=== PATIENT | female | born 1965 | race Caucasian/White ===

== ENCOUNTER 2019-03-30 08:43 | Outpatient (CLI) | payer OTHER, SELFPAY ==
--- NOTE | ~2019-03-30 | MM_ITS ---
EXAMINATION: MM screening [place] BI w cheng HISTORY: Screening TECHNIQUE: Craniocaudal and mediolateral oblique 3-D tomosynthesis images were obtained and synthetic 2-D images were generated. CAD analysis was submitted and interpreted. COMPARISON: 07/24/2017 bilateral digital screening mammogram BREAST PARENCHYMAL COMPOSITION: There are scattered areas of fibroglandular density. FINDINGS: There is no evidence of suspicious mass, calcification, or architectural distortion to sugg est malignancy in either breast. There has been no suspicious interval change. IMPRESSION: 1. No mammographic evidence of malignancy. 2. Recommend routine screening mammography in one year. BI-RADS Category 1: Negative Reviewed, dictated and finalized at location A. ON BRADDER
--- NOTE | ~2019-03-30 | DEXA_ITS ---
Bone Density Report Name: Kristy Rausch Age: 53 Sex: Female Ethnicity: White Date of : 1965 Indication: osteopenia; Referring Provider: Rito, [facility] Study: Bone densitometry was performed. Exam Date: March 30, 2019 Accession number: [id number] Bone Density: Region BMD T-score Z-score Classification AP Spine (L1, L2, L3) 0.797 -2.0 -1.0 Osteopenia Femoral Neck (Left) 0.676 -1.6 -0.5 Osteopenia Total Hip (Left) 0.801 -1.2 -0.5 Osteopenia Total Hip Bilateral Avg 0.808 -1.1 -0.5 Osteopenia Femoral Neck (Right) 0.637 -1.9 -0.9 Osteopenia Total Hip (Right) 0.814 -1.0 -0.4 Normal World Health Organization criteria for BMD impression classify patients as: Normal (T-score at or above -1.0), Osteopenia (T-score between -1.0 and -2.5), or Osteoporosis (T-score at or below -2.5). 10-year Fracture Risk(1): Major Osteoporotic Fracture 6.6% Hip Fracture 0.6% Reported Risk Factors: [place] (), Neck BMD=0.637, BMI=34.3 (1) FRAX(R) Version 3.08. Fracture probability calculated for an untreated patient. Fracture probability may be lower if the patient has received treatment. Previous Exams: Region Exam Age BMD T-score BMD Change BMD Change Date g/cm2 vs Baseline vs Previous AP Spine(L1, L2, L3) 03/30/2019 53 0.797 -2.0 -0.039(-4.7%)* -0.039(-4.7%)* 07/24/2017 51 0.836 -1.7 Total Hip(Left) 03/30/2019 53 0.801 -1.2 -0.047(-5.5%)* -0.047(-5.5%)* 07/24/2017 51 0.848 -0.8 Total Hip(Right) 03/30/2019 53 0.814 -1.0 -0.034(-4.0%)* -0.034(-4.0%)* 07/24/2017 51 0.848 -0.8 *Denotes significance at 95% confidence level, LSC for AP Spine = 0.022 g/cm2, LSC for Total Hip = 0.027 g/cm2 Clinical Information Provided by Patient: Patient maximum height was 64 Menopause Age: 48 No regular weight bearing exercise Does not regularly consume dairy products Drinks caffeinated beverages Onset of menses at age 11 Number of children 2 Impression: The patient has low bone mass, based on the Total Spine T-score. The patient has an estimated ten-year risk of hip fracture of 0.6% and an estimated ten-year risk of major fracture of 6.6%, based on the WHO FRAX algorithm. The BMD for the AP Spine(L1, L2, L3) decreased, changing by -4.7% since the last DXA exam. The BMD for the Total Hip(Left) decreased, changing by -5.5% since the last DXA exam. The BMD for the Total Hip(Right) decreased, changing by -4.0% since the last DXA exam. Dis
== END 2019-03-30 08:44 | disposition home or self-care (01) ==
LOC: ANHIMG 08:48
PROVIDERS: PCP Family Medicine; Visit Provider Family Medicine
DX: Z12.31 Encounter for screening mammogram for malignant neoplasm of breast (principal); N95.1 Menopausal and female climacteric states; M85.88 Other specified disorders of bone density and structure, other site; M85.852 Other specified disorders of bone density and structure, left thigh; M85.851 Other specified disorders of bone density and structure, right thigh
CPT/HCPCS: 77063; 77067; 77080

== ENCOUNTER 2019-09-22 15:02 | Outpatient (CLI) | payer OTHER, SELFPAY ==
--- NOTE | ~2019-09-22 | CT_ITS ---
EXAMINATION: CT abdomen pelvis wo con DATE: 09/22/2019 15:33 INDICATION: Hydronephrosis TECHNIQUE: Computed tomography (CT) of the abdomen and pelvis was performed without intravenous contr ast. Automated exposure control and iterative reconstruction technique were employed. Exam dose: 779 .55 mGy-cm total exam DLP. COMPARISON: 01/03/2011 CT renal scan FINDINGS: The lung bases are clear. Normal heart size. No pericardial or pleural effusion. The liver, gallbladder, bile ducts, spleen, pancreas, pancreatic duct, and adrenal glands are unremar kable. There are several nonobstructing left renal stones, including an approximately 5 mm nonobstructing up per pole left renal calculus, 5 mm nonobstructing lower pole left renal calculus and a pinpoint mid t o upper left renal calculus. No right urinary tract calculus. No left or right ureteral calculus or hydroureteronephrosis. The uri nary bladder is unremarkable. Approximately 3 cm left ovarian cystic lesion is noted. Evidence of bilateral tubal ligation. The [place] appears unremarkable. Normal caliber of the abdominal aorta. No intraperitoneal or retroperitoneal or pelvic mass lesion or adenopathy or ascites. There are diverticula of left and right colon; no CT evidence of diverticulitis. No bowel wall [place] or pneumatosis or intraperitoneal free air. Grade 2 anterolisthesis at L4-5 with posterior spinal fusion by pedicle screws and rods at L4-5. IMPRESSION: Nonobstructive left nephrolithiasis 3 cm nonspecific left ovarian cystic lesion; consider pelvic ultrasound correlation Status post bilateral tubal ligation Diverticulosis of the colon; no CT evidence of diverticulitis Status post posterior spinal fusion at L4-5 Grade 2 anterolisthesis at L4-5 Reviewed, dictated and finalized at Location A. Reviewed, dictated and finalized at location B. IMPRESSION: Nonobstructive left nephrolithiasis 3 cm nonspecific left ovarian cystic lesion; consider pelvic ultrasound correla tion Status post bilateral tubal ligation Diverticulosis of the colon; no CT evidence of diverticulitis Status post posterior spinal fusion at L4-5 Grade 2 anterolisthesis at L4-5
== END 2019-09-22 15:03 | disposition home or self-care (01) ==
PROVIDERS: PCP Family Medicine
DX: N20.0 Calculus of kidney (principal); N83.202 Unspecified ovarian cyst, left side; K57.30 Diverticulosis of large intestine without perforation or abscess without bleeding; Z98.1 Arthrodesis status
CPT/HCPCS: 74176

== ENCOUNTER 2019-10-19 10:42 | Outpatient (CLI) | payer OTHER, SELFPAY ==
[2019-10-19 12:18] LABS: Basophils Percent Auto 0.6 % (0.2-1.2); Eosinophils Absolute Auto 0.3 K/mm3 (0-0.3); Eosinophils Percent Auto 5.1 % (0-4.4); Hematocrit 35.2 % (37.0-47.0); Hemoglobin 11.8 g/dL (12.0-15.0); Immature Granulocyte Absolute 0.01 K/mm3 (0.00-0.031); Immature Granulocyte Percent A 0.2 % (0-0.5); Lymphocytes Percent Auto 46.8 % (18.3-44.2); Mean Corpuscular HGB Conc 33.5 g/dl (32-36); Mean Corpuscular Hemoglobin 32.3 pg (26-34); Mean Corpuscular Volume 96.4 fl (80-100); Mean Platelet Volume 9.6 fl (7.4-10.4); Monocytes Absolute Auto 0.5 K/mm3 (0.1-0.6); Neutrophils Absolute Auto 2.1 K/mm3 (1.3-6.7); Neutrophils Percent Auto 38.3 % (45.5-73.1); Platelet Count Result 202 k/mm3 (150-375); Red Blood Count 3.65 M/mm3 (4.2-5.4); Red Cell Distribution Width 12.5 % (11.5-14.5); White Blood Count 5.3 K/mm3 (4.5-10.0)
[2019-10-19 12:32] LABS: Anion Gap 7 mmol/L (8-16); Blood Urea Nitrogen 9 mg/dL (7-17); Calcium 9.3 mg/dL (8.4-10.2); Carbon Dioxide 27 mmol/L (22-30); Chloride 104 mmol/L (98-107); Estimated Glomerular Filt Rate > 60; Glucose 84 mg/dL (65-105); Potassium 4.2 mmol/L (3.4-5.0); Sodium 138 mmol/L (137-145)
[2019-10-19 12:37] LABS: Add Urine Microscopic? NO; Appearance Urine Clear (Clear); Bilirubin Urine Negative (Negative); Blood Urine Negative (Negative); Color Urine Yellow (Yellow); Glucose Urine UA Negative (Negative); Ketones Urine Negative (Negative); Leukocyte Esterase Ur Negative LEU/UL (NEGATIVE); Nitrate Urine Negative (Negative); Protein Urine Negative (Negative); Specific Grav Ur 1.017 (1.001-1.035); Urobilinogen Urine Negative mg/dL (<2.0)
== END 2019-10-19 10:43 | disposition home or self-care (01) ==
DX: N13.30 Unspecified hydronephrosis (principal); Z01.818 Encounter for other preprocedural examination
CPT/HCPCS: 36415; 80048; 81003; 85025; 87086

== ENCOUNTER 2020-04-02 12:51 | Emergency (ER) | payer OTHER, SELFPAY ==
--- NOTE | ~2020-04-02 | CT_ITS ---
EXAMINATION: CT abdomen pelvis w con DATE: 04/02/2020 14:35 INDICATION: Right flank pain. History of kidney stones. TECHNIQUE: Computed tomography (CT) of the abdomen and pelvis was performed with 100 cc Omnipaque 350 intravenous contrast. Automated exposure control and iterative reconstruction technique were employe d. Exam dose: 964.82 mGy-cm total exam DLP. COMPARISON: 09/22/[address] abdomen pelvis FINDINGS: Occasional stable very small nodular densities at the lung bases compared to 09/22/2019. The lung bases are clear of infiltrate or consolidation. Normal heart size. No pericardial or pleural effusion. The liver, gallbladder, bile ducts, spleen, pancreas, pancreatic duct and adrenal glands are unremark able. Several right renal cysts, the largest approximately 1.5 cm dimension. Several probable left renal cy st measuring up to approximately 8 mm maximal dimension. No urinary tract calculus or hydroureteronephrosis. There is atherosclerotic calcification of the abdominal aorta and at the origins of the renal arterie s. No abdominal aortic aneurysm. No intraperitoneal or retroperitoneal or pelvic mass lesion or adeno ann-marie or ascites. There is a small sliding hiatal hernia. Diverticulosis of left and right colon no CT evidence of diverticulitis. No bowel obstruction, bowel wall thickening, pneumatosis or intraperitoneal free air. The uterus and urinary bladder are unremarkable. Approximately 3.2 cm left ovarian cyst. Small fat-containing umbilical hernia. Status post posterior spinal fusion at L4-5. There is grade 2 anterolisthesis at L4-5. IMPRESSION: No urinary tract calculus or hydroureteronephrosis Small sliding hiatal hernia Diverticulosis of left and right colon Bilateral renal cysts 3.2 cm left ovarian cyst Reviewed, dictated and finalized at Location A. Reviewed, dictated and finalized at location A. LEADER
[2020-04-02 12:55] VITALS: BP 122/64; PULSE 81; RESP 20; TEMP 36.3; O2SAT 100
--- NOTE | 2020-04-02 13:12 | ED.ABDPAIN ---
HPI - Abdominal Pain General Chief Complaint: Abdominal Pain Stated Complaint: right flank pain Time Seen by Provider: 04/02/20 13:01 Source: patient Mode of arrival: ambulatory Limitations: no limitations History of Present Illness HPI narrative: A 54-year-old female comes into the emergency department today with complaints of right flank pain. Patient states that it does not radiate. She states that its been going on since yesterday and has escalated. Patient denies any associated symptoms including nausea, vomiting, fever or chills. She denies any radiation of the pain. Patient states that it is a sharp stabbing pain. She has been using a heating pad with minimal relief. Related Data Allergies Allergy/AdvReac Type Severity Reaction Status Date / Time Sulfa (Sulfonamide Allergy Mild Rash Verified 04/02/20 12:57 Antibiotics) morphine Allergy Unknown Nausea and Verified 04/02/20 12:57 Vomiting Review of Systems Review of Systems: Narrative: CONSTITUTIONAL: Denies fever, chills, or sweats. EYES: Denies visual changes, redness, or discharge. ENT: Denies rhinorrhea, congestion, sore throat, or otalgia. CARDIOVASCULAR: Denies chest pain, palpitations, or edema. RESPIRATORY: Denies cough or dyspnea. GASTROINTESTINAL: Denies abdominal pain, nausea, vomiting, or diarrhea. GENITOURINARY: Denies dysuria or hematuria. SKIN: Denies rash or itching. MUSCULOSKELETAL: Denies back pain, joint pain, or myalgia. NEUROLOGIC: Denies headache, numbness, dizziness, or weakness. PSYCHIATRIC: Denies anxiety or depression. [facility] Social History Social History Gender identity (if verbalized by the patient): Female Exam Narrative: Exam Narrative: GENERAL: Well-appearing, well-nourished, and in no acute distress. HEAD: Normocephalic, atraumatic. EYES: PERRLA and EOMI. ENT: Nares clear, no rhinorrhea or epistaxis. Mucous membranes moist. Oropharynx without tonsillar hypertrophy exudate or other lesions. Bilateral TMs [place] nonbulging NECK: Supple. No adenopathy or masses. No carotid bruits or JVD CHEST: Clear to auscultation. No respiratory distress. No wheezes rales or rhonchi HEART: Regular rate and rhythm. No murmur heard. Normal peripheral pulses. ABDOMEN: Soft, nontender, nondistended, normal active bowel sounds. TTP at the right lower ribs in the midaxillary line. EXTREMITIES: Normal range of motion. No edema. SKIN: Warm, dry, no rash. NEURO: No focal deficits. Alert and oriented x3. PSYCH: Normal mood and affect. Course Reevaluation(s) Reevaluation #1: Patient resting comfortably at this time. She states that her pain has improved but is definitely still there. Closer inspection does show pain specifically within the 10th or 11th ribs in the midaxillary line. Explained to the patient that I feel that this may be an intercostal spasm as her CT and blood work have been benign. We will treat patient with muscle relaxers and anti-inflammatories. Time: 14:59 Vital Signs Vital signs: Vital Signs Temperature 36.3 C L 04/02/20 12:55 Pulse Rate 81 04/02/20 12:55 Respiratory Rate 20 04/02/20 12:55 Blood Pressure 122/64 04/02/20 12:55 Pulse Oximetry 100 04/02/20 12:55 Temperature 36.3 C L 04/02/20 12:55 Pulse Rate 81 04/02/20 12:55 Respiratory Rate 20 04/02/20 12:55 Blood Pressure 122/64 04/02/20 12:55 Pulse Oximetry 100 04/02/20 12:55 MDM - Abdominal Pain MDM Narrative Medical decision making narrative: In brief this 54-year-old female came into the emergency department today with complaints of right flank pain. Initial suspicion was for biliary colic, other biliary issues or kidney stone. Patient CT did not demonstrate any findings. Closer examination showed tenderness within the intercostal ribs in the midaxillary line on the right. Feel the patient may be having intercostal muscular spasm. She did note that it did seem to get wo
[2020-04-02 13:26] LABS: Basophils Percent Auto 0.6 % (0.2-1.2); Eosinophils Absolute Auto 0.2 K/mm3 (0-0.3); Eosinophils Percent Auto 3.9 % (0-4.4); Hematocrit 35.9 % (37.0-47.0); Hemoglobin 12.1 g/dL (12.0-15.0); Immature Granulocyte Absolute 0.01 K/mm3 (0.00-0.031); Immature Granulocyte Percent A 0.2 % (0-0.5); Lymphocytes Absolute Auto 2.11 K/mm3 (0.9-3.2); Lymphocytes Percent Auto 43.2 % (18.3-44.2); Mean Corpuscular HGB Conc 33.7 g/dl (32-36); Mean Corpuscular Hemoglobin 32.3 pg (26-34); Mean Corpuscular Volume 95.7 fl (80-100); Monocytes Absolute Auto 0.4 K/mm3 (0.1-0.6); Neutrophils Absolute Auto 2.2 K/mm3 (1.3-6.7); Neutrophils Percent Auto 44.1 % (45.5-73.1); Platelet Count Result 192 k/mm3 (150-375); Red Blood Count 3.75 M/mm3 (4.2-5.4); Red Cell Distribution Width 12.7 % (11.5-14.5); White Blood Count 4.9 K/mm3 (4.5-10.0)
[2020-04-02 13:31] LABS: Add Urine Microscopic? NO; Appearance Urine Clear (Clear); Bacteria Urine 1+ /hpf; Bilirubin Urine Negative (Negative); Blood Urine Negative (Negative); Color Urine Straw (Yellow); Glucose Urine UA Negative (Negative); Ketones Urine Negative (Negative); Leukocyte Esterase Ur Negative LEU/UL (Negative); Mucus Urine Rare /lpf; Nitrate Urine Negative (Negative); Protein Urine Negative (Negative); RBC Urine 0-2 /hpf (0-2); Specific Grav Ur 1.011 (1.001-1.035); Squamous Epithelial Cell Urine Many /hpf (Few); Urobilinogen Urine Negative mg/dL (<2.0); WBC Urine 0-3 /hpf
[2020-04-02 13:38] LABS: Alanine Aminotransferase 24 U/L (4-35); Albumin Level 4.2 g/dL (3.5-5.1); Alkaline Phosphatase 91 U/L (38-126); Anion Gap 7 mmol/L (8-16); Aspartate Amino Transferase 29 U/L (14-36); Bilirubin,Total 0.5 mg/dL (0.2-1.3); Blood Urea Nitrogen 13 mg/dL (7-17); Calcium 9.7 mg/dL (8.4-10.2); Carbon Dioxide 29 mmol/L (22-30); Chloride 105 mmol/L (98-107); Estimated CRCL calculation 61 ml/min; Estimated Glomerular Filt Rate 58; Glucose 138 mg/dL (65-105); Lipase 46 U/L (23-300); Potassium 3.9 mmol/L (3.4-5.0); Sodium 141 mmol/L (137-145)
[2020-04-02] MEDS: HYDROcodone/acetaminophen (*CRX) 5-325 MG TABLET 1 TAB PO (13:42)
[2020-04-02] MEDS: ONDANSETRON INJ 4 MG/2 ML VIAL IV PUSH (13:43)
[2020-04-02] MEDS: KETOROLAC 15 MG/ML VIAL (*BKC) IV PUSH (13:43)
== END 2020-04-02 15:38 | disposition home or self-care (01) ==
PROVIDERS: General Practice; Emergency Provider Emergency Medicine; PCP Family Medicine
DX: R07.82 Intercostal pain (principal); N83.202 Unspecified ovarian cyst, left side; N28.1 Cyst of kidney, acquired; K44.9 Diaphragmatic hernia without obstruction or gangrene
CPT/HCPCS: 36415; 74177; 80053; 81003; 81025; 83690; 85025; 96374; 96375; 99284; A9270; J1885; J2405; Q9967

== ENCOUNTER 2020-05-17 08:47 | Outpatient (CLI) | payer OTHER, SELFPAY ==
--- NOTE | ~2020-05-17 | MM_ITS ---
EXAMINATION: MM screening [place] BI w [facility]heng HISTORY: Screening mammogram TECHNIQUE: Craniocaudal and mediolateral oblique 3-D tomosynthesis images were obtained and synthetic 2-D images were generated. CAD analysis was submitted and interpreted. COMPARISON: 03/30/2019, 07/24/2017 BREAST PARENCHYMAL COMPOSITION: There are scattered areas of fibroglandular density. FINDINGS: There is no evidence of suspicious mass, calcification, or architectural distortion to sugg est malignancy in either breast. There has been no suspicious interval change. IMPRESSION: 1. No mammographic evidence of malignancy. 2. Recommend routine screening mammography in one year. BI-RADS Category 1: Negative Reviewed, dictated and finalized at location A.
== END 2020-05-17 08:48 | disposition home or self-care (01) ==
LOC: ANHIMG 08:51
PROVIDERS: PCP Family Medicine; Visit Provider Family Medicine
DX: Z12.31 Encounter for screening mammogram for malignant neoplasm of breast (principal)
CPT/HCPCS: 77063; 77067

== ENCOUNTER 2020-06-01 09:46 | Outpatient (CLI) | payer OTHER, SELFPAY | END 2020-06-01 09:47 | disposition home or self-care (01) | LOC: ANHCOVIDVC 09:46 | PROVIDERS: PCP Family Medicine | DX: Z23 Encounter for immunization (principal) | CPT/HCPCS: 0001A; 91300 ==

== ENCOUNTER 2020-06-27 13:12 | Outpatient (CLI) | payer OTHER, SELFPAY | END 2020-06-27 13:13 | disposition home or self-care (01) | LOC: ANHCOVIDVC 13:12 | PROVIDERS: PCP Family Medicine | DX: Z23 Encounter for immunization (principal) | CPT/HCPCS: 0002A; 91300 ==

== ENCOUNTER 2020-09-04 08:00 | Outpatient (CLI) | payer OTHER, SELFPAY ==
[2020-09-04 08:50] LABS: Basophils Percent Auto 0.9 % (0.2-1.2); Eosinophils Absolute Auto 0.2 K/mm3 (0-0.3); Eosinophils Percent Auto 3.3 % (0-4.4); Hematocrit 39.9 % (37.0-47.0); Hemoglobin 12.6 g/dL (12.0-15.0); Immature Granulocyte Absolute 0.01 K/mm3 (0.00-0.031); Immature Granulocyte Percent A 0.2 % (0-0.5); Lymphocytes Percent Auto 43.8 % (18.3-44.2); Mean Corpuscular HGB Conc 31.6 g/dl (32-36); Mean Corpuscular Hemoglobin 31.7 pg (26-34); Mean Corpuscular Volume 100.3 fl (80-100); Mean Platelet Volume 10.2 fl (7.4-10.4); Monocytes Absolute Auto 0.5 K/mm3 (0.1-0.6); Monocytes Percent Auto 10.5 % (2.6-8.5); Neutrophils Absolute Auto 1.9 K/mm3 (1.3-6.7); Neutrophils Percent Auto 41.3 % (45.5-73.1); Platelet Count Result 198 k/mm3 (150-375); Red Blood Count 3.98 M/mm3 (4.2-5.4); Red Cell Distribution Width 12.7 % (11.5-14.5); White Blood Count 4.6 K/mm3 (4.5-10.0)
[2020-09-04 08:57] LABS: Cholesterol 140 mg/dL (0-200); HDL Direct 36 mg/dL; Triglycerides 122 mg/dL (<150)
[2020-09-04 09:08] LABS: LDL Cholesterol Direct 70 mg/dL
== END 2020-09-04 08:01 | disposition home or self-care (01) ==
LOC: ANHLAB 08:03
PROVIDERS: PCP Family Medicine; Visit Provider Family Medicine
DX: E11.9 Type 2 diabetes mellitus without complications (principal); E78.5 Hyperlipidemia, unspecified; D64.9 Anemia, unspecified
CPT/HCPCS: 36415; 80061; 83036; 85025

== ENCOUNTER 2020-09-12 08:29 | Outpatient (CLI) | payer OTHER, SELFPAY ==
--- NOTE | ~2020-09-12 | XR_ITS ---
EXAMINATION: XR hand LT min 3V INDICATION: Left fifth finger fracture follow-up TECHNIQUE: Three views of the left hand are obtained. COMPARISON: None available FINDINGS: No definite fracture or periosteal reaction are identified. There is mild osteoarthritis of multiple interphalangeal joints. Bone alignment is normal. The soft tissues are unremarkable. IMPRESSION: 1. No definite acute or healing fracture identified. Reviewed, dictated and finalized at location A.
== END 2020-09-12 08:30 | disposition home or self-care (01) ==
LOC: ANHIMG 08:33
PROVIDERS: PCP Family Medicine; Visit Provider Family Medicine
DX: M79.642 Pain in left hand (principal)
CPT/HCPCS: 73130

== ENCOUNTER 2021-05-22 08:16 | Outpatient (CLI) | payer OTHER, SELFPAY ==
--- NOTE | ~2021-05-22 | MR_ITS ---
EXAMINATION: MR wrist LT wo con DATE: 05/22/2021 09:34 INDICATION: Left wrist pain TECHNIQUE: Magnetic resonance imaging (MRI) of the left wrist was performed without intravenous contr ast. Sequences performed include axial PD-weighted FSE and PD-weighted FS FSE, coronal PD-weighted FS FSE and T1-weighted SE, and sagittal PD-weighted FS FSE and PD-weighted FSE. COMPARISON: None FINDINGS: Intrinsic ligaments: The scapholunate and lunotriquetral ligaments are normal. Triangular fibrocartilage complex (TFCC): Linear increased signal consistent with tear involving the central fiber cartilaginous portion of the triangular fibrocartilage complex. The radial, foveal and ulnar styloid attachments of the triangula r fibrocartilage complex as well as the dorsal and volar radioulnar ligaments are normal. The ulnar c ollateral ligament, ulnotriquetral ligament and meniscal homologue are normal. The extensor carpi uln conchita tendon sheath is normal. Extensor wrist: Extensor tendons of the wrist are normal. No tenosynovitis. Flexor wrist: The flexor tendons of the wrist are normal. No abnormality in the carpal tunnel with normal median n erve. Guyon's canal: Guyon's canal including the ulnar nerve and artery are normal. Bones/other: Bone alignment is normal. No fracture, erosions, avascular necrosis or pathologic marrow replacing pr ocess. Mild osteoarthritis at the triscaphe joint with deep chondral ulceration with mild underlying subarticular edema-like marrow signal change at the distal pole of the scaphoid. Mild osteoarthritis at the first carpometacarpal joint with small ossicle at the palmar aspect of the joint space. Multil oculated ganglion cyst along the ulnar side of the pisiform which measures 8 x 4 x 6 mm and immediate ly underlies the marker indicating the region of concern. There are a couple additional ganglion cyst s measuring 8 x 5 x 3 mm along the proximal margin of the pisiform and 7 x 6 x 4 mm along the distal margin of the pisiform. All appear to arise from the pisotriquetral articulation. IMPRESSION: 1. Small tear of the central fibrocartilaginous disc of the triangular fiber cartilage complex. 2. Mild osteoarthritis of the left triscaphe and first carpal metacarpal joints. 3. 3 small ganglion cysts arising from the pisotriquetral articulation positioned along the proximal, distal and ulnar margins of the pisiform. Reviewed, dictated and finalized at location B. IMPRESSION: 1. Small tear of the central fibrocartilaginous disc of the triangular fiber ca rtilage complex. 2. Mild osteoarthritis of the left triscaphe and first carpal metacarpal joints . 3. 3 small ganglion cysts arising from the pisotriquetral articulation position ed along the proximal, distal and ulnar margins of the pisiform.
== END 2021-05-22 08:17 | disposition home or self-care (01) ==
PROVIDERS: PCP Family Medicine; Visit Provider Orthopaedic Surgery Hand Surgery
DX: M19.032 Primary osteoarthritis, left wrist (principal)
CPT/HCPCS: 73221

== ENCOUNTER 2021-07-03 09:06 | Outpatient (CLI) | payer OTHER, SELFPAY ==
--- NOTE | ~2021-07-03 | MR_ITS ---
EXAMINATION: MR knee RT wo con DATE: 07/03/2021 09:46 INDICATION: Right knee pain TECHNIQUE: Magnetic resonance imaging (MRI) of the right knee was performed without intravenous contr ast. Sequences included coronal PD-weighted FSE, coronal PD-weighted FS FSE, sagittal T2-weighted FS E, sagittal PD-weighted FS FSE and axial PD weighted fat saturated FSE. COMPARISON: None. FINDINGS: Medial compartment: Complex tear of the body and posterior horn of the medial meniscus both which appear smaller than typ ical consistent with some loss of meniscal tissue. The tear includes a radial tear plane at the junct ion of the posterior horn and posterior body with additional tear planes extending longitudinally fro m either side of the radial tear into the posterior horn and body extensive partial thickness cartila ge loss along the anteromedial aspect of the medial tibial plateau and anterior to central weightbear ing medial femoral condyle. More focal full/near full-thickness chondral ulceration with underlying c ortical irregularity and subarticular edema-like marrow signal change along the anterior weightbearin g medial femoral condyle. Lateral compartment: Lateral meniscus is normal. Progression chondral swelling along the anterior weightbearing lateral fe moral condyle with focal chondral fissuring involving approximately 50% the cartilage thickness at th e junction of the anterior to central weightbearing lateral femoral condyle. Additional for near full -thickness chondral fissuring without degenerative subchondral changes at the medial aspect of the la teral tibial plateau. Patellofemoral compartment: Partial-thickness chondral ulceration involving greater than 50% the cartilage thickness along the me dial side of the lateral patellar facet. Full/near full-thickness chondral fissuring without degenera tive subchondral changes at the lateral aspect of the lateral patellar facet and at the medial facet. Shallow chondral ulceration along the trochlear groove and lateral trochlea with deeper fissuring wi thout degenerative subchondral changes at the inferior aspect of the lateral trochlea. Ligaments and tendons: Mild hypertrophic osteophyte at the femoral origin of the otherwise normal anterior cruciate ligament . The posterior cruciate ligament is normal. Mild thickening and mild increased signal at both the pr oximal medial and fibular collateral ligaments without surrounding edema consistent with mild scarrin g related to chronic sprain. The extensor mechanism is normal. The visualized medial and lateral ham string tendons as well as the iliotibial band are normal. Fluid: Minimal right knee joint effusion. No loose osteochondral bodies identified. Moderate-sized Balderrama's c yst measuring 6.1 cm in length and 2.0 x 1.3 cm in maximal orthogonal dimensions. Osseous/other: Mild cystic change with minimal surrounding edema in the proximal tibia near the tibial insertion of both the posterior cruciate ligament and posterior root of the medial meniscus. No fracture or pathol ogic marrow replacing process. IMPRESSION: 1. Complex tear of the medial meniscus. 2. 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 3. Mild scarring consistent with chronic sprains of the proximal medial and fibular collateral ligame nts. 4. Moderate-sized Balderrama's cyst. Reviewed, dictated and finalized at location A. IMPRESSION: 1. Complex tear of the medial meniscus. 2. 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
== END 2021-07-03 09:07 | disposition home or self-care (01) ==
PROVIDERS: PCP Family Medicine; Visit Provider Nurse Practitioner
DX: S83.231A Complex tear of medial meniscus, current injury, right knee, initial encounter (principal); X58.XXXA Exposure to other specified factors, initial encounter; M71.21 Synovial cyst of popliteal space [Baker], right knee; M17.11 Unilateral primary osteoarthritis, right knee
CPT/HCPCS: 73721

== ENCOUNTER 2021-07-30 10:19 | Outpatient (CLI) | payer OTHER, SELFPAY ==
--- NOTE | ~2021-07-30 | MM_ITS ---
EXAMINATION: MM screening [facility] BI w cheng HISTORY: Screening TECHNIQUE: Craniocaudal and mediolateral oblique 3-D tomosynthesis images were obtained and synthetic 2-D images were generated. CAD analysis was submitted and interpreted. COMPARISON: Comparison to multiple prior studies sequentially, with oldest reviewed study dated 08/2017. BREAST PARENCHYMAL COMPOSITION: There are scattered areas of fibroglandular density. FINDINGS: There is no evidence of suspicious mass, calcification, or architectural distortion to sugg est malignancy in either breast. There has been no suspicious interval change. IMPRESSION: 1. No mammographic evidence of malignancy. 2. Recommend routine screening mammography in one year. BI-RADS Category 1: Negative Reviewed, dictated and finalized at location A.
== END 2021-07-30 10:20 | disposition home or self-care (01) ==
PROVIDERS: PCP Family Medicine; Visit Provider Family Medicine
DX: Z12.31 Encounter for screening mammogram for malignant neoplasm of breast (principal)
CPT/HCPCS: 77063; 77067

== ENCOUNTER 2021-08-15 10:34 | Outpatient (CLI) | payer OTHER, SELFPAY ==
[2021-08-15 11:17] LABS: Hematocrit 39.6 % (37.0-47.0); Hemoglobin 12.7 g/dL (12.0-15.0)
[2021-08-15 11:20] LABS: Anion Gap 8 mmol/L (8-16); Blood Urea Nitrogen 15 mg/dL (7-17); Calcium 9.2 mg/dL (8.4-10.2); Carbon Dioxide 27 mmol/L (22-30); Chloride 107 mmol/L (98-107); Estimated Glomerular Filt Rate > 60; Glucose 129 mg/dL (65-110); Sodium 142 mmol/L (137-145)
== END 2021-08-15 10:35 | disposition home or self-care (01) ==
LOC: ANHSURGERY 10:40
PROVIDERS: Anesthesiology; PCP Family Medicine; Visit Provider Obstetrics & Gynecology
DX: Z01.812 Encounter for preprocedural laboratory examination (principal); R87.619 Unspecified abnormal cytological findings in specimens from cervix uteri; E11.9 Type 2 diabetes mellitus without complications
CPT/HCPCS: 36415; 80048; 85014; 85018

== ENCOUNTER 2021-08-17 02:48 | Day surgery (SDC) | payer OTHER, SELFPAY ==
[2021-08-14 15:12] VITALS: BMI 34.0
--- NOTE | 2021-08-14 15:19 | PC.NURSE ---
Report to the Outpatient Waiting Room, entrance under the green pavilion located off [facility], at time __0945_ on date _08/17/21. OR Time: __1145_. - You and your visitor will be asked a series of questions to screen for COVID 19 for your protection. - Only one visitor is allowed at this time. - The patient visitor is requested to leave or wait in car when not with patient. - A mask is required within the hospital. Patients may have clear liquids (water, carbonated beverages, clear teas, apple juice) until 3 hours prior to surgery with a maximum of 20 ounces. - No food from midnight until time of surgery - Infants may have breast milk until 4 hours before surgery, formula 6 hours prior to surgery. - Children will be allowed to drink immediately following surgery. If applicable, please bring a bottle or sippy cup to assist with drinking. Juice, water, soda, and popsicles are readily available. For infants on formula, please bring formula the day of surgery. Pacifiers are allowed. Take the following medications with a SIP of water the morning of surgery: NONE Medications to discontinue per physician VITAMINS/SUPPLIMENTS Date to take last dose 08/17/21 Please no make-up, nail [place], hairspray, perfume, deodorant, or body powder the day of surgery. No jewelry (including any body piercings) or valuables the day of surgery, leave them at home. Please take a shower or bath the night before, or the morning of, surgery with an antibacterial soap. Wear comfortable, loose fitting clothing. Children are encouraged to wear pajamas. - Jewelry must be removed prior to entering the operating room. Rings and piercings that are not removed may be cut off. - The hospital will not accept responsibility for valuables. - Please leave all valuables, including medications, at home the day of surgery. If you are going home after surgery, a licensed services delivery driver must drive you home. - NO public transportation without another adult. - We recommend that an adult stay with you for 24 hours following discharge. - We also recommend that you do not drive, make important decision, drink alcoholic beverages, or take any drugs that were not prescribed by your health care provider for at least 24 hours after your discharge time. For Pediatric surgeries, we recommend two adults accompany the child home (only one inside the building at this time). Follow any additional instructions given to you from your surgeon. If you or anyone in your household have experienced Covid symptoms in the past week, please notify your surgeon or the nurse liaison at the phone number below for possible testing. Telephone instructions given to ___PATIENT and asked if any additional questions and then verbalized understanding. Patient advised to call surgeon office or pre surgery nurse liaison [phone] if any additional questions.
--- NOTE | 2021-08-15 07:17 | P.HP_ITS ---
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 She is admitted for a LEEP procedure. Risks and benefits were reviewed in great detail. She had all questions answered. She received the ACOG handout on abnormal Pap smears. She asked to proceed PMFSH Past Medical History Medical History Anemia Anxiety Degenerative arthritis of knee, bilateral Depression Diabetes Fingers fractured Gout Screening mammogram, encounter for Sleep disorder cannot sleep at night Surgical History Surgical History History of appendectomy 1969 History of back surgery [id number] History of elbow surgery 06/01/15 repair elbow w/ renae open History of lithotripsy extracorporeal shockwave lithotripsy (ESWL) History of tubal ligation 1998 Hx of cholecystectomy Family History Family History Father Heart disease Mother Cancer Diabetes mellitus Hypertension Cerebrovascular accident Social History Social History Smoking packs per day: 0.45 Smoking cigarettes per day: 9.0 Years smoked: 35 Smoking pack-years: 15.75 Smoking status: Former smoker Smoking end date: 02/17/17 Alcohol intake: current Alcohol use details: 1 DRINK A MONTH Substance use: never Substance use type: does not use Additional living arrangements comments: daughter Additional occupation/education comments: [employer] Gender identity (if verbalized by the patient): Female Sexual Orientation (if Verbalized by the Patient): Straight or Heterosexual Meds Home Medications and Allergies Home Medications Medication Instructions Recorded Confirmed Type ibuprofen 800 mg tablet 800 mg PO Q6H PRN pain #30 tabs 04/02/20 08/14/21 Rx allopurinol 100 mg tablet 100 mg PO DAILY 04/05/21 08/14/21 History atorvastatin 20 mg tablet 20 mg PO DAILY 04/05/21 08/14/21 History empagliflozin 10 mg tablet 10 mg PO DAILY 04/05/21 08/14/21 History (Jardiance) ascorbate calcium (vitamin C) 500 500 mg PO DAILY 05/03/21 08/14/21 History mg tablet cholecalciferol (vitamin D3) 10 10 mcg PO DAILY 05/03/21 08/14/21 History mcg (400 unit) capsule meloxicam 7.5 mg tablet 7.5 mg PO DAILY PRN Pain 08/14/21 08/14/21 History Allergies Allergy/AdvReac Type Severity Reaction Status Date / Time phentermine Allergy Intermediate Rash Verified 07/12/21 08:49 Sulfa (Sulfonamide Allergy Mild Rash Verified 07/12/21 08:49 Antibiotics) morphine Allergy Unknown Nausea and Verified 07/12/21 08:49 Vomiting Assessment and Plan Assessment and plan (1) 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
--- NOTE | 2021-08-17 06:46 | WPDHPUPDATE1 ---
History and Physical Update Update Date/Time: 08/17/21 06:46 History and Physical has been reviewed, including an updated exam of the patient. There are NO changes in the patient's condition. Risks, benefits, and alternatives have been discussed and questions answered. Patient agrees to proceed with procedure.
[2021-08-17 09:49] VITALS: BP 111/67; PULSE 73; RESP 16; TEMP 36.7; O2SAT 98
[2021-08-17] MEDS: ACETAMINOPHEN 500 MG TABLET 1000 MG PO (09:58)
[2021-08-17] MEDS: LACTATED RINGERS 1,000 ML 30 ML IV CONT (10:07)
--- NOTE | 2021-08-17 10:21 | WPDANESEPPF ---
Anes - Initial Pre Proc Eval Procedure: Operation Date: 08/17/21 11:45 Proposed Procedures p Loop Electrical Excision Procedure with Top Hat - Garcia Evans MD Date/Time: 08/17/21 10:21 Surgeon: Garcia Evans MD Pre Op Diagnosis: High Grade Squamous Intraepithelial Patient Data Age: 55 Gender: F Height: 1.63 m Weight: 92 kg Last Vital Signs Temp 36.7 C 08/17/21 09:49 Pulse 73 08/17/21 09:49 Resp 16 08/17/21 09:49 BP 111/67 08/17/21 09:49 Pulse Ox 98 08/17/21 09:49 O2 Del Method Room Air 08/17/21 09:49 Allergies Allergy/AdvReac Type Severity Reaction Status Date / Time phentermine Allergy Intermediate Rash Verified 08/17/21 09:51 Sulfa (Sulfonamide Allergy Mild Rash Verified 08/17/21 09:51 Antibiotics) morphine Allergy Unknown Nausea and Verified 08/17/21 09:51 Vomiting Home Medications Medication Instructions Recorded Confirmed Type ibuprofen 800 mg tablet 800 mg PO Q6H PRN pain #30 tabs 04/02/20 08/14/21 Rx allopurinol 100 mg tablet 100 mg PO DAILY 04/05/21 08/17/21 History atorvastatin 20 mg tablet 20 mg PO DAILY 04/05/21 08/17/21 History empagliflozin 10 mg tablet 10 mg PO DAILY 04/05/21 08/17/21 History (Jardiance) ascorbate calcium (vitamin C) 500 500 mg PO DAILY 05/03/21 08/17/21 History mg tablet cholecalciferol (vitamin D3) 10 10 mcg PO DAILY 05/03/21 08/17/21 History mcg (400 unit) capsule meloxicam 7.5 mg tablet 7.5 mg PO DAILY PRN Pain 08/14/21 08/14/21 History Patient hx anesthesia problems: none Family hx anesthesia problems: none Results Review: All pre-operative results and documents have been reviewed as part of the pre-operative evaluation. [facility] Past Medical History Medical History Anemia Anxiety Degenerative arthritis of knee, bilateral Depression Diabetes Fingers fractured Gout Screening mammogram, encounter for Sleep disorder cannot sleep at night Surgical History Surgical History History of appendectomy 1969 History of back surgery [id number] History of elbow surgery 06/01/15 repair elbow w/ renae open History of lithotripsy extracorporeal shockwave lithotripsy (ESWL) History of tubal ligation 1998 Hx of cholecystectomy Family History Family History Father Heart disease Mother Cancer Diabetes mellitus Hypertension Cerebrovascular accident Social History Social History Smoking packs per day: 0.45 Smoking cigarettes per day: 9.0 Years smoked: 35 Smoking pack-years: 15.75 Smoking status: Former smoker Smoking end date: 02/17/17 Alcohol intake: current Alcohol use details: 1 DRINK A MONTH Substance use: never Substance use type: does not use Living arrangements: alone Additional living arrangements comments: daughter Additional occupation/education comments: [employer] Gender identity (if verbalized by the patient): Female Sexual Orientation (if Verbalized by the Patient): Straight or Heterosexual Anes - Eval Final PreProcedure Day of Procedure 08/17/21 10:21 Patient weight: obese Heart: regular rate and rhythm Lungs: clear to auscultation Airway: Mallampati scale class II Neurological: alert and oriented Last oral intake: >/= 8 hours ASA classification: II Emergent: no Anesthetic plan: proceed Anesthesia type and monitoring: general GIVS Results Review: All pre-operative results and documents have been reviewed as part of the pre-operative evaluation. Informed Consent: The patient's anesthetic plan and its attendant risks and benefits were discussed with the patient/family/POA. Questions were solicited and answers provided to the satisfaction of the patient/family/POA.
[2021-08-17 10:32] LABS: Glucose Point of Care 99 mg/dl (65-105)
--- NOTE | 2021-08-17 11:27 | W.PM.PROC2 ---
Procedure Note - Detailed Date of Procedure 08/17/21 Pre-op Diagnosis High Grade Squamous Intraepithelial Post-op Diagnosis Same Procedure Performed LEEP procedure with top hat Surgeon Garcia Evans MD Anesthesia MAC and Local Indications This is a 55-year-old with high-grade TEVIN on Pap and none concordant colposcopic findings Findings Normal-appearing cervix Description of Procedure Patient was prepped draped in normal sterile fashion placed in the dorsal lithotomy position. Under excellent IV sedation weighted speculum placed posterior fornix vagina. Anterior lip of the cervix grasped with a single-tooth tenaculum. 3cc of 1% xylocaine anesthesia was distributed throughout the transformation zone. Next using a combination of 50 50 on cut blend the LEEP procedure was used to remove transformation zone incomplete in its entirety. Top-hat was used for a 2nd specimen. This was then cauterized with ball cautery at 50 w per 2nd. Blood loss was estimated 5cc. All sponge, needle, instrument counts correct. There were no immediate complications Estimated Blood Loss 5 Drains No Packing No Pathology Yes Complications No immediate complications Condition Stable Disposition PACU
[2021-08-17 11:29] VITALS: BP 92/47; PULSE 72; RESP 16; O2SAT 92
[2021-08-17 11:37] LABS: Glucose Point of Care 91 mg/dl (65-105)
[2021-08-17 11:59] VITALS: BP 104/56; PULSE 67; RESP 16; O2SAT 95
[2021-08-17 12:29] VITALS: BP 108/58; PULSE 60; RESP 16
--- NOTE | 2021-08-17 12:50 | SUR.PHASEII ---
PT C/O SLIGHT HEAD ACHE NEURO GROSSLY INTACT AND IMPROVED WITH FLUID INTAKE
== END 2021-08-17 12:45 | disposition home or self-care (01) ==
PROVIDERS: PCP Family Medicine; Visit Provider Obstetrics & Gynecology
PROC: 0UBC7ZZ Excision of Cervix, Via Natural or Artificial Opening (ICD-10-PCS; CPT 57522; principal; 2021-08-17 11:45)
DX: R87.69 Abnormal cytological findings in specimens from other female genital organs (principal); E11.9 Type 2 diabetes mellitus without complications; M10.9 Gout, unspecified; Z79.84 Long term (current) use of oral hypoglycemic drugs
CPT/HCPCS: 57522; 82948; 88307; 88342; A9270; J2250; J2704; J3010; J7120

== ENCOUNTER 2022-01-11 11:29 | Outpatient (CLI) | payer OTHER, SELFPAY ==
--- NOTE | ~2022-01-11 | MR_ITS ---
EXAMINATION: MR knee LT wo con DATE: 01/11/2022 12:05 INDICATION: Left knee pain. TECHNIQUE: Magnetic resonance imaging (MRI) of the left knee was performed without intravenous contra st. Sequences included axial PD-weighted FS FSE, coronal PD-weighted FSE and PD-weighted FS FSE, sagi ttal PD-weighted FSE, and sagittal T2-weighted FS FSE. COMPARISON: Left knee radiographs 11/21/2021 FINDINGS: Medial compartment: There is a complex tear involving body and posterior horn of medial meniscus. There is full-thickness cartilage loss of tibial condyle anteromedially with moderate subchondral edema-like marrow signal i ntensity. There is extensive partial thickness cartilage loss of femoral condyle, deep at the central articular surface where there is a subchondral insufficiency fracture deformity with 1 mm cortical d epression, subchondral cysts, and edema-like marrow signal intensity. Osteophytes are noted. Lateral compartment: Lateral meniscus is normal. There is cartilage surface irregularity of tibial condyle and femoral con dyle. Osteophytes are noted. Patellofemoral compartment: There is shallow partial-thickness cartilage loss of patellar lateral facet. There is shallow partial -thickness cartilage loss of trochlea. Osteophytes are noted. Ligaments and tendons: The anterior and posterior cruciate ligaments are normal. There are changes of prior sprains of media l collateral ligament and fibular collateral ligament characterized by thickening and increased signa l intensity. There is mild patellar tendinopathy. Fluid: There is a small knee joint effusion. There is trace fluid in a Balderrama's cyst. There is mild prepatell ar and superficial infrapatellar bursitis. Osseous/other: There is a 10 mm lesion of increased T2-weighted signal intensity in distal femoral metaphysis, likel y benign. IMPRESSION: 1. Severe chondrosis of medial compartment with insufficiency fracture deformity of central articular surface of femoral condyle, likely subacute or chronic. 2. Mild chondrosis of lateral and patellofemoral compartments. 3. Complex tear of medial meniscus. 4. Small knee joint effusion. Reviewed, dictated and finalized at location A. CH AND PROSIZE MIXER IMPRESSION: 1. Severe chondrosis of medial compartment with insufficiency fracture deformit y of central articular surface of femoral condyle, likely subacute or chronic. 2. Mild chondrosis of lateral and patellofemoral compartments. 3. Complex tear of medial meniscus. 4. Small knee joint effusion.
== END 2022-01-11 11:30 | disposition home or self-care (01) ==
PROVIDERS: PCP Family Medicine; Visit Provider Nurse Practitioner
DX: M25.562 Pain in left knee (principal); M22.2X2 Patellofemoral disorders, left knee; M84.452A Pathological fracture, left femur, initial encounter for fracture; S83.232A Complex tear of medial meniscus, current injury, left knee, initial encounter; M25.462 Effusion, left knee
CPT/HCPCS: 73721

== ENCOUNTER 2022-01-30 09:54 | Outpatient (CLI) | payer OTHER, SELFPAY ==
--- NOTE | ~2022-01-30 | US_ITS ---
EXAMINATION: US retroperitoneal comp DATE: 01/30/2022 10:25 INDICATION: Right flank pain TECHNIQUE: Multiple grayscale and Doppler ultrasound images of the kidneys were obtained. COMPARISON: CT, 04/02/2020 FINDINGS: The right kidney measures 12.9 x 5.2 x 5.1 cm and contains a 1.6 cm cyst. The left kidney m easures 11.3 x 5.2 x 6.4 cm. The kidneys demonstrate normal parenchymal echogenicity. There is no hyd ronephrosis. The bladder is normal. IMPRESSION: 1. Unremarkable kidneys without hydronephrosis. Reviewed, dictated and finalized at location A. LACER
== END 2022-01-30 09:55 | disposition home or self-care (01) ==
PROVIDERS: PCP Family Medicine; Visit Provider Nurse Practitioner
DX: R10.9 Unspecified abdominal pain (principal)
CPT/HCPCS: 76770

== ENCOUNTER 2022-03-07 07:33 | Outpatient (CLI) | payer OTHER, SELFPAY ==
--- NOTE | ~2022-03-07 | XR_ITS ---
Clinical Indication: Chest pain PA and lateral views of the chest: Comparison: None Findings: The lungs are clear, without evidence of focal consolidation or pleural effusion. Cardiome diastinal silhouette is within normal limits. Bones and soft tissues are unremarkable. Impression: Normal chest. Reviewed, dictated and finalized at location . MOBILE DESIGNER Impression: Normal chest.
--- NOTE | 2022-03-07 09:09 | ECG_ITS ---
Measurements Intervals [place] Rate: 68 P: -4 SC: 160 QRS: 5 QRSD: 101 T: -2 QT: 396 QTc: 422 Interpretive Statements SINUS RHYTHM BORDERLINE T WAVE ABNORMALITY- INFERIOR LEADS BASELINE ARTIFACT- I, II, III, AVR, AVL, AVF BORDERLINE ECG NO PREVIOUS ECG AVAILABLE FOR COMPARISON Electronically Signed On 03-07-2022 9:47:51 TRANSLATOR INTERPRETER by David Nails D.O.
[2022-03-07 10:14] LABS: Prothrombin Time 12.3 Seconds (11.1-14.7)
[2022-03-07 10:15] LABS: Partial Thromboplastin Time 49.7 SECONDS (22.3-36.8)
[2022-03-07 11:37] LABS: Urine Cotinine NEGATIVE
== END 2022-03-07 07:34 | disposition home or self-care (01) ==
LOC: ANHSURGERY 07:36
PROVIDERS: PCP Family Medicine; Visit Provider Orthopaedic Surgery
DX: M17.12 Unilateral primary osteoarthritis, left knee (principal); Z01.818 Encounter for other preprocedural examination; R94.31 Abnormal electrocardiogram [ECG] [EKG]
CPT/HCPCS: 71046; 80307; 85610; 85730; 86850; 86900; 86901; 87081; 93005

== ENCOUNTER 2022-03-19 15:39 | Observation (INO) | payer MEDICARE, OTHER, SELFPAY ==
[2022-03-07 08:00] VITALS: BMI 35.5
--- NOTE | 2022-03-07 08:36 | PC.NURSE ---
Report to the Outpatient Waiting Room, entrance under the green pavilion located off [address], at time _0900 on date __03/18/22 . Planned Procedure Time: __1100 . Time changes happen often and if your time is changed the preop area will call you the afternoon before. - You and your visitor will be asked to self-screen and do not enter if you have any COVID symptoms. - Only one visitor is requested with a max of two and NO children visitors are allowed at this time. - The patient visitor may be requested to leave or wait in car when not with patient due to distancing restrictions. - A mask is optional within the hospital. Patients may have clear liquids (water, carbonated beverages, clear teas, apple juice) until 3 hours prior to surgery with a maximum of 20 ounces. - No food from midnight until time of surgery - Infants may have breast milk until 4 hours before surgery, formula 6 hours prior to surgery. - Children will be allowed to drink immediately following surgery. If applicable, please bring a bottle or sippy cup to assist with drinking. Juice, water, soda, and popsicles are readily available. For infants on formula, please bring formula the day of surgery. Pacifiers are allowed. Take the following medications with a SIP of water the morning of surgery: __NONE Medications to discontinue per physician ALL VITAMINS AND SUPPLEMENTS 3 DAYS PRE OP LAST DOSE 03/14/22 Please no make-up, nail russian, hairspray, perfume, deodorant, or body powder the day of surgery. No jewelry (including any body piercings) or valuables the day of surgery, leave them at home. Please take a shower or bath the night before, or the morning of, surgery with an antibacterial soap. Wear comfortable, loose fitting clothing. Children are encouraged to wear pajamas. - Jewelry must be removed prior to entering the operating room. Rings and piercings that are not removed may be cut off. - The hospital will not accept responsibility for valuables. - Please leave all valuables, including medications, at home the day of surgery. If you are going home after surgery, a licensed transit bus driver must drive you home. - NO public transportation without another adult if you receive anesthesia. - We recommend that an adult stay with you for 24 hours following discharge. - We also recommend that you do not drive, make important decision, drink alcoholic beverages, or take any drugs that were not prescribed by your health care provider for at least 24 hours after your discharge time. Follow any additional instructions given to you from your surgeon. If you or anyone in your household have experienced Covid symptoms in the past week, please notify your surgeon or the nurse liaison at the phone number below for possible testing. VERBAL AND WRITTEN instructions given to __PATIENT and asked if any additional questions and then verbalized understanding. Patient advised to call surgeon office or pre surgery nurse liaison [phone] if any additional questions.
[2022-03-07 09:05] VITALS: BP 112/67; PULSE 71; RESP 18; TEMP 36.7; O2SAT 98
[2022-03-18] VITALS (16 sets, daily range): BP systolic 93–123; BP diastolic 46–71; PULSE 69–84; RESP 13–20; TEMP 35.9–36.5; O2SAT 92–100
[2022-03-18] MEDS: ACETAMINOPHEN 500 MG TABLET 1000 MG PO ×2 (09:13→21:20)
[2022-03-18] MEDS: LACTATED RINGERS 1,000 ML 30 ML IV CONT ×2 (09:32→13:32)
[2022-03-18 09:38] LABS: Glucose Point of Care 98 mg/dl (65-105)
--- NOTE | 2022-03-18 10:03 | WPDANESEPPF ---
Anes - Initial Pre Proc Eval Procedure: Operation Date: 03/18/22 11:00 Proposed Procedures p Left Total Knee Arthroplasty - Paul Ruiz MD Date/Time: 03/18/22 10:03 Surgeon: Paul Ruiz MD Pre Op Diagnosis: oa left knee Patient Data Age: 56 Gender: F Height: 1.63 m Weight: 94.6 kg Last Vital Signs Temp 36.5 C 03/18/22 09:18 Pulse 72 03/18/22 09:18 Resp 16 03/18/22 09:18 BP 123/71 03/18/22 09:18 Pulse Ox 98 03/18/22 09:18 O2 Del Method Room Air 03/18/22 09:18 Allergies Allergy/AdvReac Type Severity Reaction Status Date / Time phentermine Allergy Intermediate Rash Verified 03/18/22 09:09 Sulfa (Sulfonamide Allergy Mild Rash Verified 03/18/22 09:09 Antibiotics) morphine AdvReac Unknown Nausea and Verified 03/18/22 09:09 Vomiting Home Medications Medication Instructions Recorded Confirmed Type ibuprofen 800 mg tablet 800 mg PO Q6H PRN pain #30 tabs 04/02/20 03/18/22 Rx allopurinol 100 mg tablet 100 mg PO DAILY 04/05/21 03/18/22 History atorvastatin 20 mg tablet 20 mg PO DAILY 04/05/21 03/18/22 History empagliflozin 10 mg tablet 10 mg PO DAILY 04/05/21 03/18/22 History (Jardiance) ascorbate calcium (vitamin C) 500 500 mg PO DAILY 05/03/21 03/18/22 History mg tablet cholecalciferol (vitamin D3) 10 10 mcg PO DAILY 05/03/21 03/18/22 History mcg (400 unit) capsule iron 150 mg-vit C 60 mg-folate 1 1 tablet PO DAILY anemia #42 tabs 01/15/22 03/18/22 Rx [id number] tablet (Niferex (Sumalate-Quatrefolic)) aspirin 81 mg tablet,delayed 81 mg PO HS 03/07/22 03/18/22 History release (Adult Low Dose Aspirin) calcium carbonate 200 mg calcium 200 mg PO PRN PRN Heartburn 03/07/22 03/18/22 History (500 mg) chewable tablet (Tums) meloxicam 7.5 mg tablet 7.5 mg PO PRN PRN Pain 03/07/22 03/18/22 History rivaroxaban 10 mg tablet (Xarelto) 10 mg PO DAILY PE prophylaxis s/p 03/07/22 03/07/22 Rx surgery 14 days #14 tabs semaglutide 3 mg tablet (Rybelsus) 3 mg PO DAILY 03/07/22 03/18/22 History Laboratory Tests 03/18/22 09:35 POC Capillary Glucose 98 mg/dl mg/dl (65-105) Patient hx anesthesia problems: none Family hx anesthesia problems: none Results Review: All pre-operative results and documents have been reviewed as part of the pre-operative evaluation. [facility] Past Medical History Medical History Anemia Anxiety Degenerative arthritis of knee, bilateral Depression Diabetes Fingers fractured Gout Screening mammogram, encounter for Sleep disorder cannot sleep at night Surgical History Surgical History History of appendectomy 1969 History of back surgery [id number] History of elbow surgery 06/01/15 repair elbow w/ renae open History of lithotripsy extracorporeal shockwave lithotripsy (ESWL) History of tubal ligation 1998 Hx of cholecystectomy Family History Family History Father Heart disease Mother Cancer Diabetes mellitus Hypertension Cerebrovascular accident Social History Social History Smoking packs per day: 0.25 Smoking cigarettes per day: 5.0 Years smoked: 20 Smoking pack-years: 5.00 Smoking status: Former smoker Tobacco type: cigarettes Smoking end date: 02/17/17 Alcohol intake: current Alcohol use details: ONE DRINK PER MONTH Substance use: never Substance use type: does not use Living arrangements: alone Additional living arrangements comments: daughter Occupation/Education: occupation Additional occupation/education comments: [employer] Gender identity (if verbalized by the patient): Female Sexual Orientation (if Verbalized by the Patient): Straight or Heterosexual Spiritual care concerns: No Anes - Eval Final PreProcedu
--- NOTE | 2022-03-18 10:20 | WPDHPUPDATE1 ---
History and Physical Update Update Date/Time: 03/18/22 10:20 History and Physical has been reviewed, including an updated exam of the patient. There are NO changes in the patient's condition. Risks, benefits, and alternatives have been discussed and questions answered. Patient agrees to proceed with procedure.
[2022-03-18] MEDS: TRANEXAMIC ACID 1,000MG/ISO100 1,000 MG/100 ML BAG 200 MG IVPB (10:25)
--- NOTE | 2022-03-18 10:37 | WPDANESPNB ---
Anes - Peripheral Nerve Block Date/Time: 03/18/22 10:37 I have discussed with the patient/family/POA the placement of a peripheral nerve block for post-operative pain management, including associated risks, benefits, complications, and side effects. Alternative methods of post-operative analgesia were detailed. Questions were solicited and answers provided to the satisfaction of the patient/family/POA. Time-Out: A pre-procedural Time-Out was completed immediately before starting the procedure and confirmed: Patient Identification, Site, Procedure, Patient Position and the Availability of Requisite Equipment. Clinical Indications: Acute post-operative pain management requested by the operative surgeon. Nerve Block Insertion Note Anes-nerve block: adductor canal left Patient position: supine Skin prep: chlorhexidine Needle: 22 gauge, stimulating, insulated echogenic needle. Needle length: 80 mm Technique: ultrasound Injectate: bupivacaine 0.5% with epi 5 mcg/ml (30) and dexamethasone (mg) (8) Observations: tolerated well Complications: none Procedure start time:: 1022 Procedure end time:: 102
[2022-03-18] MEDS: ceFAZolin 2 GM/D5W 50 ML 2 GM/50 ML BAG IVPB ×2 (11:08→18:50)
[2022-03-18] MEDS: SCOPOLAMINE 1.5 MG PATCH TRANSDERM (11:50)
[2022-03-18] MEDS: GENTAMICIN BONE CEMENT REFOBACIN 1 EACH TOPICAL (12:42)
[2022-03-18] MEDS: ceFAZolin SODIUM 1 GM VIAL IV PUSH (13:06)
--- NOTE | 2022-03-18 13:31 | P.OP_ITS ---
Procedure Note - Detailed Date of Procedure 03/18/22 Pre-op Diagnosis oa left knee Post-op Diagnosis Same Procedure Performed Left total knee replacement Surgeon Paul Ruiz MD Perforating Machine Operator Thelma Boone Anesthesia General Description of Procedure The patient was identified and proper site identified. She was taken to the operating room and transferred to the OR table positioning supine taking care to pad the torso and extremities. After general anesthetic induction and intubation a nonsterile tourniquet was placed high on the left thigh. The left lower extremity was prepped and draped in the usual sterile fashion. The extremity was exsanguinated and with the knee flexed tourniquet was inflated to 300 mmHg remaining up for approximately 57 minutes. An anterior midline incision was made and a modified medial parapatellar approach was used. Infra and suprapatellar fat pads were excised. Patella was resected leaving 15 mm thickness and prepared for the size 31 round three peg component. Using the intramedullary guide the distal femur was cut in the proper orientation for the size 65 femoral component. Using the extramedullary guide the tibia was cut perpendicular to the long axis protecting collateral ligaments and popliteal structures. It was sized to a 71. Flexion and extension gaps were balanced. Trial reduction was undertaken and the weight-bearing line was noted to passed through the center of the joint. Proximal tibia was drilled and punched in the proper orientation for the real component. Trial components were removed. The bone surfaces were washed with pulsatile lavage and dried. The real components were cemented simultaneously. The knee was held in extension and the patella held clamped until the cement had cured. Excess cement was removed from the joint. After trialing it was determined that the 16 mm insert gave full range of motion from 0-120 degrees of flexion and the patella tracked in the femoral groove with no lift-off. After final lavage the joint the real 16 E poly insert was placed and secured with a locking bar. A Betadine and saline wash was placed into the wound and allowed to sit for approximately 3 minutes and then evacuated. Periarticular tissues were infiltrated with 60 cc of the arthroplasty solution. Surgicel powder was applied into the wound during the closure. The extensor mechanism was repaired with #2 Vicryl suture and 0 looped PDS suture. Subcu was reapproximated with 3-0 Monocryl and 3-0 Stratafix with tissue adhesive for the skin. A sterile dressing was applied. She tolerated the procedure well, was awakened and extubated, transferred to the bed and was taken to recovery area in stable condition. There were no known intraoperative complications. Perioperative antibiotics were administered. Estimated Blood Loss 200 Tourniquet Time 57 Drains No Packing No Pathology None sent Complications No immediate complications Condition Stable Disposition PACU [facility] Billing Surgery - Charge Forward: Surgery Billing ([id number])
[2022-03-18 13:52] LABS: Glucose Point of Care 138 mg/dl (65-105)
[2022-03-18] MEDS: fentaNYL CITRATE INJ (*CRX) 100 MCG/2 ML VIAL 25 MCG IV PUSH (14:29)
[2022-03-18] MEDS: oxyCODONE HCL (*CRX) 5 MG TAB IR PO ×3 (15:14→21:19)
[2022-03-18] MEDS: SODIUM CHLORIDE 0.9% IV 1,000 ML 125 ML IV CONT (15:14)
--- NOTE | 2022-03-18 15:29 | ADMGEN ---
This patient, Kristy Rausch, was admitted to 2 Medical Room 241-. Patient/family oriented to hospital policies and general routines including ID bracelet, bed and alarms, visiting hours, pain management, procedures, bathroom and other care routines, personal items, smoking policy, room service/diet, and visiting hours. Information on how to activate the Rapid Response Team has been discussed. Patient/Family are encouraged to report perceived risks to care and to ask questions if they do not understand what they are told or what they should do.
[2022-03-18] MEDS: KETOROLAC 15 MG/ML VIAL (*BKC) IV PUSH (17:51)
[2022-03-18] MEDS: allopurinoL 100 MG TABLET PO (17:52)
[2022-03-18] MEDS: SENNA/DOCUSATE SODIUM TABLET 2 TAB PO (21:19)
[2022-03-18] MEDS: FAMOTIDINE 20 MG TABLET PO (21:19)
[2022-03-18] MEDS: ATORVASTATIN 40 MG TABLET PO (21:19)
[2022-03-18 22:25] LABS: Glucose Point of Care 155 mg/dl (65-105)
[2022-03-19] VITALS (10 sets, daily range): BP systolic 59–133; BP diastolic 37–85; PULSE 52–97; RESP 18–20; TEMP 36.4–37.2; O2SAT 92–99
--- NOTE | ~2022-03-19 | XR_ITS ---
EXAMINATION: XR knee LT 2V DATE: 03/18/2022 13:59 INDICATION: Postoperative evaluation following left total knee arthroplasty. TECHNIQUE: Anteroposterior and lateral views of the left knee were obtained. COMPARISON: None. FINDINGS: Left total knee arthroplasty with patellar resurfacing appears well seated and in near anatomic align ment. No fractures identified. Expected postoperative subcutaneous and intra-articular gas. IMPRESSION: 1. Left total knee arthroplasty, negative for postoperative purposes. Reviewed, dictated and finalized at location A. ERCIAL PARTS PROFESSIONAL
--- NOTE | ~2022-03-19 | CT_ITS ---
EXAMINATION: CT abdomen pelvis w con INDICATION: Abdominal pain TECHNIQUE: Computed tomographic images of the abdomen and pelvis were obtained after the administrati on of 100 cc of Omnipaque 350 intravenous contrast. The dose-length product (DLP) was 1078.34 mGy-cm. Automated exposure control and iterative reconstruction technique were employed. COMPARISON: 04/02/2020, 09/22/2019 FINDINGS: Minimal dependent atelectasis is present in the lung bases. The heart size is normal. Suben docardial fat deposition in the left ventricular apex likely reflects prior myocardial infarction. Th e liver, spleen, pancreas, and adrenal glands are normal. There is mild distention of the gallbladder . Cysts of the kidneys measure up to 1.5 cm on the right. There is calcified atherosclerosis of the a ebonie and many of the other arteries. No pathologically enlarged abdominal or pelvic lymph nodes are i dentified. There is no free intraperitoneal gas or evidence of bowel obstruction. There are changes o f posterior fusion at L4-5. There is a chronic, stable left adnexal cyst. IMPRESSION: 1. Mild distention of the gallbladder which could be due to fasting state. Reviewed, dictated and finalized at location B. ERGARTEN TEACHER ASSISTANT
[2022-03-19] MEDS: oxyCODONE HCL (*CRX) 5 MG TAB IR PO ×5 (00:36→08:40)
[2022-03-19] MEDS: KETOROLAC 15 MG/ML VIAL (*BKC) IV PUSH ×3 (00:38→11:42)
--- NOTE | 2022-03-19 01:00 | PC.NURSE ---
Spoke w/ Dr. Ruiz about pt's c/o feeling a Charley Horse above and behind the knee. Provider ordered to administer PRN oxycodone for breakthrough pain as well as administer scheduled oxycodone as is.
[2022-03-19] MEDS: ceFAZolin 2 GM/D5W 50 ML 2 GM/50 ML BAG IVPB ×2 (03:17→11:40)
[2022-03-19] MEDS: ACETAMINOPHEN 500 MG TABLET 1000 MG PO ×3 (05:35→21:19)
--- NOTE | 2022-03-19 08:07 | PM.DS ---
DS: Admitting Diagnosis Discharge Date 03/19/2022 Admitting Diagnosis Primary osteoarthritis of left knee DS: Discharge Diagnosis Discharge Diagnosis (1) Status post total left knee replacement: Code(s): Z96.652 - Presence of left artificial knee joint Status: Acute Plan 56-year-old female postop day 1 after left total knee replacement. She is having quite a bit of irritability in the lateral thigh and leg today. Swelling at the knee is consistent with the recent surgery. She is having quite a bit of nausea and pain. I will give her a prescription for Zofran for nausea. She will take the prescribed pain medication on a more consistent basis over the next couple of days to help assist with mobility of the knee. Postoperative wound care was discussed in detail. Plan follow-up in 2 weeks for wound and range of motion check. She was informed to call our office with any further questions or concerns prior to that scheduled follow-up. DS: Summary Hospital Course Reason for hospitalization: Observation after outpatient procedure Hospital Course: 56-year-old female admitted for observation after left total knee replacement. She is having quite a bit of pain and nausea this morning during exam. She was unable to walk to the bathroom last night due to the pain in her left leg. Most of her pain is into her left lateral thigh and leg. Swelling is consistent with the recent surgical procedure. Plan to see therapy this morning for help with transitions and ambulation. Status at Discharge Functional status at discharge: uses cane/walker Overall status at discharge: patient is progressing back to baseline Time Spent with Patient Time attestation: Total time spent providing and/or coordinating discharge services: Time spent: Less than 30 minutes Exam Const: General: comfortable and no acute distress Eyes: General: appearance normal, both eyes and all related structures Resp: Effort & Inspection: normal respiratory effort GI: Inspection: non-distended Skin: General skin exam: normal color and no erythema Neuro: Sensory Exam: normal sensation Extrem: Other: Exam of the left knee demonstrates a clean and dry surgical dressing. Active range of motion is near full extension. Swelling consistent with postop day 1 of left total knee replacement. Neurovascular status left lower extremity is intact. Psych: Mental Status: mental status grossly normal Radiology Reports: Comments: EXAMINATION: XR knee LT 2V DATE: 03/18/2022 13:59 INDICATION: Postoperative evaluation following left total knee arthroplasty. TECHNIQUE: Anteroposterior and lateral views of the left knee were obtained. COMPARISON: None. FINDINGS: Left total knee arthroplasty with patellar resurfacing appears well seated and in near anatomic alignment.? No fractures identified. Expected postoperative subcutaneous and intra-articular gas. IMPRESSION: 1. Left total knee arthroplasty, negative for postoperative purposes. Hand X-Ray 09/12/20 Knee X-Ray 03/18/22 Knee MRI 01/14/22 Wrist MRI 05/22/21 Orthopedics Result Report 11/21/21 DS: Data Data Completed and Pending Labs on day of discharge: Labs from last 24 hours 03/18/22 03/18/22 03/18/22 21:17 13:48 09:35 POC Capillary Glucose 155 H 138 H 98 Discharge Plan Discharge Patient Disposition: Home, Self-Care Discharge Instructions: 3 times daily for 20 minutes each time, reclining in bed with ice packs over the incision and a pillow underneath the calf of the affected leg, not under the knee. Your wound is glued so it is okay to remove the dressing, get into the shower and get the wound wet in two days. Be sure to read through all the information that came from a my office and the hospital. Most of the answers you will need can be found that material. Call the office with any questions that you cannot find answers to, or concerns you may sol
[2022-03-19] MEDS: FAMOTIDINE 20 MG TABLET PO (08:38)
[2022-03-19] MEDS: allopurinoL 100 MG TABLET PO (08:39)
[2022-03-19] MEDS: CHOLECALCIFEROL 400 UNITS TABLET (VIT D) PO (08:39)
[2022-03-19] MEDS: ASCORBIC ACID 500 MG TABLET PO (08:39)
[2022-03-19] MEDS: EMPAGLIFLOZIN 25 MG TABLET PO (08:39)
[2022-03-19] MEDS: polyethylene glycoL 3350 17 GM POWD.PACK PO (08:39)
[2022-03-19] MEDS: RIVAROXABAN 10 MG TABLET PO (08:39)
[2022-03-19] MEDS: POLYSACCHARIDE IRON COMPLEX 150 MG CAPSULE PO (08:39)
[2022-03-19] MEDS: SENNA/DOCUSATE SODIUM TABLET 2 TAB PO ×2 (08:39→21:18)
[2022-03-19 08:49] LABS: Glucose Point of Care 129 mg/dl (65-105)
--- NOTE | 2022-03-19 09:46 | WPDANESPN ---
Anes - Prog Note Post-Op Date/Time: 03/19/22 09:46 Cardiovascular status: normal Respiratory status: normal Airway patency: baseline Mental status: baseline Post-Op hydration status: normal Vital Signs: Last Vital Signs Temp 36.4 C L 03/19/22 03:24 Pulse 83 03/19/22 03:24 Resp 20 03/19/22 03:24 BP 117/62 03/19/22 03:24 Pulse Ox 92 03/19/22 03:24 O2 Del Method Room Air 03/18/22 21:05 O2 Flow Rate 2 03/18/22 14:47 Pain Score (VAS): 04/26 I/O: Intake & Output 03/18/22 03/19/22 03/19/22 23:59 07:59 15:59 Intake Total 170 540 Balance 170 540 03/18/22 03/18/22 03/19/22 13:48 21:17 08:37 POC Capillary Glucose 138 H 155 H 129 H Post-procedural complaints: nausea (pt states a little bit of nausea after surgery) Patient Feedback: Patient satisfied with anesthetic care.
--- NOTE | 2022-03-19 09:46 | PHAR ---
Home medication Rybelsus 3mg tablets identified in pharmacy and returned to [facility]
[2022-03-19] MEDS: CALCIUM CARBONATE (TUMS) 500 MG (200 MG ELEMENTAL) PO (11:57)
[2022-03-19 12:49] LABS: Glucose Point of Care 121 mg/dl (65-105)
[2022-03-19] MEDS: LACTATED RINGERS 250 ML 500 ML IV CONT (13:01)
--- NOTE | 2022-03-19 13:22 | PCPTNOTE ---
Attempted to see patient for PT, however per RN advised not to see patient at this time due to low blood pressure.
[2022-03-19] MEDS: SODIUM CHLORIDE 0.9% IV 1,000 ML 999 ML IV CONT (13:34)
--- NOTE | 2022-03-19 13:36 | PM.IMCN ---
Assessment and Plan Assessment and plan (1) Hypotension: Code(s): I95.9 - Hypotension, unspecified Status: Acute Assessment and Plan: -looking at her past blood pressures patient's blood pressure is typically low around 90/60. -her blood pressure could be even lower due to the narcotics. -the patient is nauseated and has low oral intake. -the patient was given 2 IV boluses -continue with maintenance IV fluids. -at this time we are holding narcotics however the patient is rating her pain 10/10 -I did repeat her CBC her hemoglobin was found to be 10.1 today which appears to be lower than her baseline. The patient does not have any signs and symptoms of active bleeding at this site. -check H&H every 6 hours. (2) Abdominal pain: Code(s): R10.9 - Unspecified abdominal pain Status: Acute Assessment and Plan: -Pepcid his been changed from p.o. to IV. Since she is nauseated. -I did order a CT of the abdomen since the patient was complaining of epigastric discomfort and she is having some tenderness as well. -continue with Zofran. (3) Diabetes: Code(s): E11.9 - Type 2 diabetes mellitus without complications Status: Acute Assessment and Plan: -the patient is on Jardiance. -Accu-Cheks AC and HS with sliding scale insulin and hypoglycemic protocol. (4) Anxiety: Code(s): F41.9 - Anxiety disorder, unspecified Status: Acute Assessment and Plan: -the patient is currently not on any medication. -p.r.n. Hydroxyzine has been added (5) S/P total knee arthroplasty: Code(s): Z96.659 - Presence of unspecified artificial knee joint Status: Acute Assessment and Plan: -postop care per orthopedic physician -PT OT per orthopedic physician -DVT prophylaxis per orthopedic physician and it looks like the patient is on Xarelto HPI Data of Consult Consult date: 03/19/22 Requesting Physician: Paul Ruiz MD Primary Care Provider: Salvador VerasMD Consult Narrative Narrative: Kristy Rausch is a 56 year old female who has a history of diabetes degenerative joint disease and depression with anxiety. The patient has been having medial-sided left knee pain that has been worse with activity and cold weather. She attempted conservative measures that did not have a lasting effect. The patient underwent a left total knee arthroplasty per yesterday. See operative note for 03/18/2022 for the left total knee arthroplasty. According to the records there were no complications. Today the patient is complaining of nausea and her blood pressure has dropped. It looks like there is a blood pressure 59/37 and 82/40 and then a 102/49. After reviewing her previous blood pressures it looks like the patient is typically somewhere around 108/52. Her H&H today is 10.1 and 31.8 and she typically has a normal baseline. There is no drainage on her dressing to the left knee. Patient has been given 2 L of IV fluid boluses. Blood pressure is now 93/49. The patient stated she is having epigastric discomfort. The patient was admitted per who and hospitalist group was asked to consult on the date of service of 03/19/2022. Review of Systems Review of Systems: See HPI All systems reviewed & are unremarkable except as noted in HPI and below Constitutional: Constitutional: Reports as per HPI and Reports no additional constitutional complaints Eyes: Eyes: Reports as per HPI and Reports no additional eye complaints ENT: Reports system reviewed and no additional complaints, except as documented and Reports Normal hearing present Cardiovascular: Cardiovascular: Reports no additional cardiovascular complaints Respiratory: Respiratory: Reports no additional respiratory complaints and Reports no additional respiratory complaints Gastrointestinal: Gastrointestinal: Reports as per HPI and Reports no additional gastrointestinal complaints Musculoskeletal: Musculoskelet
[2022-03-19] MEDS: ONDANSETRON INJ 4 MG/2 ML VIAL IV PUSH (13:37)
[2022-03-19 15:27] LABS: Basophils Percent Auto 0.1 % (0.2-1.2); Hematocrit 31.8 % (37.0-47.0); Hemoglobin 10.1 g/dL (12.0-15.0); Immature Granulocyte Absolute 0.05 K/mm3 (0.00-0.031); Immature Granulocyte Percent A 0.5 % (0-0.5); Lymphocytes Absolute Auto 1.38 K/mm3 (0.9-3.2); Lymphocytes Percent Auto 13.5 % (18.3-44.2); Mean Corpuscular HGB Conc 31.8 g/dl (32-36); Mean Corpuscular Hemoglobin 31.7 pg (26-34); Mean Corpuscular Volume 99.7 fl (80-100); Mean Platelet Volume 10.4 fl (7.4-10.4); Monocytes Absolute Auto 1.1 K/mm3 (0.1-0.6); Monocytes Percent Auto 10.9 % (2.6-8.5); Neutrophils Absolute Auto 7.7 K/mm3 (1.3-6.7); Platelet Count Result 156 k/mm3 (150-375); Red Blood Count 3.19 M/mm3 (4.2-5.4); Red Cell Distribution Width 12.9 % (11.5-14.5); White Blood Count 10.2 K/mm3 (4.5-10.0)
[2022-03-19 15:33] LABS: Anion Gap 3 mmol/L (8-16); Blood Urea Nitrogen 18 mg/dL (7-17); Calcium 8.2 mg/dL (8.4-10.2); Carbon Dioxide 25 mmol/L (22-30); Chloride 107 mmol/L (98-107); Estimated CRCL calculation 68 ml/min; Estimated Glomerular Filt Rate > 60; Glucose 82 mg/dL (65-110); Potassium 3.9 mmol/L (3.4-5.0); Sodium 135 mmol/L (137-145)
[2022-03-19 17:01] LABS: Hematocrit 31.8 % (37.0-47.0); Hemoglobin 10.3 g/dL (12.0-15.0)
[2022-03-19 17:25] LABS: Glucose Point of Care 76 mg/dl (65-105)
[2022-03-19] MEDS: TAPENTADOL HCL (*CRX) 50 MG TABLET PO ×2 (18:32→22:32)
[2022-03-19] MEDS: ATORVASTATIN 40 MG TABLET PO (21:19)
[2022-03-19] MEDS: FAMOTIDINE 20 MG/2 ML VIAL IV PUSH (21:19)
[2022-03-19 22:56] LABS: Hematocrit 30.8 % (37.0-47.0)
[2022-03-19 23:05] LABS: Glucose Point of Care 98 mg/dl (65-105)
[2022-03-20] MEDS: TAPENTADOL HCL (*CRX) 50 MG TABLET PO ×4 (03:02→23:40)
[2022-03-20] MEDS: ONDANSETRON INJ 4 MG/2 ML VIAL IV PUSH (03:05)
[2022-03-20 03:30] VITALS: BP 110/49; PULSE 76; RESP 20; TEMP 36.4; O2SAT 94
[2022-03-20 05:23] LABS: Basophils Percent Auto 0.3 % (0.2-1.2); Eosinophils Percent Auto 0.3 % (0-4.4); Hematocrit 29.9 % (37.0-47.0); Hemoglobin 9.3 g/dL (12.0-15.0); Immature Granulocyte Absolute 0.03 K/mm3 (0.00-0.031); Immature Granulocyte Percent A 0.4 % (0-0.5); Lymphocytes Absolute Auto 1.85 K/mm3 (0.9-3.2); Lymphocytes Percent Auto 25.9 % (18.3-44.2); Mean Corpuscular HGB Conc 31.1 g/dl (32-36); Mean Corpuscular Hemoglobin 31.6 pg (26-34); Mean Corpuscular Volume 101.7 fl (80-100); Mean Platelet Volume 10.5 fl (7.4-10.4); Monocytes Absolute Auto 0.7 K/mm3 (0.1-0.6); Neutrophils Absolute Auto 4.5 K/mm3 (1.3-6.7); Neutrophils Percent Auto 63.1 % (45.5-73.1); Platelet Count Result 140 k/mm3 (150-375); Red Blood Count 2.94 M/mm3 (4.2-5.4); White Blood Count 7.1 K/mm3 (4.5-10.0)
[2022-03-20 05:37] LABS: Alanine Aminotransferase 18 U/L (6-35); Albumin Level 3.2 g/dL (3.5-5.1); Alkaline Phosphatase 66 U/L (38-126); Anion Gap 3 mmol/L (8-16); Aspartate Amino Transferase 30 U/L (14-36); Bilirubin,Total 0.5 mg/dL (0.2-1.3); Blood Urea Nitrogen 18 mg/dL (7-17); Carbon Dioxide 26 mmol/L (22-30); Chloride 108 mmol/L (98-107); Estimated CRCL calculation 75 ml/min; Estimated Glomerular Filt Rate > 60; Glucose 97 mg/dL (65-110); Potassium 3.9 mmol/L (3.4-5.0); Sodium 137 mmol/L (137-145)
[2022-03-20] MEDS: ACETAMINOPHEN 500 MG TABLET 1000 MG PO ×3 (05:41→21:45)
--- NOTE | 2022-03-20 08:27 | PCPTNOTE ---
Attempted to see patient for PT, however per RN patient is in severe pain and asked PT to come back when pain is more under control.
[2022-03-20 08:51] LABS: Glucose Point of Care 89 mg/dl (65-105)
--- NOTE | 2022-03-20 09:39 | PCOTNOTE ---
Attempted to see patient this am, however patient still having too much pain.
[2022-03-20] MEDS: allopurinoL 100 MG TABLET PO (11:03)
[2022-03-20] MEDS: EMPAGLIFLOZIN 25 MG TABLET PO (11:04)
[2022-03-20] MEDS: CHOLECALCIFEROL 400 UNITS TABLET (VIT D) PO (11:04)
[2022-03-20] MEDS: ASCORBIC ACID 500 MG TABLET PO (11:04)
[2022-03-20] MEDS: SENNA/DOCUSATE SODIUM TABLET 2 TAB PO ×2 (11:04→22:16)
[2022-03-20] MEDS: FAMOTIDINE 20 MG/2 ML VIAL IV PUSH ×2 (11:05→21:46)
[2022-03-20] MEDS: POLYSACCHARIDE IRON COMPLEX 150 MG CAPSULE PO (11:05)
[2022-03-20] MEDS: polyethylene glycoL 3350 17 GM POWD.PACK PO (11:06)
[2022-03-20] MEDS: RIVAROXABAN 10 MG TABLET PO (11:06)
--- NOTE | 2022-03-20 11:59 | P.PNIM_ITS ---
Progress Note: A&P Assessment and Plan (1) Hypotension: Code(s): I95.9 - Hypotension, unspecified Status: Acute Assessment and Plan: Hospitalist consulted due to hypotension. * looking at her past blood pressures patient's blood pressure is typically low around 90/60. * her blood pressure could be even lower due to the narcotics. * the patient is nauseated and has low oral intake. * the patient was given 2 IV boluses on 03/19/22. * maintenance IV fluids. * at this time we are holding narcotics. * H&H stable * check H&H every 6 hours. * 03/20/22 blood pressure stable (2) Abdominal pain: Code(s): R10.9 - Unspecified abdominal pain Status: Acute Assessment and Plan: * Pepcid his been changed from p.o. to IV. Since she is nauseated. * I did order a CT of the abdomen since the patient was complaining of epigastric discomfort and she is having some tenderness as well. * CT abdomen pelvis revealed distended gallbladder most likely due to fatty status state. * Zofran for nausea. (3) Diabetes: Code(s): E11.9 - Type 2 diabetes mellitus without complications Status: Acute Assessment and Plan: * the patient is on Jardiance. * Accu-Cheks AC and HS with sliding scale insulin and hypoglycemic protocol. (4) Anxiety: Code(s): F41.9 - Anxiety disorder, unspecified Status: Acute Assessment and Plan: * the patient is currently not on any medication. * p.r.n. Hydroxyzine has been added (5) S/P total knee arthroplasty: Code(s): Z96.659 - Presence of unspecified artificial knee joint Status: Acute Assessment and Plan: * postop care per orthopedic physician * PT OT per orthopedic physician * DVT prophylaxis per orthopedic physician and it looks like the patient is on Xarelto Time Spent With Patient Time with patient: Greater than 35 minutes Subjective Date/time seen: 03/20/22 11:59 Interval history: Patient postop day 2 left total knee. Patient still having abdominal pain although no evidence on CT. Abdominal pain most likely to narcotic use. Patient states that abdominal pain improved and only exacerbated with getting out of bed. Patient has not had bowel movement in 3 days. Advised stool softener. Patient planned to be discharge from Ortho today. Review of Systems Review of Systems: All systems reviewed & are unremarkable except as noted in HPI and below Exam Narrative: GENERAL: Comfortable, no acute distress HENMT: moist mucous membranes EYES: EOM intact b/l NECK: no lymphadenopathy RESPIRATORY: clear to auscultation CARDIO: RRR GI: soft, nontender, bowel sounds present SKIN: no rashes EXTREMITIES: Left knee Tegaderm intact, mild swelling to left knee Objective Data Vital Signs Vital Signs: Vital Signs - 24 hr 03/19/22 12:40 03/19/22 12:55 03/19/22 13:23 Temperature Pulse Rate 56 L 52 L 56 L Respiratory Rate Blood Pressure 59/37 L 82/40 L 102/49 L Pulse Oximetry 95 Oxygen Delivery 03/19/22 14:42 03/19/22 14:43 03/19/22 16:34 Temperature 98.4 F Pulse Rate 63 Respiratory Rate 18 Blood Pressure 93/49 L 112/62 Pulse Oximetry 96 Oxygen Delivery
--- NOTE | 2022-03-20 11:59 | PM.IMPN ---
Progress Note: A&P Assessment and Plan (1) Hypotension: Code(s): I95.9 - Hypotension, unspecified Status: Acute Assessment and Plan: Hospitalist consulted due to hypotension. looking at her past blood pressures patient's blood pressure is typically low around 90/60. her blood pressure could be even lower due to the narcotics. the patient is nauseated and has low oral intake. the patient was given 2 IV boluses on 03/19/22. maintenance IV fluids. at this time we are holding narcotics. H&H stable check H&H every 6 hours. 03/20/22 blood pressure stable (2) Abdominal pain: Code(s): R10.9 - Unspecified abdominal pain Status: Acute Assessment and Plan: Pepcid his been changed from p.o. to IV. Since she is nauseated. I did order a CT of the abdomen since the patient was complaining of epigastric discomfort and she is having some tenderness as well. CT abdomen pelvis revealed distended gallbladder most likely due to fatty status state. Zofran for nausea. (3) Diabetes: Code(s): E11.9 - Type 2 diabetes mellitus without complications Status: Acute Assessment and Plan: the patient is on Jardiance. Accu-Cheks AC and HS with sliding scale insulin and hypoglycemic protocol. (4) Anxiety: Code(s): F41.9 - Anxiety disorder, unspecified Status: Acute Assessment and Plan: the patient is currently not on any medication. p.r.n. Hydroxyzine has been added (5) S/P total knee arthroplasty: Code(s): Z96.659 - Presence of unspecified artificial knee joint Status: Acute Assessment and Plan: postop care per orthopedic physician PT OT per orthopedic physician DVT prophylaxis per orthopedic physician and it looks like the patient is on Xarelto Time Spent With Patient Time with patient: Greater than 35 minutes Subjective Date/time seen: 03/20/22 11:59 Interval history: Patient postop day 2 left total knee. Patient still having abdominal pain although no evidence on CT. Abdominal pain most likely to narcotic use. Patient states that abdominal pain improved and only exacerbated with getting out of bed. Patient has not had bowel movement in 3 days. Advised stool softener. Patient planned to be discharge from [facility] today. Review of Systems Review of Systems: All systems reviewed & are unremarkable except as noted in HPI and below Exam Narrative: GENERAL: Comfortable, no acute distress HENMT: moist mucous membranes EYES: EOM intact b/l NECK: no lymphadenopathy RESPIRATORY: clear to auscultation CARDIO: RRR GI: soft, nontender, bowel sounds present SKIN: no rashes EXTREMITIES: Left knee Tegaderm intact, mild swelling to left knee Objective Data Vital Signs Vital Signs: Vital Signs - 24 hr 03/19/22 12:40 03/19/22 12:55 03/19/22 13:23 Temperature Pulse Rate 56 L 52 L 56 L Respiratory Rate Blood Pressure 59/37 L 82/40 L 102/49 L Pulse Oximetry 95 Oxygen Delivery 03/19/22 14:42 03/19/22 14:43 03/19/22 16:34 Temperature 98.4 F Pulse Rate 63 Respiratory Rate 18 Blood Pressure 93/49 L 112/62 Pulse Oximetry 96 Oxygen Delivery 03/19/22 18:24 03/19/22 18:24 03/19/22 19:37 Temperature 98.2 F 98.9 F Pulse Rate 72 73 Respiratory Rate 18 20 Blood Pressure 114/58 L 120/63 Pulse Oximetry 96 99 Oxygen Delivery 03/19/22 21:10 03/20/22 03:30 03/20/22 09:00 Temperature 97.6 F Pulse Rate 76 Respiratory Rate 20 Blood Pressure 110/49 L Pulse Oximetry 94 Oxygen Delivery Room Air Room Air Intake/Output Intake/Output: Intake & Output 03/17/22 03/18/22 03/19/22 03/20/22 23:59 23:59 23:59 23:59 Intake Total 1520 2630 720 Output Total 200 Balance 1520 2430 720 Meds/Results Medications: Active Medications Generic Name Dose Route Start Last Admin Trade Name Freq PRN Reason Stop Dose Admin Acetaminophe
[2022-03-20 12:24] LABS: Hematocrit 30.9 % (37.0-47.0); Hemoglobin 9.7 g/dL (12.0-15.0)
[2022-03-20 12:36] LABS: Glucose Point of Care 114 mg/dl (65-105)
[2022-03-20 14:00] VITALS: BP 118/60; PULSE 78; RESP 20; TEMP 36.5; O2SAT 96
--- NOTE | 2022-03-20 16:18 | PM.PNORT ---
Progress Note: A&P Assessment and Plan (1) S/P total knee arthroplasty: Code(s): Z96.659 - Presence of unspecified artificial knee joint Status: Acute Assessment and Plan: 56-year-old female postop day 2 after left total knee arthroplasty. She is struggling quite a bit with pain and muscle cramping in the left anterior thigh and lateral leg. I wrote for p.r.n. Flexeril to help alleviate this. She was also encouraged to participate to the best of her ability with therapy this afternoon and in the morning. She states that she is using her walker to get to and from the bathroom with assistance. She is also able to transfer to a chair. Ideally I would like to discharge her home tomorrow with her daughter to assist her, but she really needs to perform better with therapy and I informed her of this. DVT prophylaxis: Xarelto q.a.m. pain: Nucynta p.r.n. muscle cramps: Flexeril p.r.n. (2) Abdominal pain: Code(s): R10.9 - Unspecified abdominal pain Status: Acute Assessment and Plan: CT scan unremarkable. She is currently getting stool softeners but has not had a bowel movement since surgery. Subjective Subjective Date/Time Seen: 03/20/22 16:18 Post Op day: 2 Principal diagnosis: Status post left total knee replacement Interval history: 56-year-old female postop day 2 after left total knee replacement. She has really been struggling with pain in the anterior thigh and lateral leg. She describes the pain as more of a charley horse type of feeling. She states when she gets up with a walker to work with therapy or use the bathroom she does not have much pain in the joint itself. This jessica horse type feeling in the leg is so severe that will cause her to have a headache. She is also dealing with a bit of stomach discomfort. Recent CT of the abdomen was unremarkable. She is currently getting stool softeners but has not had a bowel movement yet. She has also felt lightheaded the times when getting up to move, hemoglobin has dropped a couple points with this consistent with the recent total knee arthroplasty. Review of Systems Constitutional: Constitutional: Reports as per HPI Musculoskeletal: Musculoskeletal: Reports muscle cramps ( Anterior thigh, lateral left leg) Exam Const: General: comfortable and no acute distress Resp: Effort & Inspection: normal respiratory effort GI: Inspection: non-distended Skin: General skin exam: normal color and no erythema Neuro: Sensory Exam: normal sensation Extrem: Other: Exam of the left knee demonstrates near full extension. Passive flexion of the knee is limited to about 35-40 degrees. She has pain in the anterior quad and left lateral calf with this. She has normal sensation to the left lower extremity. Surgical dressing is clean and dry. No appreciable ecchymosis surrounding the surgical site. Neurovascular status left lower extremity is intact. Psych: Mental Status: mental status grossly normal Objective Data Vital Signs Vital Signs: Vital Signs - 24 hr 03/19/22 16:34 03/19/22 18:24 03/19/22 18:24 Temperature 98.2 F Pulse Rate 72 Respiratory Rate 18 Blood Pressure 112/62 114/58 L Pulse Oximetry 96 Oxygen Delivery 03/19/22 19:37 03/19/22 21:10 03/20/22 03:30 Temperature 98.9 F 97.6 F Pulse Rate 73 76 Respiratory Rate 20 20 Blood Pressure 120/63 110/49 L Pulse Oximetry 99 94 Oxygen Delivery Room Air 03/20/22 09:00 03/20/22 14:00 Temperature 97.7 F Pulse Rate 78 Respiratory Rate 20 Blood Pressure 118/60 Pulse Oximetry 96 Oxygen Delivery Room Air Intake/Output Intake/Output: Intake & Output 03/17/22 03/18/22 03/19/22 03/20/22 23:59 23:59 23:59 23:59 Intake Total 1520 2630 960 Output Total 200 Balance 1520 2430 960 Meds/Results Medications: Active Medications Generic Name Dose Route Start Last Admin Trade Name Freq PRN Reason Stop Dose Admin Ac
[2022-03-20 17:28] LABS: Glucose Point of Care 112 mg/dl (65-105)
[2022-03-20] MEDS: CYCLOBENZAPRINE HCL 5 MG TABLET PO (17:35)
[2022-03-20] MEDS: ATORVASTATIN 40 MG TABLET PO (21:45)
[2022-03-20 22:29] VITALS: BP 111/57; PULSE 85; RESP 16; TEMP 36.7; O2SAT 94
[2022-03-20 22:30] LABS: Glucose Point of Care 114 mg/dl (65-105)
[2022-03-21] MEDS: CYCLOBENZAPRINE HCL 5 MG TABLET PO ×2 (01:35→12:21)
[2022-03-21 02:35] VITALS: BP 129/64; PULSE 90; RESP 16; TEMP 36.1; O2SAT 93
[2022-03-21] MEDS: TAPENTADOL HCL (*CRX) 50 MG TABLET PO ×2 (04:27→08:32)
[2022-03-21] MEDS: ONDANSETRON INJ 4 MG/2 ML VIAL IV PUSH (04:29)
[2022-03-21] MEDS: ACETAMINOPHEN 500 MG TABLET 1000 MG PO (05:33)
[2022-03-21 06:47] VITALS: BP 136/67; PULSE 87; RESP 16; TEMP 36.1; O2SAT 94
[2022-03-21 08:01] LABS: Hemoglobin 9.8 g/dL (12.0-15.0); Mean Corpuscular HGB Conc 32.7 g/dl (32-36); Mean Corpuscular Hemoglobin 32.2 pg (26-34); Mean Corpuscular Volume 98.7 fl (80-100); Mean Platelet Volume 9.8 fl (7.4-10.4); Platelet Count Result 149 k/mm3 (150-375); Red Blood Count 3.04 M/mm3 (4.2-5.4); White Blood Count 6.7 K/mm3 (4.5-10.0)
[2022-03-21 08:13] LABS: Anion Gap 5 mmol/L (8-16); Blood Urea Nitrogen 14 mg/dL (7-17); Calcium 8.1 mg/dL (8.4-10.2); Carbon Dioxide 27 mmol/L (22-30); Chloride 106 mmol/L (98-107); Estimated CRCL calculation 85 ml/min; Estimated Glomerular Filt Rate > 60; Glucose 95 mg/dL (65-110); Potassium 3.7 mmol/L (3.4-5.0); Sodium 138 mmol/L (137-145)
[2022-03-21] MEDS: allopurinoL 100 MG TABLET PO (08:23)
[2022-03-21] MEDS: ASCORBIC ACID 500 MG TABLET PO (08:23)
[2022-03-21] MEDS: CHOLECALCIFEROL 400 UNITS TABLET (VIT D) PO (08:24)
[2022-03-21] MEDS: SENNA/DOCUSATE SODIUM TABLET 2 TAB PO (08:24)
[2022-03-21] MEDS: FAMOTIDINE 20 MG/2 ML VIAL IV PUSH (08:25)
[2022-03-21] MEDS: EMPAGLIFLOZIN 25 MG TABLET PO (08:25)
[2022-03-21] MEDS: POLYSACCHARIDE IRON COMPLEX 150 MG CAPSULE PO (08:26)
[2022-03-21] MEDS: RIVAROXABAN 10 MG TABLET PO (08:27)
[2022-03-21] MEDS: polyethylene glycoL 3350 17 GM POWD.PACK PO (08:34)
[2022-03-21 08:51] LABS: Glucose Point of Care 84 mg/dl (65-105)
--- NOTE | 2022-03-21 10:28 | PM.DS ---
DS: Admitting Diagnosis Discharge Date 03/21/2022 Admitting Diagnosis left knee osteoarthritis DS: Discharge Diagnosis Discharge Diagnosis (1) S/P total knee arthroplasty: Code(s): Z96.659 - Presence of unspecified artificial knee joint Status: Acute Assessment and Plan: 56-year-old female postop day 3 after left total knee replacement. She did struggle quite a bit at 1st due to pain in the anterior thigh lateral leg. Most the pain seems to be muscular in nature and she described this as a charley horse type feeling. Flexeril 5 mg was added to her medications and she states much relief with this. She was able to participate very well with therapy this morning and will plan to discharge home today. her daughter will be at home to help assist her. We will also plan for home health to see her starting next week. I told her that she can take the dressing off tomorrow and then get in the shower. she has a follow-up scheduled in our office at the 2 week point from surgery. This will be for wound and range of motion check. She was informed to call our office with any further questions or concerns prior to that scheduled follow-up. (2) Hypotension: Code(s): I95.9 - Hypotension, unspecified Status: Acute Assessment and Plan: Hospitalist consulted due to hypotension. looking at her past blood pressures patient's blood pressure is typically low around 90/60. her blood pressure could be even lower due to the narcotics. the patient is nauseated and has low oral intake. the patient was given 2 IV boluses on 03/19/22. maintenance IV fluids. at this time we are holding narcotics. H&H stable check H&H every 6 hours. 03/20/22 blood pressure stable (3) Abdominal pain: Code(s): R10.9 - Unspecified abdominal pain Status: Acute Assessment and Plan: Pepcid his been changed from p.o. to IV.? Since she is nauseated. I did order a CT of the abdomen since the patient was complaining of epigastric discomfort and she is having some tenderness as well. CT abdomen pelvis revealed distended gallbladder most likely due to fatty status state. Zofran for nausea. (4) Diabetes: Code(s): E11.9 - Type 2 diabetes mellitus without complications Status: Acute Assessment and Plan: the patient is on Jardiance. Accu-Cheks AC and HS with sliding scale insulin and hypoglycemic protocol. DS: Summary Hospital Course Reason for hospitalization: Observation after outpatient procedure Hospital Course: 56-year-old female mid for observation after total left knee replacement. We did plan for her to go home the day after the procedure but she struggled quite a bit due to pain in the left leg and nausea. Pain is now under much better control with Nucynta and Flexeril. She also had a tough time participating with physical therapy at 1st but has done much better this morning. Will plan to discharge later today back to her home where her daughter will be there to help. Also plan for home health to start seeing her next week. Status at Discharge Functional status at discharge: uses cane/walker Overall status at discharge: patient is progressing back to baseline Time Spent with Patient Time attestation: Total time spent providing and/or coordinating discharge services: Time spent: Less than 30 minutes Exam Const: General: comfortable and no acute distress HENMT: Mouth: Yes moist mucous membranes Eyes: General: appearance normal, both eyes and all related structures Resp: Effort & Inspection: normal respiratory effort GI: Inspection: non-distended Skin: General skin exam: normal color and no erythema Neuro: Sensory Exam: normal sensation Extrem: Other: Exam of the left knee demonstrates near full extension. Surgical dressing is clean and dry. Swelling of the left knees consistent with the recent total knee arthroplasty. Calves negative. Neurovascular status left
--- NOTE | 2022-03-21 11:06 | PM.IMPN ---
Progress Note: A&P Assessment and Plan (1) Hypotension: Code(s): I95.9 - Hypotension, unspecified Status: Acute Assessment and Plan: Hospitalist consulted due to hypotension. Patient blood pressure stable Patient okay to discharge (2) Abdominal pain: Code(s): R10.9 - Unspecified abdominal pain Status: Acute Assessment and Plan: Patient given Pepcid and Zofran for nausea and abdominal pain CT abdomen pelvis no acute findings Patient feeling better on discharge day, cleared to be discharged. (3) Diabetes: Code(s): E11.9 - Type 2 diabetes mellitus without complications Status: Acute Assessment and Plan: the patient is on Jardiance. Accu-Cheks AC and HS with sliding scale insulin and hypoglycemic protocol. (4) Anxiety: Code(s): F41.9 - Anxiety disorder, unspecified Status: Acute Assessment and Plan: the patient is currently not on any medication. p.r.n. Hydroxyzine has been added (5) S/P total knee arthroplasty: Code(s): Z96.659 - Presence of unspecified artificial knee joint Status: Acute Assessment and Plan: postop care per orthopedic physician PT OT per orthopedic physician DVT prophylaxis per orthopedic physician and it looks like the patient is on Xarelto Time Spent With Patient Time with patient: 15 - 25 minutes Subjective Date/time seen: 03/21/22 11:06 Interval history: Hospitals consulted due to patient's hypotension and nausea. Patient's blood pressure is stable and nausea improved. Patient cleared to be discharged per hospitalist. Advised patient continue stool softeners as an outpatient until bowels are moving again. Review of Systems Review of Systems: All systems reviewed & are unremarkable except as noted in HPI and below Exam Narrative: GENERAL: Comfortable, no acute distress HENMT: moist mucous membranes EYES: EOM intact b/l NECK: no lymphadenopathy RESPIRATORY: clear to auscultation CARDIO: RRR GI: soft, nontender, bowel sounds present SKIN: no rashes EXTREMITIES: Left knee Tegaderm intact, mild swelling to left knee Objective Data Vital Signs Vital Signs: Vital Signs - 24 hr 03/20/22 14:00 03/20/22 22:29 03/20/22 20:00 Temperature 97.7 F 98.0 F Pulse Rate 78 85 Respiratory Rate 20 16 Blood Pressure 118/60 111/57 L Pulse Oximetry 96 94 Oxygen Delivery Room Air 03/21/22 02:35 03/21/22 06:47 03/21/22 09:00 Temperature 97.0 F L 97.0 F L Pulse Rate 90 87 Respiratory Rate 16 16 Blood Pressure 129/64 136/67 Pulse Oximetry 93 94 Oxygen Delivery Room Air Intake/Output Intake/Output: Intake & Output 03/18/22 03/19/22 03/20/22 03/21/22 23:59 23:59 23:59 23:59 Intake Total 1520 2630 1650 740 Output Total 200 Balance 1520 2430 1650 740 Meds/Results Medications: Active Medications Generic Name Dose Route Start Last Admin Trade Name Freq PRN Reason Stop Dose Admin Acetaminophen 1,000 mg 03/18/22 22:00 03/21/22 05:33 Acetaminophen 500 Mg Tablet PO 1,000 mg Q8HR PRAKASH Administration Allopurinol 100 mg 03/18/22 15:30 03/21/22 08:23 Allopurinol 100 Mg Tablet PO 100 mg DAILY PRAKASH Administration Ascorbic Acid 500 mg 03/19/22 09:00 03/21/22 08:23 Ascorbic Acid 500 Mg Tablet PO 500 mg DAILY PRAAKSH Administration Atorvastatin Calcium 40 mg 03/18/22 21:00 03/20/22 21:45 Atorvastatin 40 Mg Tablet PO 40 mg HS PRAKASH Administration Calcium Carbonate 200 mg 03/18/22 14:49 03/19/22 11:57 Calcium Carbonate (Tums) 500 Mg (200 Mg Elemental) PO 200 mg PRN PRN Administration Heartburn Cyclobenzaprine HCl 5 mg 03/20/22 16:17 03/21/22 01:35 Cyclobenzaprine Hcl 5 Mg Tablet PO 5 mg Q8H PRN Administration Muscle Spasm Dextrose 12.5 gm 03/19/22 15:43 Dextrose 50% 25 Gm/50 Ml Syringe IV PUSH PRN PRN Hypoglycemia Protocol
[2022-03-21 12:23] LABS: Glucose Point of Care 97 mg/dl (65-105)
== END 2022-03-21 14:47 | disposition home health service (06) ==
LOC: ANHSURGERY 15:52 → ANH2MED 15:52
PROVIDERS: Internal Medicine Critical Care Medicine; Nurse Practitioner; Admitting Provider Orthopaedic Surgery; PCP Family Medicine; Visit Provider Orthopaedic Surgery
PROC: (CPT 27447; principal; 2022-03-18 11:00)
DX: M17.12 Unilateral primary osteoarthritis, left knee (principal); I95.9 Hypotension, unspecified; R10.9 Unspecified abdominal pain; E11.9 Type 2 diabetes mellitus without complications; F41.9 Anxiety disorder, unspecified; K82.8 Other specified diseases of gallbladder; D64.9 Anemia, unspecified; F32.A Depression, unspecified; M10.9 Gout, unspecified; E66.9 Obesity, unspecified; Z68.35 Body mass index [BMI] 35.0-35.9, adult; G47.30 Sleep apnea, unspecified; G89.18 Other acute postprocedural pain; Z87.891 Personal history of nicotine dependence; F10.90 Alcohol use, unspecified, uncomplicated; Z79.82 Long term (current) use of aspirin; Z79.1 Long term (current) use of non-steroidal anti-inflammatories (NSAID); Z79.01 Long term (current) use of anticoagulants; Z79.84 Long term (current) use of oral hypoglycemic drugs; Z79.899 Other long term (current) drug therapy
CPT/HCPCS: 27447; 64447; 36415; 73560; 74177; 80048; 80053; 82948; 85014; 85018; 85025; 85027; 96374; 96375; 96376; 97110; 97116; 97161; 97165; 97530; 97535; A9270; C1713; C1776; G0378; G0379; J0171; J0330; J0690; J1100; J1200; J1885; J2250; J2270; J2405; J2704; J2795; J3010; J7030; J7120; Q9967

== ENCOUNTER 2022-04-08 13:11 | Outpatient (CLI) | payer MEDICARE, MEDICAID, SELFPAY ==
--- NOTE | ~2022-04-08 | US_ITS ---
EXAMINATION:US venous doppler LE LT INDICATION:Left lower extremity pain TECHNIQUE: Multiple grayscale, color flow and Doppler images of the left lower extremity deep venous systems were obtained and reviewed. COMPARISON: FINDINGS: The common femoral, superficial femoral and popliteal veins demonstrate normal respiratory variation, augmentation and compressibility. Color flow is also seen within the posterior tibial, pe roneal, greater saphenous and profunda veins. IMPRESSION: 1: No lower extremity deep venous thrombosis. Reviewed, dictated and finalized at location B. [facility]
== END 2022-04-08 13:12 | disposition home or self-care (01) ==
PROVIDERS: PCP Family Medicine; Visit Provider Nurse Practitioner
DX: M79.662 Pain in left lower leg (principal)
CPT/HCPCS: 93971

== ENCOUNTER 2022-05-29 10:00 | Outpatient (RCR) | payer MEDICARE, MEDICAID, SELFPAY ==
--- NOTE | 2022-04-10 11:59 | PTOPEVAL1 ---
Assessment and note entered by Maria R Moore DPT Evaluation Information Assessment Status Evaluation Subjective Information Pt had L TKA on 03/18/22. Had a doppler 2 days ago due to concerns of blood clot which was negative. States initially in the hospital her blood pressure was too low to do exercise so she did not move much at first. Highest pain 9/10 and lowest 4/10. Using a walker at all times currently. Did not use a walker before surgery. Returns to MD in mid April. Had home health therapy for 4 visits of PT. Reports increased stiffness with sitting too long, difficulty getting dressed or getting in the shower. Has stairs to get into her home and has help to navigate them. Not doing her typical cooking or cleaning but previously was able to do independently. Lives alone but has family close by to help. Reported Pain Level Pain Score 8: Self Report Assessment PT Clinical Summary The patient is presenting to skilled therapy s/p L TKA on 03/18/22. She presents with significantly decreased range of motion, decreased balance, and gait impairments contributing to her pain and difficulty with walking, dressing, and other ADL's . She will benefit from therapy to address these impairments in order to safely decrease pain and return to prior level of function. Plan of Care Interventions Electrical Stimulation,Gait Training,Hot Pack/Cold Pack,Manual Therapy,Neuro Re-education,Patient/ Caregiver Education,Therapeutic Activities, Therapeutic Exercise,Self-Care/Home Management PT Services Indicated Yes Treatment Frequency and 2 times a week for 3 weeks Duration These treatments will address the objective and functional deficits as defined above. The patient will be advanced safely and appropriately in order for the patient to progress towards his/her prior level of function. Additional exercises will be introduced and as well as a comprehensive home exercise program upon discharge, if needed, ?to ensure carryover of functional gains achieved in the clinic. This treatment plan has been reviewed and agreement upon by the patient.
--- NOTE | 2022-04-16 08:01 | PCPTNOTE ---
Patient called to cancel due to illness.
--- NOTE | 2022-05-01 10:29 | PTOPPROG ---
Assessment and note entered by Maria R Moore DPT Evaluation Information Assessment Status Progress Subjective Information Highest pain in last week 8/10 and lowest 0/10. Able to walk without her walker but feels like she will fall at times so keeps it with her most of the time. Has more mobility now, can get dressed and get in the shower with less difficulty. Has been able to navigate stairs with less difficulty as well. Still feels stiffness often and has difficulty doing her usual activities like babysitting her grandchildren or walk outside and take care of her animals. Assessment PT Clinical Summary The patient has made good progress in therapy so far. She reports decreased pain and improvements with getting dressed and navigating stairs. She demonstrates improved knee flexion to 109 and extension to +2. She also demonstrates improved walking speed on the 2 minute walk test and ability to ambulate without a walker. She does continue to demonstrate weakness, limited range of motion, and reports difficulty caring for her grandchildren and animals and will benefit from further therapy to return to prior level of function. Plan of Care Interventions Electrical Stimulation,Gait Training,Hot Pack/Cold Pack,Manual Therapy,Neuro Re-education,Patient/ Caregiver Education,Therapeutic Activities, Therapeutic Exercise,Self-Care/Home Management PT Services Indicated Yes Treatment Frequency and 2 times a week for 4 weeks Duration These treatments will address the objective and functional deficits as defined above. The patient will be advanced safely and appropriately in order for the patient to progress towards his/her prior level of function. Additional exercises will be introduced and as well as a comprehensive home exercise program upon discharge, if needed, ?to ensure carryover of functional gains achieved in the clinic. This treatment plan has been reviewed and agreement upon by the patient.
--- NOTE | 2022-05-15 12:10 | PCPTNOTE ---
Patient reports she has to cancel this date due to her having an MD scheduled visit.
--- NOTE | 2022-05-27 11:14 | PCPTNOTE ---
Pt cancelled appt today to watch her grandkids home from school.
--- NOTE | 2022-05-29 10:27 | PTOPDC ---
Assessment and note entered by Maria R Moore DPT Evaluation Information Assessment Status Discharge Subjective Information The patient reports highest pain 5/10 in last week and lowest 0/10 a few times. Still getting stiffness and muscle cramps at times. Has been able to walk more at her normal level and get back to more normal activities. Saw MD a few weeks ago , no more follow ups. Reported Pain Level Pain Score 2: Self Report Assessment PT Clinical Summary The patient has made excellent progress in therapy . She reports greatly decreased pain and improved function with walking and ADL's. She demonstrates improved knee extension to 0, knee flexion to 119, improved knee strength and greatly improved walking speed on the 2 minute walk test. Due to her progress, plan for discharge at this time. She has been educated to continue her HEP and follow up with MD and/or PT as needed. Plan of Care PT Services Indicated No
== END 2022-05-29 16:10 | disposition home or self-care (01) ==
LOC: ANHGOSHPT 10:00
PROVIDERS: PCP Family Medicine; Visit Provider Nurse Practitioner
DX: Z47.1 Aftercare following joint replacement surgery (principal); Z96.652 Presence of left artificial knee joint
CPT/HCPCS: 97110; 97112; 97140; 97161; 97530

== ENCOUNTER 2022-11-07 09:54 | Outpatient (CLI) | payer MEDICARE, MEDICAID, SELFPAY ==
--- NOTE | ~2022-11-07 | MM_ITS ---
EXAMINATION: MM screening [facility] BI w cheng HISTORY: Screening TECHNIQUE: Craniocaudal and mediolateral oblique 3-D tomosynthesis images were obtained and synthetic 2-D images were generated. CAD analysis was submitted and interpreted. COMPARISON: Comparison to multiple prior studies sequentially, with oldest reviewed study dated 08/2017. BREAST PARENCHYMAL COMPOSITION: There are scattered areas of fibroglandular density. FINDINGS: There is no evidence of suspicious mass, calcification, or architectural distortion to sugg est malignancy in either breast. There has been no suspicious interval change. IMPRESSION: 1. No mammographic evidence of malignancy. 2. Recommend routine screening mammography in one year. BI-RADS Category 1: Negative Reviewed, dictated and finalized at location A.
== END 2022-11-07 09:55 | disposition home or self-care (01) ==
PROVIDERS: PCP Family Medicine; Visit Provider Family Medicine
DX: Z12.31 Encounter for screening mammogram for malignant neoplasm of breast (principal)
CPT/HCPCS: 77063; 77067

== ENCOUNTER 2023-09-03 12:28 | Outpatient (CLI) | payer MEDICARE, MEDICAID, SELFPAY ==
--- NOTE | ~2023-09-03 | DEXA_ITS ---
Bone Density Report Name: SUGAR LAL Age: 57 Sex: Female Ethnicity: White Date of : 1965 Indication: postmenopausal; screening for osteoporosis; Referring Provider: [facility], [facility] Study: Bone densitometry was performed. Exam Date: September 03, 2023 Accession number: [id number] Bone Density: Region BMD T-score Z-score Classification AP Spine(L2, L3, L4) 0.805 -2.5 -1.1 Osteoporosis Femoral Neck (Left) 0.668 -1.6 -0.4 Osteopenia Total Hip (Left) 0.819 -1.0 -0.1 Normal Femoral Neck (Right) 0.701 -1.3 -0.1 Osteopenia Total Hip (Right) 0.854 -0.7 0.2 Normal Total Hip Mean 0.836 -0.9 0.1 Normal World Health Organization criteria for BMD impression classify patients as: Normal (T-score at or above -1.0), Osteopenia (T-score between -1.0 and -2.5), or Osteoporosis (T-score at or below -2.5). 10-year Fracture Risk: FRAX not reported because: Some T-score for Spine Total or Hip Total or Femoral Neck at or below -2.5 Clinical Information Provided by Patient: Patient maximum height was 64 Menopause Age: 48 No regular weight bearing exercise Drinks caffeinated beverages Onset of menses at age 12 Number of children 2 Impression: The patient has osteoporosis, based on the Total Spine T-score. Discussion: INCREASED RISK OF FRACTURE. BONE DENSITY IS UNDESIRABLY LOW AT ONE OR MORE SKELETAL SITES, CONSISTENT WITH POSTMENOPAUSAL OSTEOPOROSIS. This patient's lowest T-score meets the World Health Organization's (WHO) criteria for osteoporosis at one or more sites (T-score -2.5 or below). In untreated patients, the risk of osteoporotic fracture increases approximately two-fold for each 1.0 SD decrease in T-score. Low bone density is not the only risk factor for fracture; also consider factors such as patient's age, frailty or poor health, risk of falling, risk of injury, previous osteoporotic fracture, family history of osteoporosis, cigarette smoking, low body weight, etc. Not everyone with low bone mineral density has osteoporosis; osteomalacia and other metabolic bone disorders should also be considered. Patients who have osteoporosis should be evaluated for specific diseases and conditions (secondary causes) that may cause or contribute to bone loss. The [place] [employer] Endocrinologists (AACE) and National Osteoporosis Foundation (NOF) recommend pharmacologic intervention for all postmenopausal women whose T-score is in this range. The patient should follow a healthful lifestyle (good nutrition with adequate calcium and vitamin D, and appropriate weight-bearing exercise). Follow-Up: Consider a repeat BMD and Vertebral Fracture Assessment (VFA) exam in 2 years or sooner if medically necessary, to reassess this patient's status. Reported by: JENNIFER on 09/03/2023 1:10:00 PM.
== END 2023-09-03 12:29 | disposition home or self-care (01) ==
PROVIDERS: PCP Family Medicine; Visit Provider Family Medicine
DX: M81.0 Age-related osteoporosis without current pathological fracture (principal); M85.852 Other specified disorders of bone density and structure, left thigh; M85.851 Other specified disorders of bone density and structure, right thigh
CPT/HCPCS: 77080

== ENCOUNTER 2024-07-06 07:33 | Outpatient (CLI) | payer MEDICARE, MEDICAID, SELFPAY ==
--- NOTE | ~2024-07-06 | MM_ITS ---
EXAMINATION: MM screening corwin BI w cheng HISTORY: Screening TECHNIQUE: Craniocaudal and mediolateral oblique 3-D tomosynthesis images were obtained and synthetic 2-D images were generated. CAD analysis was submitted and interpreted. COMPARISON: Comparison to multiple prior studies sequentially, with oldest reviewed study dated 08/2017. BREAST PARENCHYMAL COMPOSITION: Not dense: There are scattered areas of fibroglandular density. FINDINGS: There is no evidence of suspicious mass, calcification, or architectural distortion to sugg est malignancy in either breast. There has been no suspicious interval change. IMPRESSION: 1. No mammographic evidence of malignancy. 2. Recommend routine screening mammography in one year. BI-RADS Category 1: Negative Reviewed, dictated and finalized at location B.
--- OUTSIDE RECORDS SUMMARY | 2024-07-06 07:39 | XMS_ITS | Continuity of Care Document ---
Author Organization [facility] Address [address] [facility] [place] [address] Phone Care Team Providers Care Salon Assistant Name Role Phone David Sigala MD Unavailable Unavailable Allergies, Adverse Reactions, Alerts Substance Reaction Status Criticality Sulfa (Sulfonamide Antibiotics) Active No Information morphine Active No Information Medications Medication Instructions Dosage Effective Dates (start - stop) Status Comments Mobic 15 mg tablet take 1 tablet by ora l route every day - Active Procedures Procedure Date OFFICE/OUTPATIENT VISIT, EST PREV VISIT, NEW, AGE 40-64 Advance Directives Directive Yes / No Effective Date File Name No Information Encounters Encounter Description Practice Location Reason(s) For Visit Diagnoses Date Provider Providers Copied on Encounter [facility], [address] [place], [id number], tel:[phone] [facility] No Information Jovon Marshall [address], [id number] , [place]. tel:[phone] Referring Provider: David Sigala, [address] [place], [place], [id number]. tel:[phone] OFFICE/OUTPAT IENT VISIT, EST [facility], [address] [employer] [place], [id number], tel:[phone] [facility] insomnia1 (chief complaint)k nee pain1 (chief complaint)c mcc pain1 (chief complaint) InsomniaPain in right kneePain in left lower leg Jovon Hernandez. [address], [address], [place], [place], [id number] , [place]. tel:[phone] Referring Provider: David Sigala [address], [place], [place], [id number]. tel:[phone] PREV VISIT, NEW, AGE 40-64 [facility], [address], [place], [place], [id number], [place] tel:[phone] [facility] physical (chief complaint) Encntr for general adult medical exam w/o abnormal findings Jovon Hernandez. [address], [address], [place], [place], [id number] , [place]. tel:[phone] Referring Provider: David Sigala, [address] [facility] [address], [place], [place], [id number]. tel:[phone] Family History Family Member Type Diagnosis Age At Onset Mother Problem (finding) CVA, renal failure (Cau se Of ) 78 Father Problem (finding) of 87 old age and afib (Cause Of ) Sister Problem (finding) Alive and well Payers Payer name Insurance type Covered alliance party ID Authoriza tion(s) No Information Social History Type Description Quantity Date Captured Comments Alcohol Use Details Unknown Caffeine Use Details Unknown Tobacco Use Status No Information Smoking Status No Information Sex Female Chief Complaint And Reason For Visit No Information Plan Of Treatment Date Type Action Status Goal Special diet education compl eted Goal Tobacco cessation counseling completed Goal Tobacco cessation counseling completed Goal Special diet education compl eted Referral Referred To: Joseph NEW, Paul Le [address] [place], [place], [id number] Ordered: Referrals: Paul Ruiz MD Evaluate and treat ordered Referral Ordered: US VENOUS DOPPLER ordered Referral Ordered: MRI JNT OF LWR EXTRE W/O DYE Right ordered History Of Present Illness Encounter Date Complaint History Of Prese nt Illness insomnia1 Pt has chronic i nsomnia. pt denies any snoring or any trouble with breathing at night. Pt denies any fatigue knee pain1 Pt has chronic r ight knee with swelling. Pt is seeing ortho. Pt just seen ortho and she actually had some fluid removed from both knee about 6 weeks ago. pt notices mild swelling above right patella again. pt denies any redness or warmth. Pt denies any right calf pain. Pt was given mobic from ortho which does help Pt was given steroid but she could not tolerate it due to swelling. Her ortho told her she has a touch of RA? calf pain1 Pt c/o left calf pain for 4 weeks. Pt denies any sob or chest pain Pt denies any recent travel or bedrest Pt denies any injury Pt denies any redness or warmth physical Pt needs annual physical. Pt has chronic bilateral knee pain Pt is seeing ortho and she is getting steroid injections. pt has arthritis on both knee per pt from ortho, pt states that she has some history of injury to both knees in the past Pt denies any swelling Pt does have knee pain a lot pt denies any redness or warmth of the knee. Pt was told by ortho that she may have lupus? pt notices recurrent red rash upper front of the chest for at least several months Pt notices some bumps with burning sensation. Pt denies any drainage Pt notices mild itching Pt been to urgent care multiple times and was given multiple rounds or oral steroid but not helping. Pt is scared of having lupus Pt denies any other complaints Instructions Date Instruction Additional Infor mation Special diet education Related t o Body mass index (BMI) 33.0-33.9, adult Increase physical activity Relat ed to Insomnia Weight management Related to Ins omnia Special diet education Related t o Body mass index (BMI) 32.0-32.9, adult Assessments Type Assessment Date No Information
--- OUTSIDE RECORDS SUMMARY | 2024-07-06 07:40 | XMS_ITS | Data Portability ---
Author Organization [facility] Celine Avalos Address [address] [place] [address] Care Team Providers Care Supervisor Rough End Name Role Phone AALIYAH PRABHAKAR Primary Care Provider Unavailabl e Assessment No assessment recorded. Plan of Treatment Reminders Order Date Submit Date Provider Last Modified By Organization Details Last Modified Time Details Appointments None recorded. Lab urinalysis, dipstick 2017 018 [email or web address] In-Office Order, Internal Use Only DO Not Attach Compendium DO Not Attach Compendium, Do Not Delete/merge, [id number] 8 09:14:59 Referral orthopedic referral - Please call patient to schedule, Thank you 2017 018 JAVIER Ruiz MD (Orthopedics) , [address], [place], [address], 8 17:27:47 Procedures None recorded. Surgeries None recorded. Imaging XR, kidney + ureter + bladder 2017 018 snorthcut t1 [facility] ([facility]) Scheduling, [address] [place], [address], 8 09:45:10 XR, knee, 3 view 2017 018 [email or web address] Not available 8 09:14:31 Medication Orders ketorolac 10 mg tablet 2017 018 jdeyto [facility] [place], [address], [place], [address], 8 09:14:59 meloxicam 15 mg tablet 2017 018 [place] [address] [place], [address], 8 09:11:59 triamcinolo ne acetonide 0.025 % topical cream 2017 018 [place] [address] [place], [address], 8 17:05:53 benzonatate 100 mg capsule 2017 018 [place] [address] [place], [address], 8 17:05:35 amoxicillin 500 mg tablet 2017 018 [place] [address] [place], [address], 8 17:05:31 naproxen 500 mg tablet 2017 018 [place] [address] [place], [address], 8 16:03:58 Patient TargetsNo targets recorded. Patient Instructions Encounter Date Encounter Id Patient Instructions Last Modified By Organization Details Last Modified Time 03/20/2017 [id number] advised to quit smoking [email or web address] Not available 03/20/2017 09:47:49 gastroesophageal reflux disease (GERD): care instructions [email or web address] Not available 03/20/2017 09:47:49 ganglions: care instructions jdeyto Not available 03/20/2017 09:47:49 04/14/2017 [id number] knee pain or inj ury: care instructions [email or web address] Not available 04/14/2017 15:58:04 Reason for Referral Orthopedic Referral for Pain in left knee Please call patient to schedule, Thank you Referring Physician: Aaliyah Deyto, Internal Medicine, Encounter Date: 04/14/2017 Results Created Date Observation Date Name Description Value Unit Range Abnormal Flag Note LastModifiedBy Organization Detail LastModifiedTime 07/30/19 18 07/29/2017 urina lysis , dipst ick Leukocytes Negati ve Not Available In-Office Order Internal Use Only DO Not Attach Compendium DO Not Attach Compendium, Do Not Delete/merge, 07/29/2017 08:59:52 07/30/19 18 07/29/2017 urina lysis , dipst ick Nitrite negati ve Not Available In-Office Order Internal Use Only DO Not Attach Compendium DO Not Attach Compendium, Do Not Delete/merge, 07/29/2017 08:59:52 07/30/19 18 07/29/2017 urina lysis , dipst ick Urobilinogen .2 Not Available In-Of fice Order Internal Use Only DO Not Attach Compendium DO Not Attach Compendium, Do Not Delete/merge, 07/29/2017 08:59:52 07/30/19 18 07/29/2017 urina lysis , dipst ick Protein Trace Not Available In-Office Order Internal Use Only DO Not Attach Compendium DO Not Attach Compendium, Do Not Delete/merge, 07/29/2017 08:59:52 07/30/19 18 07/29/2017 urina lysis , dipst ick pH 5.0 Not Available In-Office Order Internal Use Only DO Not Attach Compendium DO Not Attach Compendium, Do Not Delete/merge, 07/29/2017 08:59:52 07/30/19 18 07/29/2017 urina lysis , dipst ick Blood Negati ve Not Available In-Office Order Internal Use Only DO Not Attach Compendium DO Not Attach Compendium, Do Not Delete/merge, 07/29/2017 08:59:52 07/30/19 18 07/29/2017 urina lysis , dipst ick Specific [place] 1.030 Not Available In-Off ice Order Internal Use Only DO Not Attach Compendium DO Not Attach Compendium, Do Not Delete/merge, 07/29/2017 08:59:52 07/30/19 18 07/29/2017 urina lysis , dipst ick Ketone Negati ve Not Available In-Office Order Internal Use Only DO Not Attach Compendium DO Not Attach Compendium, Do Not Delete/merge, 07/29/2017 08:59:52 07/30/19 18 07/29/2017 urina lysis , dipst ick Bilirubin Negati ve Not Available In-Office Order Internal Use Only DO Not Attach Compendium DO Not Attach Compendium, Do Not Delete/merge, 07/29/2017 08:59:52 07/30/19 18 07/29/2017 urina lysis , dipst ick Glucose Negati ve Not Available In-Office Order Internal Use Only DO Not Attach Compendium DO Not Attach Compendium, Do Not Delete/merge, 07/29/2017 08:59:52 07/30/19 18 07/29/2017 urina lysis , dipst ick Appearance Slight ly Cloudy Not Available In-Office Order Internal Use Only DO Not Attach Compendium DO Not Attach Compendium, Do Not Delete/merge, 07/29/2017 08:59:52 07/30/19 18 07/29/2017 urina lysis , dipst ick Color Yellow Not Available In-Office Order Internal Use Only DO Not Attach Compendium DO Not Attach Compendium, Do Not Delete/merge, 07/29/2017 08:59:52 08/01/19 18 07/29/2017 XR, abdom en No observ ation record ed. [facility] ([facility] Scheduling [address] [place], [address], 08/01/2017 13:07:29 Result Notes None recorded. Problems No Known Problems Procedures Surgical History Date Name Laterality Status Provider Name and Address Organization Details Recorded Time 7 Back Surgery completed Megan Toure MA [facility] 03/20/2017 09:14:09 9 Tubal Ligation completed Tricia Youngblood [facility] 07/30/19 18 08:52:24 Appendectomy completed Tricia Youngblood [facility] 08:52:15 Other completed Tricia Youngblood [facility] 018 08:52:41 Imaging Results Imaging Date Name Status LastModified by Organiz ation Details LastModified Time 07/29/2017 XR, abdomen completed [email or web address] [facility] ([facility]) Scheduling [address] [place], [address], 08/01/2017 13:07:29 Procedure Notes None recorded. Medical Equipment None Reported. Allergies Allergen ID Allergen Name Allergen Category Reaction Reaction Severity Criticality Documentation Date Start Date Code Code System Note Provider Name and Address Organization Details Recorded Time [id number] Substance with sulfonami de structure and antibacte rial mechanism of action (substanc e) medicatio n rash moderate Not available 03/20/2017 89131 8003 SNOMED Aaliyah Prabhakar PA-C Attn: Stephenie g,[address] [facility], [place], [address] [place] [address] 8 09:37:11 374115 morphine medicatio n vomiting Not available Not available 03/20/2017 7052 RxNorm Megan hammond MA null, [place] - [place] 8 09:02:44 Medications Name Sig Start Date Stop Date Status Note LastModified by Organization Details LastModified Time amoxicillin 500 mg capsule 04/14 completed Not Available Not Available Not Available meloxicam 15 mg tablet Take 1 tablet every day by oral route. 07/29 completed Not Available Not Available Not Available amoxicillin 500 mg tablet Take 2 tablets every 8 hours by oral route for 5 days. 04/03 completed Not Available Not Available Not Available ketorolac 10 mg tablet Take 1 tablet every 6 hours by oral route as needed. 2017 active Not Available Not Available Not Avai lable triamcinolo ne acetonide 0.025 % topical cream APPLY A THIN LAYER TO THE AFFECTED AREA(S) BY TOPICAL ROUTE 2 TIMES PER DAY 04/03 completed Not Available Not Available Not Available benzonatate 100 mg capsule Take 1 capsule 3 times a day by oral route as needed for 10 days. 04/03 completed Not Available Not Available Not Available betamethaso ne dipropionat e 0.05 % topical cream APPLY A THIN LAYER TO THE AFFECTED AREA(S) BY TOPICAL ROUTE ONCE DAILY 07/29 completed Not Available Not Available Not Available methylpredn isolone 4 mg tablets in a dose pack take as directed 04/14 completed Not Available Not Available Not Available loratadine 10 mg tablet Take 1 tablet every day by oral route as needed. active Not Available Not Available No t Available naproxen 500 mg tablet Take 1 tablet twice a day by oral route as needed. 04/14 completed Not Available Not Available Not Available Vitals Date Recorded Body height Body mass index (BMI) Body weight Heart rate Respiratory rate Body temperature Oxygen saturation Oxygen saturation in Arterial blood by Pulse oximetry Systolic blood pressure Diastolic blood pressure Provider Name and Address Organization Details Last Updated DateTime 8 162.56 cm 33.5 kg/m2 03490.9 5 g 94 /min 14 /min 98.2 [degF] 96 % 96 % 128 mm[Hg] 72 mm[Hg] Megan hammond MA [facility] 8 09:16:14 Date Recorded Body height Body mass index (BMI) Body weight Heart rate Respiratory rate Body temperature Oxygen saturation Oxygen saturation in Arterial blood by Pulse oximetry Systolic blood pressure Diastolic blood pressure Provider Name and Address Organization Details Last Updated DateTime 8 162.56 cm 34.1 kg/m2 11820.0 9 g 94 /min 12 /min 98.1 [degF] 98 % 98 % 118 mm[Hg] 74 mm[Hg] ASHANTI Rivera [facility] 8 15:46:39 Date Recorded Body height Body mass index (BMI) Body weight Heart rate Respiratory rate Body temperature Oxygen saturation Oxygen saturation in Arterial blood by Pulse oximetry Systolic blood pressure Diastolic blood pressure Provider Name and Address Organization Details Last Updated DateTime 8 162.56 cm 33.4 kg/m2 76682.3 6 g 92 /min 12 /min 98.1 [degF] 98 % 98 % 112 mm[Hg] 76 mm[Hg] Tricia Youngblood [facility] 8 08:53:43 Social History Question Answer Notes LastModified by Organizat ion Details LastModified Time Tobacco Smoking Status Current Every Day Smoker Megan Toure MA null, [place] - [facility] 03/20/2017 09:04:06 What Is Your Level Of Caffeine Consumption? Moderate 3 Cups/day Information not available 03/20/2017 How Much Tobacco Do You Chew? None [email or web address] pabloma Information not available 03/20/2017 What Type Of Diet Are You Following? REGULAR Information not available 07/29/2017 Which Illicit Or Recreational Drugs Have You Used? Denies Information not available 07/29/2017 Education 2 Year College Information not available 03/20/2017 Hard Of Hearing Or Deaf In One Or Both Ears? No Information not available 03/20/2017 Legally Blind In One Or Both Eyes? No Information not available 03/20/2017 Marital Status Domestic Partner Garcia Araiza Information not available 03/20/2017 What Was The Date Of Your Most Recent Tobacco Screening? 07/29/2017 Information n ot available 09/10/2018 Seat Belts Used Routinely Yes Information not available 03/20/2017 Smoke Alarm In Home Yes Information not available 03/20/2017 At What Age Did You Start Smoking Tobacco? 45 Information not available 07/29/2017 How Much Tobacco Do You Smoke? 0.25 PPD [email or web address] Information not available 03/20/2017 General Stress Level High Information not available 03/20/2017 How Many Years Have You Smoked Tobacco? 4 [email or web address] Information not available 03/20/2017 Sex: Unknown Functional Status Question Answer Note LastModified by Organizat ion Details LastModified Time What is your level of alcohol consumption? 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 Moderate Information not available 07/29/2017 Mental Status None recorded. Family History Relationship Description Onset Age of this Age Resolved Age Notes LastModified by Organization Details LastModified Time Mother Cerebrovascu lar accident marilin yu Not available 03/20/2017 09:03:30 Mother Diabetes mellitus marilin yu Not available 03/20/2017 09:03:38 Mother Hypercholest erolemia marilin yu Not available 03/20/2017 09:03:54 Medical History Condition Response Coronary Artery Disease N Other N Atrial Fibrillation N High Blood Pressure N Thyroid Problems N Kidney or Bladder Problems N Depression N COPD N Blood Clots N GI Problems N Skin Problems N Anemia Y Heart Attack ([place]) N Diabetes N Anxiety Disorder N Muscle, Joint, or Bone Problems N Seizures/Epilepsy N Acid Reflux (GERD) Y Cancer N Stroke N Allergies N Asthma N High Cholesterol N Hepatitis N Liver Disease N Headaches Y Osteoporosis N Heart Failure N Gynecological HistoryNo gynecological history recorded. Obstetrics History GPAL:G 0 P 0 0 0 0 Past Encounters Encounter ID Performer Location Encounter Start Date Encounter Closed Date Diagnosis/Indication Diagnosis SNOMED-CT Code Diagnosis ICD10 Code Diagnosis Note [id number] Quentin Hanley MD [facility] (Adult Med) [address] [place] [address] 03/20/2017 08:53:55 03/21/2017 14:19:32 Acute maxillary sinusitis 58776483 J01.00 sxs present for 4 days, not improving w/ OTC meds. treat w/ abx, drink plenty of fluids, cont OTC meds as long as it doesn't contain expectoran t as that will exacerbate cough. Cough 12770300 R05 Try tessalon perles to see if it works better than robitussin since she is starting to have nausea/vom iting with bronchospa sms. Avoid expectoran ts as cough is due to postnasal drainage. Tobacco user 867300819 Z 72.0 will continue to discuss at 4 week f/u and medication s/patches. Bereavement 65436055 Z63 .4 still struggling w/ sudden loss of her dad. for now she defers counseling and medication s. close f/u in 4 weeks. Ganglion cyst 21406504 M 67.40 reviewed options w/ patient. Can try NSAIDs and wrist brace since pain is more with flexion, but if not improving, recommend ortho referral for either excision or aspiration . Gastroesop hageal reflux disease without esophagitis 366190914 K21.9 not well controlled , reviewed diet modificati ons and weight loss. cont nutrisyste m. Reduce caffeine intake, change Tums to OTC zantac or Prilosec as needed. Body mass index 30+ - obesity 371167251 Z68.33 started Nutrisyste m diet, working on weight loss before her wedding in April. Pruritic rash 18976049 L 28.2 dwp that transfusio n reaction usually doesn't last beyond the immediate day or so following transfusio n. Rash appears more like eczema and has flared w/ recent URI sxs. try steroid cream. will re-evaluat e in 4 weeks. [id number] MD [facility] (Adult Med) [address] [place] [address] 04/14/2017 15:36:05 04/15/2017 14:32:31 Pain in left knee 8934563532 87774 M25.562 pain s/p traumatic slip w/o fall. patient instructed to call ortho to see if they can see her urgently, if not she may need to go to ER. discussed R.I.C.E. and using crutches to limit weight bearing on her left knee. Discussed possible bursitis [id number] MD Jordin Stinson (Adult Med) [address] [place] [address] 07/29/2017 08:44:08 07/29/2017 09:45:09 Dysuria 28344069 R30.0 negative UA, no infection Right flank pain 9887810 09 R10.9 h/o right sided kidney stone, not sure if she passed it last year, will get records from [facility] in [place]. UA negative for gross or microscopi c hematuria. Will start toradol, will get KUB and see if stones are visible, if not may need ultrasound or CT abd/pelvis w/o contracts. h/o chronic back pain w/ surgical repair to L-spine. Pain in left knee 341347 4365 76113 M25.562 saw ortho, rec'd steroid injection. Still having some knee pain, they ordered MRI but she hasn't heard back from them since it couldn't be done at [facility]. Health Concerns Section Related Observation LastModified by Organization Detai ls LastModified Time None Recorded Concern Status LastModified by Organization Details LastModified Time None Recorded Advance Directives Directive None Recorded Payers Encounter Date Sequence Insurance Name Policy Number Policy Avalos Covered Member ID Avalos Member ID Guarantor Name 03/20/2017 1 [facility] (MEDICAID HMO) [id number] Kristy Rausch [id number] Kristy Rausch 04/14/2017 1 [facility] (MEDICAID HMO) [id number] Kristy Rausch [id number] Kristy Rausch 07/29/2017 1 [facility] (MEDICAID HMO) [id number] Kristy Rausch [id number] Kristy Rausch Notes Date Note Type Note Provider Name and Address Organization Details Recorded Time 03/20/2017 text/html Here to chapin avalos, prior PCP no longer taking her insurance. Friday started feeling poorly, sore throat, ears popping. Got worse fevers/chills Friday & Friday. Max 101F. ibuprofen brought it down.still having sore throat, SOW, ears hurting, cold chills. 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 Left Wrist bump x 2 months, radial side, sore, worse w/ activity especially bending wrist. Bump seems bigger. No change in registration scheduling specialist or strength. Right handed. 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 very pruritic. No other rash except to chest, recent tx with medrol dose zachariah in Nov. reduced inflammation, but with URI sxs it returned. depression, father passed Jan, still having a hard time with it, fiance supportive. she & Raghu araiza, are getting mid-April GERD: heartburn sxs few times a week, takes Tums w/ch helps. No certain food affects it, drinks coffee 5-8 cups a day.working on weight loss, started Nutrisystem diet Tobacco use: smoking 1/4ppd, know she needs to quit but has been hard since her dad in Jan. Aaliyah Prabhakar PA-C Attn: Accounting,[address] [facility] [facility], [place], [address], [facility] 03/20/2017 14:02:13 04/14/2017 text/html left knee pain [place] 2 [place] She denies falling, didn't hit knee on anything. NO assoc swelling or bruising. Pain is throughout, but most pain is above knee cap; causing pain to rest of her leg with change in gait. taking ibuprofen every now & then and iced it initially. not using cane or crutches. Tried BF's mom's knee brace but it kept sliding off. Upset about injury since she is getting in April and wants to be able to walk down the aisle w/o worrying about falling from knee pain. Aaliyah Prabhakar PA-C Attn: Accounting,[address] [facility], [place], [address], [facility] 04/14/2017 17:11:33 07/29/2017 text/html Since last Monda y h/o kidney stones, more frequent urination, some dysuria. right sided flank pain radiating into front, suprapubic pain bilateral. denies any hematuria, fevers or chills. not taking any NSAIDs. [place] ER visit last year, noted right sided stone. not sure if she passed it. has never seen or had stone analysis done. drinking lots of water. Aaliyah Prabhakar PA-C Attn: [address] [place], [address], [facility] 07/29/2017 15:13:18 OBGyn Episode No OBEpisode recorded.
--- OUTSIDE RECORDS SUMMARY | 2024-07-06 07:40 | XMS_ITS | Data Portability ---
Author Organization [employer], Main Office Address [address] [place] [id number] Care Team Providers Care Scallop Cutter Machine Name Role Phone SALVADOR VERAS Primary Care Provider [phone] Assessment Encounter Date Assessment Date Assessment LastModified by Organization Details LastModified Time 04/22/2024 04/22/2024 58 yo F with - DM II - ANEMIA - HLD - HTG - CHRONIC INSOMNIA - GOUT - CHRONIC LOW BACK PAIN - SEASONAL ALLERGIC RHINITIS - RECURRENT CENTRAL CHEST RASH, chronic - RT LEG PAIN, Chronic - B/L KNEE PAIN; Chronic - COMPLEX MEDICAL MENISCUS TEAR, RT - RUPTURED BACKER'S CYST, RT - LT HAND PAIN, chronic - OA - OSTEOPENIA - FATIGUE; ? BECK - B/L KIDNEY STONES - VIT B12 DEFICIENCY - VIT D DEFICIENCY - OVERWEIGHT - EX-SMOKER - H/O DEPRESSION - H/O ANXIETY - H/O INSOMNIA - H/O RT HYDRONEPHROSIS, Mild - H/O LEUKOPENIA - H/O POSTHERPETIC NEURALGIA - H/O OBESITY II HbA1c: 6.0(11/30/18) - 6.0(02/22/19) - 6.4(01/06/20) - 6.5(05/31/20) - 6.0(09/04/20) - 5.9(04/17/21) - 6.1(12/17/21) - 6.3(03/04/22) - 5.9(07/23/22) - 5.8(01/01/23) - 6.2(09/02/23) - 5.9(01/06/24) Annual labs: 01/06/24. Annual labs: 01/01/23. MRI wrist wo: 01/11/22. Annual labs: 12/17/21. Annual labs: 01/02/21. X-ray Lt hand: 09/12/20. Annual labs: 01/06/20. CT A&P wo: 09/22/19. US pelvis: 08/30/19. CT A&P wo: 08/15/19. US Rt leg MS: 12/11/18. US b/l LE venous: 12/02/18. X-ray b/l knees: 11/30/18. Annual labs: 11/30/18. MRI Rt knee wo: 08/13/18. Wt: 196(07/30/22) - 190(09/03/22) - 186(10/08/22) - 179(11/13/22) - 171(01/01/23) - 175(01/27/23) - 178(04/17/23) - 174(06/12/23) - 171(09/04/23) - 172(11/06/23) [stop] Wt: 191(04/22/24) D/w pt about her findings, recent labs & imagines and further plan of care. All meds verified with pt. Meds as directed. Risks Vs benefits of Aspirin 81mg po daily with food explained. Pt agreed. Cont OTC knee sleeve as directed. Cont Ice pack as directed prn. Routine skin care explained. Advised pt to avoid any strenuous/heavy activities until cleared by Ortho. Advised pt to talk with close friend/family member on a regular basis. Diet and exercise explained in detail. Explained about different options for her. F/u with Derm as per schedule. Cont f/u with Ophtho as per schedule. Cont f/u with Hand surgeon as per schedule. Cont f/u with Uro at [facility] as per schedule. Cont f/u with Ortho as per schedule. Cont f/u with Gyne as per schedule. Advised to refer to Counsellor/psyc h; but pt declined. Advised to refer for sleep study; but pt declined. Advised to refer to Hemat; but pt declined. Advised to refer to Surgical Dressing Maker; but pt declined. Pt got s/e from Metformin. HM: WWE - 08/08, H/o HPV ++. Cont f/u with Gyne as per schedule. Mammo - 09/09, normal as per pt. Colonoscopy - 05/04, normal as per pt. Cont f/u with GI as per schedule. DEXA - 09/03/23, osteoporosis ++. Flu - 01/21/24. Tdap, Pneumo, Shingrix - At [facility]. F/u in 2 months. A1c before next visit. Annual labs in 01/11. Not available 04/22/2024 10:26:16 06/24/2024 06/24/2024 58 yo F with - WT LOSS PROGRAM - DM II - ANEMIA - HLD - HTG - CHRONIC INSOMNIA - GOUT - CHRONIC LOW BACK PAIN - SEASONAL ALLERGIC RHINITIS - RECURRENT CENTRAL CHEST RASH, chronic - RT LEG PAIN, Chronic - B/L KNEE PAIN; Chronic - COMPLEX MEDICAL MENISCUS TEAR, RT - RUPTURED BACKER'S CYST, RT - LT HAND PAIN, chronic - OA - OSTEOPENIA - FATIGUE; ? BECK - B/L KIDNEY STONES - VIT B12 DEFICIENCY - VIT D DEFICIENCY - OVERWEIGHT - EX-SMOKER - H/O DEPRESSION - H/O ANXIETY - H/O INSOMNIA - H/O RT HYDRONEPHROSIS, Mild - H/O LEUKOPENIA - H/O POSTHERPETIC NEURALGIA - H/O OBESITY II HbA1c: 6.0(11/30/18) - 6.0(02/22/19) - 6.4(01/06/20) - 6.5(05/31/20) - 6.0(09/04/20) - 5.9(04/17/21) - 6.1(12/17/21) - 6.3(03/04/22) - 5.9(07/23/22) - 5.8(01/01/23) - 6.2(09/02/23) - 5.9(01/06/24) - 6.0(06/23/24) Annual labs: 01/06/24. Annual labs: 01/01/23. MRI wrist wo: 01/11/22. Annual labs: 12/17/21. Annual labs: 01/02/21. X-ray Lt hand: 09/12/20. Annual labs: 01/06/20. CT A&P wo: 09/22/19. US pelvis: 08/30/19. CT A&P wo: 08/15/19. US Rt leg MS: 12/11/18. US b/l LE venous: 12/02/18. X-ray b/l knees: 11/30/18. Annual labs: 11/30/18. MRI Rt knee wo: 08/13/18. Wt: 196(07/30/22) - 190(09/03/22) - 186(10/08/22) - 179(11/13/22) - 171(01/01/23) - 175(01/27/23) - 178(04/17/23) - 174(06/12/23) - 171(09/04/23) - 172(11/06/23) [stop] Wt: 191(04/22/24) - 188(06/24/24) D/w pt about her findings, recent labs & imagines and further plan of care. All meds verified with pt. Meds as directed. Risks Vs benefits of Aspirin 81mg po daily with food explained. Pt agreed. Cont OTC knee sleeve as directed. Cont Ice pack as directed prn. Routine skin care explained. Advised pt to avoid any strenuous/heavy activities until cleared by Ortho. Advised pt to talk with close friend/family member on a regular basis. Diet and exercise explained in detail. Explained about different options for her. F/u with Derm as per schedule. Cont f/u with Ophtho as per schedule. Cont f/u with Hand surgeon as per schedule. Cont f/u with Uro at [facility] as per schedule. Cont f/u with Ortho as per schedule. Cont f/u with Gyne as per schedule. Advised to refer to Counsellor/psyc h; but pt declined. Advised to refer for sleep study; but pt declined. Advised to refer to Hemat; but pt declined. Advised to refer to Surgical Dressing Maker; but pt declined. Pt got s/e from Metformin. HM: WWE - 08/08, H/o HPV ++. Cont f/u with Gyne as per schedule. Mammo - 09/09, normal as per pt. Colonoscopy - 05/04, normal as per pt. Cont f/u with GI as per schedule. DEXA - 09/03/23, osteoporosis ++. Flu - 01/21/24. Tdap, Pneumo, Shingrix - At [facility]. F/u in 3 months. Annual labs in 01/11. Not available 06/24/2024 10:42:09 Plan of Treatment Reminders Order Date Submit Date Provider Last Modified By Organization Details Last Modified Time Details Appointments Follow Up 15 2024 09:30A M Salvador Veras MD Not available Not available Not available Lab glycohemo globin, total, blood 2024 025 [facility] (Lab), [address] [place], [address], 06/23/2024 20:16:56 Referral None recorded. Procedures None recorded. Surgeries None recorded. Imaging None recorded. Medication Orders diclofena c sodium 75 mg tablet,de layed release 2024 025 [facility] [id number] [place] [address], [id number], 06/24/2024 10:39:28 cyclobenz aprine 10 mg tablet 2024 025 [facility] [address], [id number] [place] [address], [id number], 06/24/2024 10:39:31 alendrona te 70 mg tablet 2024 025 [email or web address] [facility] [address], [id number] [place] [address], [address], 06/24/2024 10:39:35 Calcium 600 + D(3) 600 mg-10 mcg (400 unit) tablet 2024 025 [facility] [address], [id number] [place] [address], [address], 06/24/2024 10:39:32 allopurin ol 100 mg tablet 2024 025 [facility] [address], [address], [address], 06/24/2024 10:39:28 atorvasta tin 40 mg tablet 2024 025 [facility] [address], [address], [address], 06/24/2024 10:39:28 cetirizin e 10 mg tablet 2024 025 [facility] [address], [id number] [place] [address], [address], 06/24/2024 10:39:29 trazodone 50 mg tablet 2024 025 [facility] [address], [address] [place] [address], [address], 06/24/2024 10:39:30 phentermi ne 30 mg capsule 2024 025 [facility] [address], [address] [place] [address], [address], 06/24/2024 10:39:39 ergocalci ferol (vitamin D2) 1,250 mcg (50,000 unit) capsule 2024 025 [facility] [address], [id number] [place] [address], [address], 06/24/2024 10:39:30 Jardiance 25 mg tablet 2024 025 [facility] [address], [id number] [place] [address], [address], 06/24/2024 10:39:27 lisinopri l 2.5 mg tablet 2024 025 [facility] [address], [id number] [place] [address], [address], 06/24/2024 10:39:32 Rybelsus 14 mg tablet 2024 025 [facility] [address], [address], [address], 06/24/2024 10:39:34 amoxicill in 875 mg-potass ium clavulana te 125 mg tablet [address] [facility] [address], [address], [address], 06/24/2024 10:37:37 fluticaso ne propionat e 50 mcg/actua tion nasal spray,alexus pension 2024 025 [facility] [address], [id number] [place] [address], [address], 05/26/2024 10:05:44 diclofena c sodium 75 mg tablet,de layed release 2024 025 [place] [address], [address] [place] [address], [address], 04/22/2024 10:20:26 cyclobenz aprine 10 mg tablet 2024 025 [facility] 435, [address] [place] [address], [address], 04/22/2024 10:20:25 alendrona te 70 mg tablet 2024 025 [facility] [address], [address] [place] [address], [address], 04/22/2024 10:20:25 Calcium 600 + D(3) 600 mg-10 mcg (400 unit) tablet [address], [address] [place] [address], [address], 04/22/2024 10:20:28 allopurin ol 100 mg tablet 2024 025 [facility] [address], [address] [place] [address], [address], 04/22/2024 10:20:21 atorvasta tin 40 mg tablet 2024 025 [facility] [address], [address], [address], 04/22/2024 10:20:27 cetirizin e 10 mg tablet 2024 025 [facility] [address], [id number] [place] [address], [address], 04/22/2024 10:20:26 trazodone 50 mg tablet 2024 025 [facility] [address], [address] [place] [address], [address], 04/22/2024 10:20:24 phentermi ne 15 mg capsule 2024 025 [facility], [address] [place] [address], [address], 04/22/2024 10:20:28 ergocalci ferol (vitamin D2) 1,250 mcg (50,000 unit) capsule 2024 025 [facility], [id number] [place] [address], [address], 04/22/2024 10:20:26 Jardiance 25 mg tablet 2024 025 [facility] [address], [address], [address], 04/22/2024 10:20:25 lisinopri l 2.5 mg tablet 2024 025 [facility] [address], [address], [address], 04/22/2024 10:20:26 Rybelsus 7 mg tablet 2024 025 [email or web address] [facility] [address], [id number] [place], [place] [address], [place], [address], 04/22/2024 10:24:31 cyanocoba michael (vit B-12) 1,000 mcg/mL injection solution 2023 Stacey [email or web address] Not available 01/29/2024 10:55:44 Patient TargetsNo targets recorded. Patient Instructions Encounter Date Encounter Id Patient Instructions Last Modified By Organization Details Last Modified Time 04/22/2024 [id number] When You Want to Lose Weight: Care Instructions Not available 04/22/2024 10:20:12 06/24/2024 [id number] When You Want to Lose Weight: Care Instructions [email or web address] Not available 06/24/2024 10:39:15 Reason for Referral None Reported. Results Created Date Observation Date Name Description Value Unit Range Abnormal Flag Note LastModifiedBy Organization Detail LastModifiedTime 01/06/20 24 01/06/2024 CBC/C OMPLE TE BLD COUNT W/DIF F white blood cells 4.7 x10'3 /uL 4.2-10 .8 Not Available [facility] (Lab) [address] [place], [address], 01/06/2024 14:24:49 01/06/20 24 01/06/2024 CBC/C OMPLE TE BLD COUNT W/DIF F red blood cells 3.80 x10'6 /uL 3.80-5 .20 Not Available [facility] (Lab) [address] [place], [address], 01/06/2024 14:24:49 01/06/20 24 01/06/2024 CBC/C OMPLE TE BLD COUNT W/DIF F hemoglobin 12.8 g/dL 12.0-1 5.6 Not Available [facility] (Lab) [address] [place], [address], 01/06/2024 14:24:49 01/06/20 24 01/06/2024 CBC/C OMPLE TE BLD COUNT W/DIF F hematocrit 38.4 % 35.7-4 5.7 Not Available [facility] (Lab) [address] [place], [address], 01/06/2024 14:24:49 01/06/20 24 01/06/2024 CBC/C OMPLE TE BLD COUNT W/DIF F mean red cell volume 101.1 fL 82.0-9 9.0 high Not Available [facility] (Lab) [address] [place], [address], 01/06/2024 14:24:49 01/06/20 24 01/06/2024 CBC/C OMPLE TE BLD COUNT W/DIF F mean red cell hemoglobin 33.7 pg 27.0-3 3.0 high Not Available [facility] (Lab) [address] [place], [address], 01/06/2024 14:24:49 01/06/20 24 01/06/2024 CBC/C OMPLE TE BLD COUNT W/DIF F mean RBC HGB concentratio n 33.3 g/dL 31.0-3 6.0 Not Available [facility] (Lab) [address] [place], [address], 01/06/2024 14:24:49 01/06/20 24 01/06/2024 CBC/C OMPLE TE BLD COUNT W/DIF F red cell distribution width 13.0 % 11.8-1 5.5 Not Available [facility] (Lab) [address] [place], [address], 01/06/2024 14:24:49 01/06/20 24 01/06/2024 CBC/C OMPLE TE BLD COUNT W/DIF F platelets 184 x10'3 /uL 150-40 0 Not Available [facility] (Lab) [address] [place], [address], 01/06/2024 14:24:49 01/06/20 24 01/06/2024 CBC/C OMPLE TE BLD COUNT W/DIF F mean platelet volume 11.3 fL 9.0-12 .4 Not Available [facility] (Lab) [address] [place], [address], 01/06/2024 14:24:49 01/06/20 24 01/06/2024 CBC/C OMPLE TE BLD COUNT W/DIF F neutrophils 49.4 % 39.0-7 2.0 Not Available [facility] (Lab) [address] [place], [address], 01/06/2024 14:24:49 01/06/2001/06/2024 CBC/C OMPLE TE BLD COUNT W/DIF F lymphocytes 38.2 % 16.0-4 7.0 Not Available [facility] (Lab) [address] [place], [address], 01/06/2024 14:24:49 01/06/20 24 01/06/2024 CBC/C OMPLE TE BLD COUNT W/DIF F monocytes 8.2 % 5.0-12 .0 Not Available [facility] (Lab) [address] [place], [address], 01/06/2024 14:24:49 01/06/20 24 01/06/2024 CBC/C OMPLE TE BLD COUNT W/DIF F eosinophils 3.8 % 1.0-7. 0 Not Available [facility] (Lab) [address] [place], [address], 01/06/2024 14:24:49 01/06/20 24 01/06/2024 CBC/C OMPLE TE BLD COUNT W/DIF F basophils 0.4 % 0.0-2. 0 Not Available [facility] (Lab) [address] [place], [address], 01/06/2024 14:24:49 01/06/20 24 01/06/2024 CBC/C OMPLE TE BLD COUNT W/DIF F immature granulocytes 0.0 % 0.00-0 .50 Not Available [facility] (Lab) [address] [place], [address], 01/06/2024 14:24:49 01/06/20 24 01/06/2024 CBC/C OMPLE TE BLD COUNT W/DIF F neutrophils, absolute count 2.34 x10'3 /uL 1.5-8. 0 Not Available [facility] (Lab) [address] [place], [address], 01/06/2024 14:24:49 01/06/20 24 01/06/2024 CBC/C OMPLE TE BLD COUNT W/DIF F lymphocytes, absolute count 1.81 x10'3 /uL 1.07-3 .43 Not Available [facility] (Lab) [address] [place], [address], 01/06/2024 14:24:49 01/06/20 24 01/06/2024 CBC/C OMPLE TE BLD COUNT W/DIF F monocytes, absolute count 0.39 x10'3 /uL 0.29-0 .99 Not Available [facility] (Lab) [address] [place], [address], 01/06/2024 14:24:49 01/06/20 24 01/06/2024 CBC/C OMPLE TE BLD COUNT W/DIF F eosinophils, absolute count 0.18 x10'3 /uL 0.02-0 .53 Not Available [facility] (Lab) [address] [place], [address], 01/06/2024 14:24:49 01/06/20 24 01/06/2024 CBC/C OMPLE TE BLD COUNT W/DIF F basophils, absolute count 0.02 x10'3 /uL 0.01-0 .08 Not Available [facility] (Lab) [address] [place], [address], 01/06/2024 14:24:49 01/06/20 24 01/06/2024 CBC/C OMPLE TE BLD COUNT W/DIF F immature granulocytes ,absolute 0.00 x10'3 /uL 0.00-0 .05 Not Available [facility] (Lab) [address] [place], [address], 01/06/2024 14:24:49 01/06/20 24 01/06/2024 CBC/C OMPLE TE BLD COUNT W/DIF F nucleated red blood cells 0.0 % -0 Not Available [facility] (Lab) [address] [place], [address], 01/06/2024 14:24:49 01/06/20 24 01/06/2024 CBC/C OMPLE TE BLD COUNT W/DIF F NRBC# 0.00 x10'3 /uL Not Available [facility] (Lab) [address] [place], [address], 01/06/2024 14:24:49 01/06/20 24 01/06/2024 COMPR EHENS LUCRECIA METAB OLIC PANEL sodium 139 mmol/ L 137-14 5 Not Available [facility] (Lab) [address] [place], [address], 01/06/2024 14:51:21 01/06/20 24 01/06/2024 COMPR EHENS LUCRECIA METAB OLIC PANEL potassium 4.4 mmol/ L 3.5-5. 1 Not Available [facility] (Lab) [address] [place], [address], 01/06/2024 14:51:21 01/06/20 24 01/06/2024 COMPR EHENS LUCRECIA METAB OLIC PANEL chloride 107 mmol/ L 98-107 Not Available [facility] (Lab) [address] [place], [address], 01/06/2024 14:51:21 01/06/20 24 01/06/2024 COMPR EHENS LUCRECIA METAB OLIC PANEL carbon dioxide 28 mmol/ L 22-30 Not Available [facility] (Lab) [address] [place], [address], 01/06/2024 14:51:21 01/06/20 24 01/06/2024 COMPR EHENS LUCRECIA METAB OLIC PANEL anion gap 8.4 mmol/ L 14-22 low Not Available [facility] (Lab) [address] [place], [address], 01/06/2024 14:51:21 01/06/20 24 01/06/2024 COMPR EHENS LUCRECIA METAB OLIC PANEL glucose 90 mg/dL 70-99 Not Available [facility] (Lab) [address] [place], [address], 01/06/2024 14:51:21 01/06/20 24 01/06/2024 COMPR EHENS LUCRECIA METAB OLIC PANEL BUN 11 mg/dL 8-19 Not Available [facility] (Lab) [address] [place], [address], 01/06/2024 14:51:21 01/06/20 24 01/06/2024 COMPR EHENS LUCRECIA METAB OLIC PANEL creatinine 0.77 mg/dL 0.66-1 .25 Not Available [facility] (Lab) [address] [place], [address], 01/06/2024 14:51:21 01/06/20 24 01/06/2024 COMPR EHENS LUCRECIA METAB OLIC PANEL GFR >60 Refer ence Range : [facility] GFR Healt hy Adult : >60 mL/mi n/1.7 3 m2 Chron ic Kidne y Disea se: 15-60 mL/mi n/1.7 3 m2 Kidne y Failu re: <15/m L/min /1.73 m2 www.n iddk. nih.g ov The MDRD study equat ion has not been valid ated in child irais <18 years of age; pregn ant women ; the elder ly >85 years of age; or in some racia l or ethni c subgr oups, such as Hispa nics. Outsi de the valid ated dylan eters , estim ated GFR is less accur ate, requi ring clini eden judgm ent on a case- by-ca se basis . Clini eden inter preta tion for other races and ages must be made by the clini vangie. The MDRD study equat ion has not been valid ated for the evalu ation of serum creat inine relat ed to nutri charity l statu s or medic ation usage . For perso ns <18 years of age, a pedia tric GFR calcu lator is avail able on the [facility] websi te: https ://mayra aclvo.chaparro brown/pr ofess ional s/kdo qi/gf r_cal culat or Not Available [facility] (Lab) [address] [place], [address], 01/06/2024 14:51:21 01/06/20 24 01/06/2024 COMPR EHENS LUCRECIA METAB OLIC PANEL alkaline phosphatase 94 U/L 38-126 Not Available [facility] (Lab) [address] [place], [address], 01/06/2024 14:51:21 01/06/20 24 01/06/2024 COMPR EHENS LUCRECIA METAB OLIC PANEL alanine aminotransfe rase 25 U/L 0-35 Not Available [facility] (Lab) [address] [place], [address], 01/06/2024 14:51:21 01/06/20 24 01/06/2024 COMPR EHENS LUCRECIA METAB OLIC PANEL aspartate aminotransfe rase 36 U/L 15-37 Not Available [facility] (Lab) [address] [place], [address], 01/06/2024 14:51:21 01/06/20 24 01/06/2024 COMPR EHENS LUCRECIA METAB OLIC PANEL bilirubin, total 0.60 mg/dL 0.20-1 .30 Not Available [facility] (Lab) [address] [place], [address], 01/06/2024 14:51:21 01/06/20 24 01/06/2024 COMPR EHENS LUCRECIA METAB OLIC PANEL calcium 9.4 mg/dL 8.4-10 .2 Not Available [facility] (Lab) [address] [place], [address], 01/06/2024 14:51:21 01/06/20 24 01/06/2024 COMPR EHENS LUCRECIA METAB OLIC PANEL total protein 6.9 g/dL 6.3-8. 2 Not Available [facility] (Lab) [address] [place], [address], 01/06/2024 14:51:21 01/06/20 24 01/06/2024 COMPR EHENS LUCRECIA METAB OLIC PANEL albumin 4.2 g/dL 3.4-5. 0 Not Available [facility] (Lab) [address] [place], [address], 01/06/2024 14:51:21 01/06/20 24 01/06/2024 COMPR EHENS LUCRECIA METAB OLIC PANEL globulin 2.7 g/dL 2.6-4. 2 Not Available [facility] (Lab) [address] [place], [address], 01/06/2024 14:51:21 01/06/20 24 01/06/2024 COMPR EHENS LUCRECIA METAB OLIC PANEL A/G ratio 1.6 ratio 1.0-2. 0 Not Available [facility] (Lab) [address] [place], [address], 01/06/2024 14:51:21 01/06/20 24 01/06/2024 LIPID PANEL cholesterol 135 mg/dL 140-19 9 low NIH TOMAS NSUS RECOM MENDA TION FOR CLAUDIO STERO L: ADULT CHILD LOW RISK: <200 <170 BORDE RLINE : <200- 239 ----- HIGH RISK: >240 >200 Not Available [facility] (Lab) [address] [place], [address], 01/06/2024 14:51:24 01/06/20 24 01/06/2024 LIPID PANEL triglyceride s 130 mg/dL 0-150 NIH TOMAS NSUS REPOR T RECOM MENDA TION FOR TRIGL YCERI GILLIAN: ADULT CHILD LOW RISK: <150 ----- BODER LINE: 150-1 99 ----- HIGH RISK: >200 ----- Not Available [facility] (Lab) [address] [place], [address], 01/06/2024 14:51:24 01/06/20 24 01/06/2024 LIPID PANEL HDL cholesterol 58 mg/dL 40- Not Available [facility] (Lab) [address] [place], [address], 01/06/2024 14:51:24 01/06/20 24 01/06/2024 LIPID PANEL LDL cholesterol, calculated 51 mg/dL 0-130 NIH TOMAS NSUS REPOR T RECOM MENDA TIONS FOR LDL: ADULT CHILD LOW RISK <130 <110 (OPTI MAL LDL) <100 ----- BORDE RLINE : 130-1 59 ----- HIGH RISK: >160 >130 A TRIGL YCERI DE RESUL T >400 INVAL IDATE S THE CALCU LATIO N FOR LDL FRACT IONAT ION - THE LDL RESUL T WILL NOT BE REPOR CARRIE. Not Available [facility] (Lab) [address] [place], [address], 01/06/2024 14:51:24 01/06/2001/06/2024 URIC ACID SERUM uric acid 3.1 mg/dL 2.5-6. 2 Not Available [facility] (Lab) [address] [place], [address], 01/06/2024 14:51:26 01/06/20 24 01/06/2024 URINA LYSIS COMPL ETE/I RIS W/RFX color LIGHT- YELLOW Not Available [facility] (Lab) [address] [place], [address], 01/06/2024 14:52:07 01/06/20 24 01/06/2024 URINA LYSIS COMPL ETE/I RIS W/RFX appear EXTRA TURBID abnormal Not Available [facility] (Lab) [address] [place], [address], 01/06/2024 14:52:07 01/06/2001/06/2024 URINA LYSIS COMPL ETE/I RIS W/RFX specific gravity 1.031 1.001- 1.030 high Not Available [facility] (Lab) [address] [place], [address], 01/06/2024 14:52:07 01/06/20 24 01/06/2024 URINA LYSIS COMPL ETE/I RIS W/RFX pH 6.0 pH_un its 5.0-9. 0 Not Available [facility] (Lab) [address] [place], [address], 01/06/2024 14:52:07 01/06/20 24 01/06/2024 URINA LYSIS COMPL ETE/I RIS W/RFX leukocytes 25 dao/u L negati ve- abnormal Not Available [facility] (Lab) [address] [place], [address], 01/06/2024 14:52:07 01/06/20 24 01/06/2024 URINA LYSIS COMPL ETE/I RIS W/RFX nitrite NEGATI VE negati ve- Not Available [facility] (Lab) [address] [place], [address], 01/06/2024 14:52:07 01/06/20 24 01/06/2024 URINA LYSIS COMPL ETE/I RIS W/RFX protein NEGATI VE mg/dL negati ve- Not Available [facility] (Lab) [address] [place], [address], 01/06/2024 14:52:07 01/06/20 24 01/06/2024 URINA LYSIS COMPL ETE/I RIS W/RFX glucose >/=100 0 mg/dL normal - abnormal Not Available [facility] (Lab) [address] [place], [address], 01/06/2024 14:52:07 01/06/20 24 01/06/2024 URINA LYSIS COMPL ETE/I RIS W/RFX ketones NEGATI VE mg/dL negati ve- Not Available [facility] (Lab) [address] [place], [address], 01/06/2024 14:52:07 01/06/20 24 01/06/2024 URINA LYSIS COMPL ETE/I RIS W/RFX urobilinogen NORMAL mg/dL normal - Not Available [facility] (Lab) [address] [place], [address], 01/06/2024 14:52:07 01/06/20 24 01/06/2024 URINA LYSIS COMPL ETE/I RIS W/RFX bilirubin NEGATI VE mg/dL negati ve- Not Available [facility] (Lab) [address] [place], [address], 01/06/2024 14:52:07 01/06/20 24 01/06/2024 URINA LYSIS COMPL ETE/I RIS W/RFX blood NEGATI VE mg/dL negati ve- Not Available [facility] (Lab) [address] [place], [address], 01/06/2024 14:52:07 01/06/20 24 01/06/2024 URINA LYSIS COMPL ETE/I RIS W/RFX white blood cells 0-8 /i??h pfi?? 0-8 Not Available [facility] (Lab) [address] [place], [address], 01/06/2024 14:52:07 01/06/20 24 01/06/2024 URINA LYSIS COMPL ETE/I RIS W/RFX red blood cells 0-4 /i??h pfi?? 0-4 Not Available [facility] (Lab) [address] [place], [address], 01/06/2024 14:52:07 01/06/20 24 01/06/2024 URINA LYSIS COMPL ETE/I RIS W/RFX bacteria FEW abnormal Not Available [facility] (Lab) [address] [place], [address], 01/06/2024 14:52:07 01/06/20 24 01/06/2024 URINA LYSIS COMPL ETE/I RIS W/RFX mucous OCCASI ONAL /i??l pfi?? abnormal Not Available [facility] (Lab) [address] [place], [address], 01/06/2024 14:52:07 01/06/20 24 01/06/2024 URINA LYSIS COMPL ETE/I RIS W/RFX squamous epithelial PACKED FIELD /i??l pfi?? abnormal Not Available [facility] (Lab) [address] [place], [address], 01/06/2024 14:52:07 01/06/20 24 01/06/2024 URINA LYSIS COMPL ETE/I RIS W/RFX non-squamous epithelial 11 Not Available [facility] (Lab) [address] [place], [address], 01/06/2024 14:52:07 01/06/20 24 01/06/2024 URINA LYSIS COMPL ETE/I RIS W/RFX unclassified cast 2 abnormal Not Available [facility] (Lab) [address] [place], [address], 01/06/2024 14:52:07 01/06/2001/06/2024 TSH W/REF YOLI FT4 TSH with reflex free T4 3.750 uIU/m L 0.465- 4.680 Not Available [facility] (Lab) [address] [place], [address], 01/06/2024 15:23:35 01/06/20 24 01/06/2024 MICRO ALBUM IN RANDO M URINE microalbumin , urine <6.0 mg/L 0.0-16 .6 Not Available [facility] (Lab) [address] [place], [address], 01/06/2024 15:23:55 01/06/20 24 01/06/2024 VITAM IN D 25-HY DROXY vd25oh 29.4 NG/mL 30-100 low Vitam in D Statu s: Defic ient: <20 ng/mL Insuf ficie nt: 20-29 ng/mL Suffi cient : 30-10 0 ng/mL Not Available [facility] (Lab) [address] [place], [address], 01/06/2024 15:35:53 01/06/20 24 01/06/2024 VITAM IN B12 (CELE MICHAEL ) vb12 214 pg/mL 239-93 1 low Not Available [facility] (Lab) [address] [place], [address], 01/06/2024 16:28:44 01/06/20 24 01/06/2024 FOLAT E, SERUM /PLAS MA folate 18.6 NG/mL 2.76-2 0.0 Not Available [facility] (Lab) [address] [place], [address], 01/06/2024 16:28:49 01/06/20 24 01/06/2024 HEMOG LOBIN A1C HA1C 5.9 % 4.0-6. 0 Diabe andrei Scree nitish Crite annmarie: <5.7% Consi stent with absen ce of diabe andrei 5.7-6 .4% Consi stent with incre ased risk for diabe andrei (pred iabet es) >OR=6 .5% Consi stent with diabe andrei REFER ENCE: Diabe andrei Care 39(Go ppl.1 ):s13 -s22 Not Available [facility] (Lab) [address] [place], [address], 01/06/2024 20:46:08 06/24/19 25 06/23/2024 HEMOG LOBIN A1C HA1C 6.0 % 4.0-6. 0 Diabe andrei Scree nitish Crite annmarie: <5.7% Consi stent with absen ce of diabe andrei 5.7-6 .4% Consi stent with incre ased risk for diabe andrei (pred iabet es) >OR=6 .5% Consi stent with diabe andrei REFER ENCE: Diabe andrei Care 39(Go ppl.1 ):s13 -s22 Not Available [facility] (Lab) [address] [place], [address], 06/23/2024 20:16:56 Result Notes None recorded. Problems Name Problem SNOMED Code Status Onset Date Resolution Date Notes Provider Name and Address Organization Details Recorded Time Impacted cerumen of bilateral ears 07692852733 46691 Active 2018 Not Available [employer] 3 00:59:18 Gouty arthropat hy 616811603 Active 2018 Not Available [facility] 3 00:59:18 Persisten t insomnia 582654715 Active 2018 Not Available [facility] 3 00:59:18 Anxiety disorder 989846145 Active 2018 Not Available [facility] 3 00:59:18 Postherpe tic neuralgia 8138725 Active 2020 Not Available [facility] 3 00:59:18 Allergic contact dermatiti s 694446293 Active 2019 Not Available [facility] 3 00:59:18 Osteoarth ritis of knee 009952151 Active 2018 Not Available [facility] 3 00:59:18 Screening mammograp hy Active 2021 Not Available [facility] 3 00:59:19 Headache 26853469 Active 2021 Not Available [facility] 3 00:59:19 Gastroeso phageal reflux disease without esophagit is 337613285 Active 2021 Not Available [facility] 3 00:59:19 Calculus of kidney and ureter 326081044 Active 2019 Not Available [facility] 3 00:59:19 Anemia 202486930 Active 2019 [facility] 3 00:59:19 Pain in right lower limb 752925028 Active 2018 Not Available [facility] 3 00:59:19 Pain in right lower limb 331198290 Active 2018 Not Available [facility] 3 00:59:19 Tear of medial meniscus of knee 925109481 Active 2018 Not Available [facility] 3 00:59:19 Ganglion cyst of left wrist 68890270371 9100 Active 2021 [facility] 3 00:59:19 Knee pain Active 2018 Not Available [facility] 3 00:59:19 Osteopeni a 115448237 Active 2019 Not Available [facility] 3 00:59:19 Type 2 diabetes mellitus without complicat ion 359687368 Active 2020 Not Available [facility] 3 00:59:19 Pain of left wrist 90561986937 9102 Active 2021 Not Available [facility] 3 00:59:19 Synovial cyst of right knee 97287099739 9104 Active 2018 Not Available [facility] 3 00:59:20 Bronchiti s 94277588 Active 2021 Not Available [facility] 3 00:59:20 Depressiv e disorder 44371893 Active 2018 Not Available [facility] 3 00:59:20 Obesity 484850578 Active 2018 Not Available [facility] 3 00:59:20 Gastritis 2251688 Active 2021 Not Available [facility] 3 00:59:20 Pain of left knee joint 48792829970 4107 Active 2021 Not Available [facility] 3 00:59:20 Pain of bilateral knee joints 80140581930 4104 Active 2021 Not Available [facility] 3 00:59:20 Cough 58808055 Active 2021 [facility] 3 00:59:20 Hyperlipi demia 73738531 Active 2018 Not Available [facility] 3 00:59:20 Dyspnea on exertion 43977472 Active 2021 Not Available [facility] 3 00:59:21 Prediabet es 367023373 Completed 201809/07/2020 Not Available [facility] 3 00:59:21 Hydroneph rosis due to ureteral obstructi on Active 2019 Not Available [facility] 3 00:59:21 Cyst of ovary 35923205 Active 2019 Not Available [facility] 3 00:59:21 COVID-19 746992652 Active 2021 Not Available [facility] 3 00:59:21 Fatigue 88581898 Active 2018 Not Available [facility] 3 00:59:21 Leukopeni a 79379680 Active 2020 [facility] Available [facility] 3 00:59:21 Ex-smoker 0158298 Active 2018 Not Available [facility] 3 00:59:21 Urolithia sis 22418374 Active Not Available [facility] 3 00:59:22 Kidney stone 17302193 Active 2019 Not Available [facility] 3 00:59:22 Chronic insomnia 578545030 Active 2022 Salvador Veras MD [address], [address], [place], [address] , [employer] [facility] 3 12:24:42 Candidal vulvovagi nitis 03084035 Active 2022 Salvador Veras MD [address], [place], [address] , [employer] [facility] [employer] 3 10:53:59 Abnormal weight 70548860 Active 2022 Jennifer Collins MA [facility], [employer] 3 10:22:39 Seasonal allergic rhinitis 873011754 Active 2023 Salvador Veras MD [address], [address], [place], [address] , [employer] [facility] [employer] [facility] 4 12:51:08 Acute bacterial sinusitis 42596501 Active 2023 MAHAMED Mercado [address], [address], [place], [address] , [employer] [facility] [employer] 4 10:28:54 Eczema 26520334 Active 2023 MAHAMED Mercado [address], [place], [address] , [employer] [facility] 4 10:31:23 Dysfuncti on of eustachia n tube 09320083 Active 2023 MAHAMED Mercado [address], [address], [place], [address] , [employer] [facility] [employer] [place] 4 11:04:20 Chronic low back pain 694678632 Active 2023 Salvador Veras MD [address], [address], [place], [address] , [employer] [facility] [place] [facility] 4 11:48:38 Low back strain 228998531 Active 2023 Salvador Veras MD [address], [address], [place], [address] , [facility] 4 11:55:20 Osteoporo sis 34962864 Active 2023 Salvador Veras MD [address], [address], [place], [address] , [facility] [address] [facility] 4 10:10:00 Pruritic rash 42990706 Active 2023 Salvador Veras MD [address], [place], [address] , [facility] 4 10:31:56 Vitamin B12 deficienc y (non anemic) 78638843 Active 2023 Salvador Veras MD [address], [place], [address] , [facility] [address] [facility] [employer] [facility] 4 10:12:04 Vitamin D deficienc y 05755556 Active 2023 Salvador Veras MD [address], [place], [address] , [facility] [address] [facility] [employer] [facility] 4 10:13:06 Diarrhea 95890229 Active 2024 Salvador Veras MD [address], [place], [address] , [facility] [address] [facility] 5 09:52:15 Viral gastroent eritis 697483748 Active 2024 Salvador Veras MD [address], [place], [address] , [facility] 5 10:04:03 Sinusitis 99328330 Active 2024 Salvador Veras MD [address], [place], [address] , [facility] [address] [facility] [employer] 5 10:04:23 Notes:Some problems listed i n Document: #[id number] could not be added to this patient's chart. Please review this document and add these problems to the patient's chart manually as needed. Problem Notes None recorded. Procedures Surgical History Date Name Laterality Status Provider Name and Address Organization Details Recorded Time 024 Cerumen Removal completed MAHAMED Mercado [address] [facility], [address], [place], [address], [facility] [address] [facility] [employer] 05/29/2023 11:03:39 023 Knee arthroscopy/surgery completed Dennise Cornelius RN DC [address] [facility] [employer] 06/12/2022 12:16:51 Gallbladder Surgery completed Not Available [facility] 04/17/2022 00:53:19 Gastrointestinal repair completed Not Available [facility] 04/17/2022 00:53:19 Orthopedic Procedure completed Not Available [facility] 04/17/2022 00:53:19 repair of elbow completed Not Available [facility] 04/17/2022 00:53:19 ligation of bilateral fallopian tubes completed Not Available [facility] 04/17/2022 00:53:19 wrist repair completed Not Available [facility] 04/17/2022 00:53:19 Back Surgery completed Not Available [facility] 04/17/2022 00:53:19 Imaging Results None recorded. Procedure Notes None recorded. Medical Equipment None Reported. Allergies Allergen ID Allergen Name Allergen Category Reaction Reaction Severity Criticality Documentation Date Start Date Code Code System Note Provider Name and Address Organization Details Recorded Time 1646 Substance with sulfonami de structure and antibacte rial mechanism of action (substanc e) medicatio n Not available Not available Not available 04/17/2022 62078 8003 SNOMED Not Available [facility] 01:09:11 1647 phentermi ne medicatio n rash severe Not available 04/17/2022 8152 RxNorm Salvador Veras MD [address] [facility], [address], [place], [address], [employer] 14:37:57 1648 morphine medicatio n Not available Not available Not available 04/17/20222012 7052 RxNorm Other react ions and sever ities : 'Unkn own'. Not Available [facility] 3 01:09:11 1649 metformin medicatio n rash Not available Not available 04/17/2022 6809 RxNorm Not Available [facility] 3 01:09:11 Medications Name Sig Start Date Stop Date Status Note LastModified by Organization Details LastModified Time cyclobenz aprine 10 mg tablet Take 1 tablet every 12 hours by oral route as needed for 30 days. 2024 active Not Available Not Available Not Avai lable amoxicill in 500 mg capsule TAKE 4 CAPSULES BY MOUTH 30 MINUTES TO 1 HOUR BEFORE DENTAL APPOINTM ENT 11/05 completed Not Available Not Available Not Available atorvasta tin 40 mg tablet TAKE 1 TABLET BY MOUTH ONCE DAILY AT BEDTIME 2024 active Not Available Not Available Not Avai lable metformin 500 mg tablet TAKE 1 TABLET BY MOUTH TWICE DAILY WITH MEALS active Not Available Not Available No t Available prednison e 10 mg tablet TAKE 4 TABLETS BY MOUTH ON DAY 1 AND 2; THEN 2 TABLETS ON DAY 3 AND 4; THEN 1 TABLET ON DAYS 5,6, & 7. TAKE WITH FOOD. 01/20 completed Not Available Not Available Not Available atorvasta tin 20 mg tablet Take 1 tablet every day by oral route at bedtime for 30 days. active Not Available Not Available No t Available trazodone 50 mg tablet Take 1 tablet every day by oral route at bedtime for 90 days. 2024 active Not Available Not Available Not Avai lable cetirizin e 10 mg tablet Take 1 tablet every day by oral route as needed for 90 days. 2024 active Not Available Not Available Not Avai lable azithromy ange 250 mg tablet TAKE 2 TABLETS (500 MG) BY ORAL ROUTE ONCE DAILY FOR 1 DAY THEN 1 TABLET (250 MG) BY ORAL ROUTE ONCE DAILY FOR 4 DAYS active Not Available Not Available No t Available ibuprofen 800 mg tablet TAKE 1 TABLET BY MOUTH EVERY 6 HOURS NEEDED 04/20 completed Not Available Not Available Not Available fluconazo le 150 mg tablet TAKE 1 TABLET BY MOUTH ONCE DIRECTED . USE 2ND DOSE AFTER 5 DAYS completed Not Available Not Available Not Available benzonata te 200 mg capsule TAKE 1 CAPSULE BY MOUTH EVERY 8 HOURS NEEDED FOR 7 DAYS completed Not Available Not Available Not Available valacyclo vir 1 gram tablet Take 1 tablet 3 times a day by oral route as directed for 10 days. active Not Available Not Available No t Available hydrocodo ne 5 mg-acetam inophen 325 mg tablet TAKE 1 TABLET BY MOUTH EVERY 4 HOURS NEEDED FOR PAIN 11/01 completed Not Available Not Available Not Available meloxicam 15 mg tablet TAKE 1 2 (ONE HALF) TABLET BY MOUTH EVERY 12 HOURS NEEDED 02/08 completed Not Available Not Available Not Available metronida zole 0.75 % (37.5 mg/5 gram) vaginal gel 01/20 completed Not Available Not Available Not Available bupivacai ne HCl 0.5 % (5 mg/mL) injection solution Take 2 mg by injectio n route. 11/01 completed Not Available Not Available Not Available prednison e 20 mg tablet TAKE 3 TABLETS BY MOUTH ONCE DAILY WITH FOOD 11/18 completed Not Available Not Available Not Available alendrona te 70 mg tablet Take 1 tablet every week by oral route as directed . 2024 active Not Available Not Available Not Avai lable Debrox 6.5 % ear drops INSTILL 3 DROPS INTO AFFECTED EAR(S) BY OTIC ROUTE 2 TIMES PER DAY 06/11 completed Not Available Not Available Not Available phentermi ne 15 mg capsule TAKE 1 CAPSULE BY MOUTH ONCE DAILY BEFORE BREAKFAS T active Not Available Not Available No t Available metronida zole 500 mg tablet TAKE ONE TABLET BY MOUTH TWO TIMES A DAY 11/18 completed Not Available Not Available Not Available hydroxyzi ne HCl 50 mg tablet Take 1 tablet every 6-8 hours by oral route as needed for 7 days. active Not Available Not Available No t Available phentermi ne 37.5 mg tablet TAKE 1 TABLET BY MOUTH ONCE DAILY IN THE MORNING 11/05 completed Not Available Not Available Not Available allopurin ol 100 mg tablet TAKE 1 TABLET BY MOUTH ONCE DAILY 2024 active Not Available Not Available Not Avai lable omeprazol e 40 mg capsule,d elayed release Take 1 capsule every day by oral route in the morning for 30 days. active Not Available Not Available No t Available aspirin 81 mg tablet,de layed release Take 1 tablet every day by oral route with meals for 30 days. active With food. Not Available Not Available Not Available tramadol 50 mg tablet TAKE 1 TABLET BY MOUTH EVERY 6 HOURS NEEDED FOR PAIN 11/13 completed Not Available Not Available Not Available triamcino lone acetonide 0.1 % topical cream APPLY CREAM EXTERNAL LY TO AFFECTED AREA TWICE DAILY as directed active Not Available Not Available No t Available phentermi ne 30 mg capsule Take 1 capsule every day by oral route in the morning for 30 days. 2024 active Not Available Not Available Not Avai lable ketorolac 10 mg tablet TAKE ONE TABLET BY MOUTH EVERY 6 HOURS NEEDED 11/18 completed Not Available Not Available Not Available terconazo le 80 mg vaginal supposito ry 01/20 completed Not Available Not Available Not Available meloxicam 7.5 mg tablet TAKE 1 TABLET BY MOUTH ONCE DAILY completed Not Available Not Available Not Available famotidin e 20 mg tablet Take 1 tablet twice a day by oral route as directed for 30 days. completed Not Available Not Available Not Available diphenhyd ramine 50 mg/mL injection solution Take 50 mg by injectio n route for 1 day. 06/06 completed Not Available Not Available Not Available triamcino lone acetonide 0.025 % topical cream 11/18 completed Not Available Not Available Not Available tamsulosi n 0.4 mg capsule Take 1 capsule every day by oral route at bedtime for 30 days. active Not Available Not Available No t Available Kenalog 10 mg/mL suspensio n for injection In office injectio n administ ered by the provider 11/[address] [facility]: [phone] 06-06 Not Available Not Available Not Available meclizine 25 mg tablet TAKE 1 TABLET BY MOUTH THREE TIMES DAILY NEEDED FOR DIZZINES S 11/01 completed Not Available Not Available Not Available benzonata te 100 mg capsule 11/18 completed Not Available Not Available Not Available hydrocodo ne 7.5 mg-acetam inophen 325 mg tablet TAKE 1 TABLET BY MOUTH EVERY 6 HOURS NEEDED FOR PAIN 11/01 completed Not Available Not Available Not Available cyanocoba michael (vit B-12) 1,000 mcg/mL injection solution Inject 1 mL every week by intramus cular route for 1 day. 2023 active pt gilmer well Not Available Not Available Not Available buspirone 10 mg tablet TAKE 1 TABLET BY MOUTH EVERY 12 HOURS NEEDED 01/05 completed Not Available Not Available Not Available diclofena c sodium 75 mg tablet,de layed release TAKE 1 TABLET BY MOUTH TWICE DAILY WITH FOOD NEEDED. 2024 active Not Available Not Available Not Avai lable hydroxyzi ne HCl 25 mg tablet TAKE 1 TABLET BY MOUTH THREE TIMES DAILY NEEDED FOR ITCHING 03/08 completed Not Available Not Available Not Available gabapenti n 100 mg capsule Take 2 capsules 3 times a day by oral route as directed for 30 days. active Not Available Not Available No t Available ergocalci ferol (vitamin D2) 1,250 mcg (50,000 unit) capsule Take 1 capsule every week by oral route as directed for 90 days. 2024 active Not Available Not Available Not Avai lable ibuprofen 600 mg tablet 11/18 completed Not Available Not Available Not Available methylpre dnisolone 4 mg tablets in a dose pack Take 1 dose pk every day by oral route as directed for 6 days. 11/01 completed Not Available Not Available Not Available ondansetr on 4 mg disintegr ating tablet DISSOLVE 1 TABLET IN MOUTH EVERY 8 HOURS NEEDED FOR NAUSEA AND VOMITING completed Not Available Not Available Not Available fluticaso ne propionat e 50 mcg/actua tion nasal spray,alexus [place] 2 sprays every day by intranas al route as needed for 30 days. 2024 active Not Available Not Available Not Avai lable sertralin e 50 mg tablet TAKE 1 TABLET BY MOUTH ONCE DAILY IN THE MORNING FOR 30 DAYS 02/24 completed Not Available Not Available Not Available lisinopri l 2.5 mg tablet Take 1 tablet every other day by oral route as directed for 90 days. 2024 active Not Available Not Available Not Avai lable loratadin e 10 mg tablet 11/18 completed Not Available Not Available Not Available naproxen 500 mg tablet 11/18 completed Not Available Not Available Not Available amoxicill in 875 mg-potass ium clavulana te 125 mg tablet Take 1 tablet every 12 hours by oral route as directed for 7 days. 06/24 completed Not Available Not Available Not Available oxycodone 5 mg tablet TAKE 1 TABLET BY MOUTH EVERY 6 HOURS NEEDED FOR PAIN 09/03 completed Not Available Not Available Not Available cyclobenz aprine 5 mg tablet TAKE 1 TABLET BY MOUTH EVERY 12 HOURS NEEDED completed Not Available Not Available Not Available lidocaine (PF) 10 mg/mL (1 %) injection solution In office injectio n administ ered by the provider 06/[address] [facility]: [phone] 08-03 Not Available Not Available Not Available Calcium 600 + D(3) 600 mg-10 mcg (400 unit) tablet Take 1 tablet twice a day by oral route as directed for 90 days. 2024 active Not Available Not Available Not Avai lable FeroSul 325 mg (65 mg iron) tablet TAKE 1 TABLET BY MOUTH TWICE DAILY WITH A MEAL 01/02 completed Not Available Not Available Not Available Solu-Medr ol (PF) 125 mg/2 mL solution for injection Take 125 mg by injectio n route for 1 day. 06/06 completed Not Available Not Available Not Available Xarelto 10 mg tablet TAKE 1 TABLET BY MOUTH ONCE DAILY FOR 14 DAYS BEGINNIN G DAY AFTER SURGERY 06/12 completed Not Available Not Available Not Available calcium 600 mg (as carbonate )-vitamin D3 20 mcg (800 unit) tablet Take 1 tablet twice a day by oral route for 30 days. 03/27 completed Not Available Not Available Not Available Vascepa 1 gram capsule TAKE 2 CAPSULES BY MOUTH TWICE DAILY DIRECTED 03/27 completed wesley Shafer on determin ation Not Available Not Available Not Available Jardiance 25 mg tablet TAKE 1 TABLET BY MOUTH ONCE DAILY IN THE MORNING 2024 active Not Available Not Available Not Avai lable Trulicity 0.75 mg/0.5 mL subcutane ous pen injector INJECT 0.75 MG SUBCUTAN EOUSLY ONCE A WEEK DIRECTED completed Not Available Not Available Not Available Rybelsus 14 mg tablet Take 1 tablet every day by oral route as directed for 90 days. 2024 active Not Available Not Available Not Avai lable Rybelsus 7 mg tablet Take 1 tablet every day by oral route as directed for 90 days. 2024 active Not Available Not Available Not Avai lable Rybelsus 3 mg tablet TAKE 1 TABLET BY MOUTH ONCE DAILY DIRECTED 09/03 completed Not Available Not Available Not Available Paxlovid 300 mg (150 mg x 2)-100 mg tablets in a dose pack Take 1 dose pk twice a day by oral route as directed for 5 days. active Not Available Not Available No t Available Vitals Date Recorded Body height Body temperature Oxygen saturation Oxygen saturation in Arterial blood by Pulse oximetry Heart rate Systolic blood pressure Diastolic blood pressure Provider Name and Address Organization Details Last Updated DateTime 5 162.56 cm 97.3 [degF] 96 % 96 % 84 /min 120 mm[Hg] 64 mm[Hg] Wendi Bentley RN [facility] [employer] 5 10:13:55 Date Recorded Body mass index (BMI) Body weight Provider Name and Address Organization Details Last Updated DateTime 04/22/2024 32.8 kg/m2 31247.49 g Salvador Veras MD [address] [place] [address], [address], [address], [facility] [employer] 04/22/2024 10:17:20 Date Recorded Body height Body mass index (BMI) Body weight Body temperature Oxygen saturation Oxygen saturation in Arterial blood by Pulse oximetry Heart rate Systolic blood pressure Diastolic blood pressure Provider Name and Address Organization Details Last Updated DateTime 5 162.56 cm 32.4 kg/m2 37671.9 6 g 97.1 [degF] 96 % 96 % 79 /min 120 mm[Hg] 70 mm[Hg] Wendi Bentley RN [facility] [employer] 5 09:59:37 Date Recorded Body height Body mass index (BMI) Body weight Body temperature Oxygen saturation Oxygen saturation in Arterial blood by Pulse oximetry Heart rate Systolic blood pressure Diastolic blood pressure Provider Name and Address Organization Details Last Updated DateTime 5 162.56 cm 32.3 kg/m2 14476.1 2 g 97.3 [degF] 97 % 97 % 77 /min 126 mm[Hg] 70 mm[Hg] Wendi Bentley RN [facility] [employer] 5 10:28:51 Social History Question Answer Notes LastModified by Organizat ion Details LastModified Time Tobacco Smoking Status Former Smoker 2018 Not Available [employer] 04/17/2022 00:50:53 Do You Have An Advance Directive? No MIGRATION.61452 88391 Information not available 04/17/2022 Do You Wear A Helmet When Biking? No MIGRATION.97384 27803 Information not available 04/17/2022 What Is Your Level Of Caffeine Consumption? Heavy MIGRATION.27782 06133 Information not available 04/17/2022 In The 14 Days Before Symptom Onset, Have You Had Close Contact With A Laboratory-confi rmed COVID-19 While That Case Was Ill? No MIGRATION.49150 09469 Information not available 04/17/2022 In The 14 Days Before Symptom Onset, Have You Had Close Contact With A Person Who Is Under Investigation For COVID-19 While That Person Was Ill? No MIGRATION.19804 53417 Information not available 04/17/2022 What Type Of Diet Are You Following? CARBOHYDRATE MIGRATION.73926 81680 Information not available 04/17/2022 What Is The Highest Grade Or Level Of School You Have Completed Or The Highest Degree You Have Received? TE19872-2 MIGRATION.78700 29888 Information not available 04/17/2022 Have There Been Any Changes To Your Family Or Social Situation? No MIGRATION.60328 14747 Information not available 04/17/2022 When Did You Quit Smoking? 1-5yearssincelastarsalan guevara MIGRATION.96002 32180 Information not available 04/17/2022 Are There Any Guns Present In Your Home? No MIGRATION.43702 94936 Information not available 04/17/2022 Do You Use Insect Repellent Routinely? No MIGRATION.36989 22884 Information not available 04/17/2022 Where Do You Live? [place] MIGRATION.84840 48041 Information not available 04/17/2022 Are You Following A Low Salt Diet? Yes MIGRATION.65011 43895 Information not available 04/17/2022 Do You Have A Medical Power Of Explosive Ordnance Specialist? No MIGRATION.04760 30581 Information not available 04/17/2022 What Was The Date Of Your Most Recent Tobacco Screening? 03/27/2021 MIGRATION.98615 63067 Information not available 04/17/2022 Do You Have Any Pets? Yes MIGRATION.78206 75761 Information not available 04/17/2022 What Is Your Relationship Status? MIGRATION.87870 29024 Information not available 04/17/2022 Do You Use Your Seat Belt Or Car Seat Routinely? Yes MIGRATION.37702 08564 Information not available 04/17/2022 Do You Have Smoke And Carbon Monoxide Detectors In Your Home? Yes MIGRATION.51362 55735 Information not available 04/17/2022 Are You Passively Exposed To Smoke? No MIGRATION.36212 62936 Information not available 04/17/2022 Are There Any Smokers In Your House? No MIGRATION.89535 76454 Information not available 04/17/2022 Do You Participate In Social Media? No MIGRATION.92252 14440 Information not available 04/17/2022 Do You Use Sunscreen Routinely? Yes MIGRATION.08170 15162 Information not available 04/17/2022 Has Tobacco Cessation Counseling Been Provided? No MIGRATION.91225 66358 Information not available 04/17/2022 Have You Recently Traveled Abroad? No Information not available 04/17/2023 Are You Currently In School? No MIGRATION.66108 06113 Information not available 04/17/2022 Do You Have Any Dietary Restrictions? Yes MIGRATION.58427 55614 Information not available 04/17/2022 Sex: Female Functional Status Question Answer Note LastModified by Organizat ion Details LastModified Time Do you use any illicit or recreational drugs? No MIGRATION.619390 9920 Information not available 04/17/2022 Do you or have you ever used any other forms of tobacco or nicotine? No MIGRATION.535471 3914 Information not available 04/17/2022 What is your level of alcohol consumption? None MIGRATION.967577 2999 Information not available 04/17/2022 Are you currently employed? Yes Information not available 09/04/2023 What is your occupation? [employer] employee MIGRATION.202765 6095 Information not available 04/17/2022 What is your exercise level? Occasional MIGRATION.094573 6326 Information not available 04/17/2022 Mental Status Question Answer Note LastModified by Organizat ion Details LastModified Time Do you feel stressed (tense, restless, nervous, or anxious, or unable to sleep at night)? [id number] MIGRATION.[id number] 6 Information not available 04/17/2022 Family History Relationship Description Onset Age of this Age Resolved Age Notes LastModified by Organization Details LastModified Time Unspecified Relation Family history of stroke MIGRATION.229 [id number] Not available 04/17/2022 00:53:24 Unspecified Relation Arthritis MIGRATION.428 1830501 Not available 04/17/2022 00:53:24 Unspecified Relation Hypertensive disorder MIGRATION.632 6070953 Not available 04/17/2022 00:53:24 Sister Urolithiasis MIGRATION.0 30 [id number] Not available 04/17/2022 00:53:24 Medical History Condition Response BLINDNESS N RHEUMATIC FEVER N KIDNEY STONES N BLADDER PROBLEMS N MRSA N OTHER # 1 N POLIO N LUNG DISEASE/DISORDER N COPD N RADIATION / CHEMOTHERAPY N Other # 2 N BLOOD DISEASES N SURGERY N EAR OR HEARING PROBLEMS N MUMPS N BOWEL PROBLEMS N FEMALE PROBLEMS / INFECTIONS N DEPRESSION (INCLUDING POST ) Y STROKE/TIA N THYROID DISEASE N ULCERS N BENIGN PROSTATIC HYPERPLASIA N MEASLES N CERVICALGIA N TB SKIN TEST N MYOCARDIAL INFARCTION N OBESITY Y PARAPELGIA N GERD/NAUSEA N ANEURYSM N URINARY/BLADDER/KIDNEY PROBLEMS N CORONARY ARTERY DISEASE (CAD) N MENIERE'S DISEASE N ADDICTION CONCERNS N ENDOMETRIOSIS N USE OF BLOOD THINNERS N SKIN PROBLEMS N EMPHYSEMA N GASTROINTESTINAL DISORDER N MUSCLE,JOINT OR BONE PROBLEMS N GASTROINTESTINAL BLEEDING N BLOOD CLOTS N ASTHMA N CATARACTS N ERECTILE DYSFUNCTION N GI PROBLEMS N CHF N Low Testosterone N NEUROPATHY N INFERTILITY N AIDS/HIV N FRACTURES Y CHEMOTHERAPY / RADIATION N VISION/EYE PROBLEMS N LIVER DISEASE N MALE HYPOGONADISM N HYPERTENSION N ANXIETY DISORDER N BLOOD TRANSFUSION N ANEMIA/BLOOD DISORDER Y CHRONIC EAR INFECTIONS N BRONCHITIS N TUBERCULOSIS N GLAUCOMA N FOOT PROBLEM N DIVERTICULITIS N CHICKENPOX N SLEEP APNEA N ALLERGIES/HAYFEVER N INFECTIOUS DISEASE N HEART ARRHYTHMIA N PROSTATE N INSOMNIA N HIGH CHOLESTEROL / HYPERLIPIDEMIA N HYPERTHYROIDISM N EYE PROBLEMS N EATING DISORDER N NEUROLOGICAL PROBLEMS N EDEMA N CHRONIC PAIN SYNDROME N HYPOTHYROIDISM N CAROTID BLOCKAGE N CONSTIPATION N BACK / NECK PROBLEMS N HAVE YOU BEEN HOSPITALIZED OR SEEN IN [facility] IN THE PAST YEAR ? N ATHEROSCLEROSIS N BREAST PROBLEMS N DIALYSIS N ECZEMA N FIBROMYALGIA N OSTEOPOROSIS N ARTHRITIS N NO SIGNIFICANT PAST MEDICAL HISTORY N APPENDICITIS N DIABETES, TYPE Y BAD TEETH N HEARTBURN / REFLUX N ADD/ADHD N AUTISM SPECTRUM DISORDER (ASD) N HEPATITIS / LIVER DISEASE N PULMONARY DISEASE N GOUT Y SLEEP DISORDER N ALZHEIMER'S DISEASE N PAIN N HERPES N DEMENTIA N HEADACHES/MIGRAINES N SEIZURES/EPILEPSY N VASCULAR DISEASE N PACEMAKER N DIZZINESS N HEART DISEASE/HEART PROBLEMS N KIDNEY DISEASE N DEVELOPMENTAL OR BEHAVIORAL DISORDERS N MULTIPLE SCLEROSIS N SCARLET FEVER N MENTAL DISORDER/ILLNESS N CARDIAC ARRHYTHMIA N CANCER: SPECIFY N PNEUMONIA N ATRIAL FIBRILLATION N Gall Stones N PULMONARY EMBOLISM N AUTOIMMUNE DISEASE N Gynecological HistoryNo gynecological history recorded. Obstetrics History GPAL:G 0 P 0 0 0 0 Immunizations Vaccine Type Date Status Note Provider Nam e and Address Organization Details Recorded Time Influenza, split virus, quadrivalent, PF 11/13/2022 completed Jennifer Collins MA null, DC [address] [facility] [employer] 11/13/2022 10:59:16 Influenza, split virus, quadrivalent, PF 01/06/2020 completed Not Available [facility] 3 01:09:01 Influenza, split virus, quadrivalent, PF 12/13/2021 completed Not Available [facility] 3 01:09:01 Influenza, split virus, quadrivalent, PF 11/01/2020 completed Not Available [facility] 3 01:09:01 Influenza, split virus, trivalent, PF 01/21/2024 completed Wendi Bentley RN null, DC [address] [facility] [employer] 01/21/2024 11:25:09 Past Encounters Encounter ID Performer Location Encounter Start Date Encounter Closed Date Diagnosis/Indication Diagnosis SNOMED-CT Code Diagnosis ICD10 Code Diagnosis Note [id number] Salvador Veras MD [address] [address] 04/20/2020 00:00:00 04/20/2020 10:11:17 [id number] Salvador Veras MD [address] [address] 05/12/2020 00:00:00 05/12/2020 18:00:23 [id number] Salvador Veras MD [address] [address] 1 06/06/2020 00:00:00 06/06/2020 17:33:22 [id number] Salvador Veras MD [facility] [address] [place] [address] 09/07/2020 00:00:00 09/07/2020 12:19:45 [id number] Salvador Veras MD [facility] [address] [place] [address] 09/25/2020 00:00:00 09/25/2020 10:28:12 [id number] Salvador Veras MD [facility] [address] [place] [address] 11/01/2020 00:00:00 11/01/2020 10:45:51 [id number] Salvador Veras MD [facility] [address] [place] [address] 01/01/2021 00:00:00 01/01/2021 10:51:29 [id number] Salvador Veras MD [facility] [address] [place] [address] 01/02/2021 00:00:00 01/02/2021 11:58:33 [id number] Salvador Veras MD [facility] [address] [facility] [place] [address] 01/15/2021 00:00:00 01/15/2021 10:26:33 [id number] Salvador Veras MD [facility] [address] [place] [address] 03/08/2021 00:00:00 03/08/2021 11:26:06 [id number] Yousuf Brock MD [facility] [place] [address] [place] [address] 03/27/2021 00:00:00 03/27/2021 11:00:58 [id number] Salvador Veras MD [facility] [address] [place] [address] 04/16/2021 00:00:00 04/16/2021 10:36:59 [id number] Yousuf Brock MD [facility] [place] [address] [place] [address] 05/08/2021 00:00:00 05/08/2021 11:28:51 [id number] Yousuf Brock MD [facility] [place] [address] [place] [address] 06/05/2021 00:00:00 06/05/2021 12:45:14 [id number] Salvador Veras MD [facility] [address] [facility] [place] [address] 07/09/2021 00:00:00 07/09/2021 10:16:33 [id number] MD [facility] [place] [address] [facility] [address] [place] [address] 07/17/2021 00:00:00 07/17/2021 15:24:27 [id number] Salvador Veras MD [facility] [address] [facility] [facility] [place] [address] 10/09/2021 00:00:00 10/09/2021 11:10:29 [id number] Salvador Veras MD [facility] [address] [place], [place] [address] [place] [address] 10/15/2021 00:00:00 10/15/2021 12:49:00 [id number] Salvador Veras MD [facility] [address] [place] [address] [place] [address] 11/01/2021 00:00:00 11/01/2021 12:52:01 [id number] Salvador Veras MD [facility] [address] [facility] [place] [address] 12/13/2021 00:00:00 12/13/2021 16:44:53 [id number] Salvador Veras MD [facility] [address] [place], [place] [address] [place] [address] 12/17/2021 00:00:00 12/17/2021 14:00:59 [id number] Salvador Veras MD [facility] [address] [place] [address] 01/02/2022 00:00:00 01/02/2022 11:23:31 [id number] Salvador Veras MD [facility] [address] [place] [address] 01/29/2022 00:00:00 01/29/2022 11:40:37 [id number] Salvador Veras MD [facility] [address] [place] [address] 03/04/2022 00:00:00 03/04/2022 14:39:25 [id number] Salvador Veras MD [facility] [address] [place] [address] 03/12/2022 00:00:00 03/12/2022 09:30:40 [id number] Salvador Veras MD [facility] [address] [place] [address] 06/12/2022 12:09:01 06/12/2022 12:42:12 Chronic insomnia 459285739 F51.04 Type 2 augusta betes mellitus without complication 755741058 E11.9 Gouty arthropathy 163955 008 M10.09 Hyperlipidemia 10003366 E78.5 Pain in ri ght lower limb 650079473 M79.604 Obesity 615249550 E66.9 Pain of bi lateral knee joints 5952908981 45870 M25.561 [id number] Salvador Veras MD [facility] [address] [place] [place] [address] 07/30/2022 14:15:43 07/30/2022 14:47:32 Chronic insomnia 976934273 F51.04 Type 2 augusta betes mellitus without complication 383800830 E11.9 Gouty arthropathy 287552 008 M10.09 Hyperlipidemia 09185595 E78.5 Pain of bi lateral knee joints 6930999575 27457 M25.561 Pain in ri ght lower limb 165432037 M79.604 Obesity 825713732 E66.9 Screening mammography 24 031771 Z12.31 [id number] Salvador Veras MD [address] [address] 09/03/2022 09:14:17 09/03/2022 09:57:30 Type 2 diabetes mellitus without complication 841069546 E11.9 Hyperlipidemia 91610712 E78.5 Obesity 057791259 E66.9 [id number] Salvador Veras MD [address] [address] 10/08/2022 09:44:47 10/08/2022 10:07:28 Obesity 957319232 E66.9 Gouty arthropathy 482980 008 M10.09 [id number] Salvador Veras MD [address] [address] 11/13/2022 10:19:19 11/13/2022 10:56:31 Gouty arthropathy 907253060 M10.09 Obesity 030879093 E66.9 Type 2 augusta betes mellitus without complication 395133175 E11.9 Administra tion of influenza vaccine 64243035 Z23 [id number] Salvador Veras MD [address] [address] 01/01/2023 09:10:29 01/01/2023 09:56:58 Type 2 diabetes mellitus without complication 741840625 E11.9 Gouty arthropathy 310626 008 M10.09 Obesity 635057908 E66.9 Adult [facility] th examination 758801089 Z00.00 Screening for disorder 883895865 Z13.9 [id number] Salvador Veras MD [address] [address] 01/27/2023 10:27:57 01/27/2023 11:03:00 Type 2 diabetes mellitus without complication 857337002 E11.9 Gouty arthropathy 707255 008 M10.09 Obesity 775248521 E66.9 Hyperlipidemia 81128836 E78.5 Chronic insomnia 7695881 04 F51.04 [id number] Salvador Veras MD [address] [address] 04/17/2023 12:35:59 04/17/2023 12:58:55 Type 2 diabetes mellitus without complication 241649717 E11.9 Hyperlipidemia 57373096 E78.5 Gouty arthropathy 140543 008 M10.09 Chronic insomnia 7033288 04 F51.04 Obesity 223044775 E66.9 Seasonal a llergic rhinitis 905280636 J30.2 Screening for osteoporosis 388403344 Z13.820 Postmenopa usal osteoporosis 969291496 M81.0 [id number] Salvador Veras MD [place] [address] 05/29/2023 10:03:03 05/29/2023 11:09:14 Acute bacterial sinusitis 32922479 J01.90 Eczema 31266722 L30.9 Dysfunctio n of eustachian tube 62784658 H69.93 [id number] Salvador Veras MD [address] [address] 06/12/2023 10:16:33 06/12/2023 10:41:46 Gouty arthropathy 295444037 M10.09 Hyperlipidemia 21167550 E78.5 Type 2 augsuta betes mellitus without complication 433454532 E11.9 Chronic insomnia 0091054 04 F51.04 Obesity 591316686 E66.9 Seasonal a llergic rhinitis 130699434 J30.2 [id number] Salvador Veras MD [place] [address] 09/02/2023 08:32:41 09/02/2023 10:02:37 [id number] Salvador Veras MD [address] [place] [address] 09/04/2023 11:15:38 09/04/2023 11:57:19 Chronic insomnia 953810162 F51.04 Hyperlipidemia 33675744 E78.5 Gouty arthropathy 314106 008 M10.09 Type 2 augusta betes mellitus without complication 317473989 E11.9 Obesity 140372262 E66.9 Seasonal a llergic rhinitis 507937581 J30.2 Chronic low back pain 27 3377128 M54.50 Low back strain 82010445 1 S39.012A [id number] Salvador Veras MD [address] [address] 11/06/2023 10:05:42 11/06/2023 10:44:33 Low back strain 751102777 S39.012A Type 2 augusta betes mellitus without complication 161136115 E11.9 Chronic insomnia 1924106 04 F51.04 Hyperlipidemia 64235581 E78.5 Gouty arthropathy 613357 008 M10.09 Obesity 362561913 E66.9 Seasonal a llergic rhinitis 797358348 J30.2 Chronic low back pain 27 0693498 M54.50 Osteoporosis 91338130 M8 1.0 Pruritic rash 99581058 L 28.2 [id number] Salvador Veras MD [address] [address] 01/06/2024 09:45:59 01/06/2024 10:31:36 Osteoporosis 41192887 M81.0 Type 2 augusta betes mellitus without complication 044166250 E11.9 Chronic insomnia 3740137 04 F51.04 Hyperlipidemia 17304558 E78.5 Gouty arthropathy 041159 008 M10.09 Obesity 888938305 E66.9 Seasonal a llergic rhinitis 997757958 J30.2 Chronic low back pain 27 6959925 M54.50 [id number] Salvador Veras MD [address] [address] 01/21/2024 09:53:35 01/21/2024 10:30:24 Type 2 diabetes mellitus without complication 326432009 E11.9 Osteoporosis 96136809 M8 1.0 Chronic insomnia 6586057 04 F51.04 Hyperlipidemia 94447928 E78.5 Gouty arthropathy 930270 008 M10.09 Chronic low back pain 27 2763232 M54.50 Obesity 384088880 E66.9 Seasonal a llergic rhinitis 191580575 J30.2 Administra tion of influenza vaccine 51126989 Z23 Vitamin B1 2 deficiency (non anemic) 35877264 E53.8 Vitamin D deficiency 347 27584 E55.9 [id number] Salvador Veras MD [place] [address] 01/29/2024 10:14:57 01/29/2024 10:28:18 Vitamin B12 deficiency (non anemic) 84443527 E53.8 [id number] Salvador Veras MD [place] [address] 1 04/22/2024 09:52:46 04/22/2024 10:29:23 Chronic insomnia 839111497 F51.04 Hyperlipidemia 87041172 E78.5 Type 2 augusta betes mellitus without complication 894286155 E11.9 Osteoporosis 19558521 M8 1.0 Gouty arthropathy 964827 008 M10.09 Chronic low back pain 27 1606036 M54.50 Obesity 455248231 E66.9 Seasonal a llergic rhinitis 175585265 J30.2 Vitamin B1 2 deficiency (non anemic) 24124598 E53.8 Vitamin D deficiency 347 71542 E55.9 [id number] Salvador Veras MD [address] [address] 05/26/2024 09:46:51 05/26/2024 10:43:47 Diarrhea 27488610 R19.7 Viral gastroenteritis 11 7970254 A08.4 Improved Sinusitis 46480811 J32.9 Seasonal a llergic rhinitis 728547819 J30.2 [id number] Salvador Veras MD [address] [place] [address] 06/23/2024 08:27:18 06/23/2024 08:30:10 [id number] Salvador Veras MD [facility] [address] [place], [place] [address]lu[place] [address] 06/24/2024 10:14:37 06/24/2024 10:43:59 Hyperlipidemia 72549538 E78.5 Type 2 augusta betes mellitus without complication 126440681 E11.9 Chronic insomnia 0535969 04 F51.04 Osteoporosis 97793271 M8 1.0 Gouty arthropathy 532393 008 M10.09 Chronic low back pain 27 5988632 M54.50 Obesity 863144095 E66.9 Seasonal a llergic rhinitis 761578778 J30.2 Vitamin D deficiency 347 80077 E55.9 Vitamin B1 2 deficiency (non anemic) 39700627 E53.8 Health Concerns Section Related Observation LastModified by Organization Detai ls LastModified Time None Recorded Concern Status LastModified by Organization Details LastModified Time None Recorded Advance Directives Directive N: Payers Encounter Date Sequence Insurance Name Policy Number Policy Avalos Covered Member ID Avalos Member ID Guarantor Name 01/29/2024 1 [place] Kristy L Rausch [id number] Kristy L Rausch 01/29/2024 2 [facility] Kristy L Rausch [id number] Kristy L Rausch 04/22/2024 1 [place] Kristy L Rausch [id number] Kristy L Rausch 05/26/2024 1 [place] Kristy L Rausch [id number] Kristy L Rausch 05/26/2024 2 [place] OR [place] REPLACEMENT [place]IMARY) Kristy L Rausch [id number] Kristy L Rausch 06/23/2024 1 [place] Kristy L Rausch [id number] Kristy L Rausch 06/23/2024 2 [place] OR MEDICARE REPLACEMENT PRIMARY) Kristy L Rausch [id number] Kristy L Rausch 06/24/2024 1 [place] Kristy Rausch [id number] Kristy Rausch 06/24/2024 2 [place] OR MEDICARE REPLACEMENT PRIMARY) Kristy Rausch [id number] Kristy Rausch Notes Date Note Type Note Provider Name and Address Organization Details Recorded Time 04/22/2024 text/html Pt is here for f /u on her lab, x-ray and chronic conditions. Doing overall well. Denies any problem with meds. Pt wants to go back on Phentermine for her wt concern. Pt has not gone for x-ray and lab yet. Pt is doing much better with her low back pain. Doing well with her mood and anxiety. Pt has stopped all meds for it by herself and is doing well without them. Pt doesn't want to take any meds for this. Denies any mood swings/SI/HI. Pt has lost about 25 lbs wt on Phentermine. Pt says since she started Lisinopril, she was getting yeast infection and when she stopped it, it went away. 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 Salvador Veras MD [address], [place], [address], [facility] 04/22/2024 10:27:09 05/26/2024 text/html ACV: C/o frontal sinus headache, yellowish drainage, fatigue for last 1 week. Pt also had diarrhea last week and for last 3 days, its better now. No more diarrhea. Pt denies any unusual outside food intake/known sick contact. Salvador Veras MD [address], [place], [address], [facility] 05/26/2024 10:39:35 06/24/2024 text/html Pt is here for f /u on her lab and chronic conditions. Doing overall well. Denies any problem with meds. Pt wants to go back on Phentermine for her wt concern. Doing well with her mood and anxiety. Pt has stopped all meds for it by herself and is doing well without them. Pt doesn't want to take any meds for this. Denies any mood swings/SI/HI. Pt has lost about 25 lbs wt on Phentermine. Pt says since she started Lisinopril, she was getting yeast infection and when she stopped it, it went away. 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 Salvador Veras MD [address] [place] [address], [facility] [address], [place], [address], [place] [facility] [employer] [facility] [employer] 06/24/2024 10:42:41 OBGyn Episode No OBEpisode recorded.
--- OUTSIDE RECORDS SUMMARY | 2024-07-06 07:40 | XMS_ITS | Clinical Summary ---
Author Organization [facility] Address [address] [place] [address] Care Team Providers Care Hospice Spiritual Care Coordinator Name Role Phone Salvador Veras MD Primary Care Provider Source Comments [facility],non-owned Affiliates and Associated Physician Practices is amultiple site organization consisting of ambulatory clinics and hospital sitesin [place], [place], [place] and [place]. This disclosure is being madepursuant to the Care Everywhere program and may not contain all information available regarding this patient. Last updated 17.[facility] Allergies Active Allergy Reactions Criticality Noted Date Comments Morphine Nausea and/or Vomiting 10/19/2019 Sulfa Drugs Rash Medium 10/19/2019 Medications * Be aware that medications may not be up to date on this document. Alwaysverify current medications with the patient. Jardiance 25 MG tablet TAKE 1 TABLET BY MOUTH ONCE DAILY IN THE MORNING 01/02/2022 Active allopurinol (Zyloprim) 100 MG tablet 12/14/2021 Active calcium carbonate - vitamin D (Caltrate + D) 600-20 MG-MCG tablet calcium carbonate-vit mejia D3 600 mg (1,500 mg)-800 unit tablet Take 1 tablet twice a day by oral route for 30 days. Active atorvastatin (Lipitor) 40 MG tablet 12/12/2021 Active meloxicam (Mobic) 7.5 MG tablet Take 1 (one) tablet by mouth once daily 05/05/2021 Active fluconazole (Diflucan) 150 MG tablet Take 1 (one) tablet by mouth once daily 06/14/2021 Active ibuprofen (Motrin) 800 MG tablet Take 1 (one) tablet by mouth every 6 hours as needed 04/05/2020 Active traMADol (Ultram) 50 MG tablet tramadol 50 mg tablet TAKE 1 TABLET BY MOUTH EVERY 6 HOURS NEEDED FOR PAIN Active Active Problems Problem Noted Date Diagnosed Date Kidney stones Social History Tobacco Use Types Packs/Day Years Used Date Smoking Tobacco: Former Cigarettes Smokeless Tobacco: Never Alcohol Use Standard Drinks/Week Comments Never 0 (1 standard drink = 0.6 oz pur e alcohol) AUDIT-C Answer Date Recorded Q1: How often do you have a drink containing alc ohol? Never 09/10/2019 Average Number of Drinks Not on file 020 Frequency of Binge Drinking Not on file 08/18 Comments No Sex and Gender Information Value Date Recorded Sex Assigned at Not on file Legal Sex Female 10:09 AM CDT Gender Identity Not on file Sexual Orientation Not on file Last Filed Vital Signs Vital Sign Reading Time Taken Comments Blood Pressure 105/62 01/07/2022 11:00 AM REGULATORY ANALYST Pulse 74 01/07/2022 11:00 AM REGULATORY ANALYST Temperature 36.3 C (97.4 F) 01/07/2022 11:00 AM REGULATORY ANALYST Respiratory Rate 16 10/21/2019 6:02 PM CDT Oxygen Saturation 97% 01/07/2022 11:00 AM REGULATORY ANALYST Inhaled Oxygen Concentration - - Weight 88.5 kg (195 lb) 01/07/2022 11:00 AM REGULATORY ANALYST Height 162.6 cm (5' 4 ) 05/03/2020 2:31 PM CDT Body Mass Index 33.47 05/03/2020 2:31 PM CDT Plan of Treatment Health Maintenance Due Date Last Done Comments COLOGUARD (AGES 45-75) - COL ON CA SCREENING 1964 COLON MONITORING 1964 COLONOSCOPY - COLON CA SCREENING 1964 CT COLONOGRAPHY - COLON CA SCREENING 1964 Colorectal Cancer Screening 1964 FIT - COLON CA SCREENING 1964 FLEX SIG - COLON CA SCREENING 1964 MAMMOGRAM 1964 Opioid Medication Agreement - Annual 1964 PAP SMEAR 1964 HIV SCREENING 10/18/1979 HEPATITIS C SCREENING 10/13/1982 DTAP/TDAP/TD VACCINES (1 - Tdap) 10/18/1983 HEPATITIS B VACCINE (1 of 3 - 19+ 3-dose series) 10/18/1983 PNEUMOCOCCAL VACCINE 50+ (1 of 1 - PCV) 2014 ZOSTER VACCINE (1 of 2) 2014 COVID-19 VACCINE (1 - 2023-2 5 season) 2023 DEPRESSION SCREENING 02/18/2024 INFLUENZA VACCINE (Season Ended) 2024 12/13/2021, 11/01/2020, 01/06/2020 HIB VACCINE Aged Out No longer eligi ble based on patient's age to complete this topic HPV VACCINE Aged Out No longer eligi ble based on patient's age to complete this topic MENINGOCOCCAL (Group B) VACCINE SHARED DECISION-MAKING Aged Out No longer eligible based on patient's age to complete this topic MENINGOCOCCAL GROUPS A/C/Y/W VACCINE Aged Out No longer eligible b ased on patient's age to complete this topic Medical Devices Implanted Type Area Shoe Stock Associate Device Identifier Shelf Expiration Date Model / Serial / Lot Lorena Soft Ureteral Stent Implanted:Qty: 1 on 10/21/2019 by Gamaliel Flowers MD at [facility] Stent Left: Ureter 05/11/2024 [id number] / / [id number] Description:Left ureteral st ent Lorena Soft Ureteral Stent Implanted:Qty: 1 on 10/21/2019 by Gamaliel Flowers MD at [facility] Right: Ureter 04/06/2023 [id number] / / [id number] Insurance [facility] Care Teams Hospice Spiritual Care Coordinator Relationship Specialty Start Date End Date Salvador Veras MD [address] [place] [phone] PCP - General Family Medicine 10/21/19
--- OUTSIDE RECORDS SUMMARY | 2024-07-06 07:40 | XMS_ITS | Continuity of Care Document ---
Author Organization [facility] Address [address] [place] [address] [address] [place] [address] Phone Care Team Providers Care Womens Health Nurse Practitioner Name Role Phone Raghu Bruce DO Unavailable Unavailable Advance Directives Directive Yes / No Effective Date File Name No Information Encounters Encounter Description Practice Location Reason(s) For Visit Diagnoses Date Provider Providers Copied on Encounter [facility], [address], [place], [place], [address], [place] tel:[phone] [facility] No Information Janis Trujillo. [address] [place], [address], [place]. tel: [phone] Family History Family Member Type Diagnosis Age At Onset No Information Payers Payer name Insurance type Covered democrat ID Authoriza tion(s) Medicaid [facility] [id number] Social History Type Description Quantity Date Captured Comments Sex Female Smoking Status No Information Chief Complaint And Reason For Visit No Information Reason For Referral Reason For Referral No Information History Of Present Illness Encounter Date Complaint History Of Prese nt Illness No Information Functional Status Date Functional Assessmen t No Information Instructions Date Instruction Additional Infor mation No Information Assessments Type Assessment Date No Information Patient Care Teams Name Effective Dates (start - stop) Status Members No Information
--- OUTSIDE RECORDS SUMMARY | 2024-07-06 07:40 | XMS_ITS | Clinical Summary ---
Author Organization [facility] Address [address] [place] [address] Care Team Providers Care Exterior Designer Name Role Phone Salvador Veras MD Primary Care Provider [phone] Allergies Active Allergy Reactions Criticality Noted Date Comments Morphine Unknown 01/20/2013 Sulfa Antibiotics Unknown 01/15/2012 Medications allopurinol 100 MG tablet Take 1 tablet (100 mg total) by mouth daily. 06/11/2021 Active atorvastatin 40 MG tablet Take 1 tablet (40 mg total) by mouth nightly at bedtime. 07/01/2021 Active aspirin 81 MG chewable tablet Chew 1 tablet (81 mg total) by mouth daily. Active Family History Medical History Relation Comments Diabetes Mother Hypertension Mother Stroke Mother Relation Status Comments Mother Social History Tobacco Use Types Packs/Day Years Used Date Smoking Tobacco: Former Smokeless Tobacco: Never Alcohol Use Standard Drinks/Week Comments Not Currently 0 (1 standard drink = 0.6 oz pur e alcohol) Comments No Sex and Gender Information Value Date Recorded Sex Assigned at Not on file Legal Sex Female 7:46 PM CDT Gender Identity Not on file Sexual Orientation Not on file Last Filed Vital Signs Vital Sign Reading Time Taken Comments Blood Pressure 100/61 10/12/2023 10:00 PM CDT Pulse 85 10/12/2023 10:00 PM CDT Temperature 37.1 C (98.7 F) 10/12/2023 10:00 PM CDT Respiratory Rate 20 10/12/2023 10:00 PM CDT Oxygen Saturation 97% 10/12/2023 10:00 PM CDT Inhaled Oxygen Concentration - - Weight 86.2 kg (190 lb) 10/12/2023 6:43 PM CDT Height 162.6 cm (5' 4 ) 10/12/2023 6:43 PM CDT Body Mass Index 32.61 10/12/2023 6:43 PM CDT Plan of Treatment Health Maintenance Due Date Last Done Comments Cervical Cancer Screening Pa p Smear (Age 30 to 64) Every 3 Years 1964 Colorectal Cancer Screening Colonoscopy (10 Years) 1964 Annual Physical 10/18/1967 Hepatitis C 1982 DTaP, Tdap and Td Vaccines ( 1 - Tdap) 10/18/1983 Cervical Cancer Screening Pa p with HPV Testing (Age 30 to 64) Every 5 Years 1994 Cervical Cancer Screening with HPV 1994 Mammogram Screening 2004 Pneumococcal Vaccine: 50+ Ye ars (1 of 1 - PCV) 2014 Zoster Vaccines (1 of 2) 2014 COVID-19 Vaccine (1 - 2023-2 5 season) 2023 Meningococcal B Vaccine Aged Out No l onger eligible based on patient's age to complete this topic Meningococcal Vaccine Aged Out No rohit tommy eligible based on patient's age to complete this topic RSV Immunizations Under 20 Months Aged Out No longer eligible based on patient's age to complete this topic Insurance MEDICARE Care Teams Exterior Designer Relationship Specialty Start Date End Date Salvador Veras MD PCP - General FAMILY PRACTICE 08/15/19
--- OUTSIDE RECORDS SUMMARY | 2024-07-06 07:40 | XMS_ITS | Encounter Summary ---
Author Organization [facility] Address [address] [place] [address] Care Team Providers Care Landscaping Specialist Name Role Phone Salvador Veras MD Primary Care Provider [phone] Reason for Visit * Reason Onset Date Comments LABS ONLY 10/19/2019 Encounter Details Date Type Department Care Team (Late st Contact Info) Description 10/19/2019 Telephone [facility] Urology [address] [place] [address] Dorie Plaza, RN LABS ONLY Social History Tobacco Use Types Packs/Day Years [...] on file Sexual Orientation Not on file documented as of this encounter Miscellaneous Notes * Telephone Encounter - Dorie Plaza, RN - 10/19/2019 9:54 AM CDT Received voicemail from patient, states she had her labs performed at [facility]. Per chart, pt had requested orders be faxed or [facility], where they were faxed. Only result in Epic is BMP. [facility]oned [facility]. [facility] only performed BMP, so ua, culture, cmp not performed. Phoned pt. Informed her of above. Pt states he had covid somewhere in [place]. She states we provided her with the location. This web content writer did not provide this information. Suggested pt come to [facility] to have labs performed to [facility], as surgery is . Requested pt go to where she had covid test performedand have them fax results today. Fax number provided. She states she will go to [facility] to day for pre op labs. Urine culture results will most likely not be received by us by . Pt to request [facility] fax results to [phone] documented in this encounter Plan of Treatment Not on file documented as of this encounter Visit Diagnoses Not on filedocumented in this encounter Care Teams Landscaping Specialist Relationship Specialty Start Date End Date Salvador Veras MD [address] [place] [address] PCP - General Family Medicine 10/21/19 documented as of this encounter
--- OUTSIDE RECORDS SUMMARY | 2024-07-06 07:40 | XMS_ITS | Encounter Summary ---
Author Organization [facility] Address [facility] [place] [address] Care Team Providers Care Staff Nurse Name Role Phone Owen Morin HOSPITAL ADMISSIONS CLERK Primary Care Provider Unavail able Salvador Veras MD Primary Care Provider [phone] Encounter Details Date Type Department Care Team (Late st Contact Info) Description 05/13/2016 Abstract [facility] CONVERSION [address] [place] [address] , Generic ConversionMD Social History Tobacco Use Types Packs/Day Years Used Date Smoking Tobacco: Never Assessed Comments Unknown Sex and Gender Information Value Date Recorded Sex Assigned at Not on file Legal Sex Female 7:46 PM CDT Gender Identity Not on file Sexual Orientation Not on file documented as of this encounter Plan of Treatment Not on file documented as of this encounter Visit Diagnoses Not on filedocumented in this encounter Additional Health Concerns Infection Onset Date Last Indicated Resolved Time COVID-19 Rule Out 10/12/2023 10/12/2023 10/12/2023 7:22 PM CDT documented as of this encounter Care Teams Staff Nurse Relationship Specialty Start Date End Date Owen Morin NP PCP - General 12/23/14 08/14/19 Salvador Veras MD PCP - General FAMILY PRACTICE 08/15/19 documented as of this encounter
--- OUTSIDE RECORDS SUMMARY | 2024-07-06 07:40 | XMS_ITS | Clinical Summary ---
Author Organization [facility] Address [address] [place] [address] Phone Care Team Providers Care C.O.D. Clerk Name Role Phone Aaliyah Prabhakar Primary Care Provider [phone] Social History Tobacco Use Types Packs/Day Years Used Date Smoking Tobacco: Never Assessed Comments Unknown Sex and Gender Information Value Date Recorded Sex Assigned at Not on file Legal Sex Female 9:09 AM CDT Gender Identity Not on file Sexual Orientation Not on file Plan of Treatment Health Maintenance Due Date Last Done Comments Hepatitis C Virus (HCV) Screening 1964 Hepatitis B Immunization (1 of 3 - 19+ 3-dose series) 10/18/1983 Colonoscopy 2009 Colorectal Cancer Screening 2009 Cologuard 2014 Immunochemical Fecal Occult Blood 2014 Pneumococcal Immunization (5 0+ years) (1 of 1 - PCV) 2014 Zoster Immunization (1 of 2) 2014 Influenza Immunization (#1) 2023 SARS-COV-2 Immunization (3 - 2023- season) 2023 06/27/2020, 06/01/2020 Respiratory Syncytial Virus (RSV) Immunization (Adult) (1 - 1-dose 75+ series) 10/18/2039 DTaP/Tdap/Td Immunization Discontinued 01/15/2013 TdaP Immunization Completed 01/15/2013 Meningococcal Immunization (ACWY) Aged Out No longer eligible based on patient's age to complete this topic Rotavirus Immunization Aged Out No lo nger eligible based on patient's age to complete this topic Insurance MEDICAID [place] Care Teams C.O.D. Clerk Relationship Specialty Start Date End Date Aaliyah Prabhakar PA [address] [address] PCP - General Adult Medicine 07/29/17
== END 2024-07-06 07:34 | disposition home or self-care (01) ==
LOC: ANHIMG 07:37
PROVIDERS: PCP Family Medicine; Visit Provider Family Medicine
DX: Z12.31 Encounter for screening mammogram for malignant neoplasm of breast (principal)
CPT/HCPCS: 77063; 77067

== ENCOUNTER 2024-08-27 16:32 | Emergency (ER) | payer MEDICARE, MEDICAID, SELFPAY ==
--- NOTE | ~2024-08-27 | CT_ITS ---
CT abdomen pelvis wo con Ordering provider: Pricila Montalvo History: 58 years Female with . R flank pain . Comparison: March 19, 2022 Technique: CT abdomen and pelvis without IV and without oral contrast. Automated exposure control and iterative reconstruction technique were employed. The dose-length product was 211.38 mGy-cm. Findings: VISUALIZED LOWER CHEST: Nodule is seen in the right lower lobe measuring 7.8 mm. Tiny nodules are see n in the left lower lobe measuring 3 mm and 4 mm. 6 months follow-up CT is advised. UPPER ABDOMINAL ORGANS: Liver: Normal. Gallbladder: Normal. Spleen: Normal. Stomach/duodenum: Normal. Pancreas: Normal. Adrenals: Normal. Kidneys: Tiny stone in the left kidney midpole. Tiny stone in the right kidney midpole. No ureteric s tones PELVIC ORGANS: The bladder is normal. Left ovarian cyst measuring 2.4 cm. BOWEL AND MESENTERY: Colon: No evidence of diverticulitis. Fecal material is loaded in the colon suggestive of constipatio n. The appendix is not demonstrated. Small Bowel: Normal. No obstruction. Peritoneum/mesentery: No free air or free fluid. No mesenteric lymphadenopathy. RETROPERITONEUM: Mild atheromatous disease of the abdominal aorta. No retroperitoneal lymphadenopat hy. MUSCULOSKELETAL: Superficial soft tissues: Tiny fat-containing umbilical hernia. Otherwise, The superficial soft tissu es are normal. Bones: Postoperative changes in the spine. Age appropriate degenerative changes of the spine. Pubic symphysitis. Bilateral sacroiliacs IMPRESSION: 1. Tiny stones in the right and left kidney. 2. Nodules in the right and left lung bases. 6 months follow-up CT advised. 3. Constipation. 4. Left ovarian cyst. Reviewed, dictated and finalized at location A.
[2024-08-27 16:34] VITALS: BP 129/61; PULSE 86; RESP 16; TEMP 36.4; O2SAT 97
--- OUTSIDE RECORDS SUMMARY | 2024-08-27 16:34 | XMS_ITS | Continuity of Care Document ---
Author Organization [facility] Address [address] [facility] [place] [address] Phone Care Team Providers Care Laborer Shellfish Processing Name Role Phone David Sigala MD Unavailable [...] Diagnoses Date Provider Providers Copied on Encounter [facility], [address] [place], [place], [address], tel:[phone] [facility] No Information Jovon Marshall [address], [place], [address] , [place]. tel:[phone] Referring Provider: David Sigala, [address] [place], [place], [address]. tel:[phone] OFFICE/OUTPAT IENT VISIT, EST [facility], [address] [place], [place], [address], tel:[phone] [facility] insomnia1 (chief complaint)k nee pain1 (chief complaint)c mcfp pain1 (chief complaint) InsomniaPain in right kneePain in left lower leg Jovon Hernandez. [address], [place], [place], [address] , [place]. tel:[phone] Referring Provider: David Sigala [address], [place], [place], [address]. tel:[phone] PREV VISIT, NEW, AGE 40-64 [facility], [address], [place], [place], [address], [place] tel:[phone] [facility] physical (chief complaint) Encntr for general adult medical exam w/o abnormal findings Jovon Hernandez. [address], [place], [place], [address] , [place]. tel:[phone] Referring Provider: David Sigala, [address] [facility] [address], [place], [place], [address]. tel:[phone] Family History Family Member Type Diagnosis Age At Onset Mother Problem (finding) CVA, renal failure (Cau se Of ) 78 Father Problem (finding) of 87 old age and afib (Cause Of ) Sister Problem (finding) Alive and well Payers Payer name Insurance type Covered constitution party ID Authoriza tion(s) No Information Social [...] Goal Special diet education compl eted Referral Ordered: [place] VENOUS DOPPLER ordered Referral Referred To: Paul Ruiz MD [address] [place], [place], [id number] Ordered: Referrals: Paul Ruiz MD Evaluate and treat ordered Referral Ordered: MRI JNT OF LWR EXTRE W/O DYE Right ordered History Of Present Illness Encounter Date Complaint History Of Prese nt Illness calf pain1 Pt c/o left calf pain for 4 weeks. Pt denies any sob or chest pain Pt denies any recent travel or bedrest Pt denies any injury Pt denies any redness or warmth knee pain1 Pt has chronic r ight [...] her she has a touch of RA? insomnia1 Pt has chronic i nsomnia. pt denies any snoring or any trouble with breathing at night. Pt denies any fatigue physical Pt needs annual physical. Pt has [...]
--- OUTSIDE RECORDS SUMMARY | 2024-08-27 16:34 | XMS_ITS | Continuity of Care Document ---
Author Organization [facility] Address [address] [place] [address] [address] [place] [address] Phone Care Team Providers Care Business Services Associate Name Role Phone Raghu Bruce DO Unavailable Unavailable Advance Directives Directive Yes / No Effective Date File Name No Information Encounters Encounter Description Practice Location Reason(s) For Visit Diagnoses Date Provider Providers Copied on Encounter [facility], [address], [place], [place], [address], [place] tel:[phone] [facility] No Information Janis Trujillo. [address] [place], [address], [place]. tel: [phone] Family History Family Member Type Diagnosis Age At Onset No Information Payers Payer name Insurance type Covered libertarian ID Authoriza tion(s) Medicaid [facility] [id number] Social History Type Description Quantity Date Captured [...]
--- OUTSIDE RECORDS SUMMARY | 2024-08-27 16:35 | XMS_ITS | Clinical Summary ---
Author Organization [facility] Address [address] [place] [address] Phone Care Team Providers Care Combat Control Manager Name Role Phone Aaliyah Prabhakar Primary Care Provider [phone] Social History Tobacco Use Types Packs/Day Years [...] of 3 - 19+ 3-dose series) 10/18/1983 Pap Smear 1985 Cervical Cancer Screening (CCS) 1994 HPV/Cotest 1994 Cologuard 2009 Colonoscopy 2009 Colorectal Cancer Screening 2009 Immunochemical Fecal Occult Blood 2009 Pneumococcal Immunization (5 0+ years) (1 of 1 - PCV) 2014 Zoster Immunization (1 of 2) 2014 SARS-COV-2 Immunization (3 - season) 2023 06/27/2020, 06/01/2020 Influenza Immunization (#1) 2024 Respiratory Syncytial Virus (RSV) Immunization (Adult) (1 - 1-dose 75+ series) 10/18/2039 DTaP/Tdap/Td Immunization Discontinued 01/15/2013 TdaP Immunization Completed 01/15/2013 Human Papillomavirus (HPV) Immunization Aged Out No longer eligible based on patient's age to complete this topic Meningococcal Immunization (ACWY) Aged Out No longer eligible based on patient's age to complete this topic Rotavirus Immunization Aged Out No lo nger eligible based on patient's age to complete this topic Insurance MEDICAID [place] Care Teams Combat Control Manager Relationship Specialty Start Date End Date Aaliyah Prabhakar PA [address] [address] PCP - General Adult Medicine 07/29/17
--- OUTSIDE RECORDS SUMMARY | 2024-08-27 16:35 | XMS_ITS | Encounter Summary ---
Author Organization [facility] Address [address] [facility] [place] [address] Care Team Providers Care Cafe Assistant Name Role Phone Salvador Veras MD Primary Care Provider [phone] Reason for Visit * Reason Onset Date Comments LABS ONLY 10/19/2019 Encounter Details Date Type Department Care Team (Late st Contact Info) Description 10/19/2019 Telephone [facility] Urology [address] [place] [address] Dorie Plaza, RN LABS ONLY [...] states she had her labs performed at [facility]. Per chart, pt had requested orders be faxed or [facility], where they were faxed. Only result in Epic is BMP. [facility]oned [facility]. [facility] only performed BMP, so ua, culture, cmp not performed. Phoned pt. Informed her of above. Pt states he had covid somewhere in [place]. She states we provided her with the location. This policy writer sales did not provide this information. Suggested pt come to [facility] to have labs performed to [facility], as surgery is . Requested pt go to where she had covid test performedand have them fax results today. Fax number provided. She states she will go to [facility] to day for pre op labs. Urine culture results will most likely not be received by us by . Pt to request [facility] fax results to [phone] documented in this encounter Plan of Treatment Not on file documented as of this encounter Visit Diagnoses Not on filedocumented in this encounter Care Teams Cafe Assistant Relationship Specialty Start Date End Date Salvador Veras MD [address] [place] [address] PCP - General Family Medicine 10/21/19 documented as of this encounter
--- OUTSIDE RECORDS SUMMARY | 2024-08-27 16:35 | XMS_ITS | Encounter Summary ---
Author Organization [facility] Address [facility] [place] [address] Care Team Providers Care Account Collector Name Role Phone Owen Morin CLAY MINE CUTTING MACHINE OPERATOR Primary Care Provider Unavail able Salvador Veras MD Primary Care Provider [phone] Encounter Details Date Type Department Care Team (Late st Contact Info) Description 05/13/2016 Abstract [facility] CONVERSION [address] [place] [address] , Generic ConversionMD Social History Tobacco Use Types Packs/Day Years Used Date Smoking Tobacco: Never Assessed Comments Unknown Sex and Gender Information Value Date Recorded Sex Assigned at Female 08/22/2024 9:36 PM CDT Legal Sex Female 7:46 PM CDT Gender Identity Female 08/22/2024 9:36 PM CDT Sexual Orientation Not on file documented as of this encounter Plan of Treatment Not on file documented as of this encounter Visit Diagnoses Not on filedocumented in this encounter Additional Health Concerns Infection Onset Date Last Indicated Resolved Time COVID-19 Rule Out 10/12/2023 10/12/2023 10/12/2023 7:22 PM CDT documented as of this encounter Care Teams Account Collector Relationship Specialty Start Date End Date Owen Morin NP PCP - General 12/23/14 08/14/19 Salvador Veras MD PCP - General FAMILY PRACTICE 08/15/19 documented as of this encounter
--- OUTSIDE RECORDS SUMMARY | 2024-08-27 16:35 | XMS_ITS | Clinical Summary ---
Author Organization [facility] Address [address] [place] [address] Care Team Providers Care Bed Spring Maker Name Role Phone Salvador Veras MD Primary Care Provider [phone] Allergies Active Allergy Reactions Criticality Noted Date Comments Metformin Rash Low 08/22/2024 Morphine Unknown 01/20/2013 Sulfa Antibiotics Unknown 01/15/2012 Medications allopurinol 100 MG tablet Take 1 tablet (100 mg total) by mouth daily. 2 Active atorvastatin 40 MG tablet Take 1 tablet (40 mg total) by mouth nightly at bedtime. 2 Active aspirin 81 MG chewable tablet Chew 1 tablet (81 mg total) by mouth daily. Active ondansetron (ZOFRAN-ODT) 4 MG disintegrating tablet Take 1 tablet (4 mg total) by mouth every 8 (eight) hours as needed for Nausea. 20 tablet 5 Active Encounters Date Type Department Care Team Description 08/22/2024 8:53 PM CDT - 08/23/2024 1:20 AM CDT Emergency [facility] Emergency Room [address] [place] [address] Jhonny Cheng MD Back Pain (Right) Discharge Disposition: Home or Self Care (Routine Discharge) 08/22/2024 Travel from Last 3 Months Family History Medical History Relation Comments Diabetes [...] PM CDT Sexual Orientation Not on file Last Filed Vital Signs Vital Sign Reading Time Taken Comments Blood Pressure 119/67 08/23/2024 1:17 AM CDT Pulse 78 08/23/2024 1:17 AM CDT Temperature 37.1 C (98.7 F) 08/23/2024 1:17 AM CDT Respiratory Rate 18 08/23/2024 1:17 AM CDT Oxygen Saturation 96% 08/22/2024 9:01 PM CDT Inhaled Oxygen Concentration - - Weight 86.2 kg (190 lb) 08/22/2024 9:01 PM CDT Height 162.6 cm (5' 4) 08/22/2024 9:01 PM CDT Body Mass Index 32.61 08/22/2024 9:01 PM CDT Plan of Treatment Health Maintenance [...] Vaccines (1 of 2) 2014 COVID-19 Vaccine (2023-2 5 season) 2023 Meningococcal B Vaccine Aged Out No l onger eligible based on patient's age to complete this topic Meningococcal Vaccine Aged Out No rohit tommy eligible based on patient's age to complete this topic RSV Immunizations Under 20 Months Aged Out No longer eligible based on patient's age to complete this topic Procedures Procedure Name Priority Date/Time Associated Diagnosis Comments CT ABD+PEL W CON STAT 08/22/2024 10:3 2 PM CDT URINALYSIS, AUTO, COMPLETE STAT 08/22/2024 9:40 PM CDT LIPASE STAT 08/22/2024 9:21 PM CDT COMPREHENSIVE METABOLIC PANEL STAT 08/22/2024 9:21 PM CDT CBC W/DIFF AUTOMATED STAT 08/22/2024 9:21 PM CDT from Last 3 Months Results * CT ABD+PEL W IV CON ONLY (08/22/2024 10:32 PM CDT) Anatomical Region Laterality Modality Abdomen Computed Tomogra phy 08/22/2024 10:5 9 PM CDT Impressions 08/22/2024 11:20 PM CDT IMPRESSION: 1. No definite acute CT findings within the abdomen or pelvis. 2. Nonspecific long segment moderate wall thickening involving the sigmoid colon that may relate to prior diverticulitis and a relative decompression of the colon. Correlation with nonemergent colonoscopy findings recommended for further characterization. 3. Mildly complex right renal cystic focus. Could consider MRI abdomen with contrast and renal protocol for further characterization. 4. Multiple pulmonary nodules. CT chest in 6-12 months would be beneficial for further characterization. Referred By: Interpreted By: Jhoan Jimenez MD, 08/22/2024 10:59 PM Narrative 08/22/2024 11:20 PM CDT [facility] [address] [facility] [address] EXAMINATION: CT ABD+PEL W CON, 08/22/2024 10:59 PM TECHNIQUE: Computed tomographic images of the abdomen and pelvis were obtained after the administration of 75 mL of Isovue-370 injected through the IV, without evidence of adverse reaction. Additional coronal and sagittal reformatted images were generated. A dose lowering technique was used for this procedure, which may include, but is not limited to, dose reduction technique, automated exposure control, the use of iterative reconstruction, and ALARA (As Low As Reasonably Achievable) / Image Gently techniques. HISTORY: Right lower quadrant abdominal/back pain, vomiting and chills. COMPARISON: CT abdomen and pelvis 08/15/2019 FINDINGS: Nodules in the left lung base, largest measuring approximately 0.5 cm (best seen on series 5 image 27). There is a 0.7 cm nodule within the right lower lobe (best seen on series 5 image 23). Heart size is normal. ABDOMEN: Liver is normal in size and contour. The gallbladder is negative. There is no bile duct dilation. The pancreas is negative. The spleen is normal in size. There is no adrenal mass. There is no perinephric abnormality. There is no hydronephrosis. There is a 1.5 cm cystic focus within the midportion of the right kidney which appears mildly complex, possibly a Bosniak 2 lesion. Could consider MRI abdomen with contrast and renal protocol for further characterization. Additional inferior pole left renal cysts. No hydronephrosis. No nephrolithiasis. The caliber of the abdominal aorta is normal. Moderate arteriosclerotic calcification of the abdominal aorta and its branches. No retroperitoneal adenopathy. PELVIS: The appendix is not well seen. No findings suggestive of acute appendicitis. Moderate amount of stool throughout the colon. Diverticulosis throughout the colon without evidence of diverticulitis. Nonspecific long segment moderate wall thickening involving the sigmoid colon that may relate to prior diverticulitis and a relative decompression of the colon (best seen on series 2 image 120). Correlation with nonemergent colonoscopy findings recommended for further characterization. There is a 2.5 cm left adnexal cyst. Pelvic phleboliths. Urinary bladder is grossly normal. There is 1.1 cm of anterolisthesis of L4 on L5. Posterior fusion of L4-5. No evidence of hardware loosening or fracture. Partial laminectomy of L4. Procedure Note Jhoan Jimenez MD - 08/22/2024 [facility] [address] [facility] [place] [address] EXAMINATION: CT ABD+PEL W CON, 08/22/2024 10:59 PM TECHNIQUE: Computed tomographic images of the abdomen and pelvis wereobtained after the administration of 75 mL of Isovue-370 injected throughthe IV, without evidence of adverse reaction. Additional coronal andsagittal reformatted images were generated. A dose lowering technique wasused for this procedure, which may include, but is not limited to, dosereduction technique, automated exposure control, the use of iterativereconstruction, and ALARA (As Low As Reasonably Achievable) / Image Gentlytechniques. HISTORY: Right lower quadrant abdominal/back pain, vomiting and chills. COMPARISON: CT abdomen and pelvis 08/15/2019 FINDINGS: Nodules in the left lung base, largest measuring approximately0.5 cm (best seen on series 5 image 27). There is a 0.7 cm nodule withinthe right lower lobe (best seen on series 5 image 23). Heart size isnormal. ABDOMEN: Liver is normal in size and contour. The gallbladder isnegative. There is no bile duct dilation. The pancreas is negative. Thespleen is normal in size. There is no adrenal mass. There is noperinephric abnormality. There is no hydronephrosis. There is a 1.5 cmcystic focus within the midportion of the right kidney which appearsmildly complex, possibly a Bosniak 2 lesion. Could consider MRI abdomenwith contrast and renal protocol for further characterization. Additionalinferior pole left renal cysts. No hydronephrosis. No nephrolithiasis.The caliber of the abdominal aorta is normal. Moderate arterioscleroticcalcification of the abdominal aorta and its branches. No retroperitonealadenopathy. PELVIS: The appendix is not well seen. No findings suggestive of acuteappendicitis. Moderate amount of stool throughout the colon.Diverticulosis throughout the colon without evidence of diverticulitis.Nonspecific long segment moderate wall thickening involving the sigmoidcolon that may relate to prior diverticulitis and a relative decompressionof the colon (best seen on series 2 image 120). Correlation withnonemergent colonoscopy findings recommended for further characterization.There is a 2.5 cm left adnexal cyst. Pelvic phleboliths. Urinarybladder is grossly normal. There is 1.1 cm of anterolisthesis of L4 onL5. Posterior fusion of L4-5. No evidence of hardware loosening orfracture. Partial laminectomy of L4. IMPRESSION: 1. No definite acute CT findings within the abdomen or pelvis. 2. Nonspecific long segment moderate wall thickening involving thesigmoid colon that may relate to prior diverticulitis and a relativedecompression of the colon. Correlation with nonemergent colonoscopyfindings recommended for further characterization. 3. Mildly complex right renal cystic focus. Could consider MRI abdomenwith contrast and renal protocol for further characterization. 4. Multiple pulmonary nodules. CT chest in 6-12 months would bebeneficial for further characterization. Referred By: Interpreted By: Jhoan Jimenez MD, 08/22/2024 10:59 PM us Jhonny Cheng MD CT Fi nal Result * (ABNORMAL) URINALYSIS, AUTO, COMPLETE (08/22/2024 9:40 PM CDT) COLOR (U) YELLOW 08/22/2024 10:31 PM CDT [facility] TRANSPARENCY CLEAR 08/22/2024 10:31 PM CDT [facility] SPECIFIC GRAVITY (U) 1.025 1.000 - 1.030 08/22/2024 10:31 PM CDT [facility] U PH 6.0 5.0 - 9.0 08/22/2024 10:31 PM CDT [facility] LEUKOCYTES (U) NEGATIVE NEGATIVE 08/22/2024 10:31 PM CDT [facility] NITRITES NEGATIVE NEGATIVE 08/22/2024 10:31 PM CDT [facility] PROTEIN RANDOM (U) NEGATIVE NEGATIVE 08/22/2024 10:31 PM T [facility] GLUCOSE (U) 3+(A) NEGATIVE 08/22/2024 10:31 PM CDT [facility] KETONES MG/DL (U) NEGATIVE NEGATIVE 08/22/2024 10:31 PM T [facility] BILIRUBIN (U) NEGATIVE NEGATIVE 08/22/2024 10:31 PM CDT [facility] BLOOD (U) TRACE(A) NEGATIVE 08/22/2024 10:31 PM T [facility] WBC/HPF 0-5 0 - 5 /HPF 08/22/2024 10:31 PM CDT [facility] RBC/HPF 0-5 0 - 5 /HPF 08/22/2024 10:31 PM CDT [facility] EPI/HPF RARE /HPF 08/22/2024 10:31 PM CDT [facility] URINE SPECIMEN OBTAINED BY CLEAN CATCH PROCEDURE / Unknown 08/22/2024 9:40 PM CDT us Jhonny Cheng MD URINE ORDERABLES F inal Result [facility] [address] [place] [address], [place] [phone] * (ABNORMAL) COMPREHENSIVE METABOLIC PANEL (08/22/2024 9:21 PM CDT) GLUCOSE 87 70 - 99 MG/DL 08/22/2024 10:03 PM CDT [facility] BUN 16 7 - 18 MG/DL 08/22/2024 10:03 PM T [facility] CREATININE S/P/B 0.85 0.55 - 1.02 MG/DL 08/22/2024 10:03 PM CDT [facility] SODIUM S/P/B 141 136 - 145 MMOL/L 08/22/2024 10:03 PM T [facility] POTASSIUM S/P/B 3.8 3.5 - 5.1 MMOL/L 08/22/2024 10:03 PM T [facility] CHLORIDE S/P/B 104 100 - 108 MMOL/L 08/22/2024 10:03 PM CDT [facility] CO2 28.2 21 - 32 MMOL/L 08/22/2024 10:03 PM T [facility] CALCIUM S/P/B 9.5 8.5 - 10.1 MG/DL 08/22/2024 10:03 PM [facility] BILIRUBIN TOTAL S/P/B 0.7 0.2 - 1.2 MG/DL 08/22/2024 10:03 PM [facility] TOTAL PROTEIN S/P/B 8.0 6.4 - 8.2 G/DL 08/22/2024 10:03 PM [facility] ALBUMIN S/P/B 4.1 3.4 - 5.0 G/DL 08/22/2024 10:03 PM [facility] AST 22 15 - 37 U/L 08/22/2024 10:03 PM [facility] ALT 31 14 - 55 U/L 08/22/2024 10:03 PM [facility] ALKALINE PHOSPHATASE S/P/B 94 50 - 136 U/L 08/22/2024 10:03 PM [facility] ANION GAP 8.8 5 - 15 MMOL/L 08/22/2024 10:03 PM [facility] BUN CREATININE RATIO 18.8 6 - 26 08/22/2024 10:03 PM [facility] A/G RATIO 1.1 1.0 - 2.0 RATIO 08/22/2024 10:03 PM [facility] GFR ESTIMATE 79(L) >90 ML/MIN/1.7 3 M2 08/22/2024 10:03 PM [facility] Comment: NOTE: eGFR is not calculated for patients <18 years of age. This is an estimated GFR calculation using the new CKD EPI creatinine equation without race and so does not require a correction factor for race. This estimated GFR should not be used for calculating drug doses. 08/22/2024 9:21 PM CDT us Jhonny Cheng MD LABORATORY Fi nal Result [facility] [address] [place] [place] [address], [place] [phone] * (ABNORMAL) CBC W/DIFF AUTOMATED (08/22/2024 9:21 PM CDT) WBC 4.62 4.4 - 11.0 x10'3/uL 08/22/2024 9:31 PM CDT [facility] RBC 3.93(L) 4.50 - 5.10 x10'6/uL 08/22/2024 9:31 PM CDT [facility] HGB 12.7 12.3 - 15.3 G/DL 08/22/2024 9:31 PM CDT [facility] HCT 38.3 35.9 - 44.6 % 08/22/2024 9:31 PM CDT [facility] MCV 97.5(H) 80.0 - 96.0 FL 08/22/2024 9:31 PM CDT [facility] MCH 32.3(H) 25.3 - 30.9 PG 08/22/2024 9:31 PM CDT [facility] MCHC 33.2 31.0 - 34.1 G/DL 08/22/2024 9:31 PM CDT [facility] RDW 12.7 12.4 - 15.1 % 08/22/2024 9:31 PM CDT [facility] PLT 181 151 - 353 x10'3/uL 08/22/2024 9:31 PM CDT [facility] MPV 9.4(L) 9.6 - 12.0 FL 08/22/2024 9:31 PM CDT [facility] RBC MORPHOLOGY NORMAL 08/22/2024 9:31 PM CDT [facility] PLT MORPH. NORMAL 08/22/2024 9:31 PM CDT [facility] WBC MORPHOLOGY NORMAL 08/22/2024 9:31 PM CDT [facility] LYMPHOCYTES % 32.0 15.8 - 45.0 % 08/22/2024 9:31 PM CDT [facility] NEUTROPHILS % 54.4 42.1 - 71.9 % 08/22/2024 9:31 PM CDT [facility] MONOCYTES % 10.6 5.7 - 12.5 % 08/22/2024 9:31 PM CDT [facility] EOSINOPHILS 2.6 0.0 - 5.6 % 08/22/2024 9:31 PM CDT [facility] BASOPHILS 0.2 0.0 - 1.3 % 08/22/2024 9:31 PM CDT [facility] ABS. NEUTROPHILS 2.51 1.40 - 6.00 x10'3/uL 08/22/2024 9:31 PM CDT [facility] IMMATURE GRANS % 0.2 0.0 - 0.5 % 08/22/2024 9:31 PM CDT [facility] ABS. LYMPHOCYTES 1.48 0.80 - 4.70 x10'3/uL 08/22/2024 9:31 PM CDT [facility] 08/22/2024 9:21 PM CDT us Jhonny Cheng MD LABORATORY Fi nal Result [facility] [address] [place] [address], * LIPASE (08/22/2024 9:21 PM CDT) LIPASE 26 16 - 77 UNITS/L 08/22/2024 10:03 PM CDT [facility] 08/22/2024 9:21 PM CDT us Jhonny Cheng MD LABORATORY Fi nal Result [facility] [address] [address] [address], [place] [phone] from Last 3 Months Insurance MEDICARE Care Teams Bed Spring Maker Relationship Specialty Start Date End Date Salvador Veras MD PCP - General FAMILY PRACTICE 08/15/19
--- OUTSIDE RECORDS SUMMARY | 2024-08-27 16:35 | XMS_ITS | Clinical Summary ---
Author Organization [facility] Address [address] [place] [address] Care Team Providers Care Amortization Schedule Clerk Name Role Phone Salvador Veras MD Primary Care Provider [phone] Source Comments [facility],non-owned Affiliates and Associated Physician Practices is amultiple site organization consisting of ambulatory clinics and hospital sitesin [place], [place]. This disclosure is being madepursuant to the Care Everywhere program and may not contain all information available regarding this patient. Last updated 17.[facility] Allergies Active Allergy Reactions [...] Comments Blood Pressure 105/62 01/07/2022 11:00 AM PRODUCT HANDLER Pulse 74 01/07/2022 11:00 AM PRODUCT HANDLER Temperature 36.3 C (97.4 F) 01/07/2022 11:00 AM PRODUCT HANDLER Respiratory Rate 16 10/21/2019 6:02 PM CDT Oxygen Saturation 97% 01/07/2022 11:00 AM PRODUCT HANDLER Inhaled Oxygen Concentration - - Weight 88.5 kg (195 lb) 01/07/2022 11:00 AM PRODUCT HANDLER Height 162.6 cm (5' 4) 05/03/2020 2:31 PM CDT Body Mass Index [...] 1964 Opioid Medication Agreement - Annual 1964 HIV SCREENING 10/18/1979 HEPATITIS C SCREENING 10/13/1982 DTAP/TDAP/TD VACCINES (1 - Tdap) 10/18/1983 HEPATITIS B VACCINE (1 of 3 - 19+ 3-dose series) 10/18/1983 PAP SMEAR 1985 PNEUMOCOCCAL VACCINE 50+ (1 of 1 - PCV) 2014 ZOSTER VACCINE (1 of 2) 2014 COVID-19 VACCINE (1 - 2023-2 5 season) 2023 DEPRESSION SCREENING 02/18/2024 INFLUENZA VACCINE (#1) 2024 2, 11/01/2020, 01/06/2020 HIB VACCINE Aged Out No [...] this topic Medical Devices Implanted Type Area Client Associate Device Identifier Shelf Expiration Date Model / Serial / Lot Lorena Soft Ureteral Stent Implanted:Qty: 1 on 10/21/2019 by Gamaliel Flowers MD at [facility] Stent Left: Ureter 05/11/2024 [id number] / / [id number] Description:Left ureteral st ent Lorena Soft Ureteral Stent Implanted:Qty: 1 on 10/21/2019 by Gamaliel Flowers MD at [facility] Right: Ureter 04/06/2023 [id number] / / [id number] Insurance [facility] Care Teams Amortization Schedule Clerk Relationship Specialty Start Date End Date Salvador Veras MD [address] [place] [phone] PCP - General Family Medicine 10/21/19
--- OUTSIDE RECORDS SUMMARY | 2024-08-27 16:35 | XMS_ITS | Data Portability ---
Author Organization [place] [facility] [employer] [facility], Main Office Address [address] [place] [id number] Care Team Providers Care Marketing Account Manager Name Role Phone SALVADOR VERAS Primary Care Provider [phone] Assessment Encounter Date Assessment Date Assessment LastModified [...] but pt declined. Advised to refer to [employer]; but pt declined. Pt got s/e from [...] but pt declined. Advised to refer to [employer]; but pt declined. Pt got s/e from [...] in 3 months. Annual labs in 01/11. [email or web address] Not available 06/24/2024 10:42:09 Plan of Treatment Reminders Order Date Submit Date Provider Last Modified By Organization Details Last Modified Time Details Appointments Follow Up 2024 09:30A M Salvador Veras MD Not available Not available Not available Lab glycohemo globin, total, blood 2024 025 [facility] (Lab), [address] [place], [address], 06/23/2024 20:16:56 Referral None recorded. Procedures None recorded. Surgeries None recorded. Imaging None recorded. Medication Orders diclofena c sodium 75 mg tablet,de layed release 2024 025 [facility] [id number] [place] [address], [address], 06/24/2024 10:39:28 cyclobenz aprine 10 mg tablet 2024 025 [facility] [address], [id number] [place] [address], [address], 06/24/2024 10:39:31 alendrona te 70 mg tablet 2024 025 [facility] [address], [id number] [place] [address], [address], 06/24/2024 10:39:35 Calcium 600 + D(3) 600 mg-10 mcg (400 unit) tablet 2024 025 [facility] [address], [address], [address], 06/24/2024 10:39:32 allopurin ol 100 mg tablet 2024 025 [facility] [address], [address], [address], 06/24/2024 10:39:28 atorvasta tin 40 mg tablet 2024 025 [facility] [address], [address], [address], 06/24/2024 10:39:28 cetirizin e 10 mg tablet 2024 025 [facility] [address], [address] [place] [address], [address], 06/24/2024 10:39:29 trazodone 50 mg tablet 2024 025 [facility] [address], [address] [place] [address], [address], 06/24/2024 10:39:30 phentermi ne 30 mg capsule 2024 025 [facility] [address], [address] [place] [address], [address], 06/24/2024 10:39:39 ergocalci ferol (vitamin D2) 1,250 mcg (50,000 unit) capsule 2024 025 [facility] [address], [id number] [place] [address], [address], 06/24/2024 10:39:30 Jardiance 25 mg tablet 2024 025 [facility] [address], [address], [address], 06/24/2024 10:39:27 lisinopri l 2.5 mg tablet 2024 025 [facility] [address], [id number] [place] [address], [address], 06/24/2024 10:39:32 Rybelsus 14 mg tablet 2024 025 [facility] [address], [address] [place] [address], [address], 06/24/2024 10:39:34 amoxicill in 875 mg-potass ium clavulana te 125 mg tablet [address] [facility] [address], [address] [place] [address], [address], 06/24/2024 10:37:37 fluticaso ne propionat e 50 mcg/actua tion nasal spray,alexus pension 2024 025 [facility] [address], [address] [place] [address], [address], 05/26/2024 10:05:44 diclofena c sodium 75 mg tablet,de layed release 2024 025 [facility], [address] [place] [address], [address], 04/22/2024 10:20:26 cyclobenz aprine 10 mg tablet 2024 025 [facility], [address] [place] [address], [address], 04/22/2024 10:20:25 alendrona te 70 mg tablet 2024 025 [facility], [address] [place] [address], [address], 04/22/2024 10:20:25 Calcium 600 + D(3) 600 mg-10 mcg (400 unit) tablet [address] [facility], [address] [place] [address], [address], 04/22/2024 10:20:28 allopurin ol 100 mg tablet 2024 025 [facility] [address], [address] [place] [address], [address], 04/22/2024 10:20:21 atorvasta tin 40 mg tablet 2024 025 [facility], [address] [place] [address], [address], 04/22/2024 10:20:27 cetirizin e 10 mg tablet 2024 025 [place] [address], [address] [place] [address], [address], 04/22/2024 10:20:26 trazodone 50 mg tablet 2024 025 [place] [address], [address] [place] [address], [address], 04/22/2024 10:20:24 phentermi ne 15 mg capsule 2024 025 [place] [address], [address] [place] [address], [address], 04/22/2024 10:20:28 ergocalci ferol (vitamin D2) 1,250 mcg (50,000 unit) capsule 2024 025 [place] [address], [address] [place] [address], [address], 04/22/2024 10:20:26 Jardiance 25 mg tablet 2024 025 [facility], [id number] [place] [address], [address], 04/22/2024 10:20:25 lisinopri l 2.5 mg tablet 2024 025 [place] [address], [id number] [place] [address], [address], 04/22/2024 10:20:26 Rybelsus 7 mg tablet 2024 025 [email or web address] [place] [address], [address] [place] [address] [place] [address], [address], 04/22/2024 10:24:31 cyanocoba michael (vit B-12) 1,000 mcg/mL injection solution 2023 024 [id number] Not available 07/19/2024 10:49:05 Patient TargetsNo targets recorded. Patient Instructions Encounter Date Encounter Id Patient Instructions Last Modified By Organization Details Last Modified Time 04/22/2024 [id number] When You Want to Lose Weight: Care Instructions [email or web address] Not available 04/22/2024 10:20:12 06/24/2024 [id number] When You Want to Lose Weight: Care Instructions [email or web address] Not available 06/24/2024 10:39:15 Reason for Referral None Reported. Results Created Date Observation Date Name Description Value Unit Range Abnormal Flag Note LastModifiedBy Organization Detail LastModifiedTime 01/06/2001/06/2024 CBC/C OMPLE TE BLD COUNT W/DIF F white blood cells 4.7 x10'3 /uL 4.2-10 .8 Not Available [facility] (Lab) [address] [place], [address], 01/06/2024 14:24:49 01/06/20 24 01/06/2024 CBC/C OMPLE TE BLD COUNT W/DIF F red blood cells 3.80 x10'6 /uL 3.80-5 .20 Not Available [facility] (Lab) [address] [place], [address], 01/06/2024 14:24:49 01/06/20 24 01/06/2024 CBC/C OMPLE TE BLD COUNT W/DIF F hemoglobin 12.8 g/dL 12.0-1 5.6 Not Available [facility] (Lab) [address] [place], [address], 01/06/2024 14:24:49 01/06/20 24 01/06/2024 CBC/C OMPLE TE BLD COUNT W/DIF F hematocrit 38.4 % 35.7-4 5.7 Not Available [facility] (Lab) [address] [place], [address], 01/06/2024 14:24:49 01/06/20 24 01/06/2024 CBC/C OMPLE TE BLD COUNT W/DIF F mean red cell volume 101.1 fL 82.0-9 9.0 high Not Available [facility] (Lab) [address] [place], [address], 01/06/2024 14:24:49 01/06/20 24 01/06/2024 CBC/C OMPLE TE BLD COUNT W/DIF F mean red cell hemoglobin 33.7 pg 27.0-3 3.0 high Not Available [facility] (Lab) [address] [place], [address], 01/06/2024 14:24:49 01/06/20 24 01/06/2024 CBC/C OMPLE TE BLD COUNT W/DIF F mean RBC HGB concentratio n 33.3 g/dL 31.0-3 6.0 Not Available [facility] (Lab) [address] [place], [address], 01/06/2024 14:24:49 01/06/20 24 01/06/2024 CBC/C OMPLE TE BLD COUNT W/DIF F red cell distribution width 13.0 % 11.8-1 5.5 Not Available [facility] (Lab) [address] [place], [address], 01/06/2024 14:24:49 01/06/20 24 01/06/2024 CBC/C OMPLE TE BLD COUNT W/DIF F platelets 184 x10'3 /uL 150-40 0 Not Available [facility] (Lab) [address] [place], [address], 01/06/2024 14:24:49 01/06/20 24 01/06/2024 CBC/C OMPLE TE BLD COUNT W/DIF F mean platelet volume 11.3 fL 9.0-12 .4 Not Available [facility] (Lab) [address] [place], [address], 01/06/2024 14:24:49 01/06/20 24 01/06/2024 CBC/C OMPLE TE BLD COUNT W/DIF F neutrophils 49.4 % 39.0-7 2.0 Not Available [facility] (Lab) [address] [place], [address], 01/06/2024 14:24:49 01/06/2001/06/2024 CBC/C OMPLE TE BLD COUNT W/DIF F lymphocytes 38.2 % 16.0-4 7.0 Not Available [facility] (Lab) [address] [place], [address], 01/06/2024 14:24:49 01/06/20 24 01/06/2024 CBC/C OMPLE TE BLD COUNT W/DIF F monocytes 8.2 % 5.0-12 .0 Not Available [facility] (Lab) [address] [place], [address], 01/06/2024 14:24:49 01/06/20 24 01/06/2024 CBC/C OMPLE TE BLD COUNT W/DIF F eosinophils 3.8 % 1.0-7. 0 Not Available [facility] (Lab) [address] [place], [address], 01/06/2024 14:24:49 01/06/2001/06/2024 CBC/C OMPLE TE BLD COUNT W/DIF F basophils 0.4 % 0.0-2. 0 Not Available [facility] (Lab) [address] [place], [address], 01/06/2024 14:24:49 01/06/20 24 01/06/2024 CBC/C OMPLE TE BLD COUNT W/DIF F immature granulocytes 0.0 % 0.00-0 .50 Not Available [facility] (Lab) [address] [place], [address], 01/06/2024 14:24:49 01/06/20 24 01/06/2024 CBC/C OMPLE TE BLD COUNT W/DIF F neutrophils, absolute count 2.34 x10'3 /uL 1.5-8. 0 Not Available [facility] (Lab) [address] [place], [address], 01/06/2024 14:24:49 01/06/20 24 01/06/2024 CBC/C OMPLE TE BLD COUNT W/DIF F lymphocytes, absolute count 1.81 x10'3 /uL 1.07-3 .43 Not Available [facility] (Lab) [address] [place], [address], 01/06/2024 14:24:49 01/06/20 24 01/06/2024 CBC/C OMPLE TE BLD COUNT W/DIF F monocytes, absolute count 0.39 x10'3 /uL 0.29-0 .99 Not Available [facility] (Lab) [address] [place], [address], 01/06/2024 14:24:49 01/06/20 24 01/06/2024 CBC/C OMPLE TE BLD COUNT W/DIF F eosinophils, absolute count 0.18 x10'3 /uL 0.02-0 .53 Not Available [facility] (Lab) [address] [place], [address], 01/06/2024 14:24:49 01/06/20 24 01/06/2024 CBC/C OMPLE TE BLD COUNT W/DIF F basophils, absolute count 0.02 x10'3 /uL 0.01-0 .08 Not Available [facility] (Lab) [address] [place], [address], 01/06/2024 14:24:49 01/06/20 24 01/06/2024 CBC/C OMPLE TE BLD COUNT W/DIF F immature granulocytes ,absolute 0.00 x10'3 /uL 0.00-0 .05 Not Available [facility] (Lab) [address] [place], [address], 01/06/2024 14:24:49 01/06/20 24 01/06/2024 CBC/C OMPLE TE BLD COUNT W/DIF F nucleated red blood cells 0.0 % -0 Not Available [facility] (Lab) [address] [place], [address], 01/06/2024 14:24:49 01/06/20 24 01/06/2024 CBC/C OMPLE TE BLD COUNT W/DIF F NRBC# 0.00 x10'3 /uL Not Available [facility] (Lab) [address] [place], [address], 01/06/2024 14:24:49 01/06/20 24 01/06/2024 COMPR EHENS LUCRECIA METAB OLIC PANEL sodium 139 mmol/ L 137-14 5 Not Available [facility] (Lab) [address] [place], [address], 01/06/2024 14:51:21 01/06/20 24 01/06/2024 COMPR EHENS LUCRECIA METAB OLIC PANEL potassium 4.4 mmol/ L 3.5-5. 1 Not Available [facility] (Lab) [address] [place], [address], 01/06/2024 14:51:21 01/06/20 24 01/06/2024 COMPR EHENS LUCRECIA METAB OLIC PANEL chloride 107 mmol/ L 98-107 Not Available [facility] (Lab) [address] [place], [address], 01/06/2024 14:51:21 01/06/20 24 01/06/2024 COMPR EHENS LUCRECIA METAB OLIC PANEL carbon dioxide 28 mmol/ L 22-30 Not Available [facility] (Lab) [address] [place], [address], 01/06/2024 14:51:21 01/06/20 24 01/06/2024 COMPR EHENS LUCRECIA METAB OLIC PANEL anion gap 8.4 mmol/ L 14-22 low Not Available [facility] (Lab) [address] [place], [address], 01/06/2024 14:51:21 01/06/20 24 01/06/2024 COMPR EHENS LUCRECIA METAB OLIC PANEL glucose 90 mg/dL 70-99 Not Available [facility] (Lab) [address] [place], [address], 01/06/2024 14:51:21 01/06/20 24 01/06/2024 COMPR EHENS LUCRECIA METAB OLIC PANEL BUN 11 mg/dL 8-19 Not Available [facility] (Lab) [address] [place], [address], 01/06/2024 14:51:21 01/06/20 24 01/06/2024 COMPR EHENS LUCRECIA METAB OLIC PANEL creatinine 0.77 mg/dL 0.66-1 .25 Not Available [facility] (Lab) [address] [place], [address], 01/06/2024 14:51:21 01/06/20 24 01/06/2024 COMPR EHENS LUCRECIA METAB OLIC PANEL GFR >60 Refer ence Range : [place] ge GFR Healt hy Adult : >60 [...] calcu lator is avail able on the [facility] websi te: [email or web address] :[email or web address] [email or web address] rg/pr ofess ional s/kdo qi/gf r_cal culat or Not Available [facility] (Lab) [address] [place], [address], 01/06/2024 14:51:21 01/06/20 24 01/06/2024 COMPR EHENS LUCRECIA METAB OLIC PANEL alkaline phosphatase 94 U/L 38-126 Not Available [facility] (Lab) [address] [place], [address], 01/06/2024 14:51:21 01/06/20 24 01/06/2024 COMPR EHENS LUCRECIA METAB OLIC PANEL alanine aminotransfe rase 25 U/L 0-35 Not Available [facility] (Lab) [address] [place], [address], 01/06/2024 14:51:21 01/06/20 24 01/06/2024 COMPR EHENS LUCRECIA METAB OLIC PANEL aspartate aminotransfe rase 36 U/L 15-37 Not Available [facility] (Lab) [address] [place], [address], 01/06/2024 14:51:21 01/06/20 24 01/06/2024 COMPR EHENS LUCRECIA METAB OLIC PANEL bilirubin, total 0.60 mg/dL 0.20-1 .30 Not Available [facility] (Lab) [address] [place], [address], 01/06/2024 14:51:21 01/06/20 24 01/06/2024 COMPR EHENS LUCRECIA METAB OLIC PANEL calcium 9.4 mg/dL 8.4-10 .2 Not Available [facility] (Lab) [address] [place], [address], 01/06/2024 14:51:21 01/06/20 24 01/06/2024 COMPR EHENS LUCRECIA METAB OLIC PANEL total protein 6.9 g/dL 6.3-8. 2 Not Available [facility] (Lab) [address] [place], [address], 01/06/2024 14:51:21 01/06/20 24 01/06/2024 COMPR EHENS LUCRECIA METAB OLIC PANEL albumin 4.2 g/dL 3.4-5. 0 Not Available [facility] (Lab) [address] [place], [address], 01/06/2024 14:51:21 01/06/20 24 01/06/2024 COMPR EHENS LUCRECIA METAB OLIC PANEL globulin 2.7 g/dL 2.6-4. 2 Not Available [facility] (Lab) [address] [place], [address], 01/06/2024 14:51:21 01/06/20 24 01/06/2024 COMPR EHENS LUCRECIA METAB OLIC PANEL A/G ratio 1.6 ratio 1.0-2. 0 Not Available [facility] (Lab) [address] [place], [address], 01/06/2024 14:51:21 01/06/20 24 01/06/2024 LIPID PANEL cholesterol 135 mg/dL 140-19 9 low NIH TOMAS NSUS RECOM MENDA TION FOR CLAUDIO STERO L: ADULT CHILD LOW RISK: <200 <170 BORDE RLINE : <200- 239 ----- HIGH RISK: >240 >200 Not Available [facility] (Lab) [address] [place], [address], 01/06/2024 14:51:24 01/06/20 24 01/06/2024 LIPID PANEL triglyceride s 130 mg/dL 0-150 NIH TOMAS NSUS REPOR T RECOM MENDA TION FOR TRIGL YCERI GILLIAN: ADULT CHILD LOW RISK: <150 ----- BODER LINE: 150-1 99 ----- HIGH RISK: >200 ----- Not Available [facility] (Lab) [address] [place], [address], 01/06/2024 14:51:24 01/06/20 24 01/06/2024 LIPID PANEL HDL cholesterol 58 mg/dL 40- Not Available [facility] (Lab) [address] [place], [address], 01/06/2024 14:51:24 01/06/20 24 01/06/2024 LIPID PANEL [...] WILL NOT BE REPOR CARRIE. Not Available [facility] (Lab) [address] [place], [address], 01/06/2024 14:51:24 01/06/20 24 01/06/2024 URIC ACID SERUM uric acid 3.1 mg/dL 2.5-6. 2 Not Available [facility] (Lab) [address] [place], [address], 01/06/2024 14:51:26 01/06/20 24 01/06/2024 URINA LYSIS COMPL ETE/I RIS W/RFX color LIGHT- YELLOW Not Available [facility] (Lab) [address] [place], [address], 01/06/2024 14:52:07 01/06/20 24 01/06/2024 URINA LYSIS COMPL ETE/I RIS W/RFX appear EXTRA TURBID abnormal Not Available [facility] (Lab) [address] [place], [address], 01/06/2024 14:52:07 01/06/2001/06/2024 URINA LYSIS COMPL ETE/I RIS W/RFX specific gravity 1.031 1.001- 1.030 high Not Available [facility] (Lab) [address] [place], [address], 01/06/2024 14:52:07 01/06/20 24 01/06/2024 URINA LYSIS COMPL ETE/I RIS W/RFX pH 6.0 pH_un its 5.0-9. 0 Not Available [facility] (Lab) [address] [place], [address], 01/06/2024 14:52:07 01/06/20 24 01/06/2024 URINA LYSIS COMPL ETE/I RIS W/RFX leukocytes 25 dao/u L negati ve- abnormal Not Available [facility] (Lab) [address] [place], [address], 01/06/2024 14:52:07 01/06/20 24 01/06/2024 URINA LYSIS COMPL ETE/I RIS W/RFX nitrite NEGATI VE negati ve- Not Available [facility] (Lab) [address] [place], [address], 01/06/2024 14:52:07 01/06/20 24 01/06/2024 URINA LYSIS COMPL ETE/I RIS W/RFX protein NEGATI VE mg/dL negati ve- Not Available [facility] (Lab) [address] [place], [address], 01/06/2024 14:52:07 01/06/20 24 01/06/2024 URINA LYSIS COMPL ETE/I RIS W/RFX glucose >/=100 0 mg/dL normal - abnormal Not Available [facility] (Lab) [address] [place], [address], 01/06/2024 14:52:07 01/06/2001/06/2024 URINA LYSIS COMPL ETE/I RIS W/RFX ketones NEGATI VE mg/dL negati ve- Not Available [facility] (Lab) [address] [place], [address], 01/06/2024 14:52:07 01/06/20 24 01/06/2024 URINA LYSIS COMPL ETE/I RIS W/RFX urobilinogen NORMAL mg/dL normal - Not Available [facility] (Lab) [address] [place], [address], 01/06/2024 14:52:07 01/06/20 24 01/06/2024 URINA LYSIS COMPL ETE/I RIS W/RFX bilirubin NEGATI VE mg/dL negati ve- Not Available [facility] (Lab) [address] [place], [address], 01/06/2024 14:52:07 01/06/20 24 01/06/2024 URINA LYSIS COMPL ETE/I RIS W/RFX blood NEGATI VE mg/dL negati ve- Not Available [facility] (Lab) [address] [place], [address], 01/06/2024 14:52:07 01/06/20 24 01/06/2024 URINA LYSIS COMPL ETE/I RIS W/RFX white blood cells 0-8 /i??h pfi?? 0-8 Not Available [facility] (Lab) [address] [place], [address], 01/06/2024 14:52:07 01/06/20 24 01/06/2024 URINA LYSIS COMPL ETE/I RIS W/RFX red blood cells 0-4 /i??h pfi?? 0-4 Not Available [facility] (Lab) [address] [place], [address], 01/06/2024 14:52:07 01/06/20 24 01/06/2024 URINA LYSIS COMPL ETE/I RIS W/RFX bacteria FEW abnormal Not Available [facility] (Lab) [address] [place], [address], 01/06/2024 14:52:07 01/06/20 24 01/06/2024 URINA LYSIS COMPL ETE/I RIS W/RFX mucous OCCASI ONAL /i??l pfi?? abnormal Not Available [facility] (Lab) [address] [place], [address], 01/06/2024 14:52:07 01/06/20 24 01/06/2024 URINA LYSIS COMPL ETE/I RIS W/RFX squamous epithelial PACKED FIELD /i??l pfi?? abnormal Not Available [facility] (Lab) [address] [place], [address], 01/06/2024 14:52:07 01/06/20 24 01/06/2024 URINA LYSIS COMPL ETE/I RIS W/RFX non-squamous epithelial 11 Not Available [facility] (Lab) [address] [place], [address], 01/06/2024 14:52:07 01/06/20 24 01/06/2024 URINA LYSIS COMPL ETE/I RIS W/RFX unclassified cast 2 abnormal Not Available [facility] (Lab) [address] [place], [address], 01/06/2024 14:52:07 01/06/2001/06/2024 TSH W/REF YOLI FT4 TSH with reflex free T4 3.750 uIU/m L 0.465- 4.680 Not Available [facility] (Lab) [address] [place], [address], 01/06/2024 15:23:35 01/06/20 24 01/06/2024 MICRO ALBUM IN RANDO M URINE microalbumin , urine <6.0 mg/L 0.0-16 .6 Not Available [facility] (Lab) [address] [place], [address], 01/06/2024 15:23:55 01/06/20 24 01/06/2024 VITAM IN D 25-HY DROXY vd25oh 29.4 NG/mL 30-100 low Vitam in D Statu s: Defic ient: <20 ng/mL Insuf ficie nt: 20-29 ng/mL Suffi cient : 30-10 0 ng/mL Not Available [facility] (Lab) [address] [place], [address], 01/06/2024 15:35:53 01/06/20 24 01/06/2024 VITAM IN B12 (CELE MICHAEL ) vb12 214 pg/mL 239-93 1 low Not Available [facility] (Lab) [address] [place], [address], 01/06/2024 16:28:44 01/06/20 24 01/06/2024 FOLAT E, SERUM /PLAS MA folate 18.6 NG/mL 2.76-2 0.0 Not Available [facility] (Lab) [address] [place], [address], 01/06/2024 16:28:49 01/06/20 24 01/06/2024 HEMOG LOBIN A1C HA1C 5.9 % 4.0-6. 0 Diabe andrei Scree nitish Crite annmarie: <5.7% Consi stent with absen ce of diabe andrei 5.7-6 .4% Consi stent with incre ased risk for diabe andrei (pred iabet es) >OR=6 .5% Consi stent with diabe andrei REFER ENCE: Diabe andrei Care 39(Go ppl.1 ):s13 -s22 Not Available [facility] (Lab) [address] [place], [address], 01/06/2024 20:46:08 06/24/19 25 06/23/2024 HEMOG LOBIN A1C HA1C 6.0 % 4.0-6. 0 Diabe andrei Scree nitish Crite annmarie: <5.7% Consi stent with absen ce of diabe andrei 5.7-6 .4% Consi stent with incre ased risk for diabe andrei (pred iabet es) >OR=6 .5% Consi stent with diabe andrei REFER ENCE: Diabe andrei Care 39(Go ppl.1 ):s13 -s22 Not Available [facility] (Lab) [address] [place], [address], 06/23/2024 20:16:56 07/07/19 25 07/06/2024 MAMMO , screyudi talbert, bilat eral No observ ation record ed. [email or web address] [address], [place], [address], 07/06/2024 14:34:50 Result Notes None recorded. Problems Name Problem SNOMED Code Status Onset Date Resolution Date Notes Provider Name and Address Organization Details Recorded Time Impacted cerumen of bilateral ears 83686154787 43781 Active 2018 Not Available [facility] 3 00:59:18 Gouty arthropat hy 370025072 Active 2018 Not Available [facility] 3 00:59:18 Persisten t insomnia 083120926 Active 2018 Not Available [facility] 3 00:59:18 Anxiety disorder 608740510 Active 2018 Not Available [facility] 3 00:59:18 Postherpe tic neuralgia 7875871 Active 2020 Not Available [facility] 3 00:59:18 Allergic contact dermatiti s 284847344 Active 2019 Not Available [facility] 3 00:59:18 Osteoarth ritis of knee 369253878 Active 2018 Not Available [facility] 3 00:59:18 Screening mammograp hy Active 2021 Not Available [facility] 3 00:59:19 Headache 52061965 Active 2021 Not Available [facility] 3 00:59:19 Gastroeso phageal reflux disease without esophagit is 325332296 Active 2021 Not Available [facility] 3 00:59:19 Calculus of kidney and ureter 884591823 Active 2019 Not Available [facility] 3 00:59:19 Anemia 663110267 Active 2019 Not Available [facility] 3 00:59:19 Pain in right lower limb 236219514 Active 2018 Not Available [facility] 3 00:59:19 Pain in right lower limb 111201072 Active 2018 Not Available [facility] 3 00:59:19 Tear of medial meniscus of knee 785384759 Active 2018 Not Available [facility] 3 00:59:19 Ganglion cyst of left wrist 90648882464 9100 Active 2021 Not Available [facility] 3 00:59:19 Knee pain Active 2018 Not Available [facility] 3 00:59:19 Osteopeni a 354590691 Active 2019 Not Available [facility] 3 00:59:19 Type 2 diabetes mellitus without complicat ion 964951652 Active 2020 Not Available [facility] 3 00:59:19 Pain of left wrist 63724080502 9102 Active 2021 Not Available [facility] 3 00:59:19 Synovial cyst of right knee 10159629583 9104 Active 2018 Not Available [facility] 3 00:59:20 Bronchiti s 16379594 Active 2021 Not Available [facility] 3 00:59:20 Depressiv e disorder 86843158 Active 2018 Not Available [facility] 3 00:59:20 Obesity 248678108 Active 2018 Not Available [facility] 3 00:59:20 Gastritis 8082085 Active 2021 Not Available [facility] 3 00:59:20 Pain of left knee joint 61571897195 4107 Active 2021 Not Available [facility] 3 00:59:20 Pain of bilateral knee joints 79837231588 4104 Active 2021 Not Available [facility] 3 00:59:20 Cough 47045767 Active 2021 Not Available [facility] 3 00:59:20 Hyperlipi demia 69319132 Active 2018 Not Available [facility] 3 00:59:20 Dyspnea on exertion 41607637 Active 2021 Not Available [facility] 3 00:59:21 Prediabet es 264174427 Completed 201809/07/2020 Not Available [facility] 3 00:59:21 Hydroneph rosis due to ureteral obstructi on Active 2019 Not Available [facility] 3 00:59:21 Cyst of ovary 05825558 Active 2019 Not Available [facility] 3 00:59:21 COVID-19 327847714 Active 2021 Not Available [facility] 3 00:59:21 Fatigue 63630781 Active 2018 Not Available [facility] 3 00:59:21 Leukopeni a 25739405 Active 2020 Not Available [facility] 3 00:59:21 Ex-smoker 0441613 Active 2018 Not Available [facility] 3 00:59:21 Urolithia sis 71088306 Active Not Available [facility] 3 00:59:22 Kidney stone 77579300 Active 2019 Not Available [facility] 3 00:59:22 Chronic insomnia 966147425 Active 2022 Salvador Veras MD [address], [place], [address] , [facility] 3 12:24:42 Candidal vulvovagi nitis 52513788 Active 2022 Salvador Veras MD [address], [place], [address] , [facility] 3 10:53:59 Abnormal weight 00124186 Active 2022 Jennifer Collins MA null, [place] [facility] 3 10:22:39 Seasonal allergic rhinitis 398065027 Active 2023 Salvador Veras MD [address], [place], [address] , [facility] 4 12:51:08 Acute bacterial sinusitis 97911180 Active 2023 MAHAMED Mercado [address], [place], [address] , [facility] 4 10:28:54 Eczema 80120094 Active 2023 MAHAMED Mercado [address], [place], [address] , [facility] 4 10:31:23 Dysfuncti on of eustachia n tube 30583242 Active 2023 MAHAMED Mercado [address], [place], [address] , [facility] 4 11:04:20 Chronic low back pain 629911516 Active 2023 Salvador Veras MD [address], [place], [address] , [facility] 4 11:48:38 Low back strain 917828805 Active 2023 Salvador Veras MD [address], [place], [address] , [facility] 4 11:55:20 Osteoporo sis 89530051 Active 2023 Salvador Veras MD [address], [place], [address] , [facility] 4 10:10:00 Pruritic rash 64446619 Active 2023 Salvador Veras MD [address], [place], [address] , [facility] 4 10:31:56 Vitamin B12 deficienc y (non anemic) 44902684 Active 2023 Salvador Veras MD [address], [place], [address] , [facility] 4 10:12:04 Vitamin D deficienc y 32367066 Active 2023 Salvador Veras MD [address], [place], [address] , [facility] 4 10:13:06 Diarrhea 05140435 Active 2024 Salvador Veras MD [address], [place], [address] , [facility] 5 09:52:15 Viral gastroent eritis 248749301 Active 2024 Salvador Veras MD [address], [place], [address] , [facility] [employer] [facility] 5 10:04:03 Sinusitis 83166261 Active 2024 Salvador Veras MD [address] [facility] [address], [place], [address] , [facility] [employer] [facility] 5 10:04:23 Notes:Some problems listed i n Document: #[id number] could not be added to this patient's chart. Please review this document and add these problems to the patient's chart manually as needed. Problem Notes None recorded. Procedures Surgical History Date Name Laterality Status Provider Name and Address Organization Details Recorded Time 024 Cerumen Removal completed MAHAMED Mercado [address], [facility] [address], [place], [address], [facility] [employer] [facility] 05/29/2023 11:03:39 023 Knee arthroscopy/surgery completed Dennise Cornelius RN [facility] [employer] [facility] 06/12/2022 12:16:51 Gallbladder Surgery completed Not Available [facility] 04/17/2022 00:53:19 Gastrointestinal repair completed Not Available [facility] 04/17/2022 00:53:19 Orthopedic Procedure completed Not Available [facility] 04/17/2022 00:53:19 repair of elbow completed Not Available [facility] 04/17/2022 00:53:19 ligation of bilateral fallopian tubes completed Not Available [facility] 04/17/2022 00:53:19 wrist repair completed Not Available [facility] 04/17/2022 00:53:19 Back Surgery completed Not Available [facility] 04/17/2022 00:53:19 Imaging Results None recorded. Procedure [...] Not available Not available Not available 04/17/2022 58216 8003 SNOMED Not Available [facility] 01:09:11 1647 phentermi ne medicatio n rash severe Not available 04/17/2022 8152 RxNorm Salvador Veras MD [address] [facility], [address], [place], [address] , [facility] [employer] 3 14:37:57 1648 morphine medicatio n Not available Not available Not available 04/17/20222012 7052 RxNorm Other react ions and sever ities : 'Unkn own'. Not Available [facility] 3 01:09:11 1649 metformin medicatio n rash Not available Not available 04/17/2022 6809 RxNorm Not Available [facility] 3 01:09:11 Medications Name Sig Start Date [...] administ ered by the provider 11/01 completed [facility]: 0003-049 06-06 Not Available Not Available Not [...] e 50 mcg/actua tion nasal spray,alexus pension Bozman 2 sprays every day by intranas al [...] administ ered by the provider 06/06 completed [facility]: 0409-427 08-03 Not Available Not Available Not [...] No t Available Vitals Date Recorded Body mass index (BMI) Body weight Provider Name and Address Organization Details Last Updated DateTime 04/22/2024 32.8 kg/m2 55363.49 g Salvador Veras MD [address] [place] [address], [facility] [address], [address], [facility] [employer] 04/22/2024 10:17:20 Date Recorded Body height Body temperature Oxygen saturation Oxygen saturation in Arterial blood by Pulse oximetry Heart rate Systolic And Diastolic Provider Name and Address Organization Details Last Updated DateTime 5 162.56 cm 97.3 [degF] 96 % 96 % 84 /min 120/64 mm[Hg] Wendi Bentley RN [facility] [employer] [facility] 5 10:13:55 Date Recorded Body height Body mass index (BMI) Body weight Body temperature Oxygen saturation Oxygen saturation in Arterial blood by Pulse oximetry Heart rate Systolic And Diastolic Provider Name and Address Organization Details Last Updated DateTime 5 162.56 cm 32.4 kg/m2 14884.9 6 g 97.1 [degF] 96 % 96 % 79 /min 120/70 mm[Hg] Wendi Bentley RN [facility] [employer] [facility] 5 09:59:37 Date Recorded Body height Body mass index (BMI) Body weight Body temperature Oxygen saturation Oxygen saturation in Arterial blood by Pulse oximetry Heart rate Systolic And Diastolic Provider Name and Address Organization Details Last Updated DateTime 5 162.56 cm 32.3 kg/m2 24154.1 2 g 97.3 [degF] 97 % 97 % 77 /min 126/70 mm[Hg] Wendi Bentley RN [place] [facility] [place] [employer] [facility] 5 10:28:51 Social History Question Answer Notes LastModified by Organizat ion Details LastModified Time Tobacco Smoking Status Former Smoker 2018 Not Available [facility] 04/17/2022 00:50:53 Do You Have An Advance Directive? No MIGRATION.57702 09953 Information not available 04/17/2022 Do You Wear A Helmet When Biking? No MIGRATION.61610 65415 Information not available 04/17/2022 What Is Your Level Of Caffeine Consumption? Heavy MIGRATION.96295 34479 Information not available 04/17/2022 In The 14 Days Before Symptom Onset, Have You Had Close Contact With A Laboratory-confi rmed COVID-19 While That Case Was Ill? No MIGRATION.09214 59425 Information not available 04/17/2022 In The 14 Days Before Symptom Onset, Have You Had Close Contact With A Person Who Is Under Investigation For COVID-19 While That Person Was Ill? No MIGRATION.86375 33506 Information not available 04/17/2022 What Type Of Diet Are You Following? CARBOHYDRATE MIGRATION.26764 82276 Information not available 04/17/2022 What Is The Highest Grade Or Level Of School You Have Completed Or The Highest Degree You Have Received? RX81493-4 MIGRATION.58651 56114 Information not available 04/17/2022 Have There Been Any Changes To Your Family Or Social Situation? No MIGRATION.72263 20069 Information not available 04/17/2022 When Did You Quit Smoking? 1-5yearssincelastci ismael MIGRATION.88386 87222 Information not available 04/17/2022 Are There Any Guns Present In Your Home? No MIGRATION.49120 99011 Information not available 04/17/2022 Do You Use Insect Repellent Routinely? No MIGRATION.57741 62702 Information not available 04/17/2022 Where Do You Live? [place] MIGRATION.50977 95193 Information not available 04/17/2022 Are You Following A Low Salt Diet? Yes MIGRATION.14656 31275 Information not available 04/17/2022 Do You Have A Medical Power Of Machine Preservative Filler? No MIGRATION.17037 46627 Information not available 04/17/2022 What Was The Date Of Your Most Recent Tobacco Screening? 03/27/2021 MIGRATION.34326 73154 Information not available 04/17/2022 Do You Have Any Pets? Yes MIGRATION.24192 07923 Information not available 04/17/2022 What Is Your Relationship Status? MIGRATION.32737 09736 Information not available 04/17/2022 Do You Use Your Seat Belt Or Car Seat Routinely? Yes MIGRATION.63398 63280 Information not available 04/17/2022 Do You Have Smoke And Carbon Monoxide Detectors In Your Home? Yes MIGRATION.01070 97317 Information not available 04/17/2022 Are You Passively Exposed To Smoke? No MIGRATION.32935 01233 Information not available 04/17/2022 Are There Any Smokers In Your House? No MIGRATION.34845 54716 Information not available 04/17/2022 Do You Participate In Social Media? No MIGRATION.94724 78531 Information not available 04/17/2022 Do You Use Sunscreen Routinely? Yes MIGRATION.59132 40645 Information not available 04/17/2022 Has Tobacco Cessation Counseling Been Provided? No MIGRATION.53932 21112 Information not available 04/17/2022 Have You Recently Traveled Abroad? No Information not available 04/17/2023 Are You Currently In School? No MIGRATION.46519 05878 Information not available 04/17/2022 Do You Have Any Dietary Restrictions? Yes MIGRATION.93000 48647 Information not available 04/17/2022 Sex: Female Functional Status Question Answer Note LastModified by Organizat ion Details LastModified Time Do you use any illicit or recreational drugs? No MIGRATION.522159 7019 Information not available 04/17/2022 Do you or have you ever used any other forms of tobacco or nicotine? No MIGRATION.604289 7069 Information not available 04/17/2022 What is your level of alcohol consumption? None MIGRATION.091898 4408 Information not available 04/17/2022 Are you currently employed? Yes Information not available 09/04/2023 What is your occupation? [employer] employee MIGRATION.736338 3298 Information not available 04/17/2022 What is your exercise level? Occasional MIGRATION.676958 9640 Information not available 04/17/2022 Mental Status Question Answer Note LastModified by Organizat ion Details LastModified Time Do you feel stressed (tense, restless, nervous, or anxious, or unable to sleep at night)? [id number] MIGRATION.851315516 6 Information not available 04/17/2022 Family History Relationship Description Onset Age of this Age Resolved Age Notes LastModified by Organization Details LastModified Time Unspecified Relation Family history of stroke MIGRATION.380 [id number] Not available 04/17/2022 00:53:24 Unspecified Relation Arthritis MIGRATION.605 6781103 Not available 04/17/2022 00:53:24 Unspecified Relation Hypertensive disorder MIGRATION.906 4959697 Not available 04/17/2022 00:53:24 Sister Urolithiasis MIGRATION.0 30 4101058 Not available 04/17/2022 00:53:24 Medical History Condition [...] HAVE YOU BEEN HOSPITALIZED OR SEEN IN [facility] IN THE PAST YEAR ? N [...] PF 11/13/2022 completed Jennifer Collins MA null, [facility] [employer] 11/13/2022 10:59:16 Influenza, split virus, quadrivalent, PF 01/06/2020 completed Not Available [facility] 3 01:09:01 Influenza, split virus, quadrivalent, PF 12/13/2021 completed Not Available [facility] 3 01:09:01 Influenza, split virus, quadrivalent, PF 11/01/2020 completed Not Available [facility] 3 01:09:01 Influenza, split virus, trivalent, PF 01/21/2024 completed LUCIANA Schmitt, [facility] 01/21/2024 11:25:09 Past Encounters Encounter ID Performer Location Encounter Start Date Encounter Closed Date Diagnosis/Indication Diagnosis SNOMED-CT Code Diagnosis ICD10 Code Diagnosis Note [id number] Salvador Veras MD [facility] [address] [place] [address] 04/20/2020 00:00:00 04/20/2020 10:11:17 [id number] Salvador Veras MD [facility] [address] [place] [address] 05/12/2020 00:00:00 05/12/2020 18:00:23 [id number] Salvador Veras MD [facility] [address] [place] [address] 06/06/2020 00:00:00 06/06/2020 17:33:22 [id number] Salvador Veras MD [facility] [address] [place] [address] 09/07/2020 00:00:00 09/07/2020 12:19:45 [id number] Salvador Veras MD [facility] [address] [place] [address] 09/25/2020 00:00:00 09/25/2020 10:28:12 [id number] Salvador Veras MD [facility] [address] [place] [address] 11/01/2020 00:00:00 11/01/2020 10:45:51 [id number] Salvador Veras MD [facility] [address] [place] [address] 01/01/2021 00:00:00 01/01/2021 10:51:29 [id number] Salvador Veras MD [facility] [address] [facility] [place] [address] 01/02/2021 00:00:00 01/02/2021 11:58:33 [id number] Salvador Veras MD [facility] [address] [facility] [place] [address] 01/15/2021 00:00:00 01/15/2021 10:26:33 [id number] Salvador Veras MD [facility] [address] [facility] [place] [address] 03/08/2021 00:00:00 03/08/2021 11:26:06 [id number] Yousuf Brock MD [facility] [place] [address] [facility] [address] [place] [address] 03/27/2021 00:00:00 03/27/2021 11:00:58 [id number] Salvador Veras MD [facility] [address] [facility] [address] [facility] [place] [address] 04/16/2021 00:00:00 04/16/2021 10:36:59 [id number] Yousuf Brock MD [facility] [place] [address] [place] [address] 05/08/2021 00:00:00 05/08/2021 11:28:51 [id number] Yousuf Brock MD [facility] [place] [address] [place] [address] 06/05/2021 00:00:00 06/05/2021 12:45:14 [id number] Salvador Veras MD [facility] [address] [facility] [address] 07/09/2021 00:00:00 07/09/2021 10:16:33 [id number] Yousuf Brock MD [facility] [place] [address] [facility] [address] [place] [address] 07/17/2021 00:00:00 07/17/2021 15:24:27 [id number] Salvador Veras MD [facility] [address] [place] [address] 10/09/2021 00:00:00 10/09/2021 11:10:29 [id number] Salvador Veras MD [facility] [address] [place], [place] [address] [place] [address] 10/15/2021 00:00:00 10/15/2021 12:49:00 [id number] Salvador Veras MD [facility] [address] [place] [address] 11/01/2021 00:00:00 11/01/2021 12:52:01 [id number] Salvador Veras MD [facility] [address] [place] [address] 12/13/2021 00:00:00 12/13/2021 16:44:53 [id number] Salvador Veras MD [facility] [address] [place] [address] 12/17/2021 00:00:00 12/17/2021 14:00:59 [id number] Salvador Veras MD [facility] [address] [place] [address] 01/02/2022 00:00:00 01/02/2022 11:23:31 [id number] Salvador Veras MD [facility] [address] [place] [address] 01/29/2022 00:00:00 01/29/2022 11:40:37 [id number] Salvador Veras MD [facility] [address] [place] [address] 03/04/2022 00:00:00 03/04/2022 14:39:25 [id number] Salvador Veras MD [facility] [address] [facility] [place] [address] 03/12/2022 00:00:00 03/12/2022 09:30:40 [id number] Salvador Veras MD [facility] [address] [place] [address] 06/12/2022 12:09:01 06/12/2022 12:42:12 Chronic insomnia 281411831 F51.04 Type 2 augusta betes mellitus without complication 864524303 E11.9 Gouty arthropathy 308838 008 M10.09 Hyperlipidemia 68221273 E78.5 Pain in ri ght lower limb 604453538 M79.604 Obesity 971790200 E66.9 Pain of bi lateral knee joints 2544485886 22744 M25.561 [id number] Salvador Veras MD [facility] [address] [place] [address] 07/30/2022 14:15:43 07/30/2022 14:47:32 Chronic insomnia 440952186 F51.04 Type 2 augusta betes mellitus without complication 206890619 E11.9 Gouty arthropathy 543576 008 M10.09 Hyperlipidemia 50147041 E78.5 Pain of bi lateral knee joints 8484212178 60475 M25.561 Pain in ri ght lower limb 189222250 M79.604 Obesity 213140072 E66.9 Screening mammography 24 153649 Z12.31 [id number] Salvador Veras MD [address] [address] 09/03/2022 09:14:17 09/03/2022 09:57:30 Type 2 diabetes mellitus without complication 925234528 E11.9 Hyperlipidemia 31270871 E78.5 Obesity 724027941 E66.9 [id number] Salvador Veras MD [place] [address] 1 10/08/2022 09:44:47 10/08/2022 10:07:28 Obesity 522070935 E66.9 Gouty arthropathy 129302 008 M10.09 [id number] Salvador Veras MD [address] [address] 11/13/2022 10:19:19 11/13/2022 10:56:31 Gouty arthropathy 136635157 M10.09 Obesity 513150529 E66.9 Type 2 augusta betes mellitus without complication 016273572 E11.9 Administra tion of influenza vaccine 56624367 Z23 [id number] Salvador Veras MD [address] [address] 01/01/2023 09:10:29 01/01/2023 09:56:58 Type 2 diabetes mellitus without complication 732669893 E11.9 Gouty arthropathy 659782 008 M10.09 Obesity 102894968 E66.9 Adult heal th examination 935411158 Z00.00 Screening for disorder 032831547 Z13.9 [id number] Salvador Veras MD [address] [address] 01/27/2023 10:27:57 01/27/2023 11:03:00 Type 2 diabetes mellitus without complication 966619084 E11.9 Gouty arthropathy 042529 008 M10.09 Obesity 810786376 E66.9 Hyperlipidemia 38329145 E78.5 Chronic insomnia 2084002 04 F51.04 [id number] Salvador Veras MD [address] [address] 04/17/2023 12:35:59 04/17/2023 12:58:55 Type 2 diabetes mellitus without complication 872903007 E11.9 Hyperlipidemia 67141607 E78.5 Gouty arthropathy 144869 008 M10.09 Chronic insomnia 9945151 04 F51.04 Obesity 220350417 E66.9 Seasonal a llergic rhinitis 165681434 J30.2 Screening for osteoporosis 324105821 Z13.820 Postmenopa usal osteoporosis 414057946 M81.0 [id number] Salvador Veras MD [address] [address] 05/29/2023 10:03:03 05/29/2023 11:09:14 Acute bacterial sinusitis 55124811 J01.90 Eczema 58856214 L30.9 Dysfunctio n of eustachian tube 29847320 H69.93 [id number] Salvador Veras MD [address] [address] 06/12/2023 10:16:33 06/12/2023 10:41:46 Gouty arthropathy 601662825 M10.09 Hyperlipidemia 65603450 E78.5 Type 2 augusta betes mellitus without complication 694434336 E11.9 Chronic insomnia 6412543 04 F51.04 Obesity 266676400 E66.9 Seasonal a llergic rhinitis 762849355 J30.2 [id number] Salvador Veras MD [facility] [address] 09/02/2023 08:32:41 09/02/2023 10:02:37 [id number] Salvador Veras MD [address] [address] 09/04/2023 11:15:38 09/04/2023 11:57:19 Chronic insomnia 349234169 F51.04 Hyperlipidemia 37904220 E78.5 Gouty arthropathy 203178 008 M10.09 Type 2 augusta betes mellitus without complication 533098120 E11.9 Obesity 102536346 E66.9 Seasonal a llergic rhinitis 698359988 J30.2 Chronic low back pain 27 9267904 M54.50 Low back strain 88897085 1 S39.012A [id number] Salvador Veras MD [address] [address] 11/06/2023 10:05:42 11/06/2023 10:44:33 Low back strain 252585927 S39.012A Type 2 augusta betes mellitus without complication 892121163 E11.9 Chronic insomnia 5773558 04 F51.04 Hyperlipidemia 35312161 E78.5 Gouty arthropathy 976868 008 M10.09 Obesity 712114824 E66.9 Seasonal a llergic rhinitis 791814801 J30.2 Chronic low back pain 27 6034852 M54.50 Osteoporosis 53880226 M8 1.0 Pruritic rash 60537863 L 28.2 [id number] Salvador Veras MD [address] [address] 01/06/2024 09:45:59 01/06/2024 10:31:36 Osteoporosis 82305605 M81.0 Type 2 augusta betes mellitus without complication 720576959 E11.9 Chronic insomnia 9046273 04 F51.04 Hyperlipidemia 02888544 E78.5 Gouty arthropathy 258789 008 M10.09 Obesity 240982157 E66.9 Seasonal a llergic rhinitis 659650344 J30.2 Chronic low back pain 27 3555220 M54.50 [id number] Salvador Veras MD [address] [address] 01/21/2024 09:53:35 01/21/2024 10:30:24 Type 2 diabetes mellitus without complication 064998237 E11.9 Osteoporosis 92485197 M8 1.0 Chronic insomnia 6658526 04 F51.04 Hyperlipidemia 78045645 E78.5 Gouty arthropathy 502891 008 M10.09 Chronic low back pain 27 6842686 M54.50 Obesity 661471532 E66.9 Seasonal a llergic rhinitis 029193313 J30.2 Administra tion of influenza vaccine 65226460 Z23 Vitamin B1 2 deficiency (non anemic) 13523335 E53.8 Vitamin D deficiency 347 98027 E55.9 [id number] Salvador Veras MD [address] [address] 01/29/2024 10:14:57 01/29/2024 10:28:18 Vitamin B12 deficiency (non anemic) 13418549 E53.8 [id number] Salvador Veras MD [address] [address] 04/22/2024 09:52:46 04/22/2024 10:29:23 Chronic insomnia 554615833 F51.04 Hyperlipidemia 42475312 E78.5 Type 2 augusta betes mellitus without complication 555722660 E11.9 Osteoporosis 98726984 M8 1.0 Gouty arthropathy 421863 008 M10.09 Chronic low back pain 27 6817737 M54.50 Obesity 578440704 E66.9 Seasonal a llergic rhinitis 571413973 J30.2 Vitamin B1 2 deficiency (non anemic) 27720554 E53.8 Vitamin D deficiency 347 56646 E55.9 [id number] Salvador Veras MD [address] [address] 05/26/2024 09:46:51 05/26/2024 10:43:47 Diarrhea 12981975 R19.7 Viral gastroenteritis 11 6693226 A08.4 Improved Sinusitis 45244044 J32.9 Seasonal a llergic rhinitis 371102781 J30.2 [id number] Salvador Veras MD [facility] [address] 06/23/2024 08:27:18 06/23/2024 08:30:10 [id number] Salvador Veras MD [address] [address] 06/24/2024 10:14:37 06/24/2024 10:43:59 Hyperlipidemia 06169851 E78.5 Type 2 aguusta betes mellitus without complication 555568834 E11.9 Chronic insomnia 1151737 04 F51.04 Osteoporosis 04287223 M8 1.0 Gouty arthropathy 722138 008 M10.09 Chronic low back pain 27 6700851 M54.50 Obesity 412459282 E66.9 Seasonal a llergic rhinitis 096493679 J30.2 Vitamin D deficiency 347 04393 E55.9 Vitamin B1 2 deficiency (non anemic) 48593041 E53.8 Health Concerns Section Related Observation LastModified by Organization Detai ls LastModified Time None Recorded Concern Status LastModified by Organization Details LastModified Time None Recorded Advance Directives Directive N: Payers Insurance Date Sequence Insurance Name Policy Number Policy Avalos Covered Member ID Avalos Member ID Guarantor Name 06/22/2024 1 [place] Kristy L Rausch [id number] Kristy L Rausch 06/22/2024 2 [place] WHEN MEDICARE OR MEDICARE REPLACEMENT PRIMARY) Kristy L Rausch [id number] Kristy L Rausch 01/29/2024 2 [facility] Kristy L Rausch [id number] Kristy L Rausch 01/21/2024 2 [facility] (MEDICAID HMO) [id number] 0003 Kristy L Rausch [id number] Kristy L Rausch 04/03/2023 2 [facility] (MEDICARE - MEDICAID REPLACEMENT HMO) [id number] 0003 Kristy L Rausch [id number] Kristy L Rausch 04/03/2023 2 [facility] (MEDICAID HMO) [id number] 0003 Kristy Rausch [id number] Kristy Rausch 04/03/2023 1 [facility] (MEDICAID HMO) [id number] 0003 Kristy Rausch [id number] Kristy Rausch Notes Date Note Type Note [...] with them.Pt is f/u with Uro at [facility] for her kidney stones and hydronephrosis and doing well with it.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 Salvador Veras MD [address], [place], [address], [employer] 04/22/2024 10:27:09 05/26/2024 text/html ACV: C/o frontal sinus headache, yellowish drainage, fatigue for last 1 week. Pt also had diarrhea last week and for last 3 days, its better now. No more diarrhea. Pt denies any unusual outside food intake/known sick contact. Salvador Veras MD [address], [place], [address], [employer] 05/26/2024 10:39:35 06/24/2024 text/html Pt is here [...] her with this too. Salvador Veras MD [address] [place] [address], [facility] [address], [place], [address], [place] - [facility] [facility] 06/24/2024 10:42:41 OBGyn Episode No OBEpisode recorded.
--- OUTSIDE RECORDS SUMMARY | 2024-08-27 16:35 | XMS_ITS | Data Portability ---
Author Organization [facility] [address] [facility] [place] [address] Care Team Providers Care Flap Maker Name Role Phone AALIYAH PRABHAKAR Primary Care Provider Unavailabl e Assessment No assessment recorded. Plan of Treatment Reminders Order Date Submit Date Provider Last Modified By Organization Details Last Modified Time Details Appointments None recorded. Lab urinalysis, dipstick 2017 018 [email or web address] In-Office Order, Internal Use Only DO Not Attach Compendium DO Not Attach Compendium, Do Not Delete/merge, [id number] 8 09:14:59 Referral orthopedic referral - Please call patient to schedule, Thank you 2017 018 JAVIER Ruiz MD (Orthopedics) , [address], [place], [address], 8 17:27:47 Procedures None recorded. Surgeries None recorded. Imaging XR, kidney + ureter + bladder 2017 018 snorthcut t1 [facility] ([facility]) Scheduling, [address] [place], [address], 8 09:45:10 XR, knee, 3 view 2017 018 [email or web address] Not available 8 09:14:31 Medication Orders ketorolac 10 mg tablet 2017 018 [email or web address] [facility] [place], [address], [place], [address], 8 09:14:59 meloxicam 15 mg tablet 2017 018 [place] [address] [place], [address], 8 09:11:59 triamcinolo ne acetonide 0.025 % topical cream 2017 018 [place] [address] [place], [address], 8 17:05:53 benzonatate 100 mg capsule 2017 018 [place] [address], [place], [address], 8 17:05:35 amoxicillin 500 mg tablet 2017 018 [place] [address] [place], [address], 8 17:05:31 naproxen 500 mg tablet 2017 018 [place] [address], [place], [address], 8 16:03:58 Patient TargetsNo targets recorded. Patient Instructions Encounter Date Encounter Id Patient Instructions Last Modified By Organization Details Last Modified Time 03/20/2017 [id number] advised to quit smoking [email or web address] Not available 03/20/2017 09:47:49 gastroesophageal reflux disease (GERD): care instructions [email or web address] Not available 03/20/2017 09:47:49 ganglions: care instructions [email or web address] Not available 03/20/2017 09:47:49 04/14/2017 [id number] knee pain or inj ury: care instructions [email or web address] Not available 04/14/2017 15:58:04 Reason for Referral Orthopedic Referral for Pain in left knee Please call patient to schedule, Thank you Referring Physician: Aaliyah Prabhakar, Internal Medicine, Encounter Date: 04/14/2017 Results Created [...] Attach Compendium, Do Not Delete/merge, 07/29/2017 08:59:52 07/30/1907/29/2017 urina lysis , dipst ick Protein Trace Not Available In-Office Order Internal Use Only DO Not Attach Compendium DO Not Attach Compendium, Do Not Delete/merge, 07/29/2017 08:59:52 07/30/1907/29/2017 urina lysis , dipst ick pH 5.0 Not Available In-Office Order Internal Use Only DO Not Attach Compendium DO Not Attach Compendium, Do Not Delete/merge, 07/29/2017 08:59:52 07/30/1907/29/2017 urina lysis , dipst ick Blood Negati ve Not Available In-Office Order Internal Use Only DO Not Attach Compendium DO Not Attach Compendium, Do Not Delete/merge, 07/29/2017 08:59:52 07/30/1907/29/2017 urina lysis , dipst ick Specific Sealy 1.030 Not Available In-Off ice Order Internal Use Only DO Not Attach Compendium DO Not Attach Compendium, Do Not Delete/merge, 07/29/2017 08:59:52 07/30/19 18 07/29/2017 urina lysis , dipst ick Ketone Negati ve Not Available In-Office Order Internal Use Only DO Not Attach Compendium DO Not Attach Compendium, Do Not Delete/merge, [id number] 07/29/2017 08:59:52 07/30/19 18 07/29/2017 urina lysis , dipst ick Bilirubin Negati ve Not Available In-Office Order Internal Use Only DO Not Attach Compendium DO Not Attach Compendium, Do Not Delete/merge, [id number] 07/29/2017 08:59:52 07/30/19 18 07/29/2017 urina lysis , dipst ick Glucose Negati ve Not Available In-Office Order Internal Use Only DO Not Attach Compendium DO Not Attach Compendium, Do Not Delete/merge, [id number] 07/29/2017 08:59:52 07/30/19 18 07/29/2017 urina lysis , dipst ick Appearance Slight ly Cloudy Not Available In-Office Order Internal Use Only DO Not Attach Compendium DO Not Attach Compendium, Do Not Delete/merge, [id number] 07/29/2017 08:59:52 07/30/19 18 07/29/2017 urina lysis , dipst ick Color Yellow Not Available In-Office Order Internal Use Only DO Not Attach Compendium DO Not Attach Compendium, Do Not Delete/merge, [id number] 07/29/2017 08:59:52 08/01/19 18 07/29/2017 XR, abdom en No observ ation record ed. [facility] ([facility] Scheduling [address] [place], [address], 08/01/2017 13:07:29 Result Notes None recorded. Problems No Known Problems Procedures Surgical History Date Name Laterality Status Provider Name and Address Organization Details Recorded Time 7 Back Surgery completed Megan Toure MA [facility] 03/20/2017 09:14:09 9 Tubal Ligation completed Tricia Youngblood [facility] 07/30/19 08:52:24 Appendectomy completed Tricia Youngblood [facility] 08:52:15 Other completed Tricia Youngblood [facility] 018 08:52:41 Imaging Results None recorded. Procedure Notes None recorded. Medical Equipment None Reported. Allergies Allergen ID Allergen Name Allergen Category Reaction Reaction Severity Criticality Documentation Date Start Date Code Code System Note Provider Name and Address Organization Details Recorded Time 397887 Substance with sulfonami de structure and antibacte rial mechanism of action (substanc e) medicatio n rash moderate Not available 03/20/2017 17786 8003 SNOMED Aaliyah Prabhakar PA-C Attn: Stephenie g,[address] [facility], [place], [address], [facility] 8 09:37:11 524956 morphine medicatio n vomiting Not available Not available 03/20/2017 7052 RxNorm DYAN [place], [place] - [facility] 8 09:02:44 Medications Name Sig Start Date [...] in Arterial blood by Pulse oximetry Systolic And Diastolic Provider Name and Address Organization Details Last Updated DateTime 8 162.56 cm 33.5 kg/m2 88455.9 5 g 94 /min 14 /min 98.2 [degF] 96 % 96 % 128/72 mm[Hg] Megan hammond MA [facility] 8 09:16:14 Date Recorded Body height Body mass index (BMI) Body weight Heart rate Respiratory rate Body temperature Oxygen saturation Oxygen saturation in Arterial blood by Pulse oximetry Systolic And Diastolic Provider Name and Address Organization Details Last Updated DateTime 8 162.56 cm 34.1 kg/m2 07962.0 9 g 94 /min 12 /min 98.1 [degF] 98 % 98 % 118/74 mm[Hg] ASHANTI Rivera [facility] 8 15:46:39 Date Recorded Body height Body mass index (BMI) Body weight Heart rate Respiratory rate Body temperature Oxygen saturation Oxygen saturation in Arterial blood by Pulse oximetry Systolic And Diastolic Provider Name and Address Organization Details Last Updated DateTime 8 162.56 cm 33.4 kg/m2 66867.3 6 g 92 /min 12 /min 98.1 [degF] 98 % 98 % 112/76 mm[Hg] Tricia Youngblood [facility] 8 08:53:43 Social History Question Answer Notes LastModified by Organizat ion Details LastModified Time Tobacco Smoking Status Current Every Day Smoker DYAN Acuna [facility] 03/20/2017 09:04:06 What Is Your Level Of Caffeine Consumption? Moderate 3 Cups/day Information not available 03/20/2017 How Much Tobacco Do You Chew? None Information not available 03/20/2017 What Type Of [...] Much Tobacco Do You Smoke? 0.25 PPD Information not available 03/20/2017 General Stress Level High Information not available 03/20/2017 How Many Years Have You Smoked Tobacco? 4 [email or web address] Information not available 03/20/2017 Sex: Unknown Functional Status Question Answer Note LastModified by Organizat ion Details LastModified Time What is your level of alcohol consumption? 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 Obstetrics History GPAL:G 0 P 0 0 0 0 Past Encounters Encounter ID Performer Location Encounter Start Date Encounter Closed Date Diagnosis/Indication Diagnosis SNOMED-CT Code Diagnosis ICD10 Code Diagnosis Note [id number] MD Jordin Stinson (Adult Med) [address] [place] [address] 03/20/2017 08:53:55 03/21/2017 14:19:32 Acute maxillary sinusitis 05266304 J01.00 sxs present for 4 days, not improving w/ OTC meds. treat w/ abx, drink plenty of fluids, cont OTC meds as long as it doesn't contain expectoran t as that will exacerbate cough. Cough 03628499 R05 Try tessalon perles to see if it works better than robitussin since she is starting to have nausea/vom iting with bronchospa sms. Avoid expectoran ts as cough is due to postnasal drainage. Tobacco user 719841764 Z 72.0 will continue to discuss at 4 week f/u and medication s/patches. Bereavement 86346033 Z63 .4 still struggling w/ sudden loss of her dad. for now she defers counseling and medication s. close f/u in 4 weeks. Ganglion cyst 85492719 M 67.40 reviewed options w/ patient. Can try NSAIDs and wrist brace since pain is more with flexion, but if not improving, recommend ortho referral for either excision or aspiration . Gastroesop hageal reflux disease without esophagitis 405232685 K21.9 not well controlled , reviewed diet modificati ons and weight loss. cont nutrisyste m. Reduce caffeine intake, change Tums to OTC zantac or Prilosec as needed. Body mass index 30+ - obesity 599133436 Z68.33 started Nutrisyste m diet, working on weight loss before her wedding in April. Pruritic rash 25274552 L 28.2 dwp that transfusio n reaction usually doesn't last beyond the immediate day or so following transfusio n. Rash appears more like eczema and has flared w/ recent URI sxs. try steroid cream. will re-evaluat e in 4 weeks. [id number] MD Jordin Stinson (Adult Med) [address] [place] [address] 04/14/2017 15:36:05 04/15/2017 14:32:31 Pain in left knee 7085561991 68602 M25.562 pain s/p traumatic slip w/o fall. patient instructed to call ortho to see if they can see her urgently, if not she may need to go to ER. discussed R.I.C.E. and using crutches to limit weight bearing on her left knee. Discussed possible bursitis [id number] MD Jordin Stinson (Adult Med) [address] [place] [address] 07/29/2017 08:44:08 07/29/2017 09:45:09 Dysuria 57445627 R30.0 negative UA, no infection Right flank pain 2386147 09 R10.9 h/o right sided kidney stone, not sure if she passed it last year, will get records from [place] in [place]. UA negative for gross or microscopi c hematuria. Will start toradol, will get KUB and see if stones are visible, if not may need ultrasound or CT abd/pelvis w/o contracts. h/o chronic back pain w/ surgical repair to L-spine. Pain in left knee 506734 9834 75238 M25.562 saw ortho, rec'd steroid injection. Still having some knee pain, they ordered MRI but she hasn't heard back from them since it couldn't be done at [place]. Health Concerns Section Related Observation LastModified by Organization Detai ls LastModified Time None Recorded Concern Status LastModified by Organization Details LastModified Time None Recorded Advance Directives Directive None Recorded Payers Insurance Date Sequence Insurance Name Policy Number Policy Avalos Covered Member ID Avalos Member ID Guarantor Name 03/13/2018 1 [facility] (MEDICAID HMO) [id number] Kristy Rausch [id number] Kristy Rausch Notes Date Note Type Note [...] wrist. Bump seems bigger. 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 Right handed. 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 very pruritic. No other rash except to chest, recent tx with medrol dose zachariah in Nov. reduced inflammation, but with URI sxs it returned. depression, father passed Jan, still having a hard time with it, lalit supportive. she & Raghu araiza, are getting mid-April GERD: heartburn sxs few times a week, takes Tums w/ch helps. No certain food affects it, drinks coffee 5-8 cups a day.working on weight loss, started [employer] diet Tobacco use: smoking 1/4ppd, know she needs to quit but has been hard since her dad in Jan. Aaliyah Prabhakar PA-C Attn: [address] [place], [address], [place] [facility] 03/20/2017 14:02:13 04/14/2017 text/html left knee pain after slipping 2 ays [place]. She [...] pain. Aaliyah Prabhakar PA-C Attn: [address] [place], [address], [facility] 04/14/2017 17:11:33 07/29/2017 text/html Since last Monda y h/o kidney stones, more frequent urination, some dysuria. right sided flank pain radiating into front, suprapubic pain bilateral. denies any hematuria, fevers or chills. not taking any NSAIDs. [place] ER visit last year, noted right sided stone. not sure if she passed it. has never seen or had stone analysis done. drinking lots of water. Aaliyah Prabhakar PA-C Attn: [address] [place], [address], [facility] 07/29/2017 15:13:18 OBGyn Episode No OBEpisode recorded.
--- NOTE | 2024-08-27 18:24 | ED_ITS ---
HPI - Female Genitourinary General Chief complaint: Urogenital-Female <Pricila Montalvo PA-C - Last Filed: 08/27/24 18:25> Stated complaint: I have kidney stones I believe <Pricila Montalvo PA-C - Last Filed: 08/27/24 18:25> Time Seen by Provider: 08/27/24 20:02 <Pricila Montalvo PA-C - Last Filed: 08/27/24 18:25> Focused HPI: 58-year-old female with reported history of kidney stones presents to emergency department with concerns for kidney stone. Patient states she has been having right flank pain is suprapubic abdominal pain since 08/21/2024. She had associated nausea and vomiting at the onset of symptoms of vomiting has since resolved. She notes suprapubic pain when she urinates. Denies dysuria, hematuria, urinary frequency urgency, fevers. She went to [facility] on Friday and had a CT and lab work performed with reportedly no evidence of kidney stone. She states the doctor told her that he was concerned that the patient had recently passed a stone. She states since then the pain has progressed which prompted her to come to the ED today. GENERAL: Well-appearing, well-nourished, and in no acute distress. HEAD: Normocephalic, atraumatic. CHEST: Clear to auscultation. ?No respiratory distress. ABD: Normoactive bowel sounds. Abdomen soft with tenderness to the suprapubic region and right CVA. No rebound or rigidity. HEART: Regular rate and rhythm.? NEURO: ?Alert and oriented x3. Patient screened in triage and initial orders placed.? ?Additional care and disposition to be based upon?diagnostic testing and treatment. <Pricila Montalvo PA-C - Last Filed: 08/27/24 18:25> Related Data Home medications: Home Medications ?Medication ?Instructions ?Recorded ?Confirmed ?Last Taken ?Type allopurinol 100 mg tablet 100 mg PO DAILY 04/05/21 03/05/23 03/17/22 History atorvastatin 20 mg tablet 20 mg PO DAILY 04/05/21 03/05/23 03/17/22 History empagliflozin 10 mg tablet 25 mg PO DAILY 04/05/21 03/05/23 03/17/22 History (Jardiance) ascorbate calcium (vitamin C) 500 500 mg PO DAILY 05/03/21 03/05/23 03/13/22 History mg tablet cholecalciferol (vitamin D3) 10 10 mcg PO DAILY 05/03/21 03/05/23 03/13/22 History mcg (400 unit) capsule calcium carbonate (Tums) 200 mg PO PRN PRN Heartburn 03/07/22 03/05/23 03/13/22 History semaglutide 3 mg tablet (Rybelsus) 3 mg PO DAILY 03/07/22 03/05/23 03/17/22 History <Pricila Montalvo PA-C - Last Filed: 08/27/24 18:25> Allergies/Adverse reactions: Allergies Allergy/AdvReac Type Severity Reaction Status Date / Time phentermine Allergy Intermediate Rash Verified 08/27/24 21:07 metformin Allergy Mild Rash Verified 08/27/24 21:07 Sulfa (Sulfonamide Allergy Mild Rash Verified 08/27/24 21:07 Antibiotics) morphine AdvReac Unknown Nausea and Verified 08/27/24 21:07 Vomiting <Pricila Montalvo PA-C - Last Filed: 08/27/24 18:25> Review of Systems 2 Review of Systems: All systems reviewed & are unremarkable except as noted in HPI and below <Monet Vasquez PA-C - Last Filed: 08/27/24 22:02> [facility] Past Medical History Medical History: Medical History Anemia Anxiety Degenerative arthritis of knee, bilateral Depression Diabetes Fingers fractured Gout Screening mammogram, encounter for Sleep disorder cannot sleep at night <Pricila Montalvo PA-C - Last Filed: 08/27/24 18:25> Surgical History Surgical History: Surgical History History of appendectomy 1969 History of back surgery [id number] History of elbow surgery 06/01/15 repair elbow w/ renae open History of lithotripsy extracorporeal shockwave lithotripsy (ESWL) History of tubal ligation 1998 Hx of cholecystectomy S/P total knee arthroplasty Left knee 03/18/2022 <Pricila Montalvo PA-C - Last Filed: 08/27/24 18:25> Family History Family History: Family History Father Heart disease Mother Cancer Diabetes mellitus Hypertension Cerebrovascular accident <Pricila Montalvo PA-C - Last Filed: 08/27/24 18:25> Social History Social History: Social History Social History: The patient is and has 2 children. She currently works at [employer]. No alcohol according to her daughter. The patient is a former smoker. Code status full code Smoking packs per day: 0.25 Smoking cigarettes per day: 5.0 Years smoked: 20 Smoking pack-years: 5.00 Smoking status: Former smoker Tobacco type: cigarettes Smoking end date: 02/17/17 Alcohol intake: current Alcohol use details: ONE DRINK PER MONTH Substance use: never Substance use type: does not use Do You Feel Safe in your Home?: Yes Lack of Transportation: No Lack of Food: Never True Current Housing: I Have Housing Concerned About Future Housing: No Difficulty Paying Gas/Electric Bills: No Difficulty Paying for Meds: No Currently Unemployed: No Education: Trade/Vocational Certificate Difficulty w/ Childcare or Family Care: No Living arrangements: alone Additional living arrangements comments: daughter Occupation/Education: occupation Additional occupation/education comments: [employer] Gender identity (if verbalized by the patient): Female Sexual Orientation (if Verbalized by the Patient): Straight or Heterosexual Spiritual care concerns: No <Pricila Montalvo PA-C - Last Filed: 08/27/24 18:25> Exam 2 Narrative: GENERAL: Well-appearing, well-nourished, and in no acute distress. HEAD: Normocephalic, atraumatic. EYES: EOMI. CHEST: Clear to auscultation. No respiratory distress. No wheezes rales or rhonchi HEART: Regular rate and rhythm. No murmur heard. Normal peripheral pulses. ABDOMEN: Soft, nondistended, normal active bowel sounds. Tender to palpation throughout the right mid/lower abdomen, without guarding EXTREMITIES: Normal range of motion. No edema. SKIN: Warm, dry, no rash. NEURO: No focal deficits. Alert and oriented x3. PSYCH: Normal mood and affect <Monet Vasquez PA-C - Last Filed: 08/27/24 22:02> Course Course Emergency Course: Patient updated on her workup and agrees with plan of care <Monet Vasquez PA-C - Last Filed: 08/27/24 22:02> Vital Signs Vital signs: Vital Signs Temperature 97.6 F 08/27/24 16:34 Pulse Rate 86 08/27/24 16:34 Respiratory Rate 16 08/27/24 16:34 Blood Pressure 129/61 08/27/24 16:34 Pulse Oximetry 97 08/27/24 16:34 Oxygen Delivery Room Air 08/27/24 16:34 Temperature 97.9 F 08/27/24 21:05 Pulse Rate 77 08/27/24 21:05 Respiratory Rate 17 08/27/24 21:05 Blood Pressure 110/62 08/27/24 21:05 Pulse Oximetry 98 08/27/24 21:05 Oxygen Delivery Room Air 08/27/24 21:05 <Pricila Montalvo PA-C - Last Filed: 08/27/24 18:25> Vital Signs Temperature 97.6 F 08/27/24 16:34 Pulse Rate 86 08/27/24 16:34 Respiratory Rate 16 08/27/24 16:34 Blood Pressure 129/61 08/27/24 16:34 Pulse Oximetry 97 08/27/24 16:34 Oxygen Delivery Room Air 08/27/24 16:34 Temperature 97.9 F 08/27/24 21:05 Pulse Rate 77 08/27/24 21:05 Respiratory Rate 17 08/27/24 21:05 Blood Pressure 110/62 08/27/24 21:05 Pulse Oximetry 98 08/27/24 21:05 Oxygen Delivery Room Air 08/27/24 21:05 <Monet Vasquez PA-C - Last Filed: 08/27/24 22:02> MDM - Female Genitourinary MDM Narrative Medical decision making narrative: Patient presents to the ER for right sided lower/mid abdominal pain. She is afebrile and nontoxic appearing. Her vitals are stable. Cbc and metabolic panel without concerning findings. Urine without evidence of infection. CT abdomen pelvis shows stones in the kidneys. Small lung nodules. Constipation. Patient does have diverticula which I believe appear inflamed. Will treat with oral antibiotics, liquid diet. Patient updated on her workup and agrees with care. She is to follow up with primary provider. She was given warnings to return to the ER <Monte Vasquez PA-C - Last Filed: 08/27/24 22:02> Differential Diagnosis Differential diagnosis: Likely urinary tract infection and other (Kidney stone, diverticulitis, biliary colic) <Monet Vasquez PA-C - Last Filed: 08/27/24 22:02> Lab Data Attestation: I reviewed the patient's lab results. <Monet Vasquez PA-C - Last Filed: 08/27/24 22:02> Result diagrams: 08/27/24 19:57 08/27/24 19:57 <Pricila Montalvo PA-C - Last Filed: 08/27/24 18:25> Labs: Lab Results 08/27/24 08/27/24 Range/Units 19:57 20:36 WBC 6.3 (4.5-10.0) K/mm3 RBC 3.88 L (4.2-5.4) M/mm3 Hgb 12.5 (12.0-15.0) g/dL Hct 37.9 (37.0-47.0) % MCV 97.7 (80-100) fl MCH 32.2 (26-34) pg MCHC 33.0 (32-36) g/dl RDW 12.8 (11.5-14.5) % Plt Count 187 (150-375) k/mm3 MPV 9.6 (7.4-10.4) fl Immature Gran % (Auto) 0.2 (0-0.5) % Neut % (Auto) 54.6 (45.5-73.1) % Lymph % (Auto) 32.3 (18.3-44.2) % [place] % (Auto) 7.3 (2.6-8.5) % Eos % (Auto) 5.1 H (0-4.4) % Baso % (Auto) 0.5 (0.2-1.2) % Lymph # (Auto) 2.03 (0.9-3.2) K/mm3 [place] # (Auto) 0.5 (0.1-0.6) K/mm3 Eos # (Auto) 0.3 (0-0.3) K/mm3 Baso # (Auto) 0.0 (0.0-0.1) K/mm3 Abs Immat Gran (auto) 0.01 (0.00-0.031) K/mm3 Absolute Neuts (auto) 3.4 (1.3-6.7) K/mm3 Absolute Nucleated RBC 0.000 (0.0-0.012) K/mm3 Nucleated RBC % 0.0 (0.0-0.2) % Sodium 140 (137-145) mmol/L Potassium 3.9 (3.4-5.0) mmol/L Chloride 105 (98-107) mmol/L Carbon Dioxide 26 (22-30) mmol/L Anion Gap 9 (4-12) mmol/L BUN 16 (7-17) mg/dL Creatinine 0.87 (0.7-1.0) mg/dL Estim Creat Clear Calc 63 ml/min Estimated GFR > 60 (59 - ) Glucose 84 (65-110) mg/dL Calcium 9.8 (8.4-10.2) mg/dL Magnesium 2.4 H (1.6-2.3) mg/dL Total Bilirubin 0.5 (0.2-1.3) mg/dL AST 42 H (14-36) U/L ALT 21 (6-35) U/L Alkaline Phosphatase 84 (38-126) U/L Total Protein 8.1 (6.3-8.2) g/dL Albumin 4.6 (3.5-5.1) g/dL Lipase 37 (23-300) U/L Urine Color Yellow (Yellow) Urine Appearance Clear (Clear) Urine pH 6.0 (5.0-9.0) Ur Specific [place] 1.040 H (1.001-1.035) Urine Protein Negative (Negative) mg/dL Urine Glucose (UA) 3+ H (Negative) mg/dL Urine Ketones Negative (Negative) mg/dL Ur Blood (Man) Negative (Negative) Urine Nitrate Negative (Negative) Urine Bilirubin Negative (Negative) Urine Urobilinogen 1.0 (<2.0) mg/dL Leukocyte Esterase Rfl Negative (Negative) LAURA/UL <Pricila Montalvo PA-C - Last Filed: 08/27/24 18:25> Lab Results 08/27/24 08/27/24 Range/Units 19:57 20:36 WBC 6.3 (4.5-10.0) K/mm3 RBC 3.88 L (4.2-5.4) M/mm3 Hgb 12.5 (12.0-15.0) g/dL Hct 37.9 (37.0-47.0) % MCV 97.7 (80-100) fl MCH 32.2 (26-34) pg MCHC 33.0 (32-36) g/dl RDW 12.8 (11.5-14.5) % Plt Count 187 (150-375) k/mm3 MPV 9.6 (7.4-10.4) fl Immature Gran % (Auto) 0.2 (0-0.5) % Neut % (Auto) 54.6 (45.5-73.1) % Lymph % (Auto) 32.3 (18.3-44.2) % [place] % (Auto) 7.3 (2.6-8.5) % Eos % (Auto) 5.1 H (0-4.4) % Baso % (Auto) 0.5 (0.2-1.2) % Lymph # (Auto) 2.03 (0.9-3.2) K/mm3 [place] # (Auto) 0.5 (0.1-0.6) K/mm3 Eos # (Auto) 0.3 (0-0.3) K/mm3 Baso # (Auto) 0.0 (0.0-0.1) K/mm3 Abs Immat Gran (auto) 0.01 (0.00-0.031) K/mm3 Absolute Neuts (auto) 3.4 (1.3-6.7) K/mm3 Absolute Nucleated RBC 0.000 (0.0-0.012) K/mm3 Nucleated RBC % 0.0 (0.0-0.2) % Sodium 140 (137-145) mmol/L Potassium 3.9 (3.4-5.0) mmol/L Chloride 105 (98-107) mmol/L Carbon Dioxide 26 (22-30) mmol/L Anion Gap 9 (4-12) mmol/L BUN 16 (7-17) mg/dL Creatinine 0.87 (0.7-1.0) mg/dL Estim Creat Clear Calc 63 ml/min Estimated GFR > 60 (59 - ) Glucose 84 (65-110) mg/dL Calcium 9.8 (8.4-10.2) mg/dL Magnesium 2.4 H (1.6-2.3) mg/dL Total Bilirubin 0.5 (0.2-1.3) mg/dL AST 42 H (14-36) U/L ALT 21 (6-35) U/L Alkaline Phosphatase 84 (38-126) U/L Total Protein 8.1 (6.3-8.2) g/dL Albumin 4.6 (3.5-5.1) g/dL Lipase 37 (23-300) U/L Urine Color Yellow (Yellow) Urine Appearance Clear (Clear) Urine pH 6.0 (5.0-9.0) Ur Specific [place] 1.040 H (1.001-1.035) Urine Protein Negative (Negative) mg/dL Urine Glucose (UA) 3+ H (Negative) mg/dL Urine Ketones Negative (Negative) mg/dL Ur Blood (Man) Negative (Negative) Urine Nitrate Negative (Negative) Urine Bilirubin Negative (Negative) Urine Urobilinogen 1.0 (<2.0) mg/dL Leukocyte Esterase Rfl Negative (Negative) LAURA/UL <Monet Vasquez PA-C - Last Filed: 08/27/24 22:02> Imaging Data Radiologist's impression: ITS Impressions Abdomen/Pelvis CT 08/27/24 20:13 IMPRESSION: 1. Tiny stones in the right and left kidney. 2. Nodules in the right and left lung bases. 6 months follow-up CT advised. 3. Constipation. 4. Left ovarian cyst. <Monet Vasquez PA-C - Last Filed: 08/27/24 22:02> Critical Care Time Critical Care Time Critical Care Time: No <AUSTIN Perez Last Filed: 08/27/24 22:02> Discharge Plan Discharge Clinical Impression: Diverticulitis, Lung nodule <AUSTIN Rangel Last Filed: 08/27/24 18:25> Patient Disposition: Home <AUSTIN Rangel Last Filed: 08/27/24 18:25> Condition: Stable <AUSTIN Rangel Last Filed: 08/27/24 18:25> Instructions: Antibiotic Form, Diverticulitis (ED), Diverticulitis Diet (ED), Pulmonary Nodules (ED) <AUSTIN Rangel Last Filed: 08/27/24 18:25> Additional Instructions: Return to the ER if you experience fever, abdominal pain with nausea and vomiting, you are unable to keep down liquids or solids, blood in the stool or any other symptoms that are concerning to you Remain well hydrated. Take oral antibiotics as prescribed Follow up with your primary care doctor. You have small lung nodules that will need some follow up imaging to ensure no growth/change <AUSTIN Rangel Last Filed: 08/27/24 18:25> Patient Language: Bhutanese <AUSTIN Rangel Last Filed: 08/27/24 18:25> Prescriptions: New amoxicillin-pot clavulanate 875-125 mg tablet 1 tablet PO Q12H 10 Days Qty: 20 0RF ondansetron 4 mg tablet,disintegrating 4 mg PO Q8H PRN (Reason: nausea and vomiting) Qty: 14 0RF hydrocodone-acetaminophen 5-325 mg tablet 1 tablet PO Q6H PRN (Reason: pain) Qty: 10 0RF No Action allopurinol 100 mg tablet 100 mg PO DAILY Jardiance 10 mg tablet 25 mg PO DAILY Patient Comments: TAKES 25MG DAILY atorvastatin 20 mg tablet 20 mg PO DAILY Patient Comments: TAKES 40 MG AT HS ascorbate calcium (vitamin C) 500 mg tablet 500 mg PO DAILY cholecalciferol (vitamin D3) 10 mcg (400 unit) capsule 10 mcg PO DAILY Rybelsus 3 mg tablet 3 mg PO DAILY calcium carbonate [Tums] 200 mg calcium (500 mg) Tablet,Chewable 200 mg PO PRN PRN (Reason: Heartburn) ibuprofen 800 mg tablet 800 mg PO Q6H PRN (Reason: pain) Qty: 30 0RF Patient Comments: TAKES 400MG PRN FOR PAIN <AUSTIN Rangel Last Filed: 08/27/24 18:25> Follow-up/Referrals: Rito,MD Salvador [Primary Care Provider] - <Pricila Montalvo PA-C - Last Filed: 08/27/24 18:25>
--- OUTSIDE RECORDS SUMMARY | 2024-08-27 19:30 | XMS_ITS | Clinical Summary ---
Author Organization [facility] Address [address] [place] [address] Care Team Providers Care Communications Designer Name Role Phone Salvador Veras MD Primary Care Provider [phone] Source Comments [facility],non-owned Affiliates and Associated Physician Practices is amultiple site organization consisting of ambulatory clinics and hospital sitesin [place], [place], [place] and [place]. This disclosure is being madepursuant to the Care Everywhere program and may not contain all information available regarding this patient. Last updated 17.[facility] Allergies Active Allergy Reactions Criticality Noted Date [...] Comments Blood Pressure 105/62 01/07/2022 11:00 AM MANUSCRIPTS ARCHIVIST Pulse 74 01/07/2022 11:00 AM MANUSCRIPTS ARCHIVIST Temperature 36.3 C (97.4 F) 01/07/2022 11:00 AM MANUSCRIPTS ARCHIVIST Respiratory Rate 16 10/21/2019 6:02 PM CDT Oxygen Saturation 97% 01/07/2022 11:00 AM MANUSCRIPTS ARCHIVIST Inhaled Oxygen Concentration - - Weight 88.5 kg (195 lb) 01/07/2022 11:00 AM MANUSCRIPTS ARCHIVIST Height 162.6 cm (5' 4) 05/03/2020 2:31 [...] this topic Medical Devices Implanted Type Area Benefits Specialist Recruiter Device Identifier Shelf Expiration Date Model / Serial / Lot Lorena Soft Ureteral Stent Implanted:Qty: 1 on 10/21/2019 by Gamaliel Flowers MD at [facility] Stent Left: Ureter 05/11/2024 [id number] / / [id number] Description:Left ureteral st ent Lorena Soft Ureteral Stent Implanted:Qty: 1 on 10/21/2019 by Gamaliel Flowers MD at [facility] Right: Ureter 04/06/2023 [id number] / / [id number] Insurance [facility] Care Teams Communications Designer Relationship Specialty Start Date End Date Salvador Veras MD [address] [place] [id number] PCP - General Family Medicine 10/21/19
--- OUTSIDE RECORDS SUMMARY | 2024-08-27 19:30 | XMS_ITS | Continuity of Care Document ---
Author Organization [facility] Address [address] [place] [address] Phone Care Team Providers Care Counselor/Art Therapist Name Role Phone David Sigala MD Unavailable [...] Diagnoses Date Provider Providers Copied on Encounter [facility], [address] [place], [id number], tel:[phone] [facility] No Information Jovon Marshall [address], [place], [id number] , [place]. tel:[phone] Referring Provider: David Sigala, [address] [place], [place], [id number]. tel:[phone] OFFICE/OUTPAT IENT VISIT, EST [facility], [address] [place], [place], [id number], tel:[phone] [facility] insomnia1 (chief complaint)k nee pain1 (chief complaint)c retirement pain1 (chief complaint) InsomniaPain in right kneePain in left lower leg Jovon Hernandez. [address], [address], [place], [place], [id number] , [place]. tel:[phone] Referring Provider: David Sigala [address], [place], [place], [id number]. tel:[phone] PREV VISIT, NEW, AGE 40-64 [facility], [address], [place], [place], [id number], [place] tel:[phone] [facility] physical (chief complaint) Encntr for general adult medical exam w/o abnormal findings Jovon Hernandez. [address], [address], [place], [place], [id number] , [place]. tel:[phone] Referring Provider: David Sigala, [address] [facility] [address], [place], [place], [id number]. tel:[phone] Family History Family Member Type Diagnosis Age At Onset Mother Problem (finding) CVA, renal failure (Cau se Of ) 78 Father Problem (finding) of 87 old age and afib (Cause Of ) Sister Problem (finding) Alive and well Payers Payer name Insurance type Covered green party ID Authoriza tion(s) No Information Social [...] Special diet education compl eted Referral Ordered: MRI JNT OF LWR EXTRE W/O DYE Right ordered Referral Referred To: Joseph NEW, Paul Le [address] [place], [place], [id number] Ordered: Referrals: Paul Ruiz MD Evaluate and treat ordered Referral Ordered: US VENOUS DOPPLER ordered History Of Present Illness Encounter Date [...]
--- OUTSIDE RECORDS SUMMARY | 2024-08-27 19:30 | XMS_ITS | Encounter Summary ---
Author Organization [facility] Address [address] [place] [address] Care Team Providers Care Mobile Solutions Architect Name Role Phone Salvador Veras MD Primary Care Provider [phone] Reason for Visit * Reason Onset Date Comments LABS ONLY 10/19/2019 Encounter Details Date Type Department Care Team (Late st Contact Info) Description 10/19/2019 Telephone [facility] Urology [address] [place] [address] Dorie Plaza, RN LABS ONLY [...] states she had her labs performed at [facility]. Per chart, pt had requested orders be faxed or [facility], where they were faxed. Only result in Epic is BMP. [facility]oned [facility]. [facility] only performed BMP, so ua, culture, cmp not performed. Phoned pt. Informed her of above. Pt states he had covid somewhere in [place]. She states we provided her with the location. This freelance writer did not provide this information. Suggested pt come to [facility] to have labs performed to [facility], as surgery is . Requested pt go to where she had covid test performedand have them fax results today. Fax number provided. She states she will go to [facility] to day for pre op labs. Urine culture results will most likely not be received by us by . Pt to request [facility] fax results to [phone] documented in this encounter Plan of Treatment Not on file documented as of this encounter Visit Diagnoses Not on filedocumented in this encounter Care Teams Mobile Solutions Architect Relationship Specialty Start Date End Date Salvador Veras MD [address] [place] [address] PCP - General Family Medicine 10/21/19 documented as of this encounter
--- OUTSIDE RECORDS SUMMARY | 2024-08-27 19:30 | XMS_ITS | Clinical Summary ---
Author Organization [facility] Address [address] [place] [address] Care Team Providers Care Real Estate Professor Name Role Phone Salvador Veras MD Primary Care Provider [phone] Allergies Active Allergy Reactions Criticality Noted Date [...] CDT - 08/23/2024 1:20 AM CDT Emergency [facility] Emergency Room [address] [place] [address] Jhonny Cheng MD Back Pain (Right) Discharge [...] 10:59 PM Narrative 08/22/2024 11:20 PM CDT [facility] [address] [place] [address] EXAMINATION: CT ABD+PEL W CON, 08/22/2024 10:59 [...] Procedure Note Jhoan Jimenez MD - 08/22/2024 [facility] [address] [facility] [place] [address] EXAMINATION: CT ABD+PEL W CON, 08/22/2024 10:59 [...] COLOR (U) YELLOW 08/22/2024 10:31 PM CDT [facility] TRANSPARENCY CLEAR 08/22/2024 10:31 PM CDT [facility] SPECIFIC GRAVITY (U) 1.025 1.000 - 1.030 08/22/2024 10:31 PM CDT [facility] U PH 6.0 5.0 - 9.0 08/22/2024 10:31 PM CDT [facility] LEUKOCYTES (U) NEGATIVE NEGATIVE 08/22/2024 10:31 PM CDT [facility] NITRITES NEGATIVE NEGATIVE 08/22/2024 10:31 PM CDT [facility] PROTEIN RANDOM (U) NEGATIVE NEGATIVE 08/22/2024 10:31 PM T [facility] GLUCOSE (U) 3+(A) NEGATIVE 08/22/2024 10:31 PM CDT [facility] KETONES MG/DL (U) NEGATIVE NEGATIVE 08/22/2024 10:31 PM T [facility] BILIRUBIN (U) NEGATIVE NEGATIVE 08/22/2024 10:31 PM CDT [facility] BLOOD (U) TRACE(A) NEGATIVE 08/22/2024 10:31 PM T [facility] WBC/HPF 0-5 0 - 5 /HPF 08/22/2024 10:31 PM CDT [facility] RBC/HPF 0-5 0 - 5 /HPF 08/22/2024 10:31 PM CDT [facility] EPI/HPF RARE /HPF 08/22/2024 10:31 PM CDT [facility] URINE SPECIMEN OBTAINED BY CLEAN CATCH PROCEDURE / Unknown 08/22/2024 9:40 PM CDT us Jhonny Cheng MD URINE ORDERABLES F inal Result [facility] [address] [place] [address], [place] [phone] * (ABNORMAL) COMPREHENSIVE METABOLIC PANEL (08/22/2024 9:21 PM CDT) GLUCOSE 87 70 - 99 MG/DL 08/22/2024 10:03 PM CDT [facility] BUN 16 7 - 18 MG/DL 08/22/2024 10:03 PM T [facility] CREATININE S/P/B 0.85 0.55 - 1.02 MG/DL 08/22/2024 10:03 PM CDT [facility] SODIUM S/P/B 141 136 - 145 MMOL/L 08/22/2024 10:03 PM T [facility] POTASSIUM S/P/B 3.8 3.5 - 5.1 MMOL/L 08/22/2024 10:03 PM T [facility] CHLORIDE S/P/B 104 100 - 108 MMOL/L 08/22/2024 10:03 PM CDT [facility] CO2 28.2 21 - 32 MMOL/L 08/22/2024 10:03 PM T [facility] CALCIUM S/P/B 9.5 8.5 - 10.1 MG/DL 08/22/2024 10:03 PM [facility] BILIRUBIN TOTAL S/P/B 0.7 0.2 - 1.2 MG/DL 08/22/2024 10:03 PM [facility] TOTAL PROTEIN S/P/B 8.0 6.4 - 8.2 G/DL 08/22/2024 10:03 PM [facility] ALBUMIN S/P/B 4.1 3.4 - 5.0 G/DL 08/22/2024 10:03 PM [facility] AST 22 15 - 37 U/L 08/22/2024 10:03 PM [facility] ALT 31 14 - 55 U/L 08/22/2024 10:03 PM [facility] ALKALINE PHOSPHATASE S/P/B 94 50 - 136 U/L 08/22/2024 10:03 PM [facility] ANION GAP 8.8 5 - 15 MMOL/L 08/22/2024 10:03 PM [facility] BUN CREATININE RATIO 18.8 6 - 26 08/22/2024 10:03 PM [facility] A/G RATIO 1.1 1.0 - 2.0 RATIO 08/22/2024 10:03 PM [facility] GFR ESTIMATE 79(L) >90 ML/MIN/1.7 3 M2 08/22/2024 10:03 PM [facility] Comment: NOTE: eGFR is not calculated for patients <18 years of age. This is an estimated GFR calculation using the new CKD EPI creatinine equation without race and so does not require a correction factor for race. This estimated GFR should not be used for calculating drug doses. 08/22/2024 9:21 PM CDT us Jhonny Cheng MD LABORATORY Fi nal Result [facility] [address] [place] [place] [address], [place] [phone] * (ABNORMAL) CBC W/DIFF AUTOMATED (08/22/2024 9:21 PM CDT) WBC 4.62 4.4 - 11.0 x10'3/uL 08/22/2024 9:31 PM CDT [facility] RBC 3.93(L) 4.50 - 5.10 x10'6/uL 08/22/2024 9:31 PM CDT [facility] HGB 12.7 12.3 - 15.3 G/DL 08/22/2024 9:31 PM CDT [facility] HCT 38.3 35.9 - 44.6 % 08/22/2024 9:31 PM CDT [facility] MCV 97.5(H) 80.0 - 96.0 FL 08/22/2024 9:31 PM CDT [facility] MCH 32.3(H) 25.3 - 30.9 PG 08/22/2024 9:31 PM CDT [facility] MCHC 33.2 31.0 - 34.1 G/DL 08/22/2024 9:31 PM CDT [facility] RDW 12.7 12.4 - 15.1 % 08/22/2024 9:31 PM CDT [facility] PLT 181 151 - 353 x10'3/uL 08/22/2024 9:31 PM CDT [facility] MPV 9.4(L) 9.6 - 12.0 FL 08/22/2024 9:31 PM CDT [facility] RBC MORPHOLOGY NORMAL 08/22/2024 9:31 PM CDT [facility] PLT MORPH. NORMAL 08/22/2024 9:31 PM CDT [facility] WBC MORPHOLOGY NORMAL 08/22/2024 9:31 PM CDT [facility] LYMPHOCYTES % 32.0 15.8 - 45.0 % 08/22/2024 9:31 PM CDT [facility] NEUTROPHILS % 54.4 42.1 - 71.9 % 08/22/2024 9:31 PM CDT [facility] MONOCYTES % 10.6 5.7 - 12.5 % 08/22/2024 9:31 PM CDT [facility] EOSINOPHILS 2.6 0.0 - 5.6 % 08/22/2024 9:31 PM CDT [facility] BASOPHILS 0.2 0.0 - 1.3 % 08/22/2024 9:31 PM CDT [facility] ABS. NEUTROPHILS 2.51 1.40 - 6.00 x10'3/uL 08/22/2024 9:31 PM CDT [facility] IMMATURE GRANS % 0.2 0.0 - 0.5 % 08/22/2024 9:31 PM CDT [facility] ABS. LYMPHOCYTES 1.48 0.80 - 4.70 x10'3/uL 08/22/2024 9:31 PM CDT [facility] 08/22/2024 9:21 PM CDT us Jhonny Cheng MD LABORATORY Fi nal Result [facility] [address] [place] [address], * LIPASE (08/22/2024 9:21 PM CDT) LIPASE 26 16 - 77 UNITS/L 08/22/2024 10:03 PM CDT [facility] 08/22/2024 9:21 PM CDT us Jhonny Cheng MD LABORATORY Fi nal Result [facility] [address] [facility] [place] [address], [place] [phone] from Last 3 Months Insurance MEDICARE Care Teams Real Estate Professor Relationship Specialty Start Date End Date Salvador Veras MD PCP - General FAMILY PRACTICE 08/15/19
--- OUTSIDE RECORDS SUMMARY | 2024-08-27 19:30 | XMS_ITS | Encounter Summary ---
Author Organization [facility] Address [facility] [place] [address] Care Team Providers Care Bin Packer Name Role Phone Owen Morin BACKHAUL DRIVER Primary Care Provider Unavail able Salvador Veras MD Primary Care Provider [phone] Encounter Details Date Type Department Care Team (Late st Contact Info) Description 05/13/[address] [facility] CONVERSION [address] [place] [address] , Generic ConversionMD Social History Tobacco Use [...] documented as of this encounter Care Teams Bin Packer Relationship Specialty Start Date End Date Owen Morin NP PCP - General 12/23/14 08/14/19 Salvador Veras MD PCP - General FAMILY PRACTICE 08/15/19 documented as of this encounter
--- OUTSIDE RECORDS SUMMARY | 2024-08-27 19:30 | XMS_ITS | Continuity of Care Document ---
Author Organization [facility] Address [address] [place] [address] [address] [place] [address] Phone Care Team Providers Care Carver Hand Name Role Phone Raghu Bruce DO Unavailable Unavailable Advance Directives Directive Yes / No Effective Date File Name No Information Encounters Encounter Description Practice Location Reason(s) For Visit Diagnoses Date Provider Providers Copied on Encounter [facility], [address], [place], [place], [id number], [place] [phone] [facility] No Information Janis Trujillo. [address] [place], [address], [place]. tel: [phone] Family History Family Member Type Diagnosis Age At Onset No Information Payers Payer name Insurance type Covered green party ID Authoriza tion(s) Medicaid [facility] [id number] Social History Type Description Quantity Date Captured [...]
--- OUTSIDE RECORDS SUMMARY | 2024-08-27 19:30 | XMS_ITS | Clinical Summary ---
Author Organization [facility] Address [address] [place] [address] Phone Care Team Providers Care Reverse Unit Operator Name Role Phone Aaliyah Prabhakar Primary Care Provider [phone] Social History Tobacco Use Types Packs/Day Years [...] age to complete this topic Insurance MEDICAID [facility] Care Teams Reverse Unit Operator Relationship Specialty Start Date End Date Aaliyah Prabhakar PA [address] [address] PCP - General Adult Medicine 07/29/17
[2024-08-27 20:13] LABS: Hematocrit 37.9 % (37.0-47.0); Hemoglobin 12.5 g/dL (12.0-15.0); Immature Granulocyte Percent A 0.2 % (0-0.5); Lymphocytes Absolute Auto 2.03 K/mm3 (0.9-3.2); Mean Corpuscular HGB Conc 33.0 g/dl (32-36); Mean Corpuscular Hemoglobin 32.2 pg (26-34); Mean Corpuscular Volume 97.7 fl (80-100); Nucleated Red Blood Cells Absolute Auto 0.000 K/mm3 (0.0-0.012); Nucleated Red Blood Cells Perc 0.0 % (0.0-0.2); Platelet Count Result 187 k/mm3 (150-375); Red Blood Count 3.88 M/mm3 (4.2-5.4); White Blood Count 6.3 K/mm3 (4.5-10.0)
[2024-08-27 20:42] LABS: Add Urine Microscopic? NO; Appearance Urine Clear (Clear); Glucose Urine UA 3+ mg/dL (Negative); Leukocyte Esterase Ur Negative LEU/UL (Negative); Nitrate Urine Negative (Negative); Specific Grav Ur 1.040 (1.001-1.035)
[2024-08-27 20:50] LABS: Alanine Aminotransferase 21 U/L (6-35); Albumin Level 4.6 g/dL (3.5-5.1); Alkaline Phosphatase 84 U/L (38-126); Anion Gap 9 mmol/L (4-12); Aspartate Amino Transferase 42 U/L (14-36); Bilirubin,Total 0.5 mg/dL (0.2-1.3); Blood Urea Nitrogen 16 mg/dL (7-17); Calcium 9.8 mg/dL (8.4-10.2); Carbon Dioxide 26 mmol/L (22-30); Chloride 105 mmol/L (98-107); Estimated CRCL calculation 63 ml/min; Estimated Glomerular Filt Rate > 60; Glucose 84 mg/dL (65-110); Lipase 37 U/L (23-300); Magnesium 2.4 mg/dL (1.6-2.3); Potassium 3.9 mmol/L (3.4-5.0); Sodium 140 mmol/L (137-145); Total Protein 8.1 g/dL (6.3-8.2)
[2024-08-27 21:05] VITALS: BP 110/62; PULSE 77; RESP 17; TEMP 36.6; O2SAT 98
[2024-08-27] MEDS: ONDANSETRON HCL ODT 4 MG TABLET PO (21:29)
[2024-08-27] MEDS: KETOROLAC 30 MG/ML VIAL (*BKC) IM (21:29)
[2024-08-27] MEDS: FAMOTIDINE 20 MG TABLET PO (21:29)
[2024-08-27 22:14] VITALS: BP 118/62; PULSE 72; RESP 17; O2SAT 97
== END 2024-08-27 22:16 | disposition home or self-care (01) ==
PROVIDERS: Physician Assistant; Emergency Provider Physician Assistant; PCP Family Medicine
DX: K57.92 Diverticulitis of intestine, part unspecified, without perforation or abscess without bleeding (principal); R91.8 Other nonspecific abnormal finding of lung field; E11.9 Type 2 diabetes mellitus without complications; M17.0 Bilateral primary osteoarthritis of knee; M10.9 Gout, unspecified; G47.9 Sleep disorder, unspecified; F41.9 Anxiety disorder, unspecified; Z96.652 Presence of left artificial knee joint; Z87.442 Personal history of urinary calculi; Z86.2 Personal history of diseases of the blood and blood-forming organs and certain disorders involving the immune mechanism; Z87.891 Personal history of nicotine dependence; Z90.49 Acquired absence of other specified parts of digestive tract; N83.202 Unspecified ovarian cyst, left side; K59.00 Constipation, unspecified; Z79.84 Long term (current) use of oral hypoglycemic drugs; Z79.899 Other long term (current) drug therapy
CPT/HCPCS: 36415; 74176; 80053; 81003; 83690; 83735; 85025; 96372; 99284; A9270; J1885

== ENCOUNTER 2024-09-02 12:38 | Inpatient (IN) | payer MEDICARE, MEDICAID, SELFPAY ==
[2024-09-02] VITALS (8 sets, daily range): BP systolic 105–120; BP diastolic 58–70; PULSE 80–91; RESP 16; TEMP 36.5–36.6; O2SAT 96–100; BMI 30.8
--- NOTE | ~2024-09-02 | CT_ITS ---
EXAMINATION: CT abdomen pelvis w con DATE: 09/02/2024 15:00 INDICATION: Abdominal pain TECHNIQUE: Computed tomography (CT) of the abdomen and pelvis was performed with 100 mL Omnipaque-350 intravenous contrast. Automated exposure control and iterative reconstruction technique were employe d. The dose-length product was 529.75 mGy-cm. COMPARISON: 08/27/2024, 03/19/2022. FINDINGS: Lower thorax: Subendocardial fat deposition in the left ventricular apex, likely old infarct. Multipl e bilateral lower lobe pulmonary nodules measuring up to 6 mm. Liver: Normal. Biliary/Gallbladder: Gallbladder is normal. No bile duct dilation. Pancreas: No mass or duct dilation. Spleen: Normal. Adrenals:No mass. Kidneys: No obstructing stone or hydronephrosis. 1.5 cm indeterminate density right midpole lesion, a ppears slightly smaller than the comparison study of 2022, likely proteinaceous or hemorrhagic cyst. 1 cm indeterminate density left lower pole lesion, stable since the comparison, likely proteinaceous or hemorrhagic cyst. Multiple additional bilateral subcentimeter hypodensities, too small to characte rize but most likely represent cysts. GI tract: Mild distal esophageal and gastric wall edema. The mid sigmoid is distended slightly to 5.0 cm, by formed stool with moderate length wall thickening and surrounding inflammatory change. No sma ll bowel dilation. Appendix not confidently visualized. Mesentery/Peritoneum: No ascites, mass, or free air. Retroperitoneum: No mass. Atherosclerotic calcifications of intra-abdominal arterial vessels. Pelvis: Normal urinary bladder and uterus. Dilated bilateral gonadal and pelvic veins. Normal right o vary. Normal left ovary, with a 2.6 cm simple appearing cyst. Bilateral tubal ligation. Trace free pe lvic fluid. Soft Tissues: Soft tissues and body wall unremarkable. Bones: No acute osseous finding. Uncomplicated posterior L4-5 fusion hardware. IMPRESSION: Multiple bilateral lobe pulmonary nodules measuring up to 6 mm prior recommendation for six-month fol low-up CT is unchanged. Mild esophagitis/gastritis. Mid sigmoid diverticulitis or colitis (on an infectious, inflammatory, or ischemic basis). Stercoral colitis could also be considered given the prominent amount of feces in this location. Pelvic findings that can be seen with pelvic congestion. Correlate clinically for persistent dull pel deangelo pain lasting > 6 months, dysmenorrhea, dyspareunia, postcoital ache, and urinary symptoms. Reviewed, dictated and finalized at location K. IMPRESSION: Multiple bilateral lobe pulmonary nodules measuring up to 6 mm prior recommenda tion for six-month follow-up CT is unchanged. Mild esophagitis/gastritis. Mid sigmoid diverticulitis or colitis (on an infectious, inflammatory, or ische barry basis). Stercoral colitis could also be considered given the prominent amou nt of feces in this location. Pelvic findings that can be seen with pelvic congestion. Correlate clinically f or persistent dull pelvic pain lasting > 6 months, dysmenorrhea, dyspareunia, p ostcoital ache, and urinary symptoms.
--- OUTSIDE RECORDS SUMMARY | 2024-09-02 12:41 | XMS_ITS | Continuity of Care Document ---
Author Organization [facility] Address [address] [facility] [place] [address] Phone Care Team Providers Care Machine Operations Supervisor Name Role Phone David Sigala MD Unavailable [...] Diagnoses Date Provider Providers Copied on Encounter [facility], [address] [place], [place], [id number], tel:[phone] [facility] No Information Jovon Marshall [address], [place], [address] , [place]. tel:[phone] Referring Provider: David Sigala, [address] [place], [place], [id number]. tel:[phone] OFFICE/OUTPAT IENT VISIT, EST [facility], [address] [place], [id number], tel:[phone] [facility] insomnia1 (chief complaint)k nee pain1 (chief complaint)[facility] pain[facility] (chief complaint) InsomniaPain in right kneePain in left lower leg Jovon Hernandez. [address], [place], [place], [address] , [place]. tel:[phone] Referring Provider: David Sigala [address], [place], [place], [id number]. tel:[phone] PREV VISIT, NEW, AGE 40-64 [facility], [address], [place], [place], [address], [place] tel:[phone] [facility] physical (chief complaint) Encntr for general adult medical exam w/o abnormal findings Jovon Hernandez. [address], [address], [place], [place], [address] , [place]. tel:[phone] Referring Provider: David Sigala, [address] [facility] [address], [place], [place], [address]. tel:[phone] Family History Family Member Type Diagnosis Age At Onset Mother Problem (finding) CVA, renal failure (Cau se Of ) 78 Father Problem (finding) of 87 old age and afib (Cause Of ) Sister Problem (finding) Alive and well Payers Payer name Insurance type Covered democrat ID Authoriza tion(s) No Information Social History [...] Paul Le [address] [place], [place], [id number] Ordered: Referrals: Paul Ruiz MD Evaluate and [...]
--- OUTSIDE RECORDS SUMMARY | 2024-09-02 12:41 | XMS_ITS | Data Portability ---
Author Organization [place] [facility], Main Office Address [address] [place] [address] Care Team Providers Care Cost Estimator Name Role Phone SALVADOR VERAS Primary Care Provider [phone] Assessment Encounter Date Assessment Date Assessment LastModified [...] as per schedule. Advised to refer to Counsellor/psych; but pt declined. Advised to refer for sleep study; but pt declined. Advised to refer to Hemat; but pt declined. Advised to refer to Piping Designer; but pt declined. Pt got s/e from [...] before next visit. Annual labs in 01/11. [email or web address] Not available 04/22/2024 10:26:16 06/24/2024 06/24/2024 58 [...] as per schedule. Advised to refer to Counsellor/psych; but pt declined. Advised to refer for sleep study; but pt declined. Advised to refer to Hemat; but pt declined. Advised to refer to Piping Designer; but pt declined. Pt got s/e from [...] labs in 01/11. Not available 06/24/2024 10:42:09 08/31/2024 08/31/2024 having more than one issue discussed taking her acid reflux meds, she has some at home, to calm stomach acid will order meds for constipation to clear bowels and help settle nausea, she has zofran and says that helps once she feels less nausea she will be able to hydrate better and improve the dehydration will do meds for diverticulitis and can start those as soon as bowel movements are happening. discussed if worsening to return to the ER [email or web address] Not available 08/31/2024 12:03:20 Plan of Treatment Reminders Order Date Submit Date Provider Last Modified By Organization Details Last Modified Time Details Appointments Follow Up 2024 09:30A M Salvador Veras MD Not available Not available Not available Lab glycohemo globin, total, blood 2024 025 [facility] (Lab), [address] [place], [address], 06/23/2024 20:16:56 Referral None recorded. Procedures None recorded. Surgeries None recorded. Imaging None recorded. Medication Orders lactulose 10 gram/15 mL oral solution 2024 025 [facility] 435, [address], [address], 08/31/2024 12:02:17 ondansetr on 4 mg disintegr ating tablet 2024 025 [facility] [address], [address], [address], 08/31/2024 12:02:18 ciproflox acin 500 mg tablet 2024 025 [facility] [address], [address], [address], 08/31/2024 12:02:16 metronida zole 500 mg tablet 2024 025 [facility] [address], [address], [address], 08/31/2024 12:02:20 diclofena c sodium 75 mg tablet,de layed release 2024 025 [facility] [address], [address] [place] [address], [address], 06/24/2024 10:39:28 cyclobenz aprine 10 mg tablet 2024 025 [facility] [address], [address] [place] [address], [address], 06/24/2024 10:39:31 alendrona te 70 mg tablet 2024 025 [email or web address] [place] [address], [address] [place] [address], [address], 06/24/2024 10:39:35 Calcium 600 + D(3) 600 mg-10 mcg (400 unit) tablet 2024 025 [facility] [address], [address] [place] [address], [address], 06/24/2024 10:39:32 allopurin ol 100 mg tablet 2024 025 [facility] [address], [address] [place] [address], [address], 06/24/2024 10:39:28 atorvasta tin 40 mg tablet 2024 025 [facility] [address], [address] [place] [address], [address], 06/24/2024 10:39:28 cetirizin e 10 mg tablet 2024 025 [facility] [address], [address] [place] [address], [address], 06/24/2024 10:39:29 trazodone 50 mg tablet 2024 025 [facility], [address] [place] [address], [address], 06/24/2024 10:39:30 phentermi ne 30 mg capsule 2024 025 [facility], [address] [place] [address], [address], 06/24/2024 10:39:39 ergocalci ferol (vitamin D2) 1,250 mcg (50,000 unit) capsule 2024 025 [place] [address], [address] [place] [address], [address], 06/24/2024 10:39:30 Jardiance 25 mg tablet 2024 025 [facility], [address] [place] [address], [address], 06/24/2024 10:39:27 lisinopri l 2.5 mg tablet 2024 025 [facility], [address] [place] [address], [address], 06/24/2024 10:39:32 Rybelsus 14 mg tablet 2024 025 [facility], [address] [place] [address], [address], 06/24/2024 10:39:34 amoxicill in 875 mg-potass ium clavulana te 125 mg tablet 2024 025 [email or web address] [place] [address], [address] [place] [address], [address], 06/24/2024 10:37:37 fluticaso ne propionat e 50 mcg/actua tion nasal spray,alexus pension 04/09/ 2025 04/09/2 025 [facility] [address], [id number] [place] [address], [address], 05/26/2024 10:05:44 diclofena c sodium 75 mg tablet,de layed release 2024 025 [facility] [address], [address] [place] [address], [address], 04/22/2024 10:20:26 cyclobenz aprine 10 mg tablet 2024 025 [facility] [address], [address] [place] [address], [address], 04/22/2024 10:20:25 alendrona te 70 mg tablet 2024 025 [place] [address], [address] [place] [address], [address], 04/22/2024 10:20:25 Calcium 600 + D(3) 600 mg-10 mcg (400 unit) tablet 2024 025 [email or web address] [place] [address], [address] [place] [address], [address], 04/22/2024 10:20:28 allopurin ol 100 mg tablet 2024 025 [place] [address], [address] [place] [address], [address], 04/22/2024 10:20:21 atorvasta tin 40 mg tablet 2024 025 [facility] [address], [address] [place] [address], [address], 04/22/2024 10:20:27 cetirizin e 10 mg tablet 2024 025 [facility] [address], [address] [place] [address], [address], 04/22/2024 10:20:26 trazodone 50 mg tablet 2024 025 [place] [address], [address] [place] [address], [address], 04/22/2024 10:20:24 phentermi ne 15 mg capsule 2024 025 [place] [address], [address] [place] [address], [address], 04/22/2024 10:20:28 ergocalci ferol (vitamin D2) 1,250 mcg (50,000 unit) capsule 2024 025 [place] [address], [address] [place] [address], [address], 04/22/2024 10:20:26 Jardiance 25 mg tablet 2024 025 [place] [address], [address] [place] [address], [address], 04/22/2024 10:20:25 lisinopri l 2.5 mg tablet 2024 025 [place] [address], [address] [place] [address], [address], 04/22/2024 10:20:26 Rybelsus 7 mg tablet 2024 025 [email or web address] [place] [address], [address] [place] [address], [address], 04/22/2024 10:24:31 Patient TargetsNo targets recorded. Patient Instructions Encounter Date Encounter Id Patient Instructions Last Modified By Organization Details Last Modified Time 04/22/2024 [id number] When You Want to Lose Weight: Care Instructions [email or web address] Not available 04/22/2024 10:20:12 06/24/2024 [id number] When You Want to Lose Weight: Care Instructions [email or web address] Not available 06/24/2024 10:39:15 Reason for Referral None Reported. Results Created Date Observation Date Name Description Value Unit Range Abnormal Flag Note LastModifiedBy Organization Detail LastModifiedTime 06/24/19 25 06/23/2024 HEMOG LOBIN A1C HA1C 6.0 % 4.0-6. 0 Diabe andrei Laron talbert Crite annmarie: <5.7% Consi stent with absen ce of diabe andrei 5.7-6 .4% Consi stent with incre ased risk for diabe andrei (pred iabet es) >OR=6 .5% Consi stent with diabe andrei REFER ENCE: Diabe andrei Care 2016, 39(Go ppl.1 ):s13 -s22 Not Available [facility] ([facility]) [address] [place], [address], 06/23/2024 20:16:56 07/07/19 25 07/06/2024 MAMMO , laron talbert, bilat eral No observ ation record ed. [email or web address] [place] [address] [place] [address], [address], 07/06/2024 14:34:50 08/28/19 25 08/27/2024 CT, abdom en + pelvi s, w/ contr ast No observ ation record ed. [address] [place] [address], [address], 08/30/2024 20:48:48 Result Notes None recorded. Problems Name Problem SNOMED Code Status Onset Date Resolution Date Notes Provider Name and Address Organization Details Recorded Time Urolithia sis 08937831 Active Not Available [facility] 3 00:59:22 Persisten t insomnia 139390932 Active 2018 Not Available [facility] 3 00:59:18 Anxiety disorder 132055025 Active 2018 Not Available [facility] 3 00:59:18 Tear of medial meniscus of knee 176021421 Active 2018 Not Available [facility] 3 00:59:19 Knee pain Active 2018 Not Available [facility] 3 00:59:19 Synovial cyst of right knee 57905252692 9104 Active 2018 Not Available [facility] 3 00:59:20 Depressiv e disorder 37560475 Active 2018 Not Available [facility] 3 00:59:20 Obesity 960955331 Active 2018 Not Available [facility] 3 00:59:20 Ex-smoker 3282452 Active 2018 Not Available [facility] 3 00:59:21 Impacted cerumen of bilateral ears 30225988829 12887 Active 2018 Not Available [facility] 3 00:59:18 Fatigue 10521771 Active 2018 Not Available [facility] 3 00:59:21 Hyperlipi demia 30720533 Active 2018 Not Available [facility] 3 00:59:20 Gouty arthropat hy 261561500 Active 2018 Not Available [facility] 3 00:59:18 Osteoarth ritis of knee 915210190 Active 2018 Not Available [facility] 3 00:59:18 Pain in right lower limb 300199949 Active 2018 Not Available [facility] 3 00:59:19 Pain in right lower limb 375934009 Active 2018 Not Available [facility] 3 00:59:19 Prediabet es 364863093 Completed 201809/07/2020 Not Available [facility] 3 00:59:21 Allergic contact dermatiti s 058626077 Active 2019 Not Available [facility] 3 00:59:18 Osteopeni a 159639750 Active 2019 Not Available [facility] 3 00:59:19 Calculus of kidney and ureter 060670955 Active 2019 Not Available [facility] 3 00:59:19 Hydroneph rosis due to ureteral obstructi on Active 2019 Not Available [facility] 3 00:59:21 Cyst of ovary 25770825 Active 2019 Not Available [facility] 3 00:59:21 Kidney stone 30653971 Active 2019 Not Available [facility] 3 00:59:22 Anemia 049017271 Active 2019 Not Available [facility] 3 00:59:19 Postherpe tic neuralgia 7616965 Active 2020 Not Available [facility] 3 00:59:18 Type 2 diabetes mellitus without complicat ion 624270314 Active 2020 Not Available [facility] 3 00:59:19 Leukopeni a 22698012 Active 2020 Not Available [facility] 3 00:59:21 Ganglion cyst of left wrist 76611065304 9100 Active 2021 Not Available [facility] 3 00:59:19 Pain of bilateral knee joints 29393118627 4104 Active 2021 Not Available [facility] 3 00:59:20 Screening mammograp hy Active 2021 Not Available [facility] 3 00:59:19 Pain of left wrist 90760164991 9102 Active 2021 Not Available [facility] 3 00:59:19 Bronchiti s 02026536 Active 2021 Not Available [facility] 3 00:59:20 Cough 48985748 Active 2021 Not Available [facility] 3 00:59:20 COVID-19 860216112 Active 2021 Not Available [facility] 3 00:59:21 Headache 66142813 Active 2021 Not Available [facility] 3 00:59:19 Gastritis 8357262 Active 2021 Not Available [facility] 3 00:59:20 Dyspnea on exertion 72763295 Active 2021 Not Available [facility] 3 00:59:21 Gastroeso phageal reflux disease without esophagit is 536797421 Active 2021 Not Available [facility] 3 00:59:19 Pain of left knee joint 40636734467 4107 Active 2021 Not Available [facility] 3 00:59:20 Chronic insomnia 070947565 Active 2022 Salvador Veras MD [address], [place], [address] , [place] [facility] 3 12:24:42 Candidal vulvovagi nitis 74804520 Active 2022 Salvador Veras MD [address], [place], [address] , [place] [facility] 3 10:53:59 Abnormal weight 86557245 Active 2022 Jennifer Collins MA [facility], [place] [facility] 3 10:22:39 Seasonal allergic rhinitis 581644847 Active 2023 Salvador Veras MD [address], [address], [place], [address] , [facility] 4 12:51:08 Acute bacterial sinusitis 42468461 Active 2023 MAHAMED Mercado [address], [address], [place], [address] , [facility] 4 10:28:54 Eczema 59501988 Active 2023 MAHAMED Mercado [address], [address], [place], [address] , [facility] 4 10:31:23 Dysfuncti on of eustachia n tube 37628694 Active 2023 MAHAMED Mercado [address], [address], [place], [address] , [place] [facility] 4 11:04:20 Chronic low back pain 324846253 Active 2023 Salvador Veras MD [address], [address], [place], [address] , [place] [facility] 4 11:48:38 Low back strain 337944791 Active 2023 Salvador Veras MD [address], [address], [place], [address] , [place] [facility] 4 11:55:20 Osteoporo sis 54316665 Active 2023 Salvador Veras MD [address], [address], [place], [address] , [place] [facility] 4 10:10:00 Pruritic rash 94107802 Active 2023 Salvador Veras MD [address], [address], [place], [address] , [place] [facility] 4 10:31:56 Vitamin B12 deficienc y (non anemic) 47227182 Active 2023 Salvador Veras MD [address], [address], [place], [address] , [place] [facility] 4 10:12:04 Vitamin D deficienc y 50749533 Active 2023 Salvador Veras MD [address], [address], [place], [address] , [place] [facility] 4 10:13:06 Diarrhea 35310197 Active 2024 Salvador Veras MD [address], [address], [place], [address] , [place] [facility] 5 09:52:15 Viral gastroent eritis 425024063 Active 2024 Salvador Veras MD [address], [address], [place], [address] , [place] [facility] 5 10:04:03 Sinusitis 25817487 Active 2024 Salvador Veras MD [address] [facility], [address], [place], [address] , [facility] 10:04:23 Acute vomiting 92588142 Active 2024 Kirsten Ferguson NP [address] [facility], [facility] [address], [place], [address] , [facility] 11:53:17 Acute constipat ion 579331070 Active 2024 Kirsten Ferguson NP [address] [facility], [facility] [address], [place], [address] , [facility] 11:57:14 Diverticu litis 748978609 Active 2024 Kirsten Ferguson NP [address] [facility], [place] [address], [place], [address] , [facility] 11:59:29 Notes:Some problems listed i n Document: #[id number] could not be added to this patient's chart. Please review this document and add these problems to the patient's chart manually as needed. Problem Notes None recorded. Procedures Surgical History Date Name Laterality Status Provider Name and Address Organization Details Recorded Time 024 Cerumen Removal completed MAHAMED Mercado [address] [facility], [place] [address], [place], [address], [facility] 05/29/2023 11:03:39 023 Knee arthroscopy/surgery completed Dennise Cornelius RN [facility] 06/12/2022 12:16:51 Gallbladder Surgery completed Not Available [facility] 04/17/2022 00:53:19 Gastrointestinal repair completed Not Available [facility] 04/17/2022 00:53:19 Orthopedic Procedure completed Not Available [facility] 04/17/2022 00:53:19 repair of elbow completed Not Available [facility] 04/17/2022 00:53:19 ligation of bilateral fallopian tubes completed Not Available [facility] 04/17/2022 00:53:19 wrist repair completed Not Available [facility] 04/17/2022 00:53:19 Back Surgery completed Not Available [facility] 04/17/2022 00:53:19 Imaging Results None recorded. Procedure [...] Not available Not available Not available 04/17/2022 73762 8003 SNOMED Not Available [facility] 3 01:09:11 1647 phentermi ne medicatio n rash severe Not available 04/17/2022 8152 RxNorm Salvador Veras MD [address] [facility], [address], [place], [address], [facility] [employer] 3 14:37:57 1648 morphine medicatio n Not available Not available Not available 04/17/20222012 7052 RxNorm Other react ions and sever ities : 'Unkn own'. Not Available [facility] 3 01:09:11 1649 metformin medicatio n rash Not available Not available 04/17/2022 6809 RxNorm Not Available [facility] 3 01:09:11 [address]3911 amoxicill in medicatio n vomiting moderate high 08/31/20242024 723 RxNorm Wendi Bentley RN [facility], [facility] [employer] 5 11:32:29 84865 Augmentin medicatio n vomiting Not available [facility] 08/31/2024 06899 2 RxNorm Kirsten Ferguson NP [address] [facility], [address], [place], [address], [facility] 5 11:44:02 Medications Name Sig Start Date Stop Date [...] MOUTH EVERY 6 HOURS NEEDED FOR PAIN active Not Available Not Available No t Available meloxicam 15 mg tablet TAKE 1 [...] Not Available alendrona te 70 mg tablet TAKE 1 TABLET BY MOUTH ONCE A WEEK DIRECTED active Not Available Not Available No t Available Debrox 6.5 % ear drops INSTILL 3 DROPS INTO AFFECTED EAR(S) BY OTIC ROUTE 2 TIMES PER DAY 06/11 completed Not Available Not Available Not Available phentermi ne 15 mg capsule TAKE 1 CAPSULE BY MOUTH ONCE DAILY BEFORE BREAKFAS T active Not Available Not Available No t Available metronida zole 500 mg tablet TAKE ONE TABLET BY MOUTH TWO TIMES A DAY 2024 active Not Available Not Available Not Avai lable hydroxyzi ne HCl 50 mg tablet Take 1 tablet every 6-8 hours by oral route as needed for 7 days. active Not Available Not Available No t Available phentermi ne 37.5 mg tablet TAKE 1 TABLET BY MOUTH ONCE DAILY IN THE MORNING 11/05 completed Not Available Not Available Not Available allopurin ol 100 mg tablet TAKE 1 TABLET BY MOUTH ONCE DAILY active Not Available Not Available No t Available ciproflox acin 500 mg tablet Take 1 tablet every 12 hours by oral route for 7 days. 2024 active Not Available Not Available [...] t Available phentermi ne 30 mg capsule TAKE 1 CAPSULE BY MOUTH ONCE DAILY IN THE MORNING active Not Available Not Available No t Available ketorolac 10 mg tablet TAKE ONE TABLET [...] administ ered by the provider 11/01 completed [facility]: [id number] 06-06 Not Available Not Available Not [...] Not Available Not Available Not Available cyanocoba delvin (vit B-12) 1,000 mcg/mL injection solution Inject [...] tablet DISSOLVE 1 TABLET IN MOUTH EVERY 6 HOURS NEEDED FOR NAUSEA 2024 active Not Available Not Available Not Avai lable fluticaso ne propionat e 50 mcg/actua tion nasal spray,alexus pension [place] 2 sprays every day by intranas al [...] mg-potass ium clavulana te 125 mg tablet TAKE 1 TABLET BY MOUTH EVERY 12 HOURS FOR 10 DAYS active Not Available Not Available No t Available oxycodone 5 mg tablet TAKE 1 TABLET BY MOUTH EVERY 6 HOURS NEEDED FOR PAIN 09/03 completed Not Available Not Available Not Available cyclobenz aprine 5 mg tablet TAKE 1 TABLET BY MOUTH EVERY 12 HOURS NEEDED completed Not Available Not Available Not Available lactulose 10 gram/15 mL oral solution Take 15 mL every 4 hours by oral route as directed , for 3 doses. 2024 active Not Available Not Available Not Avai lable lidocaine (PF) 10 mg/mL (1 %) injection solution In office injectio n administ ered by the provider 06/06 completed [facility]: 0409-427 6-17 Not Available Not Available Not Available Calcium [...] BY MOUTH ONCE DAILY IN THE MORNING active Not Available Not Available No t Available Trulicity 0.75 mg/0.5 mL subcutane ous pen injector INJECT 0.75 MG SUBCUTAN EOUSLY ONCE A WEEK DIRECTED completed Not Available Not Available Not Available Rybelsus 14 mg tablet Take 1 tablet every day by oral route as directed for 90 days. 2024 active Not Available Not Available Not Avai lable Rybelsus 7 mg tablet TAKE 1 TABLET BY MOUTH ONCE DAILY DIRECTED active Not Available Not Available No t Available Rybelsus 3 mg tablet TAKE 1 TABLET [...] Details Last Updated DateTime 04/22/2024 32.8 kg/m2 95470.49 g Salvador Veras MD [address], [place] [address], [place], [address], [facility] 04/22/2024 10:17:20 Date Recorded Body height Body temperature Oxygen saturation Oxygen saturation in Arterial blood by Pulse oximetry Heart rate Systolic And Diastolic Provider Name and Address Organization Details Last Updated DateTime 5 162.56 cm 97.3 [degF] 96 % 96 % 84 /min 120/64 mm[Hg] Wendi Bentley RN [facility] 5 10:13:55 Date Recorded Body height Body mass index (BMI) Body weight Body temperature Oxygen saturation Oxygen saturation in Arterial blood by Pulse oximetry Heart rate Systolic And Diastolic Provider Name and Address Organization Details Last Updated DateTime 5 162.56 cm 32.4 kg/m2 32976.9 6 g 97.1 [degF] 96 % 96 % 79 /min 120/70 mm[Hg] Wendi Bentley RN [facility] 5 09:59:37 Date Recorded Body height Body mass index (BMI) Body weight Body temperature Oxygen saturation Oxygen saturation in Arterial blood by Pulse oximetry Heart rate Systolic And Diastolic Provider Name and Address Organization Details Last Updated DateTime 5 162.56 cm 32.3 kg/m2 62486.1 2 g 97.3 [degF] 97 % 97 % 77 /min 126/70 mm[Hg] Wendi Bentley RN [facility] 5 10:28:51 Date Recorded Body height Body mass index (BMI) Body weight Body temperature Oxygen saturation Oxygen saturation in Arterial blood by Pulse oximetry Heart rate Systolic And Diastolic Provider Name and Address Organization Details Last Updated DateTime 5 162.56 cm 30.4 kg/m2 97817.2 g 98.1 [degF] 94 % 94 % 85 /min 120/64 mm[Hg] Wendi Bentley RN [facility] 5 11:31:34 Social History Question Answer Notes LastModified by Organizat ion Details LastModified Time Tobacco Smoking Status Former Smoker 2018 Not Available [facility] 04/17/2022 00:50:53 Do You Have An Advance Directive? No [id number] Information not available 04/17/2022 Do You Wear A Helmet When Biking? No [id number] Information not available 04/17/2022 What Is Your Level Of Caffeine Consumption? Heavy [id number].[id number] Information not available 04/17/2022 In The 14 Days Before Symptom Onset, Have You Had Close Contact With A Laboratory-confi rmed COVID-19 While That Case Was Ill? No [id number] Information not available 04/17/2022 In The 14 Days Before Symptom Onset, Have You Had Close Contact With A Person Who Is Under Investigation For COVID-19 While That Person Was Ill? No [id number].[id number] Information not available 04/17/2022 What Type Of Diet Are You Following? CARBOHYDRATE MIGRATION.00635 [id number] Information not available 04/17/2022 What Is The Highest Grade Or Level Of School You Have Completed Or The Highest Degree You Have Received? [id number] MIGRATION.88011 [id number] Information not available 04/17/2022 Have There Been Any Changes To Your Family Or Social Situation? No MIGRATION.17271 [id number] Information not available 04/17/2022 When Did You Quit Smoking? 1-5yearssincelastci garette MIGRATION.26964 [id number] Information not available 04/17/2022 Are There Any Guns Present In Your Home? No MIGRATION.82528 [id number] Information not available 04/17/2022 Do You Use Insect Repellent Routinely? No MIGRATION.26611 [id number] Information not available 04/17/2022 Where Do You Live? [place] MIGRATION.84339 06926 Information not available 04/17/2022 Are You Following A Low Salt Diet? Yes MIGRATION.08059 52996 Information not available 04/17/2022 Do You Have A Medical Power Of Entry Level Drafter? No MIGRATION.86654 04667 Information not available 04/17/2022 What Was The Date Of Your Most Recent Tobacco Screening? 03/27/2021 MIGRATION.19224 40307 Information not available 04/17/2022 Do You Have Any Pets? Yes MIGRATION.03953 16308 Information not available 04/17/2022 What Is Your Relationship Status? MIGRATION.26911 49100 Information not available 04/17/2022 Do You Use Your Seat Belt Or Car Seat Routinely? Yes MIGRATION.17740 95417 Information not available 04/17/2022 Do You Have Smoke And Carbon Monoxide Detectors In Your Home? Yes MIGRATION.71193 11922 Information not available 04/17/2022 Are You Passively Exposed To Smoke? No MIGRATION.61345 85914 Information not available 04/17/2022 Are There Any Smokers In Your House? No MIGRATION.00068 33887 Information not available 04/17/2022 Do You Participate In Social Media? No MIGRATION.69632 86013 Information not available 04/17/2022 Do You Use Sunscreen Routinely? Yes MIGRATION.91370 34033 Information not available 04/17/2022 Has Tobacco Cessation Counseling Been Provided? No MIGRATION.15434 43678 Information not available 04/17/2022 Have You Recently Traveled Abroad? No Information not available 04/17/2023 Are You Currently In School? No MIGRATION.14930 79305 Information not available 04/17/2022 Do You Have Any Dietary Restrictions? Yes MIGRATION.73789 99967 Information not available 04/17/2022 Sex: Female Functional Status Question Answer Note LastModified by [employer] ion Details LastModified Time Do you use any illicit or recreational drugs? No MIGRATION.037862 7022 Information not available 04/17/2022 Do you or have you ever used any other forms of tobacco or nicotine? No MIGRATION.272089 3630 Information not available 04/17/2022 What is your level of alcohol consumption? None MIGRATION.296300 8953 Information not available 04/17/2022 Are you currently employed? Yes Information not available 09/04/2023 What is your occupation? [employer] employee MIGRATION.041206 8780 Information not available 04/17/2022 What is your exercise level? Occasional MIGRATION.833063 7598 Information not available 04/17/2022 Mental Status Question Answer Note LastModified by Organizat ion Details LastModified Time Do you feel stressed (tense, restless, nervous, or anxious, or unable to sleep at night)? [id number] MIGRATION.[id number] 6 Information not available 04/17/2022 Family History Relationship Description Onset Age of this Age Resolved Age Notes LastModified by Organization Details LastModified Time Unspecified Relation Family history of stroke MIGRATION.609 [id number] Not available 04/17/2022 00:53:24 Unspecified Relation Arthritis MIGRATION.239 [id number] Not available 04/17/2022 00:53:24 Unspecified Relation Hypertensive disorder MIGRATION.015 7940234 Not available 04/17/2022 00:53:24 Sister Urolithiasis MIGRATION.0 30 [id number] Not available 04/17/2022 00:53:24 Medical History Condition Response BLINDNESS N RHEUMATIC FEVER N KIDNEY STONES N BLADDER PROBLEMS N MRSA N OTHER # 1 N POLIO N LUNG DISEASE/DISORDER N RADIATION / CHEMOTHERAPY N COPD N Other # 2 N BLOOD DISEASES N SURGERY N EAR OR HEARING PROBLEMS N MUMPS N BOWEL PROBLEMS N FEMALE PROBLEMS / INFECTIONS N DEPRESSION (INCLUDING POST ) Y STROKE/TIA N THYROID DISEASE N ULCERS N BENIGN PROSTATIC HYPERPLASIA N MEASLES N CERVICALGIA N TB SKIN TEST N MYOCARDIAL INFARCTION N [place]AP[place]IA N OBESITY Y GERD/NAUSEA N ANEURYSM N URINARY/BLADDER/KIDNEY PROBLEMS N [...] HAVE YOU BEEN HOSPITALIZED OR SEEN IN [facility] IN THE PAST YEAR ? N [...] PF 11/13/2022 completed Jennifer Collins MA null, [facility] [employer] 11/13/2022 10:59:16 Influenza, split virus, quadrivalent, PF 01/06/2020 completed Not Available [facility] 3 01:09:01 Influenza, split virus, quadrivalent, PF 12/13/2021 completed Not Available [facility] 3 01:09:01 Influenza, split virus, quadrivalent, PF 11/01/2020 completed Not Available [facility] 3 01:09:01 Influenza, split virus, trivalent, PF 01/21/2024 completed Wendi Bentley RN null, [facility] [employer] 01/21/2024 11:25:09 Past Encounters Encounter ID Performer Location Encounter Start Date Encounter Closed Date Diagnosis/Indication Diagnosis SNOMED-CT Code Diagnosis ICD10 Code Diagnosis Note [id number] Salvador Veras MD [facility] [address] [place] [address] 04/20/2020 00:00:00 04/20/2020 10:11:17 [id number] Salvador Veras MD [facility] [address] [place] [address] 05/12/2020 00:00:00 05/12/2020 18:00:23 [id number] Salvador Veras MD [facility] [address] [place] [address] 06/06/2020 00:00:00 06/06/2020 17:33:22 [id number] [facility] [address] [place] [address] 09/07/2020 00:00:00 09/07/2020 12:19:45 [id number] Salvador Veras MD [facility] [address] [facility] [place] [address] 09/25/2020 00:00:00 09/25/2020 10:28:12 [id number] Salvador Veras MD [facility] [address] [facility] [address] 11/01/2020 00:00:00 11/01/2020 10:45:51 [id number] Salvador Veras MD [facility] [address] [facility] [place] [address] 01/01/2021 00:00:00 01/01/2021 10:51:29 [id number] Salvador Veras MD [facility] [address] [facility] [place] [address] 01/02/2021 00:00:00 01/02/2021 11:58:33 [id number] Salvador Veras MD [facility] [address] [facility] [place] [address] 01/15/2021 00:00:00 01/15/2021 10:26:33 [id number] Salvador Veras MD [facility] [address] [facility] [place] [address] 03/08/2021 00:00:00 03/08/2021 11:26:06 [id number] Yousuf Brock MD [facility] [place] [address] [place] [address] 03/27/2021 00:00:00 03/27/2021 11:00:58 [id number] Salvador Veras MD [facility] [address] [facility] [place] [address] 04/16/2021 00:00:00 04/16/2021 10:36:59 [id number] Yousuf Brock MD [facility] [place] [address] [place] [address] 05/08/2021 00:00:00 05/08/2021 11:28:51 [id number] Yousuf Brock MD [facility] [place] [address] [facility] [address] [place] [address] 06/05/2021 00:00:00 06/05/2021 12:45:14 [id number] Salvador Veras MD [facility] [address] [place] [address] 07/09/2021 00:00:00 07/09/2021 10:16:33 [id number] Yousuf Brock MD [facility] [place] [address] [place] [address] 07/17/2021 00:00:00 07/17/2021 15:24:27 [id number] Salvador Veras MD [facility] [address] [place] [address] 10/09/2021 00:00:00 10/09/2021 11:10:29 [id number] Salvador Veras MD [facility] [address] [place] [address] 10/15/2021 00:00:00 10/15/2021 12:49:00 [id number] Salvador Veras MD [facility] [address] [place] [address] 11/01/2021 00:00:00 11/01/2021 12:52:01 [id number] Salvador Veras MD [facility] [address] [place] [address] 12/13/2021 00:00:00 12/13/2021 16:44:53 [id number] Salvador Veras MD [facility] [address] [place] [address] 12/17/2021 00:00:00 12/17/2021 14:00:59 [id number] Salvador Veras MD [facility] [address] [place] [address] 01/02/2022 00:00:00 01/02/2022 11:23:31 [id number] Salvador Veras MD [address] [address] 01/29/2022 00:00:00 01/29/2022 11:40:37 [id number] Salvador Veras MD [address] [address] 03/04/2022 00:00:00 03/04/2022 14:39:25 [id number] Salvador Veras MD [address] [address] 03/12/2022 00:00:00 03/12/2022 09:30:40 [id number] Salvador Veras MD [address] [address] 06/12/2022 12:09:01 06/12/2022 12:42:12 Chronic insomnia 209875720 F51.04 Type 2 augusta betes mellitus without complication 306616687 E11.9 Gouty arthropathy 926874 008 M10.09 Hyperlipidemia 97175808 E78.5 Pain in ri ght lower limb 361230006 M79.604 Obesity 213828874 E66.9 Pain of bi lateral knee joints 6470495460 85981 M25.561 [id number] Salvador Veras MD [address] [address] 07/30/2022 14:15:43 07/30/2022 14:47:32 Chronic insomnia 175169762 F51.04 Type 2 augusta betes mellitus without complication 186809128 E11.9 Gouty arthropathy 167417 008 M10.09 Hyperlipidemia 89901360 E78.5 Pain of bi lateral knee joints 2772862402 25604 M25.561 Pain in ri ght lower limb 765556030 M79.604 Obesity 464889510 E66.9 Screening mammography 24 096048 Z12.31 [id number] Salvador Veras MD [address] [address] 09/03/2022 09:14:17 09/03/2022 09:57:30 Type 2 diabetes mellitus without complication 287088324 E11.9 Hyperlipidemia 89985582 E78.5 Obesity 459581820 E66.9 [id number] Salvador Veras MD [address] [address] 10/08/2022 09:44:47 10/08/2022 10:07:28 Obesity 316131406 E66.9 Gouty arthropathy 470605 008 M10.09 [id number] Salvador Veras MD [address] [address] 11/13/2022 10:19:19 11/13/2022 10:56:31 Gouty arthropathy 486385167 M10.09 Obesity 831429455 E66.9 Type 2 augusta betes mellitus without complication 480627918 E11.9 Administra tion of influenza vaccine 71860314 Z23 [id number] Salvador Veras MD [address] [address] 01/01/2023 09:10:29 01/01/2023 09:56:58 Type 2 diabetes mellitus without complication 074461973 E11.9 Gouty arthropathy 753571 008 M10.09 Obesity 525631574 E66.9 Adult [facility] th examination 469076691 Z00.00 Screening for disorder 486310817 Z13.9 [id number] Salvador Veras MD [address] [address] 01/27/2023 10:27:57 01/27/2023 11:03:00 Type 2 diabetes mellitus without complication 198259720 E11.9 Gouty arthropathy 371635 008 M10.09 Obesity 290907590 E66.9 Hyperlipidemia 02443065 E78.5 Chronic insomnia 1693468 04 F51.04 [id number] Salvador Veras MD [address] [address] 04/17/2023 12:35:59 04/17/2023 12:58:55 Type 2 diabetes mellitus without complication 976774232 E11.9 Hyperlipidemia 81177956 E78.5 Gouty arthropathy 395668 008 M10.09 Chronic insomnia 2530274 04 F51.04 Obesity 763573730 E66.9 Seasonal a llergic rhinitis 424194320 J30.2 Screening for osteoporosis 101178245 Z13.820 Postmenopa usal osteoporosis 358026080 M81.0 [id number] Salvador Veras MD [address] [address] 05/29/2023 10:03:03 05/29/2023 11:09:14 Acute bacterial sinusitis 98482711 J01.90 Eczema 72603705 L30.9 Dysfunctio n of eustachian tube 47237391 H69.93 [id number] Salvador Veras MD [address] [address] 06/12/2023 10:16:33 06/12/2023 10:41:46 Gouty arthropathy 737383570 M10.09 Hyperlipidemia 69270269 E78.5 Type 2 augusta betes mellitus without complication 611895192 E11.9 Chronic insomnia 1256307 04 F51.04 Obesity 485202871 E66.9 Seasonal a llergic rhinitis 674121767 J30.2 [id number] Salvador Veras MD [address] [address] 09/02/2023 08:32:41 09/02/2023 10:02:37 [id number] Salvador Veras MD [address] [address] 09/04/2023 11:15:38 09/04/2023 11:57:19 Chronic insomnia 526157676 F51.04 Hyperlipidemia 27485121 E78.5 Gouty arthropathy 214968 008 M10.09 Type 2 augusta betes mellitus without complication 082785288 E11.9 Obesity 512542144 E66.9 Seasonal a llergic rhinitis 258337105 J30.2 Chronic low back pain 27 9034382 M54.50 Low back strain 55247078 1 S39.012A [id number] Salvador Veras MD [address] [address] 11/06/2023 10:05:42 11/06/2023 10:44:33 Low back strain 849772427 S39.012A Type 2 augusta betes mellitus without complication 280466143 E11.9 Chronic insomnia 0370617 04 F51.04 Hyperlipidemia 27335982 E78.5 Gouty arthropathy 492211 008 M10.09 Obesity 569867979 E66.9 Seasonal a llergic rhinitis 331580541 J30.2 Chronic low back pain 27 9680707 M54.50 Osteoporosis 65585877 M8 1.0 Pruritic rash 37144575 L 28.2 [id number] Salvador Veras MD [address] [address] 01/06/2024 09:45:59 01/06/2024 10:31:36 Osteoporosis 09053081 M81.0 Type 2 augusta betes mellitus without complication 769143051 E11.9 Chronic insomnia 2573913 04 F51.04 Hyperlipidemia 71289211 E78.5 Gouty arthropathy 734059 008 M10.09 Obesity 983432822 E66.9 Seasonal a llergic rhinitis 703331222 J30.2 Chronic low back pain 27 1376363 M54.50 [id number] Salvador Veras MD [address] [address] 01/21/2024 09:53:35 01/21/2024 10:30:24 Type 2 diabetes mellitus without complication 250484770 E11.9 Osteoporosis 10937267 M8 1.0 Chronic insomnia 6290012 04 F51.04 Hyperlipidemia 42250157 E78.5 Gouty arthropathy 366141 008 M10.09 Chronic low back pain 27 2674421 M54.50 Obesity 552748952 E66.9 Seasonal a llergic rhinitis 187825137 J30.2 Administra tion of influenza vaccine 80343319 Z23 Vitamin B1 2 deficiency (non anemic) 28430356 E53.8 Vitamin D deficiency 347 27772 E55.9 [id number] Salvador Veras MD [place] [address] 01/29/2024 10:14:57 01/29/2024 10:28:18 Vitamin B12 deficiency (non anemic) 04361567 E53.8 [id number] Salvador Veras MD [place] [address] 1 04/22/2024 09:52:46 04/22/2024 10:29:23 Chronic insomnia 259752769 F51.04 Hyperlipidemia 31873727 E78.5 Type 2 augusta betes mellitus without complication 335294637 E11.9 Osteoporosis 98522784 M8 1.0 Gouty arthropathy 129264 008 M10.09 Chronic low back pain 27 8504283 M54.50 Obesity 124315880 E66.9 Seasonal a llergic rhinitis 073529150 J30.2 Vitamin B1 2 deficiency (non anemic) 89726885 E53.8 Vitamin D deficiency 347 18796 E55.9 [id number] Salvador Veras MD [address] [address] 05/26/2024 09:46:51 05/26/2024 10:43:47 Diarrhea 75367050 R19.7 Viral gastroenteritis 11 9342125 A08.4 Improved Sinusitis 43889133 J32.9 Seasonal a llergic rhinitis 544091777 J30.2 [id number] Salvador Veras MD [address] [address] 06/23/2024 08:27:18 06/23/2024 08:30:10 [id number] Salvador Veras MD [facility] [address] [address] 06/24/2024 10:14:37 06/24/2024 10:43:59 Hyperlipidemia 05826508 E78.5 Type 2 augusta betes mellitus without complication 960797009 E11.9 Chronic insomnia 2424157 04 F51.04 Osteoporosis 19054367 M8 1.0 Gouty arthropathy 547791 008 M10.09 Chronic low back pain 27 5080718 M54.50 Obesity 918656912 E66.9 Seasonal a llergic rhinitis 080400049 J30.2 Vitamin D deficiency 347 73125 E55.9 Vitamin B1 2 deficiency (non anemic) 69398188 E53.8 [id number] Kirsten Ferguson NP [facility] [address] [address] 08/31/2024 11:14:45 08/31/2024 11:56:33 Acute vomiting 94789115 R11.10 Acute constipation 14976 9006 K59.00 Diverticulitis 411482676 K57.92 ER gave her augmentin for diverticul itis and she may have had a reaction, will order cipro and flagyl and can start meds as soon as constipati on is resolved Health Concerns Section Related Observation LastModified by Organization Detai ls LastModified Time None Recorded Concern Status LastModified by Organization Details LastModified Time None Recorded Advance Directives Directive N: Payers Insurance Date Sequence Insurance Name Policy Number Policy Avalos Covered Member ID Avalos Member ID Guarantor Name 08/30/2024 1 [facility] Kristy L Rausch [id number] Kristy L Rausch 08/30/2024 2 [place] WHEN [place]ARE OR MEDICARE REPLACEMENT PRIMARY) Kristy L Rausch [id number] Kristy L Rausch 01/29/2024 2 [facility] Kristy L Rausch [id number] Kristy L Rausch 01/21/2024 2 [facility] (MEDICAID HMO) [id number] Kristy L Rausch [id number] Kristy L Rausch 04/03/2023 2 [facility] (MEDICARE - MEDICAID REPLACEMENT HMO) [id number] Kristy L Rausch [id number] Kristy Rausch 04/03/2023 2 [facility] (MEDICAID HMO) [id number] Kristy Rausch [id number] Kristy Rasuch 04/03/2023 1 [facility] (MEDICAID HMO) [id number] 0003 Kristy Rausch [id number] Kristy Rausch Notes Date Note Type Note [...] this too. Salvador Veras MD [address], [place], [address], [employer] 04/22/2024 10:27:09 05/26/2024 text/html ACV: C/o frontal sinus headache, yellowish drainage, fatigue for last 1 week. Pt also had diarrhea last week and for last 3 days, its better now. No more diarrhea. Pt denies any unusual outside food intake/known sick contact. Salvador Veras MD [address], [place], [address], [employer] 05/26/2024 10:39:35 06/24/2024 text/html Pt is here [...] too. Salvador Veras MD [address], [facility] [address], [place], [address], [employer] 06/24/2024 10:42:41 08/31/2024 text/html Has not been fee ling well since August 5has been to the ER twice, still feeling nauseas Kirsten Ferguson NP [address], [place], [address], [employer] 08/31/2024 12:03:45 OBGyn Episode No OBEpisode recorded.
--- OUTSIDE RECORDS SUMMARY | 2024-09-02 12:41 | XMS_ITS | Encounter Summary ---
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
--- OUTSIDE RECORDS SUMMARY | 2024-09-02 12:41 | XMS_ITS | Data Portability ---
Author Organization [facility] [place] Address [address] [place] [address] Care Team Providers Care Fish Trapper Name Role Phone AALIYAH PRABHAKAR Primary Care Provider Unavailabl e Assessment No assessment recorded. Plan of Treatment Reminders Order Date Submit Date Provider Last Modified By Organization Details Last Modified Time Details Appointments None recorded. Lab urinalysis, dipstick 2017 018 [email or web address] In-Office Order, Internal Use Only DO Not Attach Compendium DO Not Attach Compendium, Do Not Delete/merge, [id number] 8 09:14:59 Referral orthopedic referral - Please call patient to schedule, Thank you 2017 018 JAVIER Ruiz MD (Orthopedics) , [address], [place], [address], 8 17:27:47 Procedures None recorded. Surgeries None recorded. Imaging XR, kidney + ureter + bladder 2017 018 snorthcut t1 [facility] ([facility]) Scheduling, [address] [place], [address], 8 09:45:10 XR, knee, 3 view 2017 018 [email or web address] Not available 8 09:14:31 Medication Orders ketorolac 10 mg tablet 2017 018 [email or web address] [facility], [address], [place], [address], 8 09:14:59 meloxicam 15 mg tablet 2017 018 [place] [address] [place], [address], 8 09:11:59 triamcinolo ne acetonide 0.025 % topical cream 2017 018 [place] [address] [place], [address], 8 17:05:53 benzonatate 100 mg capsule 2017 018 [place] [address], [place], [address], 8 17:05:35 amoxicillin 500 mg tablet 2017 018 [place] [address] [place], [address], 8 17:05:31 naproxen 500 mg tablet 2017 018 [place] [address], [place], [address], 8 16:03:58 Patient TargetsNo targets recorded. Patient Instructions Encounter Date Encounter Id Patient Instructions Last Modified By Organization Details Last Modified Time 03/20/2017 [id number] advised to quit smoking [email or web address] Not available 03/20/2017 09:47:49 gastroesophageal reflux disease (GERD): care instructions [email or web address] Not available 03/20/2017 09:47:49 ganglions: care instructions [email or web address] Not available 03/20/2017 09:47:49 04/14/2017 [id number] knee pain or inj ury: care instructions [...] 07/30/1907/29/2017 urina lysis , dipst ick Specific [place] 1.030 Not Available In-Off ice Order Internal Use Only DO Not Attach Compendium DO Not Attach Compendium, Do Not Delete/merge, 07/29/2017 08:59:52 07/30/19 18 07/29/2017 urina lysis , dipst ick Ketone Negati ve Not Available In-Office Order Internal Use Only DO Not Attach Compendium DO Not Attach Compendium, Do Not Delete/merge, [id number] 07/29/2017 08:59:52 07/30/19 18 07/29/2017 urina lysis , dipst ick Bilirubin Negati ve Not Available In-Office Order Internal Use Only DO Not Attach Compendium DO Not Attach Compendium, Do Not Delete/merge, [id number] 07/29/2017 08:59:52 07/30/19 18 07/29/2017 urina lysis , dipst ick Glucose Negati ve Not Available In-Office Order Internal Use Only DO Not Attach Compendium DO Not Attach Compendium, Do Not Delete/merge, [id number] 07/29/2017 08:59:52 07/30/19 18 07/29/2017 urina lysis , dipst ick Appearance Slight ly Cloudy Not Available In-Office Order Internal Use Only DO Not Attach Compendium DO Not Attach Compendium, Do Not Delete/merge, [id number] 07/29/2017 08:59:52 07/30/19 18 07/29/2017 urina lysis , dipst ick Color Yellow Not Available In-Office Order Internal Use Only DO Not Attach Compendium DO Not Attach Compendium, Do Not Delete/merge, [id number] 07/29/2017 08:59:52 08/01/19 18 07/29/2017 XR, abdom en No observ ation record ed. [email or web address] [facility] ([facility] Scheduling [address] [place], [address], 08/01/2017 13:07:29 Result Notes None recorded. Problems No Known Problems Procedures Surgical History Date Name Laterality Status Provider Name and Address Organization Details Recorded Time 7 Back Surgery completed Megan Toure MA [facility] 03/20/2017 09:14:09 9 Tubal Ligation completed Tricia Youngblood [facility] 07/30/19 08:52:24 Appendectomy completed Tricia Youngblood [facility] 08:52:15 Other completed Tricia Youngblood [facility] 018 08:52:41 Imaging Results None recorded. Procedure Notes None recorded. Medical Equipment None Reported. Allergies Allergen ID Allergen Name Allergen Category Reaction Reaction Severity Criticality Documentation Date Start Date Code Code System Note Provider Name and Address Organization Details Recorded Time 252608 Substance with sulfonami de structure and antibacte rial mechanism of action (substanc e) medicatio n rash moderate Not available 03/20/2017 98671 8003 SNOMED Aaliyah Prabhakar PA-C Attn: Stephenie g,[address] [facility], [place], [address], [place] [facility] 8 09:37:11 482014 morphine medicatio n vomiting Not available Not available 03/20/2017 7052 RxNorm DYAN [place], [place] - [facility] 8 09:02:44 Medications Name Sig [...] Updated DateTime 8 162.56 cm 33.5 kg/m2 13178.9 5 g 94 /min 14 /min 98.2 [degF] 96 % 96 % 128/72 mm[Hg] Megan hammond MA [facility] 8 09:16:14 Date Recorded Body height Body mass index (BMI) Body weight Heart rate Respiratory rate Body temperature Oxygen saturation Oxygen saturation in Arterial blood by Pulse oximetry Systolic And Diastolic Provider Name and Address Organization Details Last Updated DateTime 8 162.56 cm 34.1 kg/m2 43455.0 9 g 94 /min 12 /min 98.1 [degF] 98 % 98 % 118/74 mm[Hg] ASHANTI Rivera [facility] 8 15:46:39 Date Recorded Body height Body mass index (BMI) Body weight Heart rate Respiratory rate Body temperature Oxygen saturation Oxygen saturation in Arterial blood by Pulse oximetry Systolic And Diastolic Provider Name and Address Organization Details Last Updated DateTime 8 162.56 cm 33.4 kg/m2 86715.3 6 g 92 /min 12 /min 98.1 [degF] 98 % 98 % 112/76 mm[Hg] Tricia Youngblood [facility] 8 08:53:43 Social History Question Answer Notes LastModified by Organizat ion Details LastModified Time Tobacco Smoking Status Current Every Day Smoker DYAN Acuna [facility] 03/20/2017 09:04:06 What Is Your Level Of [...] not available 03/20/2017 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 Obstetrics History GPAL:G 0 P 0 0 0 0 Past Encounters Encounter ID Performer Location Encounter Start Date Encounter Closed Date Diagnosis/Indication Diagnosis SNOMED-CT Code Diagnosis ICD10 Code Diagnosis Note [id number] MD Jordin Stinson (Adult Med) [address] [place] [address] 03/20/2017 08:53:55 03/21/2017 14:19:32 Acute maxillary sinusitis 00251269 J01.00 sxs present for 4 days, not improving w/ OTC meds. treat w/ abx, drink plenty of fluids, cont OTC meds as long as it doesn't contain expectoran t as that will exacerbate cough. Cough 34032054 R05 Try tessalon perles to see if it works better than robitussin since she is starting to have nausea/vom iting with bronchospa sms. Avoid expectoran ts as cough is due to postnasal drainage. Tobacco user 384287209 Z 72.0 will continue to discuss at 4 week f/u and medication s/patches. Bereavement 91712581 Z63 .4 still struggling w/ sudden loss of her dad. for now she defers counseling and medication s. close f/u in 4 weeks. Ganglion cyst 99869712 M 67.40 reviewed options w/ patient. Can try NSAIDs and wrist brace since pain is more with flexion, but if not improving, recommend ortho referral for either excision or aspiration . Gastroesop hageal reflux disease without esophagitis 210464689 K21.9 not well controlled , reviewed diet modificati ons and weight loss. cont nutrisyste m. Reduce caffeine intake, change Tums to OTC zantac or Prilosec as needed. Body mass index 30+ - obesity 661760393 Z68.33 started Nutrisyste m diet, working on weight loss before her wedding in April. Pruritic rash 15766659 L 28.2 dwp that transfusio n reaction usually doesn't last beyond the immediate day or so following transfusio n. Rash appears more like eczema and has flared w/ recent URI sxs. try steroid cream. will re-evaluat e in 4 weeks. [id number] MD Jordin Stinson (Adult Med) [address] [place] [address] 04/14/2017 15:36:05 04/15/2017 14:32:31 Pain in left knee 9231634082 97441 M25.562 pain s/p traumatic slip w/o fall. patient instructed to call ortho to see if they can see her urgently, if not she may need to go to ER. discussed R.I.C.E. and using crutches to limit weight bearing on her left knee. Discussed possible bursitis [id number] MD Jordin Stinson (Adult Med) [address] [place] [address] 07/29/2017 08:44:08 07/29/2017 09:45:09 Dysuria 83223646 R30.0 negative UA, no infection Right flank pain 5378009 09 R10.9 h/o right sided kidney stone, not sure if she passed it last year, will get records from [facility] in [place]. UA negative for gross or microscopi c hematuria. Will start toradol, will get KUB and see if stones are visible, if not may need ultrasound or CT abd/pelvis w/o contracts. h/o chronic back pain w/ surgical repair to L-spine. Pain in left knee 130204 5439 98233 M25.562 saw ortho, rec'd steroid injection. Still having some knee pain, they ordered MRI but she hasn't heard back from them since it couldn't be done at [facility]. Health Concerns Section Related Observation LastModified by Organization Detai ls LastModified Time None Recorded Concern Status LastModified by Organization Details LastModified Time None Recorded Advance Directives Directive None Recorded Payers Insurance Date Sequence Insurance Name Policy Number Policy Avalos Covered Member ID Avalos Member ID Guarantor Name 03/13/2018 1 [facility] (MEDICAID HMO) [id number] Kristy Rausch [id number] Kristy Rausch Notes Date Note Type Note [...] wrist. Bump seems bigger. No change in backup engineer or strength. Right handed. 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 Aaliyah Prabhakar PA-C Attn: [address] [place], [address], [place] [facility] 03/20/2017 14:02:13 04/14/2017 text/html left [...] pain. Aaliyah Prabhakar PA-C Attn: [address] [place], [address], [facility] 04/14/2017 17:11:33 07/29/2017 text/html Since last Monda y h/o kidney stones, more frequent urination, some dysuria. right sided flank pain radiating into front, suprapubic pain bilateral. denies any hematuria, fevers or chills. not taking any NSAIDs. [facility] ER visit last year, noted right sided stone. not sure if she passed it. has never seen or had stone analysis done. drinking lots of water. Aaliyah Prabhakar PA-C Attn: [address] [place], [address], [facility] 07/29/2017 15:13:18 OBGyn Episode No OBEpisode recorded.
--- OUTSIDE RECORDS SUMMARY | 2024-09-02 12:41 | XMS_ITS | Clinical Summary ---
Author Organization [facility] Address [address] [place] [address] Care Team Providers Care Marinator Name Role Phone Salvador Veras MD Primary Care Provider [phone] Source Comments [facility],non-owned Affiliates and Associated Physician Practices is amultiple site organization consisting of ambulatory clinics and hospital sitesin [place]. This disclosure is being madepursuant to the Care Everywhere program and may not contain all information available regarding this patient. Last updated 17.[facility] Allergies Active Allergy Reactions Criticality Noted [...] Comments Blood Pressure 105/62 01/07/2022 11:00 AM EDUCATION PROFESSOR Pulse 74 01/07/2022 11:00 AM EDUCATION PROFESSOR Temperature 36.3 C (97.4 F) 01/07/2022 11:00 AM EDUCATION PROFESSOR Respiratory Rate 16 10/21/2019 6:02 PM CDT Oxygen Saturation 97% 01/07/2022 11:00 AM EDUCATION PROFESSOR Inhaled Oxygen Concentration - - Weight 88.5 kg (195 lb) 01/07/2022 11:00 AM EDUCATION PROFESSOR Height 162.6 cm (5' 4) 05/03/2020 2:31 [...] this topic Medical Devices Implanted Type Area Belt Worker Device Identifier Shelf Expiration Date Model / Serial / Lot Lorena Soft Ureteral Stent Implanted:Qty: 1 on 10/21/2019 by Gamaliel Flowers MD at [facility] Stent Left: Ureter 05/11/2024 [id number] / / [id number] Description:Left ureteral st ent Lorena Soft Ureteral Stent Implanted:Qty: 1 on 10/21/2019 by Gamaliel Flowers MD at [facility] Right: Ureter 04/06/2023 [id number] / / [id number] Insurance [facility] Care Teams Marinator Relationship Specialty Start Date End Date Salvador Veras MD [address] [place] [phone] PCP - General Family Medicine 10/21/19
--- OUTSIDE RECORDS SUMMARY | 2024-09-02 12:41 | XMS_ITS | Encounter Summary ---
Author Organization [facility] Address [address] [place] [address] Care Team Providers Care Computer Network Support Specialist Name Role Phone Salvador Veras MD Primary Care Provider [phone] Reason for Visit * Reason Onset Date Comments LABS ONLY 10/19/2019 Encounter Details Date Type Department Care Team (Late st Contact Info) Description 10/19/2019 Telephone [facility] Urology [address] [place] [address] Dorie Plaza, RN LABS ONLY [...] states she had her labs [email or web address] Per chart, pt had requested orders be faxed or [facility], where they were faxed. Only result in Epic is BMP. [facility]oned [facility]. [facility] only performed BMP, so ua, culture, cmp not performed. Phoned pt. Informed her of above. Pt [place] She states we provided her with the location. This commercial lines underwriter did not provide this information. Suggested pt come to [facility] to [facility], as surgery is . Requested pt go to where she had covid test performedand have them fax results today. Fax number provided. She states she will go to [facility] to day for pre op labs. Urine culture results will most likely not be received by us by . Pt to request [facility] fax results to [phone] documented in this encounter Plan of Treatment Not on file documented as of this encounter Visit Diagnoses Not on filedocumented in this encounter Care Teams Computer Network Support Specialist Relationship Specialty Start Date End Date Salvador Veras MD [address] [place] [address] PCP - General Family Medicine 10/21/19 documented as of this encounter
--- OUTSIDE RECORDS SUMMARY | 2024-09-02 12:41 | XMS_ITS | Clinical Summary ---
Author Organization [facility] Address [address] [place] [address] Care Team Providers Care Liquor Grinder Mill Operator Name Role Phone Salvador Veras MD Primary Care Provider Allergies Active Allergy Reactions Criticality Noted Date [...] CDT - 08/23/2024 1:20 AM CDT Emergency [facility] Emergency Room [address] [place] [address] Jhonny Cheng MD Back Pain (Right) Discharge [...] 10:59 PM Narrative 08/22/2024 11:20 PM CDT [facility] [address] [address] EXAMINATION: CT ABD+PEL W CON, 08/22/2024 10:59 [...] Procedure Note Jhoan Jimenez MD - 08/22/2024 [facility] [address] [place] [address] EXAMINATION: CT ABD+PEL W CON, 08/22/2024 10:59 [...] COLOR (U) YELLOW 08/22/2024 10:31 PM CDT [facility] TRANSPARENCY CLEAR 08/22/2024 10:31 PM CDT [facility] SPECIFIC GRAVITY (U) 1.025 1.000 - 1.030 08/22/2024 10:31 PM CDT [facility] U PH 6.0 5.0 - 9.0 08/22/2024 10:31 PM CDT [facility] LEUKOCYTES (U) NEGATIVE NEGATIVE 08/22/2024 10:31 PM CDT [facility] NITRITES NEGATIVE NEGATIVE 08/22/2024 10:31 PM CDT [facility] PROTEIN RANDOM (U) NEGATIVE NEGATIVE 08/22/2024 10:31 PM T [facility] GLUCOSE (U) 3+(A) NEGATIVE 08/22/2024 10:31 PM CDT [facility] KETONES MG/DL (U) NEGATIVE NEGATIVE 08/22/2024 10:31 PM T [facility] BILIRUBIN (U) NEGATIVE NEGATIVE 08/22/2024 10:31 PM CDT [facility] BLOOD (U) TRACE(A) NEGATIVE 08/22/2024 10:31 PM T [facility] WBC/HPF 0-5 0 - 5 /HPF 08/22/2024 10:31 PM CDT [facility] RBC/HPF 0-5 0 - 5 /HPF 08/22/2024 10:31 PM CDT [facility] EPI/HPF RARE /HPF 08/22/2024 10:31 PM CDT [facility] URINE SPECIMEN OBTAINED BY CLEAN CATCH PROCEDURE / Unknown 08/22/2024 9:40 PM CDT us Jhonny Cheng MD URINE ORDERABLES F inal Result [facility] [address] [place] [address], [place] [phone] * (ABNORMAL) COMPREHENSIVE METABOLIC PANEL (08/22/2024 9:21 PM CDT) GLUCOSE 87 70 - 99 MG/DL 08/22/2024 10:03 PM CDT [facility] BUN 16 7 - 18 MG/DL 08/22/2024 10:03 PM T [facility] CREATININE S/P/B 0.85 0.55 - 1.02 MG/DL 08/22/2024 10:03 PM CDT [facility] SODIUM S/P/B 141 136 - 145 MMOL/L 08/22/2024 10:03 PM T [facility] POTASSIUM S/P/B 3.8 3.5 - 5.1 MMOL/L 08/22/2024 10:03 PM T [facility] CHLORIDE S/P/B 104 100 - 108 MMOL/L 08/22/2024 10:03 PM CDT [facility] CO2 28.2 21 - 32 MMOL/L 08/22/2024 10:03 PM T [facility] CALCIUM S/P/B 9.5 8.5 - 10.1 MG/DL 08/22/2024 10:03 PM [facility] BILIRUBIN TOTAL S/P/B 0.7 0.2 - 1.2 MG/DL 08/22/2024 10:03 PM [facility] TOTAL PROTEIN S/P/B 8.0 6.4 - 8.2 G/DL 08/22/2024 10:03 PM [facility] ALBUMIN S/P/B 4.1 3.4 - 5.0 G/DL 08/22/2024 10:03 PM [facility] AST 22 15 - 37 U/L 08/22/2024 10:03 PM [facility] ALT 31 14 - 55 U/L 08/22/2024 10:03 PM [facility] ALKALINE PHOSPHATASE S/P/B 94 50 - 136 U/L 08/22/2024 10:03 PM [facility] ANION GAP 8.8 5 - 15 MMOL/L 08/22/2024 10:03 PM [facility] BUN CREATININE RATIO 18.8 6 - 26 08/22/2024 10:03 PM [facility] A/G RATIO 1.1 1.0 - 2.0 RATIO 08/22/2024 10:03 PM [facility] GFR ESTIMATE 79(L) >90 ML/MIN/1.7 3 M2 08/22/2024 10:03 PM [facility] Comment: NOTE: eGFR is not calculated for patients <18 years of age. This is an estimated GFR calculation using the new CKD EPI creatinine equation without race and so does not require a correction factor for race. This estimated GFR should not be used for calculating drug doses. 08/22/2024 9:21 PM CDT us Jhonny Cheng MD LABORATORY Fi nal Result [facility] [address] [place] [place] [address], [place] [phone] * (ABNORMAL) CBC W/DIFF AUTOMATED (08/22/2024 9:21 PM CDT) WBC 4.62 4.4 - 11.0 x10'3/uL 08/22/2024 9:31 PM CDT [facility] RBC 3.93(L) 4.50 - 5.10 x10'6/uL 08/22/2024 9:31 PM CDT [facility] HGB 12.7 12.3 - 15.3 G/DL 08/22/2024 9:31 PM CDT [facility] HCT 38.3 35.9 - 44.6 % 08/22/2024 9:31 PM CDT [facility] MCV 97.5(H) 80.0 - 96.0 FL 08/22/2024 9:31 PM CDT [facility] MCH 32.3(H) 25.3 - 30.9 PG 08/22/2024 9:31 PM CDT [facility] MCHC 33.2 31.0 - 34.1 G/DL 08/22/2024 9:31 PM CDT [facility] RDW 12.7 12.4 - 15.1 % 08/22/2024 9:31 PM CDT [facility] PLT 181 151 - 353 x10'3/uL 08/22/2024 9:31 PM CDT [facility] MPV 9.4(L) 9.6 - 12.0 FL 08/22/2024 9:31 PM CDT [facility] RBC MORPHOLOGY NORMAL 08/22/2024 9:31 PM CDT [facility] PLT MORPH. NORMAL 08/22/2024 9:31 PM CDT [facility] WBC MORPHOLOGY NORMAL 08/22/2024 9:31 PM CDT [facility] LYMPHOCYTES % 32.0 15.8 - 45.0 % 08/22/2024 9:31 PM CDT [facility] NEUTROPHILS % 54.4 42.1 - 71.9 % 08/22/2024 9:31 PM CDT [facility] MONOCYTES % 10.6 5.7 - 12.5 % 08/22/2024 9:31 PM CDT [facility] EOSINOPHILS 2.6 0.0 - 5.6 % 08/22/2024 9:31 PM CDT [facility] BASOPHILS 0.2 0.0 - 1.3 % 08/22/2024 9:31 PM CDT [facility] ABS. NEUTROPHILS 2.51 1.40 - 6.00 x10'3/uL 08/22/2024 9:31 PM CDT [facility] IMMATURE GRANS % 0.2 0.0 - 0.5 % 08/22/2024 9:31 PM CDT [facility] ABS. LYMPHOCYTES 1.48 0.80 - 4.70 x10'3/uL 08/22/2024 9:31 PM CDT [facility] 08/22/2024 9:21 PM CDT us Jhonny Cheng MD LABORATORY Fi nal Result [facility] [address] [place] [address], * LIPASE (08/22/2024 9:21 PM CDT) LIPASE 26 16 - 77 UNITS/L 08/22/2024 10:03 PM CDT [facility] 08/22/2024 9:21 PM CDT us Jhonny Cheng MD LABORATORY Fi nal Result [facility] [address] [place] [address], [place] [phone] from Last 3 Months Insurance MEDICARE Care Teams Liquor Grinder Mill Operator Relationship Specialty Start Date End Date Salvador Veras MD PCP - General FAMILY PRACTICE 08/15/19
--- OUTSIDE RECORDS SUMMARY | 2024-09-02 12:41 | XMS_ITS | Clinical Summary ---
Author Organization [facility] Address [address] [place] [address] Phone Care Team Providers Care Part Time Name Role Phone Aaliyah Prabhakar Primary Care Provider [phone] Social History Tobacco Use Types Packs/Day Years [...] age to complete this topic Insurance MEDICAID [place] Care Teams Part Time Relationship Specialty Start Date End Date Aaliyah Prabhakar PA [address] [address] PCP - General Adult Medicine 07/29/17
--- OUTSIDE RECORDS SUMMARY | 2024-09-02 12:41 | XMS_ITS | Continuity of Care Document ---
Author Organization [facility] Address [address] [place] [address] [address] [place] [address] Phone Care Team Providers Care Residential Appraiser Name Role Phone Raghu Bruce DO Unavailable Unavailable Advance Directives Directive Yes / No Effective Date File Name No Information Encounters Encounter Description Practice Location Reason(s) For Visit Diagnoses Date Provider Providers Copied on Encounter [facility], [address], [place], [place], [id number], [place] tel:[phone] [facility] No Information Janis Trujillo. [address] [place], [address], [place]. tel: [phone] Family History Family Member Type Diagnosis Age At Onset No Information Payers Payer name Insurance type Covered republican ID Authoriza tion(s) Medicaid ON LICENSE OF [facility] [id number] Social History Type Description Quantity Date Captured [...]
--- OUTSIDE RECORDS SUMMARY | 2024-09-02 13:19 | XMS_ITS | Clinical Summary ---
Author Organization [facility] Address [address] [place] [address] Care Team Providers Care Telephone Engineer Name Role Phone Salvador Veras MD Primary Care Provider [phone] Allergies Active Allergy Reactions Criticality Noted Date [...] CDT - 08/23/2024 1:20 AM CDT Emergency [facility] Emergency Room [address] [place] [address] Jhonny Cheng MD Back Pain (Right) Discharge [...] 10:59 PM Narrative 08/22/2024 11:20 PM CDT [facility] [address] [facility] [place] [address] EXAMINATION: CT ABD+PEL W CON, 08/22/2024 10:59 [...] Procedure Note Jhoan Jimenez MD - 08/22/2024 [facility] [address] [facility] [address] EXAMINATION: CT ABD+PEL W CON, 08/22/2024 10:59 [...] COLOR (U) YELLOW 08/22/2024 10:31 PM CDT [facility] TRANSPARENCY CLEAR 08/22/2024 10:31 PM CDT [facility] SPECIFIC GRAVITY (U) 1.025 1.000 - 1.030 08/22/2024 10:31 PM CDT [facility] U PH 6.0 5.0 - 9.0 08/22/2024 10:31 PM CDT [facility] LEUKOCYTES (U) NEGATIVE NEGATIVE 08/22/2024 10:31 PM CDT [facility] NITRITES NEGATIVE NEGATIVE 08/22/2024 10:31 PM CDT [facility] PROTEIN RANDOM (U) NEGATIVE NEGATIVE 08/22/2024 10:31 PM T [facility] GLUCOSE (U) 3+(A) NEGATIVE 08/22/2024 10:31 PM CDT [facility] KETONES MG/DL (U) NEGATIVE NEGATIVE 08/22/2024 10:31 PM T [facility] BILIRUBIN (U) NEGATIVE NEGATIVE 08/22/2024 10:31 PM CDT [facility] BLOOD (U) TRACE(A) NEGATIVE 08/22/2024 10:31 PM T [facility] WBC/HPF 0-5 0 - 5 /HPF 08/22/2024 10:31 PM CDT [facility] RBC/HPF 0-5 0 - 5 /HPF 08/22/2024 10:31 PM CDT [facility] EPI/HPF RARE /HPF 08/22/2024 10:31 PM CDT [facility] URINE SPECIMEN OBTAINED BY CLEAN CATCH PROCEDURE / Unknown 08/22/2024 9:40 PM CDT us Jhonny Cheng MD URINE ORDERABLES F inal Result [facility] [address] [place] [address], [place] [phone] * (ABNORMAL) COMPREHENSIVE METABOLIC PANEL (08/22/2024 9:21 PM CDT) GLUCOSE 87 70 - 99 MG/DL 08/22/2024 10:03 PM CDT [facility] BUN 16 7 - 18 MG/DL 08/22/2024 10:03 PM T [facility] CREATININE S/P/B 0.85 0.55 - 1.02 MG/DL 08/22/2024 10:03 PM CDT [facility] SODIUM S/P/B 141 136 - 145 MMOL/L 08/22/2024 10:03 PM T [facility] POTASSIUM S/P/B 3.8 3.5 - 5.1 MMOL/L 08/22/2024 10:03 PM T [facility] CHLORIDE S/P/B 104 100 - 108 MMOL/L 08/22/2024 10:03 PM CDT [facility] CO2 28.2 21 - 32 MMOL/L 08/22/2024 10:03 PM T [facility] CALCIUM S/P/B 9.5 8.5 - 10.1 MG/DL 08/22/2024 10:03 PM [facility] BILIRUBIN TOTAL S/P/B 0.7 0.2 - 1.2 MG/DL 08/22/2024 10:03 PM [facility] TOTAL PROTEIN S/P/B 8.0 6.4 - 8.2 G/DL 08/22/2024 10:03 PM [facility] ALBUMIN S/P/B 4.1 3.4 - 5.0 G/DL 08/22/2024 10:03 PM [facility] AST 22 15 - 37 U/L 08/22/2024 10:03 PM [facility] ALT 31 14 - 55 U/L 08/22/2024 10:03 PM [facility] ALKALINE PHOSPHATASE S/P/B 94 50 - 136 U/L 08/22/2024 10:03 PM [facility] ANION GAP 8.8 5 - 15 MMOL/L 08/22/2024 10:03 PM [facility] BUN CREATININE RATIO 18.8 6 - 26 08/22/2024 10:03 PM [facility] A/G RATIO 1.1 1.0 - 2.0 RATIO 08/22/2024 10:03 PM [facility] GFR ESTIMATE 79(L) >90 ML/MIN/1.7 3 M2 08/22/2024 10:03 PM [facility] Comment: NOTE: eGFR is not calculated for patients <18 years of age. This is an estimated GFR calculation using the new CKD EPI creatinine equation without race and so does not require a correction factor for race. This estimated GFR should not be used for calculating drug doses. 08/22/2024 9:21 PM CDT us Jhonny Cheng MD LABORATORY Fi nal Result [facility] [address] [place] [address], [place] [phone] * (ABNORMAL) CBC W/DIFF AUTOMATED (08/22/2024 9:21 PM CDT) WBC 4.62 4.4 - 11.0 x10'3/uL 08/22/2024 9:31 PM CDT [facility] RBC 3.93(L) 4.50 - 5.10 x10'6/uL 08/22/2024 9:31 PM CDT [facility] HGB 12.7 12.3 - 15.3 G/DL 08/22/2024 9:31 PM CDT [facility] HCT 38.3 35.9 - 44.6 % 08/22/2024 9:31 PM CDT [facility] MCV 97.5(H) 80.0 - 96.0 FL 08/22/2024 9:31 PM CDT [facility] MCH 32.3(H) 25.3 - 30.9 PG 08/22/2024 9:31 PM CDT [facility] MCHC 33.2 31.0 - 34.1 G/DL 08/22/2024 9:31 PM CDT [facility] RDW 12.7 12.4 - 15.1 % 08/22/2024 9:31 PM CDT [facility] PLT 181 151 - 353 x10'3/uL 08/22/2024 9:31 PM CDT [facility] MPV 9.4(L) 9.6 - 12.0 FL 08/22/2024 9:31 PM CDT [facility] RBC MORPHOLOGY NORMAL 08/22/2024 9:31 PM CDT [facility] PLT MORPH. NORMAL 08/22/2024 9:31 PM CDT [facility] WBC MORPHOLOGY NORMAL 08/22/2024 9:31 PM CDT [facility] LYMPHOCYTES % 32.0 15.8 - 45.0 % 08/22/2024 9:31 PM CDT [facility] NEUTROPHILS % 54.4 42.1 - 71.9 % 08/22/2024 9:31 PM CDT [facility] MONOCYTES % 10.6 5.7 - 12.5 % 08/22/2024 9:31 PM CDT [facility] EOSINOPHILS 2.6 0.0 - 5.6 % 08/22/2024 9:31 PM CDT [facility] BASOPHILS 0.2 0.0 - 1.3 % 08/22/2024 9:31 PM CDT [facility] ABS. NEUTROPHILS 2.51 1.40 - 6.00 x10'3/uL 08/22/2024 9:31 PM CDT [facility] IMMATURE GRANS % 0.2 0.0 - 0.5 % 08/22/2024 9:31 PM CDT [facility] ABS. LYMPHOCYTES 1.48 0.80 - 4.70 x10'3/uL 08/22/2024 9:31 PM CDT [facility] 08/22/2024 9:21 PM CDT us Jhonny Cheng MD LABORATORY Fi nal Result [facility] [address] [place] [address], * LIPASE (08/22/2024 9:21 PM CDT) LIPASE 26 16 - 77 UNITS/L 08/22/2024 10:03 PM CDT [facility] 08/22/2024 9:21 PM CDT us Jhonny Cheng MD LABORATORY Fi nal Result [facility] [address] [facility] [address], [place] [phone] from Last 3 Months Insurance MEDICARE Care Teams Telephone Engineer Relationship Specialty Start Date End Date Salvador Veras MD PCP - General FAMILY PRACTICE 08/15/19
--- OUTSIDE RECORDS SUMMARY | 2024-09-02 13:19 | XMS_ITS | Continuity of Care Document ---
Author Organization [facility] Address [id number] [place] [address] [address] [place] [address] Phone Care Team Providers Care Film Painter Name Role Phone Raghu Bruce DO Unavailable Unavailable Advance Directives Directive Yes / No Effective Date File Name No Information Encounters Encounter Description Practice Location Reason(s) For Visit Diagnoses Date Provider Providers Copied on Encounter [facility], [address], [place], [place], [id number], [place] tel:[phone] [facility] No Information Janis Trujillo. [address] [place], [address], [place]. tel: [phone] Family History Family Member Type Diagnosis Age At Onset No Information Payers Payer name Insurance type Covered republican ID Authoriza tion(s) Medicaid [facility] [id number] Social History Type Description Quantity Date Captured [...]
--- OUTSIDE RECORDS SUMMARY | 2024-09-02 13:19 | XMS_ITS | Continuity of Care Document ---
Author Organization [facility] Address [address] [facility] [place] [address] Phone Care Team Providers Care Telegraph And Teletype Operator Name Role Phone David Sigala MD Unavailable [...] Diagnoses Date Provider Providers Copied on Encounter [facility], [address] [place], [place], [address], tel:[phone] [facility] No Information Jovon Marshall [address] [place], [address] , [place]. tel:[phone] Referring Provider: David Sigala, [address] [place], [place], [address]. tel:[phone] OFFICE/OUTPAT IENT VISIT, EST [facility], [address] [place], [address], tel:[phone] [facility] insomnia1 (chief complaint)k nee pain1 (chief complaint)c snf pain1 (chief complaint) InsomniaPain in right kneePain in left lower leg Jovon Hernandez. [address], [place], [place], [address] , [place]. tel:[phone] Referring Provider: David Sigala [address], [place], [place], [address]. tel:[phone] PREV VISIT, NEW, AGE 40-64 [facility], [address], [place], [place], [address], [place] tel:[phone] [facility] physical (chief complaint) Encntr for general adult medical exam w/o abnormal findings Jovon Hernandez. [address], [place], [place], [address] , [place]. tel:[phone] Referring Provider: David Sigala, [address] [facility] [address], [place], [place], [address]. tel:[phone] Family History Family Member Type Diagnosis Age At Onset Mother Problem (finding) CVA, renal failure (Cau se Of ) 78 Father Problem (finding) of 87 old age and afib (Cause Of ) Sister Problem (finding) Alive and well Payers Payer name Insurance type Covered republican ID Authoriza tion(s) No Information Social History [...] Paul Le [address] [place], [place], [id number] Ordered: Referrals: Paul Ruiz MD Evaluate and [...]
--- OUTSIDE RECORDS SUMMARY | 2024-09-02 13:19 | XMS_ITS | Clinical Summary ---
Author Organization [facility] Address [address] [place] [address] Phone Care Team Providers Care Washroom Cleaner Name Role Phone Aaliyah Prabhakar Primary Care Provider [phone] Social History Tobacco Use Types Packs/Day Years [...] age to complete this topic Insurance MEDICAID [place] Care Teams Washroom Cleaner Relationship Specialty Start Date End Date Aaliyah Prabhakar PA [address] [address] PCP - General Adult Medicine 07/29/17
--- OUTSIDE RECORDS SUMMARY | 2024-09-02 13:19 | XMS_ITS | Encounter Summary ---
Author Organization [facility] Address [facility] [place] [address] Care Team Providers Care White Work Cleaner Name Role Phone Owen Morin STUNNER ANIMAL Primary Care Provider Unavail able Salvador Veras MD Primary Care Provider [phone] Encounter Details Date Type Department Care Team (Late st Contact Info) Description 05/13/2016 Abstract [facility] CONVERSION [address] [place] [address] , Generic ConversionMD Social History Tobacco Use [...] documented as of this encounter Care Teams White Work Cleaner Relationship Specialty Start Date End Date Owen Morin NP PCP - General 12/23/14 08/14/19 Salvador Veras MD PCP - General FAMILY PRACTICE 08/15/19 documented as of this encounter
--- OUTSIDE RECORDS SUMMARY | 2024-09-02 13:20 | XMS_ITS | Encounter Summary ---
Author Organization [facility] Address [address] [facility] [place] [address] Care Team Providers Care Solid Waste Engineer Name Role Phone Salvador Veras MD Primary Care Provider [phone] Reason for Visit * Reason Onset Date Comments LABS ONLY 10/19/2019 Encounter Details Date Type Department Care Team (Late st Contact Info) Description 10/19/2019 Telephone [facility] Urology [address] [place] [address] Dorie Plaza, RN LABS ONLY [...] states she had her labs performed at [facility]. Per chart, pt had requested orders be faxed or [facility], where they were faxed. Only result in Epic is BMP. [facility]oned [facility]. [facility] only performed BMP, so ua, culture, cmp not performed. Phoned pt. Informed her of above. Pt [place] She states we provided her with the location. This content writer did not provide this information. Suggested pt come to [facility] to have labs performed to [facility], as surgery is . Requested pt go to where she had covid test performedand have them fax results today. Fax number provided. She states she will go to [facility] to day for pre op labs. Urine culture results will most likely not be received by us by . Pt to request [facility] fax results to [phone] documented in this encounter Plan of Treatment Not on file documented as of this encounter Visit Diagnoses Not on filedocumented in this encounter Care Teams Solid Waste Engineer Relationship Specialty Start Date End Date Salvador Veras MD [address] [place] [address] PCP - General Family Medicine 10/21/19 documented as of this encounter
--- OUTSIDE RECORDS SUMMARY | 2024-09-02 13:20 | XMS_ITS | Clinical Summary ---
Author Organization [facility] Address [address] [facility] [place] [address] Care Team Providers Care Bioinformatician Name Role Phone Salvador Veras MD Primary Care Provider Source Comments [facility],non-owned Affiliates and Associated Physician Practices is amultiple site organization consisting of ambulatory clinics and hospital sitesin [place], [place], [place] and [place]. This disclosure is being madepursuant to the Care Everywhere program and may not contain all information available regarding this patient. Last updated 17.[facility] Allergies Active Allergy Reactions Criticality Noted Date [...] Comments Blood Pressure 105/62 01/07/2022 11:00 AM DROSS SKIMMER Pulse 74 01/07/2022 11:00 AM DROSS SKIMMER Temperature 36.3 C (97.4 F) 01/07/2022 11:00 AM DROSS SKIMMER Respiratory Rate 16 10/21/2019 6:02 PM CDT Oxygen Saturation 97% 01/07/2022 11:00 AM DROSS SKIMMER Inhaled Oxygen Concentration - - Weight 88.5 kg (195 lb) 01/07/2022 11:00 AM DROSS SKIMMER Height 162.6 cm (5' 4) 05/03/2020 2:31 [...] this topic Medical Devices Implanted Type Area Garment Cutter Device Identifier Shelf Expiration Date Model / Serial / Lot Lorena Soft Ureteral Stent Implanted:Qty: 1 on 10/21/2019 by Gamaliel Flowers MD at [facility] Stent Left: Ureter 05/11/2024 [id number] / / [id number] Description:Left ureteral st ent Lorena Soft Ureteral Stent Implanted:Qty: 1 on 10/21/2019 by Gamaliel Flowers MD at [facility] Right: Ureter 04/06/2023 [id number] / / [id number] [facility] Care Teams Bioinformatician Relationship Specialty Start Date End Date Salvador Veras MD [address] [place] [id number] PCP - General Family Medicine 10/21/19
[2024-09-02 14:10] LABS: Hematocrit 39.2 % (37.0-47.0); Hemoglobin 13.2 g/dL (12.0-15.0); Immature Granulocyte Percent A 0.3 % (0-0.5); Lymphocytes Absolute Auto 1.38 K/mm3 (0.9-3.2); Mean Corpuscular HGB Conc 33.7 g/dl (32-36); Mean Corpuscular Hemoglobin 31.9 pg (26-34); Mean Corpuscular Volume 94.7 fl (80-100); Nucleated Red Blood Cells Absolute Auto 0.000 K/mm3 (0.0-0.012); Nucleated Red Blood Cells Perc 0.0 % (0.0-0.2); Platelet Count Result 253 k/mm3 (150-375); Red Blood Count 4.14 M/mm3 (4.2-5.4); White Blood Count 10.1 K/mm3 (4.5-10.0)
[2024-09-02] MEDS: SODIUM CHLORIDE 0.9% IV 1,000 ML 999 ML IV CONT (14:12)
[2024-09-02 14:31] LABS: Alanine Aminotransferase 13 U/L (6-35); Albumin Level 4.3 g/dL (3.5-5.1); Alkaline Phosphatase 125 U/L (38-126); Anion Gap 14 mmol/L (4-12); Aspartate Amino Transferase 24 U/L (14-36); Bilirubin,Total 0.7 mg/dL (0.2-1.3); Blood Urea Nitrogen 13 mg/dL (7-17); Calcium 9.6 mg/dL (8.4-10.2); Carbon Dioxide 22 mmol/L (22-30); Chloride 100 mmol/L (98-107); Estimated CRCL calculation 65 ml/min; Estimated Glomerular Filt Rate > 60; Glucose 127 mg/dL (65-110); Lipase 28 U/L (23-300); Magnesium 2.3 mg/dL (1.6-2.3); Potassium 3.8 mmol/L (3.4-5.0); Sodium 136 mmol/L (137-145); Total Protein 8.5 g/dL (6.3-8.2)
--- NOTE | 2024-09-02 15:50 | ED.GENADULT ---
HPI - General Adult General Chief complaint: Abdominal Pain Stated complaint: abdominal pain Time Seen by Provider: 09/02/24 13:09 History of Present Illness HPI narrative: Patient is a 58-year-old female who presents emergency department with chief complaint of abdominal pain the patient reports she was diagnosed with diverticulosis and also had a nonobstructing kidney stone patient states that she has had no improvement and reports that she has had some constipation as well patient reports no fever reports that her abdomen feels uncomfortable Related Data Home Medications ?Medication ?Instructions ?Recorded ?Confirmed ?Last Taken ?Type allopurinol 100 mg tablet 100 mg PO DAILY 04/05/21 03/05/23 03/17/22 History atorvastatin 20 mg tablet 20 mg PO DAILY 04/05/21 03/05/23 03/17/22 History empagliflozin 10 mg tablet 25 mg PO DAILY 04/05/21 03/05/23 03/17/22 History (Jardiance) ascorbate calcium (vitamin C) 500 500 mg PO DAILY 05/03/21 03/05/23 03/13/22 History mg tablet cholecalciferol (vitamin D3) 10 10 mcg PO DAILY 05/03/21 03/05/23 03/13/22 History mcg (400 unit) capsule calcium carbonate (Tums) 200 mg PO PRN PRN Heartburn 03/07/22 03/05/23 03/13/22 History semaglutide 3 mg tablet (Rybelsus) 3 mg PO DAILY 03/07/22 03/05/23 03/17/22 History Allergies Allergy/AdvReac Type Severity Reaction Status Date / Time phentermine Allergy Intermediate Rash Verified 08/27/24 21:07 metformin Allergy Mild Rash Verified 08/27/24 21:07 Sulfa (Sulfonamide Allergy Mild Rash Verified 08/27/24 21:07 Antibiotics) morphine AdvReac Unknown Nausea and Verified 08/27/24 21:07 Vomiting Review of Systems Review of Systems: A 10 system review of systems was completed on the patient and is negative except for what is stated in the HPI. Nursing and ancillary documentation was reviewed. [facility] Past Medical History Medical History Screening mammogram, encounter for Degenerative arthritis of knee, bilateral Fingers fractured Diabetes Sleep disorder cannot sleep at night Gout Anemia Depression Anxiety Surgical History Surgical History S/P total knee arthroplasty Left knee 03/18/2022 Hx of cholecystectomy History of tubal ligation 1998 History of appendectomy 1969 History of lithotripsy extracorporeal shockwave lithotripsy (ESWL) History of back surgery [id number] History of elbow surgery 06/01/15 repair elbow w/ renae open Family History Family History Father Heart disease Mother Cancer Diabetes mellitus Hypertension Cerebrovascular accident Social History Social History Social History: The patient is and has 2 children. She currently works at [employer]. No alcohol according to her daughter. The patient is a former smoker. Code status full code Smoking packs per day: 0.25 Smoking cigarettes per day: 5.0 Years smoked: 20 Smoking pack-years: 5.00 Smoking status: Former smoker Tobacco type: cigarettes Smoking end date: 02/17/17 Alcohol intake: current Alcohol use details: ONE DRINK PER MONTH Substance use: never Substance use type: does not use Do You Feel Safe in your Home?: Yes Lack of Transportation: No Lack of Food: Never True Current Housing: I Have Housing Concerned About Future Housing: No Difficulty Paying Gas/Electric Bills: No Difficulty Paying for Meds: No Currently Unemployed: No Education: Trade/Vocational Certificate Difficulty w/ Childcare or Family Care: No Living arrangements: alone Additional living arrangements comments: daughter Occupation/Education: occupation Additional occupation/education comments: [employer] Gender identity (if verbalized by the patient): Female Sexual Orientation (if Verbalized by the Patient): Straight or Heterosexual Spiritual care concerns: No Exam Narrative: GENERAL: Well-appearing, well-nourished, and in no acute distress. HEAD: Normocephalic, atraumatic. EYES: PERRLA and EOMI. ENT: Nares clear, no rhinorrhea or epistaxis. Mucous membranes moist. NECK: Supple. CHEST: Clear to auscultation. No respiratory distress. HEART: Regular rate and rhythm. No murmur heard. Normal peripheral pulses. ABDOMEN: Soft, nontender, nondistended, normal active bowel sounds. EXTREMITIES: Normal range of motion. No edema. SKIN: Warm, dry, no rash. NEURO: No focal deficits. Alert and oriented x3. PSYCH: Normal mood and affect. Course Vital Signs Vital signs: Vital Signs Temperature 36.6 C 09/02/24 13:14 Pulse Rate 91 09/02/24 13:14 Respiratory Rate 16 09/02/24 13:14 Blood Pressure 114/70 09/02/24 13:14 Pulse Oximetry 100 09/02/24 13:14 Oxygen Delivery Room Air 09/02/24 13:14 Temperature 36.6 C 09/02/24 13:14 Pulse Rate 91 09/02/24 13:14 Respiratory Rate 16 09/02/24 13:14 Blood Pressure 114/70 09/02/24 13:14 Pulse Oximetry 100 09/02/24 13:14 Oxygen Delivery Room Air 09/02/24 13:14 Medical Decision Making MDM Narrative Medical decision making narrative: Differential diagnosis includes intra-abdominal infection, diverticulitis, colitis Laboratory studies were obtained which showed white count of 10.1 electrolytes are within normal limits urinalysis showed no evidence UTI CT scan of the abdomen pelvis showed evidence of diverticulitis/colitis The case was discussed with the hospitalist will receive further care in the inpatient setting Vital Signs Vital Signs: Vital Signs Temperature 36.6 C 09/02/24 13:14 Pulse Rate 91 09/02/24 13:14 Respiratory Rate 16 09/02/24 13:14 Blood Pressure 114/70 09/02/24 13:14 Pulse Oximetry 100 09/02/24 13:14 Oxygen Delivery Room Air 09/02/24 13:14 Temperature 36.6 C 09/02/24 13:14 Pulse Rate 91 09/02/24 13:14 Respiratory Rate 16 09/02/24 13:14 Blood Pressure 114/70 09/02/24 13:14 Pulse Oximetry 100 09/02/24 13:14 Oxygen Delivery Room Air 09/02/24 13:14 Lab Data 09/02/24 13:52 09/02/24 13:52 Labs: Lab Results 09/02/24 09/02/24 Range/Units 13:52 15:35 WBC 10.1 H (4.5-10.0) K/mm3 RBC 4.14 L (4.2-5.4) M/mm3 Hgb 13.2 (12.0-15.0) g/dL Hct 39.2 (37.0-47.0) % MCV 94.7 (80-100) fl MCH 31.9 (26-34) pg MCHC 33.7 (32-36) g/dl RDW 12.6 (11.5-14.5) % Plt Count 253 (150-375) k/mm3 MPV 9.7 (7.4-10.4) fl Immature Gran % (Auto) 0.3 (0-0.5) % Neut % (Auto) 77.0 H (45.5-73.1) % Lymph % (Auto) 13.6 L (18.3-44.2) % [place] % (Auto) 7.5 (2.6-8.5) % Eos % (Auto) 1.3 (0-4.4) % Baso % (Auto) 0.3 (0.2-1.2) % Lymph # (Auto) 1.38 (0.9-3.2) K/mm3 [place] # (Auto) 0.8 H (0.1-0.6) K/mm3 Eos # (Auto) 0.1 (0-0.3) K/mm3 Baso # (Auto) 0.0 (0.0-0.1) K/mm3 Abs Immat Gran (auto) 0.03 (0.00-0.031) K/mm3 Absolute Neuts (auto) 7.8 H (1.3-6.7) K/mm3 Absolute Nucleated RBC 0.000 (0.0-0.012) K/mm3 Nucleated RBC % 0.0 (0.0-0.2) % Sodium 136 L (137-145) mmol/L Potassium 3.8 (3.4-5.0) mmol/L Chloride 100 (98-107) mmol/L Carbon Dioxide 22 (22-30) mmol/L Anion Gap 14 H (4-12) mmol/L BUN 13 (7-17) mg/dL Creatinine 0.83 (0.7-1.0) mg/dL Estim Creat Clear Calc 65 ml/min Estimated GFR > 60 (59 - ) Glucose 127 H (65-110) mg/dL Lactic Acid 1.0 (0.7-2.0) mmol/L Calcium 9.6 (8.4-10.2) mg/dL Magnesium 2.3 (1.6-2.3) mg/dL Total Bilirubin 0.7 (0.2-1.3) mg/dL AST 24 (14-36) U/L ALT 13 (6-35) U/L Alkaline Phosphatase 125 (38-126) U/L Total Protein 8.5 H (6.3-8.2) g/dL Albumin 4.3 (3.5-5.1) g/dL Lipase 28 (23-300) U/L Urine Color Yellow (Yellow) Urine Appearance Clear (Clear) Urine pH 6.5 (5.0-9.0) Ur Specific [place] > 1.045 H (1.001-1.035) Urine Protein Trace (Negative) mg/dL Urine Glucose (UA) 3+ H (Negative) mg/dL Urine Ketones Trace H (Negative) mg/dL Ur Blood (Man) Negative (Negative) Urine Nitrate Negative (Negative) Urine Bilirubin Negative (Negative) Urine Urobilinogen 1.0 (<2.0) mg/dL Add Ur Microanalysis Reviewed Leukocyte Esterase Rfl Negative (Negative) LAURA/UL Urine RBC 0-2 (0-2) /hpf Urine WBC 6-10 H (0-3) /hpf Ur Squamous Epith Cells Few (Few) /hpf Urine Bacteria 2+ H /hpf Urine Casts 0-2 Discharge Plan Discharge Clinical Impression: Abdominal pain, Diverticulitis Patient Disposition: Still a Patient Condition: Stable Instructions: Antibiotic Form Patient Language: Kazakh Prescriptions: No Action allopurinol 100 mg tablet 100 mg PO DAILY Jardiance 10 mg tablet 25 mg PO DAILY Patient Comments: TAKES 25MG DAILY atorvastatin 20 mg tablet 20 mg PO DAILY Patient Comments: TAKES 40 MG AT HS ascorbate calcium (vitamin C) 500 mg tablet 500 mg PO DAILY cholecalciferol (vitamin D3) 10 mcg (400 unit) capsule 10 mcg PO DAILY Rybelsus 3 mg tablet 3 mg PO DAILY calcium carbonate [Tums] 200 mg calcium (500 mg) Tablet,Chewable 200 mg PO PRN PRN (Reason: Heartburn) ibuprofen 800 mg tablet 800 mg PO Q6H PRN (Reason: pain) Qty: 30 0RF Patient Comments: TAKES 400MG PRN FOR PAIN amoxicillin-pot clavulanate 875-125 mg tablet 1 tablet PO Q12H 10 Days Qty: 20 0RF ondansetron 4 mg tablet,disintegrating 4 mg PO Q8H PRN (Reason: nausea and vomiting) Qty: 14 0RF hydrocodone-acetaminophen 5-325 mg tablet 1 tablet PO Q6H PRN (Reason: pain) Qty: 10 0RF Follow-up/Referrals: Rito,MD Salvador [Primary Care Provider] - Time of Disposition: 16:54
[2024-09-02 16:09] LABS: Add Urine Microscopic? YES; Appearance Urine Clear (Clear); Glucose Urine UA 3+ mg/dL (Negative); Leukocyte Esterase Ur Negative LEU/UL (Negative); Need Manual Microscopic Reviewed; Nitrate Urine Negative (Negative); Non Pathogenic Casts 0-2; Specific Grav Ur > 1.045 (1.001-1.035)
[2024-09-02] MEDS: cefTRIAXone 1 GM in SODIUM CHLORIDE 0.9% IV 50 ML 100 ML IVPB (16:45)
[2024-09-02] MEDS: metroNIDAZOLE 500 MG/ISO 100ML 500 MG/100 ML BAG 100 MG IVPB ×2 (16:46→23:00)
[2024-09-02] MEDS: HYDROmorphone HCL INJ (*CRX) 2 MG/ML VIAL 1 MG IV PUSH (17:19)
--- NOTE | 2024-09-02 19:22 | ADMGEN ---
This patient, Kristy Rausch, was admitted to [facility] Surg Room 319-01. Patient/family oriented to hospital policies and general routines including ID bracelet, bed and alarms, visiting hours, pain management, procedures, bathroom and other care routines, personal items, smoking policy, room service/diet, and visiting hours. Information on how to activate the Rapid Response Team has been discussed. Patient/Family are encouraged to report perceived risks to care and to ask questions if they do not understand what they are told or what they should do.
--- NOTE | 2024-09-02 23:23 | PM.IMHP ---
H&P: HPI History of Present Illness Date/Time: 09/02/24 23:23 Chief Complaint: Abdominal pain Narrative: 58-year-old female with a history of wgp-rjmciyb-ulkyfcruz diabetes, gout, anemia, depression and anxiety who presents with abdominal pain for over a month now. She was diagnosed with diverticulitis and nonobstructing kidney stone he previously but reports he has not been resolution of her pain. Had constipation for 10 days as she has not been able to eat much. Every time she eats she cannot hold it down. ER evaluation vital signs acceptable/within normal limits. WBC 10.1, sodium 136, serum creatinine 0.83, glucose 127, lactic acid 1, she is urinalysis with 6-10 wbc's, few squamous cells. Abdomen pelvis CT demonstrating esophagitis, mid sigmoid diverticulitis or colitis. An additional findings. She was given ceftriaxone and metronidazole, hydromorphone, 1 L normal saline bolus. Review of Systems Review of Systems: All systems reviewed & are unremarkable except as noted in HPI and below (Subjective/HPI) [facility] Past Medical History Medical History Screening mammogram, encounter for Degenerative arthritis of knee, bilateral Fingers fractured Diabetes Sleep disorder cannot sleep at night Gout Anemia Depression Anxiety Surgical History Surgical History S/P total knee arthroplasty Left knee 03/18/2022 Hx of cholecystectomy History of tubal ligation 1998 History of appendectomy 1969 History of lithotripsy extracorporeal shockwave lithotripsy (ESWL) History of back surgery [id number] History of elbow surgery 06/01/15 repair elbow w/ renae open Family History Family History Father Heart disease Mother Cancer Diabetes mellitus Hypertension Cerebrovascular accident Social History Social History Social History: The patient is and has 2 children. She currently works at [employer]. No alcohol according to her daughter. The patient is a former smoker. Code status full code Smoking packs per day: 0.25 Smoking cigarettes per day: 5.0 Years smoked: 20 Smoking pack-years: 5.00 Smoking status: Former smoker Tobacco type: cigarettes Smoking end date: 02/17/17 Alcohol intake: current Drinks per week: 3 Alcohol use details: ONE DRINK PER MONTH Substance use: never Substance use type: does not use Do You Feel Safe in your Home?: Yes Lack of Transportation: No Lack of Food: Never True Current Housing: I Have Housing Concerned About Future Housing: No Difficulty Paying Gas/Electric Bills: No Difficulty Paying for Meds: No Currently Unemployed: YES Education: High School Diploma/GED Difficulty w/ Childcare or Family Care: No Living arrangements: alone Additional living arrangements comments: daughter Occupation/Education: occupation Additional occupation/education comments: [employer] Gender identity (if verbalized by the patient): Female Sexual Orientation (if Verbalized by the Patient): Straight or Heterosexual Spiritual care concerns: No Meds Home Medications and Allergies Home Medications ?Medication ?Instructions ?Recorded ?Confirmed ?Type ibuprofen 800 mg tablet 800 mg PO Q6H PRN pain #30 tabs 04/02/20 09/02/24 Rx allopurinol 100 mg tablet 100 mg PO DAILY 04/05/21 09/02/24 History atorvastatin 20 mg tablet 20 mg PO DAILY 04/05/21 09/02/24 History empagliflozin 10 mg tablet 25 mg PO DAILY 04/05/21 09/02/24 History (Jardiance) cholecalciferol (vitamin D3) 10 10 mcg PO DAILY 05/03/21 09/02/24 History mcg (400 unit) capsule calcium carbonate (Tums) 200 mg PO PRN PRN Heartburn 03/07/22 09/02/24 History semaglutide 3 mg tablet (Rybelsus) 3 mg PO DAILY 03/07/22 09/02/24 History ondansetron 4 mg disintegrating 4 mg PO Q8H PRN nausea and 08/27/24 09/02/24 Rx tablet vomiting #14 tabs Allergies Allergy/AdvReac Type Severity Reaction Status Date / Time phentermine Allergy Intermediate Rash Verified 09/02/24 20:06 amoxicillin Allergy Mild Vomiting Verified 09/02/24 20:06 metformin Allergy Mild Rash Verified 09/02/24 20:06 Sulfa (Sulfonamide Allergy Mild Rash Verified 09/02/24 20:06 Antibiotics) morphine AdvReac Unknown Nausea and Verified 09/02/24 20:06 Vomiting Vital Signs Vital Signs - 24 hr 09/02/24 13:14 09/02/24 14:00 09/02/24 15:00 Temperature 97.8 F 97.9 F 97.9 F Pulse Rate 91 91 81 Respiratory Rate 16 16 16 Blood Pressure 114/70 110/67 117/59 L Pulse Oximetry 100 97 98 Oxygen Delivery Room Air 09/02/24 16:00 09/02/24 16:51 09/02/24 17:58 Temperature 97.9 F 97.7 F 97.9 F Pulse Rate 80 80 80 Respiratory Rate 16 16 16 Blood Pressure 110/67 120/64 112/58 L Pulse Oximetry 98 100 98 Oxygen Delivery 09/02/24 18:53 09/02/24 20:00 Temperature 97.8 F Pulse Rate 80 Respiratory Rate 16 Blood Pressure 105/62 Pulse Oximetry 96 Oxygen Delivery Room Air Exam Const: General: comfortable and no acute distress HENMT: Mouth: Yes moist mucous membranes Eyes: Pupils: Equal, round and reactive pupils present Neck: Neck: supple Resp: Effort & Inspection: normal respiratory effort Auscultation: clear to auscultation bilaterally Cardio: Rate: regular rate Rhythm: regular rhythm Heart sounds: no gallops, no murmurs and no rubs GI: Inspection: non-distended GI Palp: Yes Soft to palpation and Yes Tenderness to palpation present (GI) (To deep palpation of the right lower quadrant) : General: Yes bladder normal to palpation Neuro: Motor exam (neuro): 5/5 motor strength present throughout Extrem: General: no edema H&P: Results Labs Labs: Short CBC 09/02/24 Range/Units 13:52 WBC 10.1 H (4.5-10.0) K/mm3 Hgb 13.2 (12.0-15.0) g/dL Hct 39.2 (37.0-47.0) % Plt Count 253 (150-375) k/mm3 BMP 09/02/24 13:52 Sodium 136 L Potassium 3.8 Chloride 100 Carbon Dioxide 22 BUN 13 Creatinine 0.83 Glucose 127 H Calcium 9.6 Liver Function 09/02/24 Range/Units 13:52 Total Bilirubin 0.7 (0.2-1.3) mg/dL AST 24 (14-36) U/L ALT 13 (6-35) U/L Alkaline Phosphatase 125 (38-126) U/L Albumin 4.3 (3.5-5.1) g/dL Urine 09/02/24 Range/Units 15:35 Urine Color Yellow (Yellow) Urine Appearance Clear (Clear) Urine pH 6.5 (5.0-9.0) Ur Specific [place] > 1.045 H (1.001-1.035) Urine Protein Trace (Negative) mg/dL Urine Glucose (UA) 3+ H (Negative) mg/dL Assessment and Plan Assessment and plan (1) Diverticulitis: Code(s): K57.92 - Diverticulitis of intestine, part unspecified, without perforation or abscess without bleeding Status: Acute Plan 58-year-old female with a history of xfj-matxjlw-eorogvqoa diabetes, gout, anemia, depression and anxiety who presents with abdominal pain for over a month now. She was diagnosed with diverticulitis and nonobstructing kidney stone he previously but reports he has not been resolution of her pain. Had constipation for 10 days as she has not been able to eat much. Every time she eats she cannot hold it down. ER evaluation vital signs acceptable/within normal limits. WBC 10.1, sodium 136, serum creatinine 0.83, glucose 127, lactic acid 1, she is urinalysis with 6-10 wbc's, few squamous cells. Abdomen pelvis CT demonstrating esophagitis, mid sigmoid diverticulitis or colitis. An additional findings. She was given ceftriaxone and metronidazole, hydromorphone, 1 L normal saline bolus. ----- Abdominal pain likely due to diverticulitis. Continue ceftriaxone metronidazole, pain regimen, will continue normal saline at 100 cc/hour. Protonix q.a.m. as well. Clear liquid diet, advanced as tolerated. Some pelvic findings on CT scan could be reflective of pelvic congestion syndrome. Would re-evaluate this after treatment of the diverticulitis. Patient would like to be full code. Normal saline infusion. SCDs. Clear liquid diet, advanced as tolerated, Protonix 40 mg IV q.a.m. Hospitalist MIPS Advance Care Plan I have confirmed that the patient's Advanced Care Plan is present, code status is documented, or surrogate decision maker is listed in patient medical record.: Yes Medication Reconciliation I have utilized all available resources to obtain, update and review the patients current medications (includes all prescriptions, OTC, herbals, cannabis, and nutritional supplements).: Yes
[2024-09-03] MEDS: PANTOPRAZOLE SODIUM IV 40 MG VIAL IV PUSH ×2 (00:07→10:01)
[2024-09-03] MEDS: SODIUM CHLORIDE 0.9% IV 1,000 ML 100 ML IV CONT ×3 (00:08→21:16)
[2024-09-03] MEDS: ACETAMINOPHEN 325 MG TABLET 650 MG PO ×2 (05:35→16:07)
[2024-09-03 06:00] VITALS: BP 108/62; PULSE 88; RESP 18; TEMP 36.6; O2SAT 100
[2024-09-03 06:32] LABS: Hematocrit 35.6 % (37.0-47.0); Hemoglobin 11.5 g/dL (12.0-15.0); Immature Granulocyte Percent A 0.5 % (0-0.5); Lymphocytes Absolute Auto 1.25 K/mm3 (0.9-3.2); Mean Corpuscular HGB Conc 32.3 g/dl (32-36); Mean Corpuscular Hemoglobin 31.9 pg (26-34); Mean Corpuscular Volume 98.6 fl (80-100); Nucleated Red Blood Cells Absolute Auto 0.000 K/mm3 (0.0-0.012); Nucleated Red Blood Cells Perc 0.0 % (0.0-0.2); Platelet Count Result 219 k/mm3 (150-375); Red Blood Count 3.61 M/mm3 (4.2-5.4); White Blood Count 8.1 K/mm3 (4.5-10.0)
[2024-09-03 06:55] LABS: Alanine Aminotransferase 9 U/L (6-35); Albumin Level 3.5 g/dL (3.5-5.1); Alkaline Phosphatase 86 U/L (38-126); Anion Gap 13 mmol/L (4-12); Aspartate Amino Transferase 20 U/L (14-36); Bilirubin,Total 0.4 mg/dL (0.2-1.3); Blood Urea Nitrogen 14 mg/dL (7-17); Calcium 9.1 mg/dL (8.4-10.2); Carbon Dioxide 22 mmol/L (22-30); Chloride 103 mmol/L (98-107); Estimated CRCL calculation 73 ml/min; Estimated Glomerular Filt Rate > 60; Glucose 76 mg/dL (65-110); Magnesium 2.2 mg/dL (1.6-2.3); Potassium 4.0 mmol/L (3.4-5.0); Sodium 138 mmol/L (137-145); Total Protein 7.0 g/dL (6.3-8.2)
--- NOTE | 2024-09-03 08:02 | PM.IMPN ---
Progress Note: A&P Assessment and Plan (1) Diverticulitis: Code(s): K57.92 - Diverticulitis of intestine, part unspecified, without perforation or abscess without bleeding Status: Acute Assessment and Plan: CT Abd/pelvis: Mild esophagitis/gastritis. Mid sigmoid diverticulitis or colitis (on an infectious, inflammatory, or ischemic basis). Stercoral colitis could also be considered given the prominent amount of feces in this location. Continue ceftriaxone, Flagyl P.r.n. pain regimen NS 100 cc/hour Protonix q.a.m. Clear liquid diet-advance as tolerated Monitor vital signs, I&Os, track stool output, watch for bloody stools, neuro status and patient is a fall risk Monitor serum electrolytes and CBC Diet: Clear liquid GI consult, appreciate further recommendations Continue antibiotics Bowel prep then bowel regimen with MiraLax b.i.d. Follow-up in the outpatient setting to prevent further recurrences (2) Anxiety: Code(s): F41.9 - Anxiety disorder, unspecified Status: Acute Assessment and Plan: Not currently on any medication (3) Gout: Code(s): M10.9 - Gout, unspecified Status: Acute Assessment and Plan: Continue allopurinol 100 mg (4) Hyperlipidemia: Code(s): E78.5 - Hyperlipidemia, unspecified Status: Acute Assessment and Plan: Continue atorvastatin Subjective Date/time seen: 09/03/24 08:02 Interval history: 58-year-old female with a history of qdy-qjeqfhr-goopmqvvu diabetes, gout, anemia, depression and anxiety who presents with abdominal pain for over a month now. She was diagnosed with diverticulitis and nonobstructing kidney stone he previously but reports he has not been resolution of her pain. 09/03/2024 Patient sitting comfortably in bed at time of examination. Patient remains afebrile with no leukocytosis. Patient reports that the pain is fairly similar to yesterday, however she is not nauseous and has not had any episodes of emesis today. GI consulted, recommending continuing antibiotics, bowel cleanout then bowel regimen with MiraLax b.i.d. and following up in the outpatient setting for further management to prevent recurrences. Patient is otherwise stable and has no other comments or concerns at this time. Review of Systems Review of Systems: All systems reviewed & are unremarkable except as noted in HPI and below (Subjective/HPI) Exam Const: General: comfortable and no acute distress HENMT: Mouth: Yes moist mucous membranes Eyes: Pupils: Equal, round and reactive pupils present Neck: Neck: supple Resp: Effort & Inspection: normal respiratory effort Auscultation: clear to auscultation bilaterally Cardio: Rate: regular rate Rhythm: regular rhythm Heart sounds: no gallops, no murmurs and no rubs GI: Inspection: non-distended GI Palp: Yes Tenderness to palpation present (GI) Auscultation: normal bowel sounds : General: Yes bladder normal to palpation Bimanual exam- vagina & uterus: bladder normal to palpation Neuro: Cranial nerves: Yes Equal, round and reactive pupils present Motor exam (neuro): 5/5 motor strength present throughout Extrem: General: no edema Objective Data Vital Signs Vital Signs: Vital Signs - 24 hr 09/02/24 13:14 09/02/24 14:00 09/02/24 15:00 Temperature 97.8 F 97.9 F 97.9 F Pulse Rate 91 91 81 Respiratory Rate 16 16 16 Blood Pressure 114/70 110/67 117/59 L Pulse Oximetry 100 97 98 Oxygen Delivery Room Air 09/02/24 16:00 09/02/24 16:51 09/02/24 17:58 Temperature 97.9 F 97.7 F 97.9 F Pulse Rate 80 80 80 Respiratory Rate 16 16 16 Blood Pressure 110/67 120/64 112/58 L Pulse Oximetry 98 100 98 Oxygen Delivery 09/02/24 18:53 09/02/24 20:00 09/02/24 21:20 Temperature 97.8 F Pulse Rate 80 Respiratory Rate 16 Blood Pressure 105/62 Pulse Oximetry 96 96 Oxygen Delivery Room Air Room Air 09/03/24 06:00 Temperature 97.8 F Pulse Rate 88 Respiratory Rate 18 Blood Pressure 108/62 Pulse Oximetry 100 Oxygen Delivery Intake/Output Intake/Output: Intake & Output 08/31/24 09/01/24 09/02/24 09/03/24 23:59 23:59 23:59 23:59 Intake Total 1150 500 Balance 1150 500 Meds/Results Medications: Active Medications Generic Name Dose Route Start Last Admin Trade Name Freq PRN Reason Stop Dose Admin Acetaminophen 650 mg 09/03/24 05:30 09/03/24 05:35 Acetaminophen 325 Mg Tablet PO 650 mg Q6H PRN Administration Mild Pain (1-3) or Fever Allopurinol 100 mg 09/03/24 09:00 Allopurinol 100 Mg Tablet PO DAILY [facility] Atorvastatin Calcium 20 mg 09/03/24 09:00 Atorvastatin 20 Mg Tablet PO DAILY [facility] Calcium Carbonate 200 mg 09/02/24 22:33 Calcium Carbonate (Tums) 500 Mg (200 Mg Elemental) PO PRN PRN Heartburn Hydromorphone HCl 0.5 mg 09/02/24 16:51 Hydromorphone Hcl Inj (*Crx) 2 Mg/Ml Vial IV PUSH Q4H PRN Pain Rated 7-10 Ceftriaxone Sodium 1 gm/ 50 mls @ 100 mls/hr 09/03/24 17:00 Sodium Chloride IVPB Q24H PRAKASH Metronidazole 500 mg in 100 mls @ 100 mls/hr 09/03/24 00:00 09/03/24 00:00 Flagyl 500 Mg/Iso Soln 100 Ml IVPB Infused Q8H [facility] Infusion Sodium Chloride 1,000 mls @ 100 mls/hr 09/02/24 23:40 09/03/24 00:08 Normal Saline Iv IV CONT 100 mls/hr .Q10H PRAKASH Administration Ondansetron HCl 4 mg 09/02/24 16:51 Ondansetron Inj 4 Mg/2 Ml Vial IV PUSH Q4H PRN Nausea Pantoprazole Sodium 40 mg 09/02/24 23:40 09/03/24 00:07 Pantoprazole Sodium Iv 40 Mg Vial IV PUSH 40 mg QAM PRAKASH Administration Vitamin D 10 mcg 09/03/24 09:00 Cholecalciferol (Vitamin D3) 10 Mcg (400 Units) Tablet PO DAILY [facility] Radiology Results: ITS Impressions Abdomen/Pelvis CT 09/02/24 15:35 IMPRESSION: Multiple bilateral lobe pulmonary nodules measuring up to 6 mm prior recommendation for six-month follow-up CT is unchanged. Mild esophagitis/gastritis. Mid sigmoid diverticulitis or colitis (on an infectious, inflammatory, or ischemic basis). Stercoral colitis could also be considered given the prominent amount of feces in this location. Pelvic findings that can be seen with pelvic congestion. Correlate clinically for persistent dull pelvic pain lasting > 6 months, dysmenorrhea, dyspareunia, postcoital ache, and urinary symptoms. Labs Labs: Laboratory Results - last 24 hr 09/02/24 09/02/2425 13:52 15:35 06:11 WBC 10.1 H 8.1 RBC 4.14 L 3.61 L Hgb 13.2 11.5 L Hct 39.2 35.6 L MCV 94.7 98.6 MCH 31.9 31.9 MCHC 33.7 32.3 RDW 12.6 12.6 Plt Count 253 219 MPV 9.7 9.3 Immature Gran % (Auto) 0.3 0.5 Neut % (Auto) 77.0 H 74.1 H Lymph % (Auto) 13.6 L 15.4 L Bell % (Auto) 7.5 8.5 Eos % (Auto) 1.3 1.0 Baso % (Auto) 0.3 0.5 Lymph # (Auto) 1.38 1.25 Bell # (Auto) 0.8 H 0.7 H Eos # (Auto) 0.1 0.1 Baso # (Auto) 0.0 0.0 Abs Immat Gran (auto) 0.03 0.04 H Absolute Neuts (auto) 7.8 H 6.0 Absolute Nucleated RBC 0.000 0.000 Nucleated RBC % 0.0 0.0 Sodium 136 L 138 Potassium 3.8 4.0 Chloride 100 103 Carbon Dioxide 22 22 Anion Gap 14 H 13 H BUN 13 14 Creatinine 0.83 0.74 Estim Creat Clear Calc 65 73 Estimated GFR > 60 > 60 Glucose 127 H 76 Lactic Acid 1.0 Calcium 9.6 9.1 Magnesium 2.3 2.2 Total Bilirubin 0.7 0.4 AST 24 20 ALT 13 9 Alkaline Phosphatase 125 86 Total Protein 8.5 H 7.0 Albumin 4.3 3.5 Lipase 28 Urine Color Yellow Urine Appearance Clear Urine pH 6.5 Ur Specific [place] > 1.045 H Urine Protein Trace Urine Glucose (UA) 3+ H Urine Ketones Trace H Ur Blood (Man) Negative Urine Nitrate Negative Urine Bilirubin Negative Urine Urobilinogen 1.0 Add Ur Microanalysis Reviewed Leukocyte Esterase Rfl Negative Urine RBC 0-2 Urine WBC 6-10 H Ur Squamous Epith Cells Few Urine Bacteria 2+ H Urine Casts 0-2 Quality VTE Prophylaxis VTE prophylaxis: mechanical ordered
--- NOTE | 2024-09-03 08:23 | WPDGICN ---
Assessment and Plan Assessment and plan (1) Diverticulitis: Code(s): K57.92 - Diverticulitis of intestine, part unspecified, without perforation or abscess without bleeding Status: Acute (2) Abdominal pain: Qualifiers: Abdominal location: generalized Qualified Code(s): R10.84 - Generalized abdominal pain Code(s): R10.9 - Unspecified abdominal pain Status: Acute (3) Constipation: Qualifiers: Constipation type: drug induced constipation Qualified Code(s): K59.03 - Drug induced constipation Code(s): K59.00 - Constipation, unspecified Status: Acute (4) Esophagitis: Code(s): K20.90 - Esophagitis, unspecified without bleeding Status: Acute (5) Gastritis: Qualifiers: Gastritis type: superficial Chronicity: acute Gastritis bleeding: without bleeding Qualified Code(s): K29.00 - Acute gastritis without bleeding Code(s): K29.70 - Gastritis, unspecified, without bleeding Status: Acute (6) Colon polyps: Qualifiers: Colon polyp type: unspecified Colon location: unspecified part of colon Qualified Code(s): K63.5 - Polyp of colon Code(s): K63.5 - Polyp of colon Status: Acute (7) Weight loss: Code(s): R63.4 - Abnormal weight loss Status: Acute (8) Appetite loss: Code(s): R63.0 - Anorexia Status: Acute Plan 1. Abnormal imaging digestive-diverticulitis/constipation/abdominal pain/personal history of colon polyps: Per patient last colonoscopy performed earlier this year was unremarkable. She has been getting colonoscopies every year for the past 4 years but unclear why they have been occurring in such short intervals as she has only had colon polyps on 1 occasion and family history negative for CRC or IBD. CT showed mid sigmoid diverticulitis or colitis (on an infectious, inflammatory, or ischemic basis). Stercoral colitis could also be considered given the prominent amount of feces in this location. CT on 08/27/2024 showed constipation but not inflammation in the colon, stomach or esophagus. Patient get sick on August 21 after eating fair foods while watching fireworks. Since then she has been having GI issues including no appetite, nausea, vomiting and constipation. Prior to the she was having no GI complaints and was having daily bowel movements without difficulty. She has been on oral semaglutide for a few years and has lost around 82 lb over the past 3 years. Since starting the medication she has experienced no obvious GI issues. Patient diagnosed at [facility] with diverticulitis on August 27 but was unable to take the antibiotics stating that she threw up 10 minutes after her 1st dose. She has not had a good bowel movement since August 23. She saw her PCP on Friday and was started on lactulose and took 6 doses and still has not had a bowel movement. She has also had no appetite and having generalized abdominal pain that is more frequent on the right side that is constant. Pain has improved but not resolved since admission. She has been taking pain medications intermittently since the . Unclear if symptoms started off as acute gastroenteritis and then progressed to constipation causing diverticulitis versus stercoral colitis and if Semaglutide and pain medication may be a partial contributing factor. continue antibiotics bowel clean out then start bowel regimen and with Miralax BID recommend patient follow up in the office for further management to prevent reoccurrence 2. Gastritis/esophagitis/appetite loss/weight loss: No prior EGD history. CT 09/02 showed mild esophagitis and gastritis but CT on 08/27 did not show these findings. Since August 23 patient has been experiencing nausea, vomiting, appetite loss, and weight loss. Patient states she has lost 18 lb over this time. Ok to change PPI to oral and continue 40 mg daily upon discharge Will discuss possible need for EGD at her follow-up office visit Thank you very much for allowing me to share in the care of this very nice patient. This report may have been done utilizing a voice recognition system. Attempts have been made to correct errors. However, there may be uncorrected grammatical, spelling, and recognition errors present. GI Consult Note Consult date/time: 09/03/24 08:23 Reason for consult: Diverticulitis HPI: Kristy Rausch is a 58 year old female with PMSH of diabetes, GOUT, anemia, anxiety, depression, CCX, kidney stones, diverticulitis, appendectomy, and tubal ligation. She presented to the ER for abdominal pain. GI has been consulted for diverticulitis. Patient states that on August 21 while watching the fire works at [place] she had ?fair food? such as funnel cake, braut etc. She then started to experience nausea, vomiting, and diarrhea x1 day. Since then she has been having persistent GI issues. She complains of generalized abdominal pain that occurs more frequently on the right side. She states that is it constant pain that has improved but not resolved since admission. History of reflux but after weight loss her reflux was well controlled with diet alone but over the past week she has been experiencing intermittent episodes of reflux and taking Tums. Since August 21 she has lost 18 lb. Patient states that her last good bowel movement was last Friday on the . Patient was seen at [facility] and was told that she had kidney stones that had likely passed. She was then seen at [facility] 08/27/2024 for similar complaints of abdominal pain at which time she was thought to have diverticulitis and was started on a course of antibiotics and pain medication. Patient states that she took 1 dose of these medications and vomited 10 minutes later so she has been unable to complete any of her antibiotics. She was seen on the by her PCP and was given another course of antibiotics of unknown name but advised to not take the antibiotics until her bowels started moving. Patient states that she took a total of 6 doses of lactulose without a bowel movement so once again was unable to start antibiotics. Prior to August 31 she was having no GI complaints and was having daily bowel movements without difficulty. Currently denies any nausea, vomiting, bloating, odynophagia, dysphagia, reflux, regurgitation, early satiety, diarrhea, hematochezia, or melena. She denies any NSAID or anticoagulant use but is on aspirin 81 mg daily. She is a nondrinker nonsmoker denies marijuana use. Family history negative for CRC or IBD. ENDOSCOPY HISTORY: EGD: No prior EGD history COLONOSCOPY: Per patient she has a history of colon polyps and has been getting colonoscopies every year by a doctor in [place] which she thinks is Dr. Herring but could not confirm. She states her last colonoscopy was done earlier this year, date unknown. Endoscopy records not available. LABS AND STOOL STUDIES: Labs 09/03/2024: Sodium 138, potassium 4.0, BUN 14, creatinine 0.74, GFR >60, calcium 9.1, lactic acid 1.0 and magnesium 2.2 WBC 8, Hgb 12, Hct 36, MCV 99, platelets 219 Total bilirubin 0.4, AST 20, ALT 9, Alkaline Phos 86, albumin 3.5 Labs 09/02/2024: WBC 10, Hgb 13, Hct 39, platelets 253 Lipase 28 IMAGING: CT abd/pelvis w/contrast 09/02/2024: FINDINGS: Lower thorax: Subendocardial fat deposition in the left ventricular apex, likely old infarct. Multiple bilateral lower lobe pulmonary nodules measuring up to 6 mm. Liver: Normal. Biliary/Gallbladder: Gallbladder is normal. No bile duct dilation. Pancreas: No mass or duct dilation. Spleen: Normal. Adrenals:No mass. Kidneys: No obstructing stone or hydronephrosis. 1.5 cm indeterminate density right midpole lesion, appears slightly smaller than the comparison study of 2022, likely proteinaceous or hemorrhagic cyst. 1 cm indeterminate density left lower pole lesion, stable since the comparison, likely proteinaceous or hemorrhagic cyst. Multiple additional bilateral subcentimeter hypodensities, too small to characterize but most likely represent cysts. GI tract: Mild distal esophageal and gastric wall edema. The mid sigmoid is distended slightly to 5.0 cm, by formed stool with moderate length wall thickening and surrounding inflammatory change. No small bowel dilation. Appendix not confidently visualized. Mesentery/Peritoneum: No ascites, mass, or free air. Retroperitoneum: No mass. Atherosclerotic calcifications of intra-abdominal arterial vessels. Pelvis: Normal urinary bladder and uterus. Dilated bilateral gonadal and pelvic veins. Normal right ovary. Normal left ovary, with a 2.6 cm simple appearing cyst. Bilateral tubal ligation. Trace free pelvic fluid. Soft Tissues: Soft tissues and body wall unremarkable. Bones: No acute osseous finding. Uncomplicated posterior L4-5 fusion hardware. IMPRESSION: Multiple bilateral lobe pulmonary nodules measuring up to 6 mm prior recommendation for six-month follow-up CT is unchanged. Mild esophagitis/gastritis. Mid sigmoid diverticulitis or colitis (on an infectious, inflammatory, or ischemic basis). Stercoral colitis could also be considered given the prominent amount of feces in this location. Pelvic findings that can be seen with pelvic congestion. Correlate clinically for persistent dull pelvic pain lasting > 6 months, dysmenorrhea, dyspareunia, postcoital ache, and urinary symptoms. CT abd/pelvis w/contrast 08/27/2024: Findings: VISUALIZED LOWER CHEST: Nodule is seen in the right lower lobe measuring 7.8 mm. Tiny nodules are seen in the left lower lobe measuring 3 mm and 4 mm. 6 months follow-up CT is advised. UPPER ABDOMINAL ORGANS: Liver: Normal. Gallbladder: Normal. Spleen: Normal. Stomach/duodenum: Normal. Pancreas: Normal. Adrenals: Normal. Kidneys: Tiny stone in the left kidney midpole. Tiny stone in the right kidney midpole. No ureteric stones PELVIC ORGANS: The bladder is normal. Left ovarian cyst measuring 2.4 cm. BOWEL AND MESENTERY: Colon: No evidence of diverticulitis. Fecal material is loaded in the colon suggestive of constipation. The appendix is not demonstrated. Small Bowel: Normal. No obstruction. Peritoneum/mesentery: No free air or free fluid. No mesenteric lymphadenopathy. RETROPERITONEUM: Mild atheromatous disease of the abdominal aorta. No retroperitoneal lymphadenopathy. MUSCULOSKELETAL: Superficial soft tissues: Tiny fat-containing umbilical hernia. Otherwise, The superficial soft tissues are normal. Bones: Postoperative changes in the spine. Age appropriate degenerative changes of the spine. Pubic symphysitis. Bilateral sacroiliacs IMPRESSION: 1. Tiny stones in the right and left kidney. 2. Nodules in the right and left lung bases. 6 months follow-up CT advised. 3. Constipation. 4. Left ovarian cyst. Review of Systems Constitutional: Constitutional: Reports as per HPI ENT: Reports as per HPI Cardiovascular: Cardiovascular: Reports as per HPI, Denies chest pain and Denies dyspnea Respiratory: Respiratory: Denies cough and Denies dyspnea Gastrointestinal: Gastrointestinal: Reports as per HPI Musculoskeletal: Musculoskeletal: Reports as per HPI Integumentary/Breasts: Skin/Breast: Reports as per HPI Psychiatric: Psychiatric: Reports as per HPI Endocrine: Endocrine: Reports no additional endocrine complaints Hematologic/Lymphatic: Hematologic/Lymphatic: Reports no additional hematologic/lymphatic complaints [facility] Past Medical History Medical History (Updated 09/03/24 @ 10:16 by Sera Curiel APRN) Screening mammogram, encounter for Degenerative arthritis of knee, bilateral Fingers fractured Diabetes Sleep disorder cannot sleep at night Gout Anemia Depression Anxiety Surgical History Surgical History S/P total knee arthroplasty Left knee 03/18/2022 Hx of cholecystectomy History of tubal ligation 1998 History of appendectomy 1968 History of lithotripsy extracorporeal shockwave lithotripsy (ESWL) History of back surgery [id number] History of elbow surgery 06/01/15 repair elbow w/ renae open Family History Family History Father Heart disease Mother Cancer Diabetes mellitus Hypertension Cerebrovascular accident Social History Social History Social History: The patient is and has 2 children. She currently works at [employer]. No alcohol according to her daughter. The patient is a former smoker. Code status full code Smoking packs per day: 0.25 Smoking cigarettes per day: 5.0 Years smoked: 20 Smoking pack-years: 5.00 Smoking status: Former smoker Tobacco type: cigarettes Smoking end date: 02/17/17 Alcohol intake: current Drinks per week: 3 Alcohol use details: ONE DRINK PER MONTH Substance use: never Substance use type: does not use Do You Feel Safe in your Home?: Yes Lack of Transportation: No Lack of Food: Never True Current Housing: I Have Housing Concerned About Future Housing: No Difficulty Paying Gas/Electric Bills: No Difficulty Paying for Meds: No Currently Unemployed: YES Education: High School Diploma/GED Difficulty w/ Childcare or Family Care: No Living arrangements: alone Additional living arrangements comments: daughter Occupation/Education: occupation Additional occupation/education comments: [employer] Gender identity (if verbalized by the patient): Female Sexual Orientation (if Verbalized by the Patient): Straight or Heterosexual Spiritual care concerns: No Meds Home Medications and Allergies Home Medications ?Medication ?Instructions ?Recorded ?Confirmed ?Type ibuprofen 800 mg tablet 800 mg PO Q6H PRN pain #30 tabs 04/02/20 09/02/24 Rx allopurinol 100 mg tablet 100 mg PO DAILY 04/05/21 09/02/24 History atorvastatin 20 mg tablet 20 mg PO DAILY 04/05/21 09/02/24 History empagliflozin 10 mg tablet 25 mg PO DAILY 04/05/21 09/02/24 History (Jardiance) cholecalciferol (vitamin D3) 10 10 mcg PO DAILY 05/03/21 09/02/24 History mcg (400 unit) capsule calcium carbonate (Tums) 200 mg PO PRN PRN Heartburn 03/07/22 09/02/24 History semaglutide 3 mg tablet (Rybelsus) 3 mg PO DAILY 03/07/22 09/02/24 History ondansetron 4 mg disintegrating 4 mg PO Q8H PRN nausea and 08/27/24 09/02/24 Rx tablet vomiting #14 tabs Allergies Allergy/AdvReac Type Severity Reaction Status Date / Time phentermine Allergy Intermediate Rash Verified 09/02/24 20:06 amoxicillin Allergy Mild Vomiting Verified 09/02/24 20:06 metformin Allergy Mild Rash Verified 09/02/24 20:06 Sulfa (Sulfonamide Allergy Mild Rash Verified 09/02/24 20:06 Antibiotics) morphine AdvReac Unknown Nausea and Verified 09/02/24 20:06 Vomiting Vital Signs Vital Signs - 24 hr 09/02/24 13:14 09/02/24 14:00 09/02/24 15:00 Temperature 97.8 F 97.9 F 97.9 F Pulse Rate 91 91 81 Respiratory Rate 16 16 16 Blood Pressure 114/70 110/67 117/59 L Pulse Oximetry 100 97 98 Oxygen Delivery Room Air 09/02/24 16:00 09/02/24 16:51 09/02/24 17:58 Temperature 97.9 F 97.7 F 97.9 F Pulse Rate 80 80 80 Respiratory Rate 16 16 16 Blood Pressure 110/67 120/64 112/58 L Pulse Oximetry 98 100 98 Oxygen Delivery 09/02/24 18:53 09/02/24 20:00 09/02/24 21:20 Temperature 97.8 F Pulse Rate 80 Respiratory Rate 16 Blood Pressure 105/62 Pulse Oximetry 96 96 Oxygen Delivery Room Air Room Air 09/03/24 06:00 09/03/24 08:00 Temperature 97.8 F Pulse Rate 88 Respiratory Rate 18 Blood Pressure 108/62 Pulse Oximetry 100 Oxygen Delivery Room Air Exam Const: General: cooperative, healthy appearing, comfortable, no acute distress and well developed Orientation/consciousness: oriented to person, oriented to place, oriented to time and patient oriented x3 HENMT: Head: normal to inspection, normocephalic and atraumatic Mouth: Yes Normal oral and palatal mucosa present and Yes moist mucous membranes Eyes: General: appearance normal, both eyes and all related structures Conjunctivae: conjunctivae normal Sclera: sclerae normal Pupils: Equal, round and reactive pupils present Neck: Neck: normal visual inspection Chest: Chest palpation & inspection: normal inspection of the chest Resp: Effort & Inspection: normal respiratory effort and able to speak in complete sentences Auscultation: clear to auscultation bilaterally Cardio: Jugular venous distension: no JVD Rate: regular rate Rhythm: regular rhythm Heart sounds: S1 normal heart sound present and S2 normal heart sound present GI: Inspection: normal to inspection GI Palp: Yes Soft to palpation, Yes Tenderness to palpation present (GI), No Guarding due to palpation present (GI) and Yes No hepatosplenomegaly present Auscultation: normal bowel sounds Rectal Exam: deferred Skin: General skin exam: normal color and no rashes or lesions noted Neuro: General: oriented to person, oriented to place, oriented to time and patient oriented x3 Cranial nerves: Yes Equal, round and reactive pupils present Speech: normal speech Extrem: General: normal to inspection and no clubbing, cyanosis or edema Psych: Appearance: grossly normal and well kempt Affect: normal affect Results Labs 09/03/24 06:11 09/03/24 06:11 Labs: Short CBC 09/02/24 09/03/24 Range/Units 13:52 06:11 WBC 10.1 H 8.1 (4.5-10.0) K/mm3 Hgb 13.2 11.5 L (12.0-15.0) g/dL Hct 39.2 35.6 L (37.0-47.0) % Plt Count 253 219 (150-375) k/mm3 BMP 09/02/24 09/03/24 13:52 06:11 Sodium 136 L 138 Potassium 3.8 4.0 Chloride 100 103 Carbon Dioxide 22 22 BUN 13 14 Creatinine 0.83 0.74 Glucose 127 H 76 Calcium 9.6 9.1 Liver Function 09/02/24 09/03/24 Range/Units 13:52 06:11 Total Bilirubin 0.7 0.4 (0.2-1.3) mg/dL AST 24 20 (14-36) U/L ALT 13 9 (6-35) U/L Alkaline Phosphatase 125 86 (38-126) U/L Albumin 4.3 3.5 (3.5-5.1) g/dL Urine 09/02/24 Range/Units 15:35 Urine Color Yellow (Yellow) Urine Appearance Clear (Clear) Urine pH 6.5 (5.0-9.0) Ur Specific [place] > 1.045 H (1.001-1.035) Urine Protein Trace (Negative) mg/dL Urine Glucose (UA) 3+ H (Negative) mg/dL
[2024-09-03] MEDS: CHOLECALCIFEROL (VITAMIN D3) 10 MCG (400 UNITS) TABLET PO (08:44)
[2024-09-03] MEDS: metroNIDAZOLE 500 MG/ISO 100ML 500 MG/100 ML BAG 100 MG IVPB ×2 (08:44→15:56)
[2024-09-03] MEDS: MAGNESIUM CITRATE 300 ML BTL PO (11:06)
[2024-09-03 14:00] VITALS: BP 119/53; PULSE 81; RESP 16; TEMP 36.8; O2SAT 96
[2024-09-03] MEDS: CALCIUM CARBONATE (TUMS) 500 MG (200 MG ELEMENTAL) PO (15:58)
[2024-09-03] MEDS: ONDANSETRON INJ 4 MG/2 ML VIAL IV PUSH (16:07)
[2024-09-03] MEDS: cefTRIAXone 1 GM in SODIUM CHLORIDE 0.9% IV 50 ML 100 ML IVPB (17:09)
[2024-09-03 21:58] VITALS: BP 115/44; PULSE 78; RESP 18; TEMP 36.6; O2SAT 98
[2024-09-04] MEDS: metroNIDAZOLE 500 MG/ISO 100ML 500 MG/100 ML BAG 100 MG IVPB ×4 (00:39→23:56)
[2024-09-04] MEDS: SODIUM CHLORIDE 0.9% IV 1,000 ML 100 ML IV CONT ×3 (05:41→19:49)
[2024-09-04] MEDS: ACETAMINOPHEN 325 MG TABLET 650 MG PO ×2 (05:42→19:44)
[2024-09-04 06:00] VITALS: BP 119/56; PULSE 81; RESP 18; TEMP 36; O2SAT 97
--- NOTE | 2024-09-04 07:27 | P.PNIM_ITS ---
Progress Note: A&P Assessment and Plan (1) Diverticulitis: Code(s): K57.92 - Diverticulitis of intestine, part unspecified, without perforation or abscess without bleeding Status: Acute Assessment and Plan: * CT Abd/pelvis: Mild esophagitis/gastritis. Mid sigmoid diverticulitis or colitis (on an infectious, inflammatory, or ischemic basis). Stercoral colitis could also be considered given the prominent amount of feces in this location. * Continue ceftriaxone, Flagyl * P.r.n. pain regimen * NS 100 cc/hour * Protonix q.a.m. * Clear liquid diet-advance as tolerated * Monitor vital signs, I&Os, track stool output, watch for bloody stools, neuro status and patient is a fall risk * Monitor serum electrolytes and CBC * Diet: Clear liquid * GI consult, appreciate further recommendations * Continue antibiotics -switched to oral Levaquin and Flagyl on Friday * Monitor for further bowel movements * Follow-up in the outpatient setting to prevent further recurrences * Overall symptomatology improving, tolerating oral feedings at this time (2) Anxiety: Code(s): F41.9 - Anxiety disorder, unspecified Status: Acute Assessment and Plan: * Not currently on any medication (3) Gout: Code(s): M10.9 - Gout, unspecified Status: Acute Assessment and Plan: * Continue allopurinol 100 mg (4) Hyperlipidemia: Code(s): E78.5 - Hyperlipidemia, unspecified Status: Acute Assessment and Plan: * Continue atorvastatin Subjective Date/time seen: 09/04/24 07:27 Interval history: 58-year-old female with a history of [id number] diabetes, gout, anemia, depression and anxiety who presents with abdominal pain for over a month now. She was diagnosed with diverticulitis and nonobstructing kidney stone he previously but reports he has not been resolution of her pain. 09/04/2024 Patient sitting comfortably in bed at time of examination. Reports improvement of right-sided abdominal pain, but still endorses some underlying discomfort. Still also endorses some slight nausea but again states that this is improved since yesterday. Panic continuing IV antibiotic regimen until tomorrow with transition to oral antibiotics. Anticipation of discharge on Friday on oral levofloxacin and Flagyl. Review of Systems Review of Systems: All systems reviewed & are unremarkable except as noted in HPI and below (Subjective/HPI) Exam Const: General: comfortable and no acute distress HENMT: Mouth: Yes moist mucous membranes Eyes: Pupils: Equal, round and reactive pupils present Neck: Neck: supple Resp: Effort & Inspection: normal respiratory effort Auscultation: clear to auscultation bilaterally Cardio: Rate: regular rate Rhythm: regular rhythm Heart sounds: no gallops, no murmurs and no rubs GI: Inspection: non-distended Auscultation: normal bowel sounds : General: Yes bladder normal to palpation Bimanual exam- vagina & uterus: bladder normal to palpation Neuro: Cranial nerves: Yes Equal, round and reactive pupils present Motor exam (neuro): 5/5 motor strength present throughout Extrem: General: no edema Objective Data Vital Signs Vital Signs: Vital Signs - 24 hr 09/03/24 08:00 09/03/24 14:00 09/03/24 21:58 Temperature 98.3 F 97.8 F Pulse Rate 81 78 Respiratory Rate 16 18 Blood Pressure 119/53 L 115/44 L Pulse Oximetry 96 98 Oxygen Delivery Room Air 09/04/24 06:00 Temperature 96.8 F L Pulse Rate 81 Respiratory Rate 18 Blood Pressure 119/56 L Pulse Oximetry 97 Oxygen Delivery Intake/Output Intake/Output: Intake & Output 09/01/24 09/02/24 09/03/24 09/04/24 23:59 23:59 23:59 23:59 Intake Total 1150 3440 1281.7 Balance 1150 3440 1281.7 Meds/Results Medications: Active Medications Generic Name Dose Route Start Last Admin Trade Name Freq PRN Reason Stop Dose Admin Acetaminophen 650 mg 09/03/24 05:30 09/04/24 05:42 Acetaminophen 325 Mg Tablet PO 650 mg Q6H PRN Administration Mild Pain (1-3) or Fever Allopurinol 100 mg 09/03/24 09:00 09/03/24 08:44 Allopurinol 100 Mg Tablet PO 100 mg DAILY PRAKASH Administration Atorvastatin Calcium 20 mg 09/03/24 22:00 Atorvastatin 20 Mg Tablet PO DAILY PRAKASH Calcium Carbonate 200 mg 09/02/24 22:33 09/03/24 15:58 Calcium Carbonate (Tums) 500 Mg (200 Mg Elemental) PO 200 mg PRN PRN Administration Heartburn Hydromorphone HCl 0.5 mg 09/02/24 16:51 Hydromorphone Hcl Inj (*Crx) 2 Mg/Ml Vial IV PUSH Q4H PRN Pain Rated 7-10 Ceftriaxone Sodium 1 gm/ 50 mls @ 100 mls/hr 09/03/24 17:00 09/03/24 19:39 Sodium Chloride IVPB Infused Q24H PRAKASH Infusion Metronidazole 500 mg in 100 mls @ 100 mls/hr 09/03/24 00:00 09/04/24 01:59 Flagyl 500 Mg/Iso Soln 100 Ml IVPB Infused Q8H PRAKASH Infusion Sodium Chloride 1,000 mls @ 100 mls/hr 09/02/24 23:40 09/04/24 05:41 Normal Saline Iv IV CONT 100 mls/hr .Q10H PRAKASH Administration Miscellaneous Information 1 each 09/04/24 00:01 Clarify Lipitor Dose--Med Rec. Comment States Pt Takes 40 Mg, But 20 Mg Dose Is Ordered. XX 10/04/24 00:00 CLARIFY PRAKASH Ondansetron HCl 4 mg 09/02/24 16:51 09/03/24 16:07 Ondansetron Inj 4 Mg/2 Ml Vial IV PUSH 4 mg Q4H PRN Administration Nausea Pantoprazole Sodium 40 mg 09/02/24 23:40 09/03/24 10:01 Pantoprazole Sodium Iv 40 Mg Vial IV PUSH 40 mg QAM PRAKASH Administration Polyethylene Glycol 17 gm 09/03/24 17:00 09/03/24 17:09 Polyethylene Glycol 3350 17 Gm Powd.Pack PO 17 gm BID PRAKASH Administration Vitamin D 10 mcg 09/03/24 09:00 09/03/24 08:44 Cholecalciferol (Vitamin D3) 10 Mcg (400 Units) Tablet PO 10 mcg DAILY PRAKASH Administration Radiology Results: ITS Impressions Abdomen/Pelvis CT 09/02/24 15:35 IMPRESSION: Multiple bilateral lobe pulmonary nodules measuring up to 6 mm prior recommendation for six-month follow-up CT is unchanged. Mild esophagitis/gastritis. Mid sigmoid diverticulitis or colitis (on an infectious, inflammatory, or ischemic basis). Stercoral colitis could also be considered given the prominent amount of feces in this location. Pelvic findings that can be seen with pelvic congestion. Correlate clinically for persistent dull pelvic pain lasting > 6 months, dysmenorrhea, dyspareunia, postcoital ache, and urinary symptoms. Quality VTE Prophylaxis VTE prophylaxis: mechanical ordered
[2024-09-04 08:01] LABS: Hematocrit 33.7 % (37.0-47.0); Hemoglobin 11.5 g/dL (12.0-15.0); Immature Granulocyte Percent A 0.5 % (0-0.5); Lymphocytes Absolute Auto 1.42 K/mm3 (0.9-3.2); Mean Corpuscular HGB Conc 34.1 g/dl (32-36); Mean Corpuscular Hemoglobin 32.6 pg (26-34); Mean Corpuscular Volume 95.5 fl (80-100); Nucleated Red Blood Cells Absolute Auto 0.000 K/mm3 (0.0-0.012); Nucleated Red Blood Cells Perc 0.0 % (0.0-0.2); Platelet Count Result 238 k/mm3 (150-375); Red Blood Count 3.53 M/mm3 (4.2-5.4); White Blood Count 8.6 K/mm3 (4.5-10.0)
[2024-09-04 08:33] LABS: Alanine Aminotransferase 11 U/L (6-35); Albumin Level 3.4 g/dL (3.5-5.1); Alkaline Phosphatase 89 U/L (38-126); Anion Gap 8 mmol/L (4-12); Aspartate Amino Transferase 24 U/L (14-36); Bilirubin,Total 0.3 mg/dL (0.2-1.3); Blood Urea Nitrogen 8 mg/dL (7-17); Calcium 8.5 mg/dL (8.4-10.2); Carbon Dioxide 23 mmol/L (22-30); Chloride 107 mmol/L (98-107); Estimated CRCL calculation 74 ml/min; Estimated Glomerular Filt Rate > 60; Glucose 96 mg/dL (65-110); Potassium 3.7 mmol/L (3.4-5.0); Sodium 138 mmol/L (137-145); Total Protein 6.8 g/dL (6.3-8.2)
[2024-09-04] MEDS: CHOLECALCIFEROL (VITAMIN D3) 10 MCG (400 UNITS) TABLET PO (09:37)
[2024-09-04] MEDS: PANTOPRAZOLE SODIUM IV 40 MG VIAL IV PUSH (09:37)
[2024-09-04] MEDS: ONDANSETRON INJ 4 MG/2 ML VIAL IV PUSH ×2 (09:43→19:47)
--- NOTE | 2024-09-04 11:28 | WPDGIPROGNO ---
Progress Note: A&P Assessment and Plan (1) Diverticulitis: Code(s): K57.92 - Diverticulitis of intestine, part unspecified, without perforation or abscess without bleeding Status: Acute Assessment and Plan: Patient feels better overall, less abdominal pain and tenderness. We'll continue the current antibiotic regimen through tomorrow. If she continues to improve, we anticipate discharge on Friday with oral levofloxacin and metronidazole, as she didn't tolerate Augmentin. Subjective Date/time seen: 09/04/24 11:28 Interval history: Much less abdominal pain today than yesterday. No nausea, tolerating oral feedings. Exam Narrative: Abdomen: Soft, tender only to deep palpation on left lower quadrant, no rebound. Rest of the exam unchanged. Objective Data Vital Signs Vital Signs: Vital Signs - 24 hr 09/03/24 14:00 09/03/24 21:58 09/04/24 06:00 Temperature 98.3 F 97.8 F 96.8 F L Pulse Rate 81 78 81 Respiratory Rate 16 18 18 Blood Pressure 119/53 L 115/44 L 119/56 L Pulse Oximetry 96 98 97 Oxygen Delivery 09/04/24 07:40 Temperature Pulse Rate Respiratory Rate Blood Pressure Pulse Oximetry Oxygen Delivery Room Air Intake/Output Intake/Output: Intake & Output 09/01/24 09/02/24 09/03/24 09/04/24 23:59 23:59 23:59 23:59 Intake Total 1150 3440 1881.7 Balance 1150 3440 1881.7 Meds/Results Medications: Active Medications Generic Name Dose Route Start Last Admin Trade Name Freq PRN Reason Stop Dose Admin Acetaminophen 650 mg 09/03/24 05:30 09/04/24 05:42 Acetaminophen 325 Mg Tablet PO 650 mg Q6H PRN Administration Mild Pain (1-3) or Fever Allopurinol 100 mg 09/03/24 09:00 09/04/24 09:37 Allopurinol 100 Mg Tablet PO 100 mg DAILY PRAKASH Administration Atorvastatin Calcium 40 mg 09/04/24 21:00 Atorvastatin 40 Mg Tablet PO HS PRAKASH Calcium Carbonate 200 mg 09/02/24 22:33 09/03/24 15:58 Calcium Carbonate (Tums) 500 Mg (200 Mg Elemental) PO 200 mg PRN PRN Administration Heartburn Hydromorphone HCl 0.5 mg 09/02/24 16:51 Hydromorphone Hcl Inj (*Crx) 2 Mg/Ml Vial IV PUSH Q4H PRN Pain Rated 7-10 Ceftriaxone Sodium 1 gm/ 50 mls @ 100 mls/hr 09/03/24 17:00 09/03/24 19:39 Sodium Chloride IVPB Infused Q24H PRAKASH Infusion Metronidazole 500 mg in 100 mls @ 100 mls/hr 09/03/24 00:00 09/04/24 10:37 Flagyl 500 Mg/Iso Soln 100 Ml IVPB Infused Q8H PRAKASH Infusion Sodium Chloride 1,000 mls @ 100 mls/hr 09/02/24 23:40 09/04/24 05:41 Normal Saline Iv IV CONT 100 mls/hr .Q10H PRAKASH Administration Ondansetron HCl 4 mg 09/02/24 16:51 09/04/24 09:43 Ondansetron Inj 4 Mg/2 Ml Vial IV PUSH 4 mg Q4H PRN Administration Nausea Pantoprazole Sodium 40 mg 09/02/24 23:40 09/04/24 09:37 Pantoprazole Sodium Iv 40 Mg Vial IV PUSH 40 mg QAM PRAKASH Administration Polyethylene Glycol 17 gm 09/03/24 17:00 09/04/24 09:37 Polyethylene Glycol 3350 17 Gm Powd.Pack PO 17 gm BID PRAKASH Administration Vitamin D 10 mcg 09/03/24 09:00 09/04/24 09:37 Cholecalciferol (Vitamin D3) 10 Mcg (400 Units) Tablet PO 10 mcg DAILY PRAKASH Administration Radiology Results: ITS Impressions Abdomen/Pelvis CT 09/02/24 15:35 IMPRESSION: Multiple bilateral lobe pulmonary nodules measuring up to 6 mm prior recommendation for six-month follow-up CT is unchanged. Mild esophagitis/gastritis. Mid sigmoid diverticulitis or colitis (on an infectious, inflammatory, or ischemic basis). Stercoral colitis could also be considered given the prominent amount of feces in this location. Pelvic findings that can be seen with pelvic congestion. Correlate clinically for persistent dull pelvic pain lasting > 6 months, dysmenorrhea, dyspareunia, postcoital ache, and urinary symptoms. Labs Labs: Laboratory Results - last 24 hr 09/04/24 07:54 WBC 8.6 RBC 3.53 L Hgb 11.5 L Hct 33.7 L MCV 95.5 MCH 32.6 MCHC 34.1 RDW 12.7 Plt Count 238 MPV 9.0 Immature Gran % (Auto) 0.5 Neut % (Auto) 73.7 H Lymph % (Auto) 16.6 L [place] % (Auto) 7.8 Eos % (Auto) 1.2 Baso % (Auto) 0.2 Lymph # (Auto) 1.42 [place] # (Auto) 0.7 H Eos # (Auto) 0.1 Baso # (Auto) 0.0 Abs Immat Gran (auto) 0.04 H Absolute Neuts (auto) 6.3 Absolute Nucleated RBC 0.000 Nucleated RBC % 0.0 Sodium 138 Potassium 3.7 Chloride 107 Carbon Dioxide 23 Anion Gap 8 BUN 8 D Creatinine 0.73 Estim Creat Clear Calc 74 Estimated GFR > 60 Glucose 96 Calcium 8.5 Total Bilirubin 0.3 AST 24 ALT 11 Alkaline Phosphatase 89 Total Protein 6.8 Albumin 3.4 L
[2024-09-04 14:15] VITALS: BP 111/81; PULSE 82; RESP 18; TEMP 36.3; O2SAT 99
[2024-09-04] MEDS: cefTRIAXone 1 GM in SODIUM CHLORIDE 0.9% IV 50 ML 100 ML IVPB (16:11)
[2024-09-04] MEDS: ATORVASTATIN 40 MG TABLET PO (19:44)
[2024-09-04 21:17] VITALS: O2SAT 99
[2024-09-04 21:53] VITALS: BP 128/63; PULSE 88; RESP 18; TEMP 36.4; O2SAT 99
[2024-09-05 05:38] LABS: Hematocrit 30.4 % (37.0-47.0); Hemoglobin 9.9 g/dL (12.0-15.0); Immature Granulocyte Percent A 0.5 % (0-0.5); Lymphocytes Absolute Auto 1.42 K/mm3 (0.9-3.2); Mean Corpuscular HGB Conc 32.6 g/dl (32-36); Mean Corpuscular Hemoglobin 31.8 pg (26-34); Mean Corpuscular Volume 97.7 fl (80-100); Nucleated Red Blood Cells Absolute Auto 0.000 K/mm3 (0.0-0.012); Nucleated Red Blood Cells Perc 0.0 % (0.0-0.2); Platelet Count Result 215 k/mm3 (150-375); Red Blood Count 3.11 M/mm3 (4.2-5.4); White Blood Count 6.5 K/mm3 (4.5-10.0)
[2024-09-05] MEDS: SODIUM CHLORIDE 0.9% IV 1,000 ML 100 ML IV CONT ×2 (05:42→20:56)
[2024-09-05 06:00] VITALS: BP 119/61; PULSE 81; RESP 18; TEMP 36.4; O2SAT 99
[2024-09-05 06:01] LABS: Alanine Aminotransferase 8 U/L (6-35); Albumin Level 3.0 g/dL (3.5-5.1); Alkaline Phosphatase 68 U/L (38-126); Anion Gap 4 mmol/L (4-12); Aspartate Amino Transferase 21 U/L (14-36); Bilirubin,Total 0.3 mg/dL (0.2-1.3); Blood Urea Nitrogen 5 mg/dL (7-17); Calcium 8.2 mg/dL (8.4-10.2); Carbon Dioxide 24 mmol/L (22-30); Chloride 110 mmol/L (98-107); Estimated CRCL calculation 78 ml/min; Estimated Glomerular Filt Rate > 60; Glucose 94 mg/dL (65-110); Potassium 3.5 mmol/L (3.4-5.0); Sodium 138 mmol/L (137-145); Total Protein 6.0 g/dL (6.3-8.2)
--- NOTE | 2024-09-05 08:00 | P.PNIM_ITS ---
Progress Note: A&P Assessment and Plan (1) Diverticulitis: Code(s): K57.92 - Diverticulitis of intestine, part unspecified, without perforation or abscess without bleeding Status: Acute Assessment and Plan: * CT Abd/pelvis: Mild esophagitis/gastritis. Mid sigmoid diverticulitis or colitis (on an infectious, inflammatory, or ischemic basis). Stercoral colitis could also be considered given the prominent amount of feces in this location. * Continue ceftriaxone, Flagyl * P.r.n. pain regimen * NS 100 cc/hour * Protonix q.a.m. * Clear liquid diet-advance as tolerated * Monitor vital signs, I&Os, track stool output, watch for bloody stools, neuro status and patient is a fall risk * Monitor serum electrolytes and CBC * Diet: Clear liquid * GI consult, appreciate further recommendations * Continue antibiotics -switched to oral Levaquin and Flagyl on Friday * Monitor for further bowel movements * Follow-up in the outpatient setting to prevent further recurrences * Overall symptomatology improving, tolerating oral feedings at this time * Will transition and advance diet as tolerated (2) Anxiety: Code(s): F41.9 - Anxiety disorder, unspecified Status: Acute Assessment and Plan: * Not currently on any medication (3) Gout: Code(s): M10.9 - Gout, unspecified Status: Acute Assessment and Plan: * Continue allopurinol 100 mg (4) Hyperlipidemia: Code(s): E78.5 - Hyperlipidemia, unspecified Status: Acute Assessment and Plan: * Continue atorvastatin Subjective Date/time seen: 09/05/24 08:00 Interval history: 58-year-old female with a history of [id number] diabetes, gout, anemia, depression and anxiety who presents with abdominal pain for over a month now. She was diagnosed with diverticulitis and nonobstructing kidney stone he previously but reports he has not been resolution of her pain. 09/05/2024 Patient sitting comfortably in bed at time of examination. Reports pain has improved significantly over the past 24 hours. Denies chest pain, shortness of breath, nausea/vomiting at this time. Will transition oral antibiotics today with anticipation for discharge tomorrow. Review of Systems 2 Review of Systems: All systems reviewed & are unremarkable except as noted in HPI and below (Subjective/HPI) Exam Const: General: comfortable and no acute distress HENMT: Mouth: Yes moist mucous membranes Eyes: Pupils: Equal, round and reactive pupils present Neck: Neck: supple Resp: Effort & Inspection: normal respiratory effort Auscultation: clear to auscultation bilaterally Cardio: Rate: regular rate Rhythm: regular rhythm Heart sounds: no gallops, no murmurs and no rubs GI: Inspection: non-distended Auscultation: normal bowel sounds : General: Yes bladder normal to palpation Bimanual exam- vagina & uterus: bladder normal to palpation Neuro: Cranial nerves: Yes Equal, round and reactive pupils present Motor exam (neuro): 5/5 motor strength present throughout Extrem: General: no edema Objective Data Vital Signs Vital Signs: Vital Signs - 24 hr 09/04/24 14:15 09/04/24 20:00 09/04/24 21:17 Temperature 97.4 F L Pulse Rate 82 Respiratory Rate 18 Blood Pressure 111/81 Pulse Oximetry 99 99 Oxygen Delivery Room Air Room Air 09/04/24 21:53 09/05/24 06:00 Temperature 97.6 F 97.5 F L Pulse Rate 88 81 Respiratory Rate 18 18 Blood Pressure 128/63 119/61 Pulse Oximetry 99 99 Oxygen Delivery Intake/Output Intake/Output: Intake & Output 09/02/24 09/03/24 09/04/24 09/05/24 23:59 23:59 23:59 23:59 Intake Total 1150 3440 4433.4 1388.3 Balance 1150 3440 4433.4 1388.3 Meds/Results Medications: Active Medications Generic Name Dose Route Start Last Admin Trade Name Freq PRN Reason Stop Dose Admin Acetaminophen 650 mg 09/03/24 05:30 09/04/24 19:44 Acetaminophen 325 Mg Tablet PO 650 mg Q6H PRN Administration Mild Pain (1-3) or Fever Allopurinol 100 mg 09/03/24 09:00 09/04/24 09:37 Allopurinol 100 Mg Tablet PO 100 mg DAILY PRAKASH Administration Atorvastatin Calcium 40 mg 09/04/24 21:00 09/04/24 19:44 Atorvastatin 40 Mg Tablet PO 40 mg HS PRAKASH Administration Calcium Carbonate 200 mg 09/02/24 22:33 09/03/24 15:58 Calcium Carbonate (Tums) 500 Mg (200 Mg Elemental) PO 200 mg PRN PRN Administration Heartburn Hydromorphone HCl 0.5 mg 09/02/24 16:51 Hydromorphone Hcl Inj (*Crx) 2 Mg/Ml Vial IV PUSH Q4H PRN Pain Rated 7-10 Ceftriaxone Sodium 1 gm/ 50 mls @ 100 mls/hr 09/03/24 17:00 09/04/24 16:41 Sodium Chloride IVPB Infused Q24H PRAKASH Infusion Metronidazole 500 mg in 100 mls @ 100 mls/hr 09/03/24 00:00 09/05/24 00:56 Flagyl 500 Mg/Iso Soln 100 Ml IVPB Infused Q8H PRAKASH Infusion Sodium Chloride 1,000 mls @ 100 mls/hr 09/02/24 23:40 09/05/24 05:42 Normal Saline Iv IV CONT 100 mls/hr .Q10H PRAKASH Administration Ondansetron HCl 4 mg 09/02/24 16:51 09/04/24 19:47 Ondansetron Inj 4 Mg/2 Ml Vial IV PUSH 4 mg Q4H PRN Administration Nausea Pantoprazole Sodium 40 mg 09/02/24 23:40 09/04/24 09:37 Pantoprazole Sodium Iv 40 Mg Vial IV PUSH 40 mg QAM PRAKASH Administration Polyethylene Glycol 17 gm 09/03/24 17:00 09/04/24 16:11 Polyethylene Glycol 3350 17 Gm Powd.Pack PO 17 gm BID PRAKASH Administration Vitamin D 10 mcg 09/03/24 09:00 09/04/24 09:37 Cholecalciferol (Vitamin D3) 10 Mcg (400 Units) Tablet PO 10 mcg DAILY PRAKASH Administration Radiology Results: ITS Impressions Abdomen/Pelvis CT 09/02/24 15:35 IMPRESSION: Multiple bilateral lobe pulmonary nodules measuring up to 6 mm prior recommendation for six-month follow-up CT is unchanged. Mild esophagitis/gastritis. Mid sigmoid diverticulitis or colitis (on an infectious, inflammatory, or ischemic basis). Stercoral colitis could also be considered given the prominent amount of feces in this location. Pelvic findings that can be seen with pelvic congestion. Correlate clinically for persistent dull pelvic pain lasting > 6 months, dysmenorrhea, dyspareunia, postcoital ache, and urinary symptoms. Labs Labs: Laboratory Results - last 24 hr 09/04/24 09/05/24 07:54 05:32 WBC 8.6 6.5 RBC 3.53 L 3.11 L Hgb 11.5 L 9.9 L Hct 33.7 L 30.4 L MCV 95.5 97.7 MCH 32.6 31.8 MCHC 34.1 32.6 RDW 12.7 12.9 Plt Count 238 215 MPV 9.0 9.0 Immature Gran % (Auto) 0.5 0.5 Neut % (Auto) 73.7 H 67.6 Lymph % (Auto) 16.6 L 21.8 [place] % (Auto) 7.8 8.0 Eos % (Auto) 1.2 1.8 Baso % (Auto) 0.2 0.3 Lymph # (Auto) 1.42 1.42 [place] # (Auto) 0.7 H 0.5 Eos # (Auto) 0.1 0.1 Baso # (Auto) 0.0 0.0 Abs Immat Gran (auto) 0.04 H 0.03 Absolute Neuts (auto) 6.3 4.4 Absolute Nucleated RBC 0.000 0.000 Nucleated RBC % 0.0 0.0 Sodium 138 138 Potassium 3.7 3.5 Chloride 107 110 H Carbon Dioxide 23 24 Anion Gap 8 4 BUN 8 D 5 L Creatinine 0.73 0.69 L Estim Creat Clear Calc 74 78 Estimated GFR > 60 > 60 Glucose 96 94 Calcium 8.5 8.2 L Total Bilirubin 0.3 0.3 AST 24 21 ALT 11 8 Alkaline Phosphatase 89 68 Total Protein 6.8 6.0 L Albumin 3.4 L 3.0 L Quality VTE Prophylaxis VTE prophylaxis: mechanical ordered
[2024-09-05] MEDS: metroNIDAZOLE 500 MG/ISO 100ML 500 MG/100 ML BAG 100 MG IVPB ×3 (09:08→23:46)
[2024-09-05] MEDS: CHOLECALCIFEROL (VITAMIN D3) 10 MCG (400 UNITS) TABLET PO (09:08)
[2024-09-05] MEDS: ACETAMINOPHEN 325 MG TABLET 650 MG PO (09:08)
[2024-09-05] MEDS: PANTOPRAZOLE SODIUM IV 40 MG VIAL IV PUSH (09:16)
--- NOTE | 2024-09-05 11:29 | P.PNGI_ITS ---
Progress Note: A&P Assessment and Plan (1) Diverticulitis: Code(s): K57.92 - Diverticulitis of intestine, part unspecified, without perforation or abscess without bleeding Status: Acute Assessment and Plan: The patient is doing better, much less abdominal pain and tenderness. She is currently receiving ceftriaxone and metronidazole. Will switch to levofloxacin and metronidazole orally tomorrow, with planning to discharge home. Diet advanced to regular today. Subjective Date/time seen: 09/05/24 11:29 Objective Data Vital Signs Vital Signs: Vital Signs - 24 hr 09/04/24 14:15 09/04/24 20:00 09/04/24 21:17 Temperature 97.4 F L Pulse Rate 82 Respiratory Rate 18 Blood Pressure 111/81 Pulse Oximetry 99 99 Oxygen Delivery Room Air Room Air 09/04/24 21:53 09/05/24 06:00 Temperature 97.6 F 97.5 F L Pulse Rate 88 81 Respiratory Rate 18 18 Blood Pressure 128/63 119/61 Pulse Oximetry 99 99 Oxygen Delivery Intake/Output Intake/Output: Intake & Output 09/02/24 09/03/24 09/04/24 09/05/24 23:59 23:59 23:59 23:59 Intake Total 1150 3440 4433.4 1748.3 Balance 1150 3440 4433.4 1748.3 Meds/Results Medications: Active Medications Generic Name Dose Route Start Last Admin Trade Name Freq PRN Reason Stop Dose Admin Acetaminophen 650 mg 09/03/24 05:30 09/05/24 09:08 Acetaminophen 325 Mg Tablet PO 650 mg Q6H PRN Administration Mild Pain (1-3) or Fever Allopurinol 100 mg 09/03/24 09:00 09/05/24 09:08 Allopurinol 100 Mg Tablet PO 100 mg DAILY PRAKASH Administration Atorvastatin Calcium 40 mg 09/04/24 21:00 09/04/24 19:44 Atorvastatin 40 Mg Tablet PO 40 mg HS PRAKASH Administration Calcium Carbonate 200 mg 09/02/24 22:33 09/03/24 15:58 Calcium Carbonate (Tums) 500 Mg (200 Mg Elemental) PO 200 mg PRN PRN Administration Heartburn Hydromorphone HCl 0.5 mg 09/02/24 16:51 Hydromorphone Hcl Inj (*Crx) 2 Mg/Ml Vial IV PUSH Q4H PRN Pain Rated 7-10 Ceftriaxone Sodium 1 gm/ 50 mls @ 100 mls/hr 09/03/24 17:00 09/04/24 16:41 Sodium Chloride IVPB Infused Q24H PRAKASH Infusion Metronidazole 500 mg in 100 mls @ 100 mls/hr 09/03/24 00:00 09/05/24 09:08 Flagyl 500 Mg/Iso Soln 100 Ml IVPB 100 mls/hr Q8H PRAKASH Administration Sodium Chloride 1,000 mls @ 100 mls/hr 09/02/24 23:40 09/05/24 05:42 Normal Saline Iv IV CONT 100 mls/hr .Q10H PRAKASH Administration Ondansetron HCl 4 mg 09/02/24 16:51 09/04/24 19:47 Ondansetron Inj 4 Mg/2 Ml Vial IV PUSH 4 mg Q4H PRN Administration Nausea Pantoprazole Sodium 40 mg 09/02/24 23:40 09/05/24 09:16 Pantoprazole Sodium Iv 40 Mg Vial IV PUSH 40 mg QAM PRAKASH Administration Polyethylene Glycol 17 gm 09/03/24 17:00 09/05/24 09:16 Polyethylene Glycol 3350 17 Gm Powd.Pack PO 17 gm BID PRAKASH Administration Vitamin D 10 mcg 09/03/24 09:00 09/05/24 09:08 Cholecalciferol (Vitamin D3) 10 Mcg (400 Units) Tablet PO 10 mcg DAILY PRAKASH Administration Radiology Results: ITS Impressions Abdomen/Pelvis CT 09/02/24 15:35 IMPRESSION: Multiple bilateral lobe pulmonary nodules measuring up to 6 mm prior recommendation for six-month follow-up CT is unchanged. Mild esophagitis/gastritis. Mid sigmoid diverticulitis or colitis (on an infectious, inflammatory, or ischemic basis). Stercoral colitis could also be considered given the prominent amount of feces in this location. Pelvic findings that can be seen with pelvic congestion. Correlate clinically for persistent dull pelvic pain lasting > 6 months, dysmenorrhea, dyspareunia, postcoital ache, and urinary symptoms. Labs Labs: Laboratory Results - last 24 hr 09/05/24 05:32 WBC 6.5 RBC 3.11 L Hgb 9.9 L Hct 30.4 L MCV 97.7 MCH 31.8 MCHC 32.6 RDW 12.9 Plt Count 215 MPV 9.0 Immature Gran % (Auto) 0.5 Neut % (Auto) 67.6 Lymph % (Auto) 21.8 [place] % (Auto) 8.0 Eos % (Auto) 1.8 Baso % (Auto) 0.3 Lymph # (Auto) 1.42 [place] # (Auto) 0.5 Eos # (Auto) 0.1 Baso # (Auto) 0.0 Abs Immat Gran (auto) 0.03 Absolute Neuts (auto) 4.4 Absolute Nucleated RBC 0.000 Nucleated RBC % 0.0 Sodium 138 Potassium 3.5 Chloride 110 H Carbon Dioxide 24 Anion Gap 4 BUN 5 L Creatinine 0.69 L Estim Creat Clear Calc 78 Estimated GFR > 60 Glucose 94 Calcium 8.2 L Total Bilirubin 0.3 AST 21 ALT 8 Alkaline Phosphatase 68 Total Protein 6.0 L Albumin 3.0 L
[2024-09-05 14:00] VITALS: BP 98/52; PULSE 83; RESP 16; TEMP 36.3; O2SAT 95
[2024-09-05] MEDS: cefTRIAXone 1 GM in SODIUM CHLORIDE 0.9% IV 50 ML 100 ML IVPB (17:54)
[2024-09-05] MEDS: ATORVASTATIN 40 MG TABLET PO (20:55)
[2024-09-05 22:00] VITALS: BP 115/60; PULSE 80; RESP 18; TEMP 36.8; O2SAT 98
[2024-09-06 06:00] VITALS: BP 118/63; PULSE 76; RESP 18; TEMP 36.8; O2SAT 99
[2024-09-06 06:31] LABS: Hematocrit 30.8 % (37.0-47.0); Hemoglobin 9.9 g/dL (12.0-15.0); Immature Granulocyte Percent A 0.8 % (0-0.5); Lymphocytes Absolute Auto 1.39 K/mm3 (0.9-3.2); Mean Corpuscular HGB Conc 32.1 g/dl (32-36); Mean Corpuscular Hemoglobin 31.8 pg (26-34); Mean Corpuscular Volume 99.0 fl (80-100); Nucleated Red Blood Cells Absolute Auto 0.000 K/mm3 (0.0-0.012); Nucleated Red Blood Cells Perc 0.0 % (0.0-0.2); Platelet Count Result 234 k/mm3 (150-375); Red Blood Count 3.11 M/mm3 (4.2-5.4); White Blood Count 5.1 K/mm3 (4.5-10.0)
[2024-09-06 06:53] LABS: Alanine Aminotransferase 10 U/L (6-35); Albumin Level 2.9 g/dL (3.5-5.1); Alkaline Phosphatase 71 U/L (38-126); Anion Gap 7 mmol/L (4-12); Aspartate Amino Transferase 22 U/L (14-36); Bilirubin,Total 0.2 mg/dL (0.2-1.3); Blood Urea Nitrogen 3 mg/dL (7-17); Calcium 8.2 mg/dL (8.4-10.2); Carbon Dioxide 24 mmol/L (22-30); Chloride 110 mmol/L (98-107); Estimated CRCL calculation 80 ml/min; Estimated Glomerular Filt Rate > 60; Glucose 100 mg/dL (65-110); Potassium 3.3 mmol/L (3.4-5.0); Sodium 141 mmol/L (137-145); Total Protein 6.0 g/dL (6.3-8.2)
--- NOTE | 2024-09-06 07:19 | WPDGIPROGNO ---
Progress Note: A&P Assessment and Plan (1) Diverticulitis: Code(s): K57.92 - Diverticulitis of intestine, part unspecified, without perforation or abscess without bleeding Status: Acute Assessment and Plan: Patient with acute diverticulitis, resolved with IV antibiotics. Since she is tolerating regular diet, no fever and pain, she can be safely discharged home. Recommended Regimen: Levofloxacin 750 mg once a day plus metronidazole 500 mg every 8 hours , both for for 10 days. Plan - d/c home on the above described antibiotic regimen (10 days ) - Please arrange for urology follow up as an outpatient for kidney stones Subjective Date/time seen: 09/06/24 07:19 Interval history: Patient doing well, tolerated regular diet. Exam Narrative: Unchanged from yesterday's. Objective Data Vital Signs Vital Signs: Vital Signs - 24 hr 09/05/24 14:00 09/05/24 22:00 09/06/24 06:00 Temperature 97.3 F L 98.2 F 98.3 F Pulse Rate 83 80 76 Respiratory Rate 16 18 18 Blood Pressure 98/52 L 115/60 118/63 Pulse Oximetry 95 98 99 Intake/Output Intake/Output: Intake & Output 09/03/24 09/04/24 09/05/24 09/06/24 23:59 23:59 23:59 23:59 Intake Total 3440 4433.4 3478.3 550 Balance 3440 4433.4 3478.3 550 Meds/Results Medications: Active Medications Generic Name Dose Route Start Last Admin Trade Name Freq PRN Reason Stop Dose Admin Acetaminophen 650 mg 09/03/24 05:30 09/05/24 09:08 Acetaminophen 325 Mg Tablet PO 650 mg Q6H PRN Administration Mild Pain (1-3) or Fever Allopurinol 100 mg 09/03/24 09:00 09/05/24 09:08 Allopurinol 100 Mg Tablet PO 100 mg DAILY PRAKASH Administration Atorvastatin Calcium 40 mg 09/04/24 21:00 09/05/24 20:55 Atorvastatin 40 Mg Tablet PO 40 mg HS PRAKASH Administration Calcium Carbonate 200 mg 09/02/24 22:33 09/03/24 15:58 Calcium Carbonate (Tums) 500 Mg (200 Mg Elemental) PO 200 mg PRN PRN Administration Heartburn Hydromorphone HCl 0.5 mg 09/02/24 16:51 Hydromorphone Hcl Inj (*Crx) 2 Mg/Ml Vial IV PUSH Q4H PRN Pain Rated 7-10 Ceftriaxone Sodium 1 gm/ 50 mls @ 100 mls/hr 09/03/24 17:00 09/05/24 18:24 Sodium Chloride IVPB Infused Q24H PRAKASH Infusion Metronidazole 500 mg in 100 mls @ 100 mls/hr 09/03/24 00:00 09/05/24 23:46 Flagyl 500 Mg/Iso Soln 100 Ml IVPB 100 mls/hr Q8H PRAKASH Administration Sodium Chloride 1,000 mls @ 100 mls/hr 09/02/24 23:40 09/05/24 20:56 Normal Saline Iv IV CONT 100 mls/hr .Q10H PRAKASH Administration Ondansetron HCl 4 mg 09/02/24 16:51 09/04/24 19:47 Ondansetron Inj 4 Mg/2 Ml Vial IV PUSH 4 mg Q4H PRN Administration Nausea Pantoprazole Sodium 40 mg 09/02/24 23:40 09/05/24 09:16 Pantoprazole Sodium Iv 40 Mg Vial IV PUSH 40 mg QAM PRAKASH Administration Polyethylene Glycol 17 gm 09/03/24 17:00 09/05/24 16:27 Polyethylene Glycol 3350 17 Gm Powd.Pack PO Not Given BID PRAKASH Vitamin D 10 mcg 09/03/24 09:00 09/05/24 09:08 Cholecalciferol (Vitamin D3) 10 Mcg (400 Units) Tablet PO 10 mcg DAILY PRAKASH Administration Radiology Results: ITS Impressions Abdomen/Pelvis CT 09/02/24 15:35 IMPRESSION: Multiple bilateral lobe pulmonary nodules measuring up to 6 mm prior recommendation for six-month follow-up CT is unchanged. Mild esophagitis/gastritis. Mid sigmoid diverticulitis or colitis (on an infectious, inflammatory, or ischemic basis). Stercoral colitis could also be considered given the prominent amount of feces in this location. Pelvic findings that can be seen with pelvic congestion. Correlate clinically for persistent dull pelvic pain lasting > 6 months, dysmenorrhea, dyspareunia, postcoital ache, and urinary symptoms. Labs Labs: Laboratory Results - last 24 hr 09/06/24 06:11 Sodium 141 Potassium 3.3 L Chloride 110 H Carbon Dioxide 24 Anion Gap 7 BUN 3 L Creatinine 0.67 L Estim Creat Clear Calc 80 Estimated GFR > 60 Glucose 100 Calcium 8.2 L Total Bilirubin 0.2 AST 22 ALT 10 Alkaline Phosphatase 71 Total Protein 6.0 L Albumin 2.9 L
[2024-09-06] MEDS: POTASSIUM CHLORIDE 20 MEQ ER TABLET PO (07:53)
[2024-09-06] MEDS: metroNIDAZOLE 500 MG/ISO 100ML 500 MG/100 ML BAG 100 MG IVPB (07:53)
[2024-09-06] MEDS: CHOLECALCIFEROL (VITAMIN D3) 10 MCG (400 UNITS) TABLET PO (08:07)
[2024-09-06] MEDS: PANTOPRAZOLE SODIUM IV 40 MG VIAL IV PUSH (09:08)
--- NOTE | 2024-09-06 09:31 | P.DS_ITS ---
DS: Admitting Diagnosis Discharge Date 09/06/2024 Admitting Diagnosis Diverticulitis DS: Discharge Diagnosis Discharge Diagnosis (1) Diverticulitis: Code(s): K57.92 - Diverticulitis of intestine, part unspecified, without perforation or abscess without bleeding Status: Acute (2) Anxiety: Code(s): F41.9 - Anxiety disorder, unspecified Status: Acute (3) Gout: Code(s): M10.9 - Gout, unspecified Status: Acute (4) Hyperlipidemia: Code(s): E78.5 - Hyperlipidemia, unspecified Status: Acute DS: Summary Hospital Course Reason for hospitalization: Abdominal pain Hospital Course: 58-year-old female with a history of [id number] diabetes, gout, anemia, depression and anxiety who presents with abdominal pain for over a month now. She was diagnosed with diverticulitis and nonobstructing kidney stone he previously but reports he has not been resolution of her pain. Had constipation for 10 days as she has not been able to eat much. Every time she eats she cannot hold it down. ER evaluation vital signs acceptable/within normal limits. WBC 10.1, sodium 136, serum creatinine 0.83, glucose 127, lactic acid 1, she is urinalysis with 6-10 wbc's, few squamous cells. Abdomen pelvis CT demonstrating esophagitis, mid sigmoid diverticulitis or colitis. An additional findings. She was given ceftriaxone and metronidazole, hydromorphone, 1 L normal saline bolus. GI consulted regarding diverticulitis. Recommended continuing IV antibiotics with a bowel cleanout and starting bowel regimen with MiraLax b.i.d.. The also recommended the patient follow-up in the outpatient setting for prevention of recurrences. Changed PPI to oral and continued 40 mg upon discharge. They will also discuss possible need for EGD at follow-up appointment. Throughout hospitalization, patient continued to feel better with less abdominal pain and tenderness and denied any nausea/vomiting. IV antibiotics were continued throughout the weekend and she continued to improve. On 09/06, she denied any symptoms whatsoever and physical exam was benign/reassuring. GI cleared patient for discharge with appropriate follow-up in the outpatient setting and will have the patient be discharged on oral levofloxacin and metronidazole. She is amenable to this plan and wishes to be discharged. Blood work and vital signs remained stable. Plan for discharge home with GI follow-up and a follow-up appointment recommended for her PCP. It is also recommended that she follow up with Urology in the outpatient setting for the presence of kidney stones found on imaging. Patient understands this and we will plan for discharge at this time. Status at Discharge Functional status at discharge: independent ambulation Overall status at discharge: patient is back to baseline Time Spent with Patient Time attestation: Total time spent providing and/or coordinating discharge services: 42 Exam Const: General: comfortable and no acute distress HENMT: Mouth: Yes moist mucous membranes Eyes: Pupils: Equal, round and reactive pupils present Neck: Neck: supple Resp: Effort & Inspection: normal respiratory effort Auscultation: clear to auscultation bilaterally Cardio: Rate: regular rate Rhythm: regular rhythm Heart sounds: no gallops, no murmurs and no rubs GI: Inspection: non-distended GI Palp: Yes Soft to palpation, No Tenderness to palpation present (GI) and No Guarding due to palpation present (GI) Auscultation: normal bowel sounds : General: Yes bladder normal to palpation Bimanual exam- vagina & uterus: bladder normal to palpation Neuro: Cranial nerves: Yes Equal, round and reactive pupils present Motor exam (neuro): 5/5 motor strength present throughout Extrem: General: no edema DS: Data Data Completed and Pending Labs on day of discharge: Labs from last 24 hours 09/06/24 06:11 WBC 5.1 RBC 3.11 L Hgb 9.9 L Hct 30.8 L MCV 99.0 MCH 31.8 MCHC 32.1 RDW 12.8 Plt Count 234 MPV 9.2 Immature Gran % (Auto) 0.8 H Neut % (Auto) 61.0 Lymph % (Auto) 27.5 [place] % (Auto) 6.5 Eos % (Auto) 3.8 Baso % (Auto) 0.4 Lymph # (Auto) 1.39 [place] # (Auto) 0.3 Eos # (Auto) 0.2 Baso # (Auto) 0.0 Abs Immat Gran (auto) 0.04 H Absolute Neuts (auto) 3.1 Absolute Nucleated RBC 0.000 Nucleated RBC % 0.0 Sodium 141 Potassium 3.3 L Chloride 110 H Carbon Dioxide 24 Anion Gap 7 BUN 3 L Creatinine 0.67 L Estim Creat Clear Calc 80 Estimated GFR > 60 Glucose 100 Calcium 8.2 L Total Bilirubin 0.2 AST 22 ALT 10 Alkaline Phosphatase 71 Total Protein 6.0 L Albumin 2.9 L Discharge Plan Discharge Attending physician on discharge: Rashaad Fontanez Consulting providers: Rashawn Ring Discharging Clinician: Rashawn Ring Anticipated Discharge Date/Time: 09/06/24 09:27 Patient Disposition: Home Activity: as tolerated Diet: heart healthy Discharge Instructions: Discharge disposition: Home Take medications as prescribed. He will be prescribed levofloxacin 750 mg to be taken once daily plus metronidazole 500 mg to be taken every 8 hours. Both these will be prescribed for 10 total days. Monitor blood pressures Take caution while standing, rising, or moving Change positions slowly taking a break between each position change If you standing feel dizzy sit back down and take a break Encouraged to continue with yearly vaccinations Return to the emergency department if he developed sudden shortness of breath, chest pain, nausea, vomiting, upset stomach or intractable diarrhea Return to the emergency department if you develop fever greater than 101.5 Follow-up with the primary care physician within 1-2 weeks Thank you for [facility] for your healthcare needs Patient Instructions: Antibiotic Form Patient Language: Chinese Stand Alone Forms: General Discharge Information Follow-up/Referrals: Michael Biggs MD [Physician] - Veras,MD Salvador [Primary Care Provider] - Aaron Saleh MD [Physician] - Discharge Medications: New levofloxacin 750 mg tablet 750 mg PO DAILY 10 Days Qty: 10 0RF metronidazole 500 mg tablet 500 mg PO Q8H 10 Days Qty: 30 0RF Continued allopurinol 100 mg tablet 100 mg PO DAILY Jardiance 10 mg tablet 25 mg PO DAILY Patient Comments: TAKES 25MG DAILY atorvastatin 20 mg tablet 20 mg PO DAILY Patient Comments: TAKES 40 MG AT HS cholecalciferol (vitamin D3) 10 mcg (400 unit) capsule 10 mcg PO DAILY Rybelsus 3 mg tablet 3 mg PO DAILY calcium carbonate [Tums] 200 mg calcium (500 mg) Tablet,Chewable 200 mg PO PRN PRN (Reason: Heartburn) ibuprofen 800 mg tablet 800 mg PO Q6H PRN (Reason: pain) Qty: 30 0RF Patient Comments: TAKES 400MG PRN FOR PAIN ondansetron 4 mg tablet,disintegrating 4 mg PO Q8H PRN (Reason: nausea and vomiting) Qty: 14 0RF Date of admission: 09/03/24 15:59 Primary Care Provider: Rito,Salvador Admitting Provider: Erica Gonzalez Attending physician on admission: Erica Gonzalez Condition: Stable Quality VTE Prophylaxis VTE prophylaxis: mechanical ordered
== END 2024-09-06 10:10 | disposition home or self-care (01) | DRG 392 ==
LOC: ANHED 16:54 → ANH3MEDSUR 17:53
PROVIDERS: Admitting Provider Internal Medicine; Emergency Provider Emergency Medicine; PCP Family Medicine; Visit Provider Physician Assistant
DX: K57.32 Diverticulitis of large intestine without perforation or abscess without bleeding (principal); M10.9 Gout, unspecified; E78.5 Hyperlipidemia, unspecified; F41.8 Other specified anxiety disorders; D64.9 Anemia, unspecified; E11.9 Type 2 diabetes mellitus without complications; K29.70 Gastritis, unspecified, without bleeding; K20.90 Esophagitis, unspecified without bleeding; R63.4 Abnormal weight loss; Z87.891 Personal history of nicotine dependence; Z96.652 Presence of left artificial knee joint; Z90.49 Acquired absence of other specified parts of digestive tract
CPT/HCPCS: 36415; 74177; 80053; 81001; 83605; 83690; 83735; 85025; 87086; 96361; 96365; 96367; 96375; 99285; A9270; G0378; J0696; J1171; J1836; J2405; J2470; J7030; Q9967